=== PATIENT | female | born 1950 | race African-American/Black ===

== ENCOUNTER 2016-10-21 09:17 | Inpatient (IN) | payer OTHER, MEDICARE ==
[~2016-10-21] VITALS: Ht 165.1 cm; Wt 67.6 kg
[~2016-10-21 09:17] MED LIST: AMLODIPINE BES2.5 MG ORAL; ASPIRIN-LOW81 MG ORAL; CARDIZEM CD120 MG ORAL; CLOPIDOGREL75 MG ORAL; FOLIC ACID1 MG ORAL; IMDUR30 MG ORAL; ISOSORBIDE DINIT5 MG ORAL; LISINOPRIL10 MG ORAL; METOPROLOL TART25 MG ORAL; MONTELUKAST SOD10 MG ORAL; NITROSTAT0.3 MG SL; NORCO 10-325 T1 EACH ORAL; NORVASC10 MG ORAL; PANTOPRAZOLE SO40 MG ORAL; PRILOSEC20 MG ORAL; PRINIVIL20 MG ORAL; PROAIR HFA8.5 GM INH; TOPROL XL100 MG ORAL; TRAMADOL HCL50 MG ORAL; VENTOLIN HFA18 GM INH; XANAX1 MG ORAL; ZOCOR10 MG ORAL
[2016-10-21 09:30] VITALS: BP 166/78
[2016-10-21] MEDS ORDERED: UNOBMED (09:57)
[2016-10-21] MEDS ORDERED: Metoclopramide 10mg/2ml Inj IVP ONE (10:00)
[2016-10-21 10:02] LABS: APPEARANCE,URINE SLIGHTLY CLOUDY; KETONES,URINE 3+ (NEGATIVE); LEUKOCYTE ESTERASE ,URINE 1+ (NEGATIVE); NITRITE,URINE NEGATIVE (NEGATIVE); PH,URINE 5 (4.5-8.0); PROTEIN,URINE 2+ (NEGATIVE); UROBILINOGEN,URINE 1 MG/DL (0.0-1.0)
[2016-10-21] MEDS ORDERED: Tubing IV Cassette IV ONE (10:03)
[2016-10-21 10:13] LABS: BASOPHILS % (AUTO) 0.7 % (0.0-2.0); EOSINOPHILS % (AUTO) 0.9 % (0.0-3.0); LYMPHOCYTES % (AUTO) 17.6 % (20.0-45.0); MEAN CORPUSCULAR HEMOGLOBIN 31.9 PG (27.0-31.0); MEAN CORPUSCULAR HGB CONC 31.7 G/DL (32.0-36.0); MEAN CORPUSCULAR VOLUME 101 FL (80-99); MEAN PLATELET VOLUME 8.3 FL (6.5-10.1); NEUTROPHILS % (AUTO) 74.8 % (45.0-75.0); PLATELET COUNT 249 K/UL (150-450); RED BLOOD COUNT 5.07 M/UL (4.20-5.40); RED CELL DISTRIBUTION WIDTH 12.1 % (11.6-14.8); WHITE BLOOD COUNT 12.2 K/UL (4.8-10.8)
--- NOTE | 2016-10-21 10:19 | Emergency Room Report ---
History of Present Illness General Chief Complaint: Abdominal Pain Source: Patient, EMS Present Illness HPI 66 YO F with history of SBO presents with nausea/vomiting, generalized 9/10 sharp non-radiating abd pain worse over last night and no BM for 7 days. Denies fever/chills. Also c/o polyuria. Denies chest pain , SOB. Didnt take anything OTC for pain. She cant remember if she had operation for SBO - EMR states she was transferred. Allergies: Coded Allergies: CODEINE (Unverified Allergy, Unknown, 03/24/14) Patient History Past Medical History: none Past Surgical History: aliya, other - SBO Pertinent Family History: none Social History: Denies: alcohol use, drug use, smoking Now: No Immunizations: UTD Reviewed Nursing Documentation: PMH: Agreed, PSxH: Agreed Nursing Documentation-PMH Past Medical History: No History, Except For Hx Cardiac Problems: Yes - [place] 2007 Hx Hypertension: Yes Hx Asthma: Yes Hx COPD: Yes Hx Cancer: Yes - lung Hx Gastrointestinal Problems: No Hx Neurological Problems: Yes Hx Dizziness: Yes Hx Syncope: Yes - 2013 Hx Headaches: Yes Hx Weakness: Yes Hx Fatigue: Yes Review of Systems All Other Systems: negative except mentioned in HPI Physical Exam Vital Signs Date Time Temp Pulse Resp B/P Pulse Ox O2 Delivery O2 Flow Rate FiO2 10/21/16 09:11 98.2 87 18 187/100 100 Room Air Sp02 EP Interpretation: reviewed, abnormal General Appearance: normal inspection, well appearing, alert, GCS 15, non-toxic , moderate distress Head: normocephalic, atraumatic Eyes: bilateral eye EOMI, bilateral eye PERRL ENT: normal ENT inspection, hearing grossly normal, normal voice Neck: normal inspection, full range of motion, supple, no bony tend Respiratory: normal inspection, lungs clear, normal breath sounds, no respiratory distress, no retraction, no wheezing Cardiovascular #1: regular rate, rhythm, no edema Gastrointestinal: normal inspection, normal bowel sounds, soft, no guarding, no hernia, no pulsatile mass, no rebound, guarding Genitourinary: no CVA tenderness Musculoskeletal: normal inspection, back normal, normal range of motion, Ty' s Sign negative Neurologic: normal inspection, alert, responsive, speech normal Psychiatric: normal inspection, judgement/insight normal, mood/affect normal Skin: normal inspection, normal color, no rash Medical Decision Making Medicare Attestation I Anuj Lui MD hereby attest that the medical record entry for date of service, 08/30/16 accurately reflects signatures/notations that I made in my capacity as MD when I treated/diagnosed the above listed Medicare beneficiary. I attest that this information is true, accurate and complete to the best of my knowledge. I understand that any falsification, omission, or concealment of material fact may subject me to administrative, civil, or criminal liability. This patient warrants hospital admission for extreme of age and has a condition that cannot be treated as outpatient. Diagnostic Impression: Primary Impression: Abdominal pain Qualified Codes: R10.84 - Generalized abdominal pain Additional Impressions: Nausea vomiting and diarrhea Hydronephrosis of right kidney ER Course Abd pain with involuntary guarding. History of SBO. VS notable for hypertension, likely d/t pain. Concernign for recurrent SBO given no BM for 7 days PLAN: Labs, Lactate, analgesia, CTAP, reassess EKG Diagnostic Results Rate: normal Rhythm: NSR ST Segments: no acute changes ASA given to the pt in ED: No Rhythm Strip Diag. Results EP Interpretation: yes Rate: 70. Rhythm: NSR, no PVC's, no ectopy Chest X-Ray Diagnostic Results EP Interpretation: Yes Findings: no consolidation, no effusion, no pneumothorax, no acute cardiopulmonary disease Number of Views: 1 Reevaluation Time: 14:41 Last Vital Signs Date Time Temp Pulse Resp B/P Pulse Ox O2 Delivery O2 Flow Rate FiO2 10/21/16 09:30 77 18 166/78 99 Room Air 10/21/16 09:11 98.2 Status: improved Reevaluation Impression labs: leuks 12k. lactate 0.6 total bili and LFTs normal Trop 0 UA gross hematuria, no UTI CTAP: "Moderate right hydronephrosis, new 05/24/2016, without definite obstructing lesion identified. Extrahepatic biliary ductal dilatation, without evidence of downstream obstruction lesion, also evident previously. Most likely related to age and postcholecystectomy state. However, degree of distention and presence of central intrahepatic biliary dilatation appears slightly increased since the prior study, and downstream obstruction not completely excludable. not definitely cystic." No SBO Incidental: 2.2 x 1.2 cm right lung lesion, present since 2014, be slightly larger than on that exam. Patient still with significant abdominal pain. Doubt SBO. Doubt cardiac cause given EKG normal and Troponin 0. ?post cholecystectomy syndrome but bili and WBC normal. Endorsed to Dr Lyn at 3pm for med/surg admission/obs over night Disposition: ADMITTED INPATIENT Condition: Serious Referrals: NOT CHOSEN IPA/,REFERRING (PCP) ANUJ LUI M.D. Oct 21, 2016 10:19
[2016-10-21 10:24] LABS: TROPONIN I < 0.30 ng/mL (<=0.30)
[2016-10-21 10:25] LABS: ALANINE AMINOTRANSFERASE 5 U/L (3-33); ALBUMIN/GLOBULIN RATIO 1.4 (1.0-2.7); ANION GAP 19 (5-15); ASPARTATE AMINO TRANSFERASE 15 U/L (5-40); CALCIUM 11.3 mg/dL (8.6-10.2); CARBON DIOXIDE 21 mEQ/L (20-30); CHLORIDE 103 mEQ/L (98-107); CREATININE 0.9 mg/dL (0.5-0.9); GLOMERULAR FILTRATION RATE > 60 mL/min (>60); HEMOLYSIS 11; LIPASE 17 U/L (< 60); POTASSIUM 4.6 mEQ/L (3.4-4.9); SODIUM 143 mEQ/L (135-145); TOTAL PROTEIN 7.2 g/dL (6.6-8.7)
[2016-10-21 10:26] LABS: BACTERIA,URINE FEW /HPF; RBC,URINE 30-40 /HPF (0 - 2); SQUAMOUS EPITHELIAL CELL,UR FEW /LPF (NONE/OCC)
[2016-10-21] MEDS ORDERED: Morphine Sulfate 4mg/ml Inj IVP ONE (10:30)
[2016-10-21 12:00] VITALS: BP 163/74
--- NOTE | 2016-10-21 14:16 | Diagnostic Imaging Report ---
Clinical Indication: Abdominal pain 66-year-old female with history of small bowel obstruction, nausea, vomiting, diabetic and sharp nonradiating abdominal pain, no bowel movement for 7 days Technique: No oral contrast utilized, per emergency room physician request IV administration nonionic contrast. Venous phase spiral acquisition obtained through the abdomen and pelvis. Multiplanar reconstructions were generated. Total dose length product 844 mGycm. CTDIvol(s) 17 mGy Comparison: 05/24/2016 Findings: There is interim development of moderate right hydronephrosis. There is ectasia of only the most proximal portion of the right ureter. There is no perinephric fat stranding. No definite ureteral calculi are evident, although multiple other calcifications within the pelvis preclude complete exclusion of such. There is slight prominence of the left renal pelvis and collecting system, although is not frankly hydronephrotic. There is 3 mm calculus in the right lower pole collecting system. This was not visible previously, although a calculus was visible in the upper pole on the prior exam which is not evident currently. Right kidney demonstrates subcentimeter low-attenuation lesions which are too small to characterize, most likely benign simple cysts. In addition, there is a lesion in the upper pole of the right kidney which is approximately 1 cm diameter, possibly but not definitely cystic. This is also evident previously, does appear unchanged. Lack of enteric contrast limits assessment of the bowel. There is colonic diverticulosis. No evidence of diverticulitis. The appendix is normal. The distal esophagus and stomach are unremarkable. No small bowel distention. No free or loculated intraperitoneal air or fluid is demonstrated. The gallbladder is surgically absent. There is dilatation of the, common bile duct, which measures 13 mm diameter. This is also evident previously. No downstream obstruction lesion is demonstrated. However, there is mild central intrahepatic biliary ductal dilatation which is more striking than on the prior study. The pancreatic duct is also ectatic. The liver itself is unremarkable. The pancreas is atrophic. The spleen, adrenals are unremarkable. The uterus is not demonstrated, presumed surgically absent. No pelvic mass or adenopathy. What are probably normal ovaries are demonstrated. The right lung base again demonstrates a triangular soft tissue mass adjacent to the inferior major fissure, which is somewhat irregular in shape, measures 2.2 x 1.2 cm, appears similar in size to the previous exam. This was also evident on prior study of 12/18/2014. It is slightly more prominent than the heart is enlarged. The bones demonstrate degenerative changes of the lumbar spine. On that exam. Impression: Moderate right hydronephrosis, new 05/24/2016, without definite obstructing lesion identified. Consider retrograde ureterography for better characterization. There is also mild fullness to the left renal collecting system, without hydronephrosis, which is also new since the previous study. Extrahepatic biliary ductal dilatation, without evidence of downstream obstruction lesion, also evident previously. Most likely related to age and postcholecystectomy state. However, degree of distention and presence of central intrahepatic biliary dilatation appears slightly increased since the prior study, and downstream obstruction not completely excludable. Consider MRCP for better characterization 1 cm diameter lesion in the upper pole the right kidney, appears stable, likely but not definitely cystic. Further evaluation with ultrasound should be considered. 2.2 x 1.2 cm right lung lesion, present since 2014, be slightly larger than on that exam. Suspect postinflammatory, but neoplasm not completely excludable and further followup is recommended Degenerative spondylosis Evidence of prior hysterectomy Colonic diverticulosis. No evidence -- of diverticulitis No evidence of small bowel obstruction Findings discussed by phone with Dr. Barnett in the emergency room at the time of interpretation The CT scanner at [facility] is accredited by the [employer] and the scans are performed using protocols designed to limit radiation exposure to as low as reasonably achievable to attain images of sufficient resolution adequate for diagnostic evaluation.
[2016-10-21] MEDS ORDERED: HYDROmorphone 1 MG, DiphenhydrAMINE 25 MG in NS 55 ML IVPB ONE (15:15)
[2016-10-21 15:22] VITALS: BP 148/62
[2016-10-21] MEDS ORDERED: HYDROmorphone 1mg/ml Carpuject ONE (15:34)
[2016-10-21] MEDS ORDERED: DiphenhydrAMINE 50mg/ml Inj ONE (15:34)
[2016-10-21 16:45] VITALS: BP 162/81
[2016-10-21] MEDS ORDERED: Nitroglycerin Subl 0.4mg tab (Bottle Of 25) SL PRN (18:00)
[2016-10-21] MEDS ORDERED: Norco 10mg/325mg tab ORAL PRN (18:00)
[2016-10-21] MEDS ORDERED: traMADol 50mg tab ORAL PRN (18:00)
[2016-10-21] MEDS: Norco 10mg/325mg tab ORAL PRN (18:42)
[2016-10-21] MEDS: Potassium Chloride 30 MEQ in 1/2 NS 1000ml 1,000 ML IV SCH (19:45)
[2016-10-21] MEDS: ALPRAZolam 0.5mg tab ORAL PRN (20:38)
[2016-10-21] MEDS: Labetalol 200mg tab ORAL SCH (20:39)
[2016-10-21 23:48] VITALS: BP 159/89
[2016-10-22] MEDS: Norco 10mg/325mg tab ORAL PRN ×6 (01:06→22:45)
[2016-10-22 04:00] VITALS: BP 126/52
[2016-10-22] MEDS: Potassium Chloride 30 MEQ in 1/2 NS 1000ml 1,000 ML IV SCH ×2 (07:40→22:04)
[2016-10-22 08:26] VITALS: BP 125/57
[2016-10-22] MEDS ORDERED: Metoprolol XL 100mg tab ORAL SCH (09:00)
[2016-10-22] MEDS: Aspirin Baby 81mg NG SCH (09:00)
[2016-10-22] MEDS: Labetalol 200mg tab ORAL SCH ×2 (09:00→20:25)
[2016-10-22] MEDS ORDERED: ALPRAZolam 0.5mg tab ORAL SCH (09:00)
[2016-10-22] MEDS: Lisinopril 20mg tab ORAL SCH (09:02)
[2016-10-22] MEDS: Montelukast 10mg tablet ORAL SCH (09:02)
[2016-10-22] MEDS: Diltiazem CD 120mg cap ORAL SCH (09:03)
[2016-10-22] MEDS: Imdur 30mg tab ORAL SCH (09:07)
--- NOTE | 2016-10-22 10:03 | Diagnostic Imaging Report ---
Indication: Chest pain Technique: One view of the chest Comparison: 05/24/2016 Findings: The lungs and pleural spaces are clear. The heart size is upper limits normal. Aorta is calcified. There are bursal calcifications in the shoulders bilaterally again demonstrated. There is no significant interim change Impression: No acute process
[2016-10-22] MEDS ORDERED: NS 55ml IV ONE (10:31)
[2016-10-22 11:55] VITALS: BP 127/55
--- NOTE | 2016-10-22 12:57 | History and Physical Report ---
DATE OF ADMISSION: 10/21/2016 CHIEF COMPLAINT: Abdominal pain. HISTORY OF PRESENT ILLNESS: This is a 66-year-old female, who is well known to me from previous admission to this hospital in April 2016. The patient has been complaining of diffuse nonspecific abdominal pain. The patient has history of narcotic dependence. Primary physician is Dr. Blue at [facility]. She is admitted for pain control. The patient since admission has been demanding to get through to receive intravenous narcotics. PAST MEDICAL HISTORY: 1. Urolithiasis. 2. Chronic low back pain. 3. Chronic obstructive pulmonary disease. 4. Hypertensive cardiovascular disease. MEDICATIONS: List is very long and [place], albuterol inhaler, Xanax, amlodipine, baby aspirin, Plavix, diltiazem, folic acid, Imdur, lisinopril, metoprolol, Montelukast, nitroglycerin, omeprazole, Protonix, simvastatin, and tramadol. ALLERGIES: The patient claims that she is allergic to codeine, but upon further questioning, it is not a true allergy, but rather side effect expressed her nausea and vomiting. FAMILY HISTORY: Unremarkable. SOCIAL HISTORY: She lives at home. HABITS: She is nonsmoker and nondrinker. There is no history of illicit drug abuse. REVIEW OF SYSTEMS: HEENT: Hearing and eyesight are normal. Endocrine: No history of diabetes, thyroid, or adrenal problems. Respiratory: She denies shortness of breath, cough, or hemoptysis. Cardiovascular: She denies chest pain or palpitations. Gastrointestinal: No history of hematochezia, melena, hematemesis, diarrhea, or constipation. Genitourinary: She denies dysuria, frequency, urgency, or hematuria. Neurologic: No history of stroke, syncope, or Parkinson disease. PHYSICAL EXAMINATION: GENERAL: This is an elderly female, who is in no acute distress. VITAL SIGNS: Blood pressure 160/80, pulse 80 regular, respirations 20, and temperature 98.0 degrees. HEENT: The head is normocephalic and atraumatic. Pupils are equal, round, and reactive to light and accommodation consensually. NECK: Supple. Trachea midline. There was no lymphadenopathy or thyromegaly. LUNGS: Clear to auscultation and percussion. HEART: Regular rate and rhythm without rubs, murmurs, or gallops. ABDOMEN: Soft. Bowel sounds active. EXTREMITIES: No clubbing, cyanosis, or edema. NEUROLOGIC: She is alert and oriented x4. Cranial nerves II through XII are are intact. LABORATORY AND ANCILLARY DATA: EKG, normal sinus rhythm, no signs of ischemia. Chest x-ray, no acute disease. . CT abdomen and pelvis with contrast shows moderate right hydronephrosis with ectasia of the most proximal portion of the right ureter. There is a 1 cm in diameter. The gallbladder is surgically absent. Conclusion, there is a moderate right hydronephrosis since April 2016 without definite obstructive lesion. There is a 1 cm diameter lesion in the upper pole of the right kidney. There is a cm right lung lesion and the present since 2014. ASSESSMENT: 1. Right hydronephrosis new finding, etiology significance unclear. 2. Right lung mass etiology significance unclear. None of these lesions can explain the patient's symptoms. 3. . PLAN: 1. Urology and Pulmonary consults. 2. Intravenous fluids. 3. Continue home medications. 4. Pain control. 5. Transferred to [facility] when asked. Osiris Cassidy M.D. DR: MARLY JOB#: [id number] CC:
[2016-10-22] MEDS: Docusate 250mg cap ORAL SCH ×2 (13:18→17:22)
[2016-10-22 16:00] VITALS: BP 114/60
--- NOTE | 2016-10-22 17:01 | Consultation ---
Consult Note Consult Note REASON FOR CONSULT: lung mass HISTORY OF PRESENT ILLNESS: 66-year-old female, previously admitted in April 2016. The patient with diffuse nonspecific abdominal pain. The patient has history of narcotic dependence. She is admitted for pain control but also underwent a CT of abdomen and noted to have a lung mass. She denies any history of cough,hemoptysis. Findings suggest size has enlarged in size overall. no weight loss reported. no prior history of malignancy noted The patient demanding intravenous narcotics. PAST MEDICAL HISTORY: 1. Urolithiasis. 2. Chronic low back pain. 3. Chronic obstructive pulmonary disease. 4. Hypertensive cardiovascular disease. 5. prior lung nodule 6. hypertension 7. high cholesterol 8. chronic opiod dependence 9. GERD MEDICATIONS: reviewed ALLERGIES: noted FAMILY HISTORY: Unremarkable. SOCIAL HISTORY: at home; disabled; unemployed HABITS: She is nonsmoker and nondrinker. There is no history of illicit drug abuse. REVIEW OF SYSTEMS: all 10 points reviewed and otherwise negative PHYSICAL EXAMINATION: GENERAL: elderly female, who is in no acute distress. VITAL SIGNS: Blood pressure 160/80, pulse 80 regular, respirations 20, and temperature 98.0 degrees. HEENT: The head is normocephalic and atraumatic. Pupils are equal, round, and reactive to light and accommodation consensually. oropharynx clear NECK: Supple. Trachea midline. no lymph nodes LUNGS: Clear to auscultation and percussion. no rhonchi or wheeze HEART: Regular rate and rhythm without rubs, murmurs, or gallops. ABDOMEN: Soft. Bowel sounds active. no HSM EXTREMITIES: No clubbing, cyanosis, or edema. NEUROLOGIC: She is alert and oriented x4. nonfocal LABORATORY AND ANCILLARY DATA: EKG, normal sinus rhythm, no signs of ischemia. Chest x-ray, no acute disease. CT abdomen and pelvis with contrast shows there is a moderate right hydronephrosis since April 2016 without definite obstructive lesion. There is a 1 cm diameter lesion in the upper pole of the right kidney. There is a 2 cm right lung lesion previously noted in 2014. ASSESSMENT: 1. Right hydronephrosis 2. Right lung mass 3. Chronic pain 4. hypertension 5. hypercholesterolemia 6. GERD PLAN: 1. Pain management 2. CT chest 3. Outpatient PET 4. review prior scans 5. CT guided biopsy vs. navigational bronchoscopy 6. metastatic work up if indicated TAMARA AGUERO Oct 22, 2016 17:01
[2016-10-22 20:15] VITALS: BP 112/51
[2016-10-22] MEDS: ALPRAZolam 0.5mg tab ORAL PRN (20:24)
[2016-10-22] MEDS: traMADol 50mg tab ORAL PRN (20:25)
[2016-10-23] VITALS: BP 96/48
--- NOTE | 2016-10-23 01:17 | Consultation ---
DATE OF CONSULTATION: 10/22/2016 CONSULTING PHYSICIAN: Eduardo Moar M.D. REFERRING PHYSICIAN: Osiris Cassidy M.D. REASON FOR CONSULTATION: For the evaluation of hydronephrosis. HISTORY OF PRESENT ILLNESS: This is a 66-year-old female, who was admitted to the hospital because of abdominal pain. The patient had a workup including CT scan, which showed right-sided hydronephrosis. Urology evaluation is requested. Apparently, the patient does have a history of nephrolithiasis. The patient states that the pain is diffuse. She is actually complaining of more pain on the left side of her abdomen, left flank, and mostly epigastric. She has some urinary frequency. PAST MEDICAL HISTORY: Significant for above. Also chronic low back pain, COPD, and hypertension. PAST SURGICAL HISTORY: She has had a cholecystectomy and hysterectomy. CURRENT MEDICATIONS: Here in the hospital, the patient is on Ultram, Colace, Norvasc, aspirin, Plavix, Cardizem, folate, Imdur, Prinivil, singular, Protonix, [place], Zofran, Lipitor, Normodyne, Xanax, Tylenol, and nitroglycerin. ALLERGIES: To codeine. SOCIAL HISTORY: She is currently a nonsmoker. REVIEW OF SYSTEMS: As above. FAMILY HISTORY: Noncontributory. PHYSICAL EXAMINATION: GENERAL: The patient is an elderly female, in no acute distress. VITAL SIGNS: Temperature is 98.1, blood pressure 140/60, pulse 60, and respirations 21. HEENT: Normocephalic. NECK: Supple. ABDOMEN: Soft. BACK: No CVA tenderness. EXTREMITIES: No clubbing or cyanosis. LABORATORY DATA: UA showed 30 to 40 RBCs, 2+ protein, white count is 12.2, hemoglobin 15.2, and platelets are 249, BUN is 10 and creatinine 0.9. Potassium 4.6. DIAGNOSTIC IMAGING STUDIES: The patient had a CT scan of abdomen and pelvis. There was mention of moderate right-sided hydronephrosis without any definite obstructive lesion or stone seen on the ureter. There was also mention of fullness in the left renal collecting system. There is mention of renal cyst as well as nonobstructive renal calculi. There was also mention of a mass of the right lung base, which apparently was evident on previous studies also. IMPRESSION: 1. Right-sided hydronephrosis. 2. Nephrolithiasis. 3. Renal cysts. 4. Hematuria. 5. Proteinuria. 6. Urinary frequency. Plan And Discussion: Again as noted above, the patient does have some right-sided hydronephrosis and fullness of the left collecting system. By CT scan, there was no mention of any perinephric fat stranding. I am not sure if the hydronephrosis is obstructive. There are no stones in the ureter. She does have abdominal pain which is diffuse and not localized. I am not sure if the pain has anything to do with hydronephrosis. The renal function is stable. She does however have likely hematuria. At this time, I would recommend checking a bladder scan 03:36 Allan catheter. At some point, she will need to have cystoscopy possibly retrograde pyelogram for further evaluation. This can be done on an elective basis once she is more medically stable. I will follow the patient. Any other recommendations will be forthcoming. Thank you, Dr. Downs, for asking me to . Bonny Castro JOB#: [id number] CC: Osiris Cassidy M.D.; Fax#: [phone] Solomon M.D. ; Fax#: [phone]
[2016-10-23] MEDS: Norco 10mg/325mg tab ORAL PRN ×3 (03:56→13:22)
[2016-10-23 04:00] VITALS: BP 142/61
[2016-10-23 08:00] VITALS: BP 133/64
[2016-10-23] MEDS: Aspirin Baby 81mg NG SCH (08:55)
[2016-10-23] MEDS: Diltiazem CD 120mg cap ORAL SCH (08:55)
[2016-10-23] MEDS: Docusate 250mg cap ORAL SCH ×2 (08:55→17:56)
[2016-10-23] MEDS: Imdur 30mg tab ORAL SCH (08:56)
[2016-10-23] MEDS: Labetalol 200mg tab ORAL SCH ×2 (08:57→20:54)
[2016-10-23] MEDS: Montelukast 10mg tablet ORAL SCH (09:02)
[2016-10-23] MEDS: Lisinopril 20mg tab ORAL SCH (09:02)
[2016-10-23] MEDS: Potassium Chloride 30 MEQ in 1/2 NS 1000ml 1,000 ML IV SCH (11:36)
[2016-10-23 11:49] VITALS: BP 125/62
--- NOTE | 2016-10-23 12:02 | Pulmonology Progress Note ---
Assessment/Plan Assessment/Plan ASSESSMENT: 1. Right hydronephrosis 2. Right lung mass 3. Chronic pain 4. hypertension 5. hypercholesterolemia 6. GERD PLAN await CT continue same pain control monitor clinically and discuss findings reviewed with patient impression, plan, and exam edited and reviewed in detail care discussed with RN Subjective Allergies: Coded Allergies: CODEINE (Unverified Allergy, Unknown, 03/24/14) Subjective care noted awaiting CT Objective Last 24 Hour Vital Signs Date Time Temp Pulse Resp B/P Pulse Ox O2 Delivery O2 Flow Rate FiO2 10/23/16 11:49 96.3 60 18 125/62 100 Room Air 10/23/16 09:02 124/65 10/23/16 08:57 63 124/65 10/23/16 08:57 63 124/65 10/23/16 08:56 124/65 10/23/16 08:55 63 124/65 10/23/16 08:00 97.5 80 18 133/64 97 Room Air 10/23/16 04:00 98.4 71 20 142/61 98 Room Air 10/23/16 00:00 97.3 61 20 96/48 95 Room Air 10/22/16 21:24 98.4 10/22/16 20:25 56 112/51 10/22/16 20:15 98.4 56 19 112/51 98 Room Air 10/22/16 18:22 98.4 10/22/16 16:00 98.1 60 21 114/60 98 Room Air Bad tableObjective GENERAL: elderly female, who is in no acute distress. HEENT: The head is normocephalic and atraumatic. Pupils are equal, round, and reactive to light and accommodation consensually. oropharynx clear NECK: Supple. Trachea midline. no lymph nodes LUNGS: Clear to auscultation and percussion. no rhonchi or wheeze HEART: Regular rate and rhythm without rubs, murmurs, or gallops. ABDOMEN: Soft. Bowel sounds active. no HSM EXTREMITIES: No clubbing, cyanosis, or edema. NEUROLOGIC: She is alert and oriented x4. nonfocal Microbiology Date/Time Source Procedure Growth Status 10/21/16 15:40 Nasal Nares MRSA Culture - Final NO METHICILLIN RESISTANT STAPH AUREUS... Complete 10/22/16 05:00 Straight Cath Urine Culture - Preliminary NO GROWTH AFTER 24 HOURS Resulted 1/26/17 15:40 Rectum VRE Culture - Final NO VANCOMYCIN RESISTANT ENTEROCOCCUS ... Complete Current Medications Medications (Trade) Dose Ordered Sig/Janee Route PRN Reason Start Time Stop Time Status Last Admin Dose Admin Acetaminophen (Tylenol) 650 mg Q6H PRN ORAL Mild Pain/Temp > 100.5 10/21/16 18:00 11/20/16 17:59 Acetaminophen/ Hydrocodone Bitart ([place] 10/325) 1 ea Q4H PRN ORAL SEVERE PAIN 10/21/16 22:00 10/28/16 21:59 10/23/16 09:03 Alprazolam (Xanax) 1 mg Q6H PRN ORAL anxiety 10/21/16 20:00 10/28/16 19:59 10/22/16 20:24 Amlodipine Besylate (Norvasc) 10 mg DAILY ORAL 10/22/16 09:00 11/21/16 08:59 10/23/16 08:57 Aspirin (ASA) 81 mg DAILY NG 10/22/16 09:00 11/21/16 08:59 10/23/16 08:55 Atorvastatin Calcium (Lipitor) 5 mg BEDTIME ORAL 10/21/16 21:00 11/20/16 20:59 10/22/16 20:25 Clopidogrel Bisulfate (Plavix) 75 mg DAILY ORAL 10/22/16 09:00 11/21/16 08:59 10/23/16 08:57 Diltiazem HCl (Cardizem CD) 120 mg DAILY ORAL 10/22/16 09:00 11/21/16 08:59 10/23/16 08:55 Docusate Sodium (Colace) 250 mg BID ORAL 10/22/16 12:30 11/21/16 12:29 10/23/16 08:55 Folic Acid (Folate) 1 mg DAILY ORAL 10/22/16 09:00 11/21/16 08:59 10/23/16 08:56 Isosorbide Mononitrate (Imdur) 30 mg DAILY ORAL 10/22/16 09:00 11/21/16 08:59 10/23/16 08:56 Labetalol HCl (Normodyne) 200 mg Q12HR ORAL 10/21/16 21:00 11/20/16 20:59 10/23/16 08:57 Lisinopril (Prinivil) 40 mg DAILY ORAL 10/22/16 09:00 11/21/16 08:59 10/23/16 09:02 Montelukast Sodium (Singulair) 10 mg DAILY ORAL 10/22/16 09:00 11/21/16 08:59 10/23/16 09:02 Nitroglycerin (Ntg) 0.4 mg Q5MIN X 3 DOSES PRN SL Prn Chest Pain 10/21/16 18:00 11/20/16 17:59 Ondansetron HCl (Zofran ODT) 4 mg Q6H PRN ORAL Nausea & Vomiting 10/21/16 21:15 11/20/16 21:14 10/22/16 16:06 Pantoprazole (Protonix) 40 mg DAILY ORAL 10/22/16 09:00 11/21/16 08:59 10/23/16 09:02 Potassium Chloride/Sodium Chloride (KCl/0.45% NS 1000ml) 1,015 ml @ 75 mls/hr [id number] IV 10/21/16 19:00 11/20/16 18:59 10/21/16 19:45 Tramadol HCl (Ultram) 50 mg Q6H PRN ORAL MODERATE PAIN 10/22/16 18:37 10/29/16 18:36 10/22/16 20:25 TAMARA AGUERO Oct 23, 2016 12:02
--- NOTE | 2016-10-23 13:20 | General Progress Note ---
Assessment/Plan Assessment/Plan Nonspecific Abd Pain. Rt hydronephrosis - Urology w/u. Subjective Allergies: Coded Allergies: CODEINE (Unverified Allergy, Unknown, 03/24/14) Subjective Still c/o diffuse abd. pain Objective Last 24 Hour Vital Signs Date Time Temp Pulse Resp B/P Pulse Ox O2 Delivery O2 Flow Rate FiO2 10/23/16 11:49 96.3 60 18 125/62 100 Room Air 10/23/16 09:02 124/65 10/23/16 08:57 63 124/65 10/23/16 08:57 63 124/65 10/23/16 08:56 124/65 10/23/16 08:55 63 124/65 10/23/16 08:00 97.5 80 18 133/64 97 Room Air 10/23/16 04:00 98.4 71 20 142/61 98 Room Air 10/23/16 00:00 97.3 61 20 96/48 95 Room Air 10/22/16 21:24 98.4 10/22/16 20:25 56 112/51 10/22/16 20:15 98.4 56 19 112/51 98 Room Air 10/22/16 18:22 98.4 10/22/16 16:00 98.1 60 21 114/60 98 Room Air Bad tableHeight (Feet): 5 Height (Inches): 5.00 Weight (Pounds): 149 Objective Cv RR Lungs CTA Abd SNT. BS + E No EVELIOE ZE KEMP Oct 23, 2016 13:20
--- NOTE | 2016-10-23 15:50 | Urology Progress Note ---
Assessment/Plan Assessment/Plan 1. Right-sided hydronephrosis. 2. Nephrolithiasis. 3. Renal cysts. 4. Hematuria. 5. Proteinuria. 6. Urinary frequency. monitor clinically abdominal pain does not appear to be in origin f/u on urine cx Subjective Allergies: Coded Allergies: CODEINE (Unverified Allergy, Unknown, 03/24/14) Subjective feels fair, PVR 26 cc by nurse report Objective Last 24 Hour Vital Signs Date Time Temp Pulse Resp B/P Pulse Ox O2 Delivery O2 Flow Rate FiO2 10/23/16 11:49 96.3 60 18 125/62 100 Room Air 10/23/16 09:02 124/65 10/23/16 08:57 63 124/65 10/23/16 08:57 63 124/65 10/23/16 08:56 124/65 10/23/16 08:55 63 124/65 10/23/16 08:00 97.5 80 18 133/64 97 Room Air 10/23/16 04:00 98.4 71 20 142/61 98 Room Air 10/23/16 00:00 97.3 61 20 96/48 95 Room Air 10/22/16 21:24 98.4 10/22/16 20:25 56 112/51 10/22/16 20:15 98.4 56 19 112/51 98 Room Air 10/22/16 18:22 98.4 10/22/16 16:00 98.1 60 21 114/60 98 Room Air Bad table Microbiology Date/Time Source Procedure Growth Status 10/21/16 15:40 Nasal Nares MRSA Culture - Final NO METHICILLIN RESISTANT STAPH AUREUS... Complete 10/22/16 05:00 Straight Cath Urine Culture - Preliminary NO GROWTH AFTER 24 HOURS Resulted 10/21/16 15:40 Rectum VRE Culture - Final NO VANCOMYCIN RESISTANT ENTEROCOCCUS ... Complete Current Medications Medications (Trade) Dose Ordered Sig/Janee Route PRN Reason Start Time Stop Time Status Last Admin Dose Admin Acetaminophen (Tylenol) 650 mg Q6H PRN ORAL Mild Pain/Temp > 100.5 10/21/16 18:00 11/20/16 17:59 Acetaminophen/ Hydrocodone Bitart ([place] 10/325) 1 ea Q4H PRN ORAL SEVERE PAIN 10/21/16 22:00 10/28/16 21:59 10/23/16 13:22 Alprazolam (Xanax) 1 mg Q6H PRN ORAL anxiety 10/21/16 20:00 10/28/16 19:59 10/22/16 20:24 Amlodipine Besylate (Norvasc) 10 mg DAILY ORAL 10/22/16 09:00 11/21/16 08:59 10/23/16 08:57 Aspirin (ASA) 81 mg DAILY NG 10/22/16 09:00 11/21/16 08:59 10/23/16 08:55 Atorvastatin Calcium (Lipitor) 5 mg BEDTIME ORAL 10/21/16 21:00 11/20/16 20:59 10/22/16 20:25 Clopidogrel Bisulfate (Plavix) 75 mg DAILY ORAL 10/22/16 09:00 11/21/16 08:59 10/23/16 08:57 Diltiazem HCl (Cardizem CD) 120 mg DAILY ORAL 10/22/16 09:00 11/21/16 08:59 10/23/16 08:55 Docusate Sodium (Colace) 250 mg BID ORAL 10/22/16 12:30 11/21/16 12:29 10/23/16 08:55 Folic Acid (Folate) 1 mg DAILY ORAL 10/22/16 09:00 11/21/16 08:59 10/23/16 08:56 Isosorbide Mononitrate (Imdur) 30 mg DAILY ORAL 10/22/16 09:00 11/21/16 08:59 10/23/16 08:56 Labetalol HCl (Normodyne) 200 mg Q12HR ORAL 10/21/16 21:00 11/20/16 20:59 10/23/16 08:57 Lisinopril (Prinivil) 40 mg DAILY ORAL 10/22/16 09:00 11/21/16 08:59 10/23/16 09:02 Montelukast Sodium (Singulair) 10 mg DAILY ORAL 10/22/16 09:00 11/21/16 08:59 10/23/16 09:02 Nitroglycerin (Ntg) 0.4 mg Q5MIN X 3 DOSES PRN SL Prn Chest Pain 10/21/16 18:00 11/20/16 17:59 Ondansetron HCl (Zofran ODT) 4 mg Q6H PRN ORAL Nausea & Vomiting 10/21/16 21:15 11/20/16 21:14 10/22/16 16:06 Pantoprazole (Protonix) 40 mg DAILY ORAL 10/22/16 09:00 11/21/16 08:59 10/23/16 09:02 Potassium Chloride/Sodium Chloride (KCl/0.45% NS 1000ml) 1,015 ml @ 75 mls/hr [id number] IV 10/21/16 19:00 11/20/16 18:59 10/21/16 19:45 Tramadol HCl (Ultram) 50 mg Q6H PRN ORAL MODERATE PAIN 10/22/16 18:37 10/29/16 18:36 10/22/16 20:25 Height (Feet): 5 Height (Inches): 5.00 Weight (Pounds): 149 Objective exam stable ANGEL RIVERA Oct 23, 2016 15:50
[2016-10-23 16:00] VITALS: BP 117/62
[2016-10-23] MEDS: traMADol 50mg tab ORAL PRN (17:57)
[2016-10-23] MEDS: ALPRAZolam 0.5mg tab ORAL PRN (17:57)
[2016-10-23 20:00] VITALS: BP 126/60
[2016-10-24 00:09] VITALS: BP 118/67
[2016-10-24] MEDS: Potassium Chloride 30 MEQ in 1/2 NS 1000ml 1,000 ML IV SCH (01:08)
[2016-10-24 04:00] VITALS: BP 138/64
--- NOTE | 2016-10-24 06:12 | Pulmonology Progress Note ---
Assessment/Plan Assessment/Plan ASSESSMENT: 1. Right hydronephrosis 2. Right lung mass 3. Chronic pain 4. hypertension 5. hypercholesterolemia 6. GERD PLAN await CT patient aware of lung nodule and need for follow up continue same pain control monitor clinically and discuss findings reviewed with patient may dc with outpatient work up as will need PET as well impression, plan, and exam edited and reviewed in detail care discussed with RN Subjective Allergies: Coded Allergies: CODEINE (Unverified Allergy, Unknown, 03/24/14) Subjective care noted awaiting CT asking for pain medications Objective Last 24 Hour Vital Signs Date Time Temp Pulse Resp B/P Pulse Ox O2 Delivery O2 Flow Rate FiO2 10/24/16 04:00 96.8 63 20 138/64 100 Room Air 10/24/16 00:09 97.2 72 18 118/67 98 Room Air 10/23/16 20:54 61 117/62 10/23/16 20:00 97.5 67 18 126/60 97 Room Air 10/23/16 16:00 98.2 61 18 117/62 99 Room Air 10/23/16 11:49 96.3 60 18 125/62 100 Room Air 10/23/16 09:02 124/65 10/23/16 08:57 63 124/65 10/23/16 08:57 63 124/65 10/23/16 08:56 124/65 10/23/16 08:55 63 124/65 10/23/16 08:00 97.5 80 18 133/64 97 Room Air Intake and Output 10/23/16 10/24/16 19:00 07:00 Intake Total 480 ml Balance 480 ml Intake Oral 480 ml # Voids 2 Objective GENERAL: elderly female, who is in no acute distress. HEENT: The head is normocephalic and atraumatic. Pupils are equal, round, and reactive to light and accommodation consensually. oropharynx clear NECK: Supple. Trachea midline. no lymph nodes LUNGS: Clear to auscultation and percussion. no rhonchi or wheeze HEART: Regular rate and rhythm without rubs, murmurs, or gallops. ABDOMEN: Soft. Bowel sounds active. no HSM EXTREMITIES: No clubbing, cyanosis, or edema. NEUROLOGIC: She is alert and oriented x4. nonfocal Microbiology Date/Time Source Procedure Growth Status 10/21/16 15:40 Nasal Nares MRSA Culture - Final NO METHICILLIN RESISTANT STAPH AUREUS... Complete 10/22/16 05:00 Straight Cath Urine Culture - Preliminary NO GROWTH AFTER 24 HOURS Resulted 10/21/16 15:40 Rectum VRE Culture - Final NO VANCOMYCIN RESISTANT ENTEROCOCCUS ... Complete Current Medications Medications (Trade) Dose Ordered Sig/Janee Route PRN Reason Start Time Stop Time Status Last Admin Dose Admin Acetaminophen (Tylenol) 650 mg Q6H PRN ORAL Mild Pain/Temp > 100.5 10/21/16 18:00 11/20/16 17:59 Acetaminophen/ Hydrocodone Bitart ([place] 10/325) 1 ea Q4H PRN ORAL SEVERE PAIN 10/21/16 22:00 10/28/16 21:59 10/23/16 13:22 Alprazolam (Xanax) 1 mg Q6H PRN ORAL anxiety 10/21/16 20:00 10/28/16 19:59 10/23/16 17:57 Amlodipine Besylate (Norvasc) 10 mg DAILY ORAL 10/22/16 09:00 11/21/16 08:59 10/23/16 08:57 Aspirin (ASA) 81 mg DAILY NG 10/22/16 09:00 11/21/16 08:59 10/23/16 08:55 Atorvastatin Calcium (Lipitor) 5 mg BEDTIME ORAL 10/21/16 21:00 11/20/16 20:59 10/23/16 20:53 Clopidogrel Bisulfate (Plavix) 75 mg DAILY ORAL 10/22/16 09:00 11/21/16 08:59 10/23/16 08:57 Diltiazem HCl (Cardizem CD) 120 mg DAILY ORAL 10/22/16 09:00 11/21/16 08:59 10/23/16 08:55 Docusate Sodium (Colace) 250 mg BID ORAL 10/22/16 12:30 11/21/16 12:29 10/23/16 17:56 Folic Acid (Folate) 1 mg DAILY ORAL 10/22/16 09:00 11/21/16 08:59 10/23/16 08:56 Isosorbide Mononitrate (Imdur) 30 mg DAILY ORAL 10/22/16 09:00 11/21/16 08:59 10/23/16 08:56 Labetalol HCl (Normodyne) 200 mg Q12HR ORAL 10/21/16 21:00 11/20/16 20:59 10/23/16 20:54 Lisinopril (Prinivil) 40 mg DAILY ORAL 10/22/16 09:00 11/21/16 08:59 10/23/16 09:02 Montelukast Sodium (Singulair) 10 mg DAILY ORAL 10/22/16 09:00 11/21/16 08:59 10/23/16 09:02 Nitroglycerin (Ntg) 0.4 mg Q5MIN X 3 DOSES PRN SL Prn Chest Pain 10/21/16 18:00 11/20/16 17:59 Ondansetron HCl (Zofran ODT) 4 mg Q6H PRN ORAL Nausea & Vomiting 10/21/16 21:15 11/20/16 21:14 10/22/16 16:06 Pantoprazole (Protonix) 40 mg DAILY ORAL 10/22/16 09:00 11/21/16 08:59 10/23/16 09:02 Potassium Chloride/Sodium Chloride (KCl/0.45% NS 1000ml) 1,015 ml @ 75 mls/hr [id number] IV 10/21/16 19:00 11/20/16 18:59 10/21/16 19:45 Tramadol HCl (Ultram) 50 mg Q6H PRN ORAL MODERATE PAIN 10/22/16 18:37 10/29/16 18:36 10/23/16 17:57 TAMARA AGUERO Oct 24, 2016 06:12
[2016-10-24 08:00] VITALS: BP 145/63
[2016-10-24] MEDS: Lisinopril 20mg tab ORAL SCH (09:00)
[2016-10-24] MEDS: Labetalol 200mg tab ORAL SCH (09:00)
[2016-10-24] MEDS: Diltiazem CD 120mg cap ORAL SCH (09:00)
[2016-10-24] MEDS: Montelukast 10mg tablet ORAL SCH (09:00)
--- NOTE | 2016-10-24 09:50 | Urology Progress Note ---
Assessment/Plan Assessment/Plan 1. Right-sided hydronephrosis. 2. Nephrolithiasis. 3. Renal cysts. 4. Hematuria. 5. Proteinuria. 6. Urinary frequency. monitor clinically abdominal pain does not appear to be in origin consider f/u renal u/s to check status of hydro may need cysto/retrograde study Subjective Allergies: Coded Allergies: CODEINE (Unverified Allergy, Unknown, 03/24/14) Subjective feels fair, some pain Objective Last 24 Hour Vital Signs Date Time Temp Pulse Resp B/P Pulse Ox O2 Delivery O2 Flow Rate FiO2 10/24/16 08:00 97.2 60 18 145/63 99 Room Air 10/24/16 04:00 96.8 63 20 138/64 100 Room Air 10/24/16 00:09 97.2 72 18 118/67 98 Room Air 10/23/16 20:54 61 117/62 10/23/16 20:00 97.5 67 18 126/60 97 Room Air 10/23/16 16:00 98.2 61 18 117/62 99 Room Air 10/23/16 11:49 96.3 60 18 125/62 100 Room Air Intake and Output 10/23/16 10/24/16 19:00 07:00 Intake Total 480 ml 80 ml Balance 480 ml 80 ml Intake Oral 480 ml 80 ml # Voids 2 2 Microbiology Date/Time Source Procedure Growth Status 10/21/16 15:40 Nasal Nares MRSA Culture - Final NO METHICILLIN RESISTANT STAPH AUREUS... Complete 10/22/16 05:00 Straight Cath Urine Culture - Final Mixed Gram Positive Organism Complete 10/21/16 15:40 Rectum VRE Culture - Final NO VANCOMYCIN RESISTANT ENTEROCOCCUS ... Complete Current Medications Medications (Trade) Dose Ordered Sig/Janee Route PRN Reason Start Time Stop Time Status Last Admin Dose Admin Acetaminophen (Tylenol) 650 mg Q6H PRN ORAL Mild Pain/Temp > 100.5 10/21/16 18:00 11/20/16 17:59 Acetaminophen/ Hydrocodone Bitart ([place] 10/325) 1 ea Q4H PRN ORAL SEVERE PAIN 10/21/16 22:00 10/28/16 21:59 10/23/16 13:22 Alprazolam (Xanax) 1 mg Q6H PRN ORAL anxiety 10/21/16 20:00 10/28/16 19:59 10/23/16 17:57 Amlodipine Besylate (Norvasc) 10 mg DAILY ORAL 10/22/16 09:00 11/21/16 08:59 10/23/16 08:57 Aspirin (ASA) 81 mg DAILY NG 10/22/16 09:00 11/21/16 08:59 10/23/16 08:55 Atorvastatin Calcium (Lipitor) 5 mg BEDTIME ORAL 10/21/16 21:00 11/20/16 20:59 10/23/16 20:53 Clopidogrel Bisulfate (Plavix) 75 mg DAILY ORAL 10/22/16 09:00 11/21/16 08:59 10/23/16 08:57 Diltiazem HCl (Cardizem CD) 120 mg DAILY ORAL 10/22/16 09:00 11/21/16 08:59 10/23/16 08:55 Docusate Sodium (Colace) 250 mg BID ORAL 10/22/16 12:30 11/21/16 12:29 10/23/16 17:56 Folic Acid (Folate) 1 mg DAILY ORAL 10/22/16 09:00 11/21/16 08:59 10/23/16 08:56 Isosorbide Mononitrate (Imdur) 30 mg DAILY ORAL 10/22/16 09:00 11/21/16 08:59 10/23/16 08:56 Labetalol HCl (Normodyne) 200 mg Q12HR ORAL 10/21/16 21:00 11/20/16 20:59 10/23/16 20:54 Lisinopril (Prinivil) 40 mg DAILY ORAL 10/22/16 09:00 11/21/16 08:59 10/23/16 09:02 Montelukast Sodium (Singulair) 10 mg DAILY ORAL 10/22/16 09:00 11/21/16 08:59 10/23/16 09:02 Nitroglycerin (Ntg) 0.4 mg Q5MIN X 3 DOSES PRN SL Prn Chest Pain 10/21/16 18:00 11/20/16 17:59 Ondansetron HCl (Zofran ODT) 4 mg Q6H PRN ORAL Nausea & Vomiting 10/21/16 21:15 11/20/16 21:14 10/22/16 16:06 Pantoprazole (Protonix) 40 mg DAILY ORAL 10/22/16 09:00 11/21/16 08:59 10/23/16 09:02 Potassium Chloride/Sodium Chloride (KCl/0.45% NS 1000ml) 1,015 ml @ 75 mls/hr [id number] IV 10/21/16 19:00 11/20/16 18:59 10/21/16 19:45 Tramadol HCl (Ultram) 50 mg Q6H PRN ORAL MODERATE PAIN 10/22/16 18:37 10/29/16 18:36 10/23/16 17:57 Height (Feet): 5 Height (Inches): 5.00 Weight (Pounds): 149 Objective exam stable ANGEL RIVERA Oct 24, 2016 09:50
[2016-10-24] MEDS: Aspirin Baby 81mg NG SCH (09:55)
[2016-10-24] MEDS: Docusate 250mg cap ORAL SCH (09:55)
[2016-10-24 09:56] VITALS: BP 144/52
[2016-10-24] MEDS: Imdur 30mg tab ORAL SCH (09:56)
[2016-10-24] MEDS ORDERED: Tubing IV Secondary IV ONE (10:29)
--- NOTE | 2016-10-25 19:11 | Cardiology Report ---
APPROVED REPORT EKG Measurement Heart [id number] Normal sinus rhythm Low voltage QRS Inferior infarct, age undetermined Cannot rule out Anterior infarct, age undetermined Abnormal ECG
--- NOTE | 2016-10-26 11:04 | Discharge Summary ---
Discharge Summary Hospital Course Date of Admission Oct 21, 2016 at 11:45 Date of Discharge Oct 24, 2016 at 10:30 Admitting Diagnosis abdominal pain HPI Laura Franco is a 66 year old female who was admitted on Oct 21, 2016 at 11:45 for Abdominal Pain Hospital Course dc summary dictated #[id number] Discharge Discharge Disposition Patient signed against medical advice Discharge Diagnoses: Discharge Instructions Discharge Instructions Special Instructions I have been assigned to complete a D/C Summary on this account. I was not involved in the patient management Amber Barnhart NP (Vanchtein) Oct 26, 2016 11:04
--- NOTE | 2016-10-27 08:08 | Discharge Summary 2 SIG ---
DATE OF ADMISSION: 10/21/2016 DATE OF SIGNING AGAINST MEDICAL ADVICE: 10/24/2016 REASON FOR ADMISSION: A 66-year-old female with a history of small-bowel obstruction, s/p surgery, presented with nausea, vomiting, generalized sharp, nonradiating abdominal pain worse over the previous night and no bowel movement for one week. Pain quantified as 9/10 on a scale 1 to 10. She denied fever and chills. No chest pain. No shortness of breath. Did not take any medication for pain. Could not remember date of the surgery for small bowel obstruction. In the emergency room, the patient had a workup. Vital signs were notable for hypertension , likely directed to pain. On exam abdominal pain with involuntary guarding, raising concern for recurrent small bowel obstruction given no bowel movement for seven days. Subsequently the patient undergone CT of the abdomen and pelvis which revealed no small bowel obstruction, moderate right hydronephrosis without definite obstructing lesion identified, extrahepatic biliary ductal dilatation, without evidence of downstream obstruction lesion also evident, accidentally found a 2.2 x 1.2 cm right lung lesion presented since 2015 exam, but slightly larger on this exam. Troponin was negative. EKG with normal sinus rhythm. No acute changes. No ST changes. No ectopy. No fever and no leukocytosis. Urinalysis with gross hematuria but no evidence of urinary tract infection. Leukocytosis of 12. Lactate 0.6. Total bilirubin and LFT within normal limits. The patient admitted as an inpatient for further management. ADMITTING DIAGNOSES: 1. Generalized abdominal pain. 2. Moderate right hydronephrosis. 3. Nausea, vomiting, and diarrhea. 4. Right lung mass. HOSPITAL COURSE: The patient admitted on the floor. Urology and Pulmonology consults were requested. The patient without evidence of hypoxemia, oxygenation on room air stable. Supplemental and pulmonary toilet provided as needed. 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 Pain management provided. No gross hematuria. Urine culture with less than 10,000 mixed gram-positive organism. No evidence of infection. Urinalysis revealed 2+ protein, +5 occult blood, and 30 to 40 RBC in the urine. Urine clear. Aspirin and Plavix were on hold while in the hospital. Urology followed. Per Urology abdominal pain was more of abdominal origin than of the origin. Urologist recommended cystoscopy with retrograde study. Blood pressure was managed with the current regimen of medication, was stable. Electrolytes were stable. DVT and GI prophylaxis provided. The patient decided to sign against medical advice on 10/24/2016 when the daughter came to visit her. Risks and consequences of signing against medical advice explained to the patient. She insisted on signing against medical advice, refused to wait for a call from the doctor and left accompanied by her daughter. FINAL DIAGNOSES: 1. Moderate right hydronephrosis, 2. Right lung mass/post inflammatory versus neoplasm. 3. Hypertension. 4. Hypercholesteremia. 5. Abdominal pain, unknown etiology. 6. Gastroesophageal reflux disease. 7. Left nephrolithiasis. 8. Hematuria. 9. Proteinuria. Osiris Cassidy M.D. I have been assigned to dictate discharge summary on this account and I was not involved in the patient's management. Amber [facility]St[facility] NCapricePCaprice DR: KATTY JOB#: [id number] CC: TED
== END 2016-10-24 10:30 | disposition left against medical advice (07) | DRG 465 ==
LOC: EDBD 09:17 → EMR 09:50 → EDBEDREQ 11:06 → 4W 11:45 → EDBEDREQ 12:16
DX: N13.2 Hydronephrosis with renal and ureteral calculous obstruction (principal); F11.20 Opioid dependence, uncomplicated; I10 Essential (primary) hypertension; K21.9 Gastro-esophageal reflux disease without esophagitis; E78.00 Pure hypercholesterolemia, unspecified; R91.8 Other nonspecific abnormal finding of lung field; Z79.02 Long term (current) use of antithrombotics/antiplatelets; R10.9 Unspecified abdominal pain; G89.29 Other chronic pain; M54.5 Low back pain
CPT/HCPCS: 36415; 71010; 74177; 80053; 81003; 83605; 83690; 84484; 85025; 87081; 87086; 93005; J2765

== ENCOUNTER 2017-06-21 20:25 | Emergency (ER) | payer MEDICARE, OTHER ==
[~2017-06-21] VITALS: Ht 165.1 cm; Wt 70.8 kg
[2017-06-21 20:25] VITALS: BP 188/78
[~2017-06-21 20:25] MED LIST changes: +CIPROFLOXACIN500 M2 ORAL; +IBUPROFEN600 MG ORAL; +IMITREX50 MG ORAL; +MIDODRINE HCL2.5 MG ORAL; +MORPHINE 22 MG/1 ML IV; +NORCO 5-325 TA1 EAC1 ORAL; +UNOBMED; +ZOFRAN4 M3 ORAL
[2017-06-21] MEDS ORDERED: Acetaminophen 500mg (ES) tab ORAL ONE (21:15)
--- NOTE | 2017-06-21 22:02 | Emergency Room Report ---
History of Present Illness General Chief Complaint: Abdominal Pain Source: Patient Present Illness HPI This is a 59-year-old female with multiple medical problem. She's also smoker and diagnosed with lung cancer recently. She presents with chief complaint of fever or chills. Also with abdominal pain. Onset for last 34 hours. No nausea no vomiting. Generalized body pain. Denies any vomiting. No diarrhea. Allergies: Coded Allergies: CODEINE (Unverified Allergy, Unknown, 03/24/14) Patient History Past Medical History: see triage record, old chart reviewed, HTN, CHF Past Surgical History: other Pertinent Family History: none Social History: Reports: smoking Now: No Immunizations: other Reviewed Nursing Documentation: PMH: Agreed, PSxH: Agreed Nursing Documentation-PMH Hx Cardiac Problems: Yes - [place] 2007 Hx Hypertension: Yes Hx Asthma: Yes Hx COPD: Yes - ephysema, chronic respiratory failure Hx Cancer: Yes Hx Gastrointestinal Problems: No Hx Neurological Problems: Yes Hx Dizziness: Yes Hx Syncope: Yes - 2013 Hx Headaches: Yes Hx Weakness: Yes Hx Fatigue: Yes Review of Systems Constitutional: Reports: fever Eye: Denies: eye pain, blurred vision ENT: Denies: ear pain, nose congestion, throat swelling Respiratory: Denies: cough, shortness of breath Cardiovascular: Denies: chest pain, palpitations Gastrointestinal: Reports: abdominal pain, Denies: diarrhea, nausea, vomiting Musculoskeletal: Denies: back pain, joint pain Skin: Denies: rash Neurological: Denies: headache, numbness Endocrine: Denies: increased thirst, increased urine Hematologic/Lymphatic: Denies: easy bruising All Other Systems: negative except mentioned in HPI Physical Exam Vital Signs Date Time Temp Pulse Resp B/P (MAP) Pulse Ox O2 Delivery O2 Flow Rate FiO2 06/21/17 20:17 97.7 80 18 157/91 96 Room Air vitals normal Sp02 EP Interpretation: reviewed, normal General Appearance: alert, Chronically Ill Head: normocephalic, atraumatic Eyes: bilateral eye PERRL, bilateral eye EOMI ENT: hearing grossly normal, normal pharynx Neck: full range of motion, supple, no meningismus Respiratory: chest non-tender, lungs clear, normal breath sounds Cardiovascular #1: regular rate, rhythm, no murmur Gastrointestinal: normal bowel sounds, no mass, no organomegaly, no bruit, non- distended, tenderness - Diffusely Musculoskeletal: back normal, normal range of motion Neurologic: alert, oriented x3 Psychiatric: mood/affect normal Skin: warm/dry, other - Very warm to the touch Medical Decision Making Diagnostic Impression: Primary Impression: Abdominal pain of unknown etiology Additional Impression: Colitis, acute ER Course Patient present with abdominal pain and possible colitis. No evidence of obstruction. We'll discharge home. no evidence of acute abdomen EKG Diagnostic Results Rate: normal Rhythm: NSR ST Segments: no acute changes Rhythm Strip Diag. Results Rhythm Strip Time: 23:36 EP Interpretation: yes Rate: 95 Rhythm: NSR, no PVC's, no ectopy Chest X-Ray Diagnostic Results Chest X-Ray Diagnostic Results : Chest X-Ray Ordered: Yes # of Views/Limited/Complete: 1 View Indication: Shortness of Breath EP Interpretation: Yes Interpretation: no consolidation, no effusion, no pneumothorax, no acute cardiopulmonary disease Impression: No acute disease Electronically Signed by: Electronically signed by Clinton Cloud MD Last Vital Signs Date Time Temp Pulse Resp B/P (MAP) Pulse Ox O2 Delivery O2 Flow Rate FiO2 06/21/17 20:17 97.7 80 18 157/91 96 Room Air Status: improved Disposition: HOME, SELF-CARE Condition: Stable Scripts Hydrocodone/Acetaminophen 5-325* (HYDROCODONE/ACETAMINOPHEN 5-325*) 1 Each Tablet 1 TAB ORAL Q6H Y for For Pain, #20 TAB 0 Refills Prov: CLINTON CLOUD M.D. 06/22/17 Metronidazole* (FLAGYL*) 500 Mg Tablet 500 MG ORAL BID, #14 TAB Prov: CLINTON CLOUD M.D. 06/22/17 Ciprofloxacin Hcl* (CIPROFLOXACIN HCL*) 500 Mg Tablet 500 MG ORAL Q12H, #14 TAB 0 Refills Prov: CLINTON CLOUD M.D. 06/22/17 Additional Instructions: Followup with your Dr. in 2-3 days. Return if worse. CLINTON CLOUD M.D. Jun 21, 2017 22:02
[2017-06-21 22:08] LABS: APPEARANCE,URINE CLEAR; KETONES,URINE NEGATIVE (NEGATIVE); LEUKOCYTE ESTERASE ,URINE 1+ (NEGATIVE); NITRITE,URINE NEGATIVE (NEGATIVE); PH,URINE 7 (4.5-8.0); PROTEIN,URINE 2+ (NEGATIVE); UROBILINOGEN,URINE NORMAL MG/DL (0.0-1.0)
[2017-06-21 22:13] LABS: PROTHROMBIN TIME 10.6 SEC (9.30-11.50)
[2017-06-21 22:15] LABS: BASOPHILS % (AUTO) 0.9 % (0.0-2.0); EOSINOPHILS % (AUTO) 0.7 % (0.0-3.0); LYMPHOCYTES % (AUTO) 15.5 % (20.0-45.0); MEAN CORPUSCULAR HEMOGLOBIN 36.4 PG (27.0-31.0); MEAN CORPUSCULAR HGB CONC 34.6 G/DL (32.0-36.0); MEAN CORPUSCULAR VOLUME 105 FL (80-99); MEAN PLATELET VOLUME 6.7 FL (6.5-10.1); MONOCYTES % (AUTO) 4.2 % (1.0-10.0); NEUTROPHILS % (AUTO) 78.7 % (45.0-75.0); PLATELET COUNT 345 K/UL (150-450); RED BLOOD COUNT 4.42 M/UL (4.20-5.40); RED CELL DISTRIBUTION WIDTH 13.5 % (11.6-14.8); WHITE BLOOD COUNT 15.4 K/UL (4.8-10.8)
[2017-06-21 22:17] LABS: TROPONIN I < 0.30 ng/mL (<=0.30)
[2017-06-21 22:21] LABS: RBC,URINE 0-2 /HPF (0 - 2)
[2017-06-21 22:21] LABS: ALANINE AMINOTRANSFERASE 38 U/L (3-33); ALBUMIN/GLOBULIN RATIO 1.3 (1.0-2.7); ANION GAP 16 (5-15); ASPARTATE AMINO TRANSFERASE 30 U/L (5-40); CALCIUM 11.2 mg/dL (8.6-10.2); CARBON DIOXIDE 22 mEQ/L (20-30); CHLORIDE 107 mEQ/L (98-107); CREATININE 1.2 mg/dL (0.5-0.9); GLOMERULAR FILTRATION RATE 54.2 mL/min (>60); HEMOLYSIS 46; POTASSIUM 3.8 mEQ/L (3.4-4.9); SODIUM 145 mEQ/L (135-145); TOTAL PROTEIN 7.3 g/dL (6.6-8.7)
[2017-06-21 22:22] LABS: BACTERIA,URINE FEW /HPF; SQUAMOUS EPITHELIAL CELL,UR MODERATE /LPF (NONE/OCC)
[2017-06-21 22:25] VITALS: BP 156/75
[2017-06-21 22:31] LABS: CKMB < 1.5 ng/mL (< 3.8)
[2017-06-21] MEDS ORDERED: Morphine Sulfate 4mg/ml Inj IVP ONE (23:30)
[2017-06-22] MEDS ORDERED: METRONIDAZOLE500 MG ORAL (00:24)
[2017-06-22] MEDS ORDERED: CIPROFLOXACIN500 M2 ORAL (00:24)
[2017-06-22] MEDS ORDERED: HYDROCODON-ACE1 EA15 ORAL (00:24)
[2017-06-22 00:25] VITALS: BP 159/78
[2017-06-22] MEDS ORDERED: Ciprofloxacin 500mg tab ORAL ONE (00:30)
[2017-06-22] MEDS ORDERED: metroNIDAZOLE 500mg tab ORAL ONE (00:30)
[2017-06-22 02:02] VITALS: BP 145/70
--- NOTE | 2017-06-22 09:35 | Diagnostic Imaging Report ---
Clinical Indication: Abdominal pain Technique: No oral contrast utilized, per emergency room physician request IV administration nonionic contrast. Venous phase spiral acquisition obtained through the abdomen and pelvis. Multiplanar reconstructions were generated. Total dose length product 606 mGycm. CTDIvol(s) 12 mGy. Dose reduction achieved using automated exposure control Comparison: 10/21/2016 Findings: Normal appendix. Questionable wall thickening of the colon diffusely, most prominent in the ascending colon. No small bowel distention. No free or loculated intraperitoneal air or fluid. Distal is unremarkable. Equivocal mild wall thickening of the stomach, appears similar to the previous study. Duodenum is unremarkable. The liver is unremarkable. Cholecystectomy clips are again noted. Extrahepatic bile ducts are mildly dilated, but less so than on the prior study and is significantly decreased intrahepatic biliary ductal dilatation. Common bile duct currently measures 12 mm diameter, previously 16. The pancreas is mildly atrophic. The downstream pancreatic duct is mildly dilated, as previously, but likewise also than before. The spleen, adrenals are unremarkable. The right kidney demonstrates subcentimeter low-attenuation lesions which are too small to characterize, most likely benign simple cysts, unchanged. Previously demonstrated right hydronephrosis is no longer evident. Previously demonstrated right lower pole calyceal calculus is no longer evident. Again demonstrated is scarring in the upper pole of the left kidney. No focal left renal parenchymal abnormality. No pelvic or retroperitoneal mass or adenopathy. The uterus is not demonstrated, presumed surgically absent. The bladder is mildly distended. Lung bases again demonstrate an irregular masslike lesion within the inferior right major fissure. This measures 2 x 1.6 cm, appears slightly larger than on the previous study. Impression: Suspect mild colonic wall thickening. Suspicious for colitis, otherwise nonspecific as regards etiology Evidence of prior cholecystectomy. Bile ducts are prominent but are decreased in caliber as compared to previous study Mildly atrophic pancreas, also previously reported Spiculated masslike lesion within the major fissure the right lung. Appears slightly larger than on earlier studies. The possibility of quiescent neoplasm should be considered. Recommend further evaluation by thoracic surgery Previously demonstrated right hydronephrosis and right lower pole intrarenal calyceal calculus is no longer evident Subcentimeter low-attenuation right renal lesions, too small to characterize, most likely benign simple cortical cysts. No further followup necessary Other findings as noted, including evidence of prior hysterectomy, left upper pole renal scarring, degenerative spondylosis This agrees with the preliminary interpretation provided overnight by [facility] teleradiology service. The CT scanner at [facility] is accredited by the [employer] and the scans are performed using protocols designed to limit radiation exposure to as low as reasonably achievable to attain images of sufficient resolution adequate for diagnostic evaluation.
--- NOTE | 2017-06-22 12:57 | Diagnostic Imaging Report ---
Indication: SOB Technique: One view of the chest Comparison: none Findings: Lungs and pleural spaces are clear. Heart size is normal . There are degenerative changes of both shoulders. No significant interim change Impression: No acute process
--- NOTE | 2017-06-24 15:18 | Cardiology Report ---
APPROVED REPORT EKG Measurement Heart [id number] ME [id number] Normal sinus rhythm Normal ECG
== END 2017-06-22 02:02 | disposition home or self-care (01) ==
LOC: EDBD 20:25 → EMR 21:07
DX: R10.9 Unspecified abdominal pain (principal); K52.9 Noninfective gastroenteritis and colitis, unspecified; I25.2 Old myocardial infarction; I10 Essential (primary) hypertension; J45.909 Unspecified asthma, uncomplicated; Z86.69 Personal history of other diseases of the nervous system and sense organs; J43.9 Emphysema, unspecified; R42 Dizziness and giddiness; R51 Headache; R53.1 Weakness; R53.83 Other fatigue
CPT/HCPCS: 36415; 71010; 74177; 80053; 81003; 82550; 82553; 83605; 84484; 85025; 85610; 85730; 87040; 93005; 96361; 96374; 96375; 99284; J2270; J2405; Q9967

== ENCOUNTER 2017-06-30 06:02 | Inpatient (IN) | payer OTHER, MEDICARE ==
[~2017-06-30] VITALS: Ht 165.1 cm; Wt 67.6 kg
[~2017-06-30 06:02] MED LIST changes: +HYDROCODON-ACE1 EA15 ORAL; +METRONIDAZOLE500 MG ORAL
[2017-06-30] MEDS ORDERED: morphine (06:06)
[2017-06-30] MEDS ORDERED: NORCO 10-325 T1 EACH ORAL (06:06)
[2017-06-30 06:15] VITALS: BP 145/84
[2017-06-30] MEDS ORDERED: Ipratropium 0.02% Inh Soln 2.5ml UD HHN ONE (06:15)
[2017-06-30] MEDS ORDERED: Albuterol ud Inhalation HHN ONE (06:15)
[2017-06-30] MEDS ORDERED: Solu-MEDROL 125mg Inj IVP ONE (06:15)
--- NOTE | 2017-06-30 06:18 | Emergency Room Report ---
History of Present Illness General Chief Complaint: Dyspnea/Respdistress Source: Patient, EMS Present Illness HPI This is a 67-year-old female with a history of COPD. She also was diagnosed with lung cancer about a year ago. She never got biopsy and therefore no treatment. She said she was afraid. She had some problem with wheezing this morning. She took her inhaler and it helped some. She went outside to smoke to see if that helped. It did not. He got much worse and she was wheezing more. She had to call 911. Per EMS she was wheezing and tight. He was breathing treatment. Denies any fever or chills. Has cough but nonproductive in nature. No nausea no vomiting. No chest pain. Was here last week. Allergies: Coded Allergies: No Known Allergies (Unverified , 06/30/17) Patient History Past Medical History: see triage record, old chart reviewed, COPD, pneumonia Past Surgical History: other Pertinent Family History: none Social History: Reports: smoking Last Menstrual Period: n/a Now: No Immunizations: other Reviewed Nursing Documentation: PMH: Agreed, PSxH: Agreed Nursing Documentation-PMH Hx Cardiac Problems: Yes - OR 2007 Hx Hypertension: Yes Hx Asthma: Yes Hx COPD: Yes - ephysema, chronic respiratory failure Hx Cancer: Yes - lung cx Hx Gastrointestinal Problems: No Hx Neurological Problems: Yes Hx Dizziness: Yes Hx Syncope: Yes - 2013 Hx Headaches: Yes Hx Weakness: Yes Hx Fatigue: Yes Review of Systems Eye: Denies: eye pain, blurred vision ENT: Denies: ear pain, nose congestion, throat swelling Respiratory: Reports: cough, shortness of breath, wheezing Cardiovascular: Denies: chest pain, palpitations Gastrointestinal: Denies: abdominal pain, diarrhea, nausea, vomiting Musculoskeletal: Denies: back pain, joint pain Skin: Denies: rash Neurological: Denies: headache, numbness Endocrine: Denies: increased thirst, increased urine Hematologic/Lymphatic: Denies: easy bruising All Other Systems: negative except mentioned in HPI Physical Exam Vital Signs Date Time Temp Pulse Resp B/P (MAP) Pulse Ox O2 Delivery O2 Flow Rate FiO2 06/30/17 05:59 98.2 90 20 145/84 100 Room Air vitals unremarkable Sp02 EP Interpretation: reviewed, normal General Appearance: well appearing, alert, moderate distress Head: normocephalic, atraumatic Eyes: bilateral eye PERRL, bilateral eye EOMI ENT: hearing grossly normal, normal pharynx Neck: full range of motion, supple, no meningismus Respiratory: chest non-tender, decreased breath sounds, wheezing Cardiovascular #1: regular rate, rhythm, no murmur Gastrointestinal: normal bowel sounds, non tender, no mass, no organomegaly, no bruit, non-distended Musculoskeletal: back normal, gait/station normal, normal range of motion Neurologic: alert, oriented x3 Psychiatric: mood/affect normal Skin: warm/dry Medical Decision Making Diagnostic Impression: Primary Impression: COPD exacerbation Additional Impression: Lung neoplasm ER Course Patient presents with COPD exacerbation. Better after breathing treatment. We' ll get labs and x-rays. I will sign this patient out to Dr. Ferguson for final disposition. Last Vital Signs Date Time Temp Pulse Resp B/P (MAP) Pulse Ox O2 Delivery O2 Flow Rate FiO2 06/30/17 05:59 98.2 90 20 145/84 100 Room Air BROWN RODRIGUEZ M.D. Jun 30, 2017 06:18
[2017-06-30] MEDS ORDERED: Morphine Sulfate 4mg/ml Inj IVP ONE ×2 (07:15→10:45)
[2017-06-30 07:18] LABS: EOSINOPHILS % (AUTO) 0.9 % (0.0-3.0); LYMPHOCYTES % (AUTO) 28.8 % (20.0-45.0); MEAN CORPUSCULAR HEMOGLOBIN 34.5 PG (27.0-31.0); MEAN CORPUSCULAR HGB CONC 31.5 G/DL (32.0-36.0); MEAN CORPUSCULAR VOLUME 110 FL (80-99); MEAN PLATELET VOLUME 7.4 FL (6.5-10.1); MONOCYTES % (AUTO) 9.3 % (1.0-10.0); PLATELET COUNT 278 K/UL (150-450); RED BLOOD COUNT 3.72 M/UL (4.20-5.40); RED CELL DISTRIBUTION WIDTH 12.8 % (11.6-14.8); WHITE BLOOD COUNT 14.1 K/UL (4.8-10.8)
[2017-06-30 07:30] VITALS: BP 137/44
[2017-06-30 07:31] LABS: APPEARANCE,URINE CLEAR; KETONES,URINE NEGATIVE (NEGATIVE); LEUKOCYTE ESTERASE ,URINE 1+ (NEGATIVE); NITRITE,URINE NEGATIVE (NEGATIVE); PH,URINE 7 (4.5-8.0); PROTEIN,URINE NEGATIVE (NEGATIVE); UROBILINOGEN,URINE NORMAL MG/DL (0.0-1.0)
[2017-06-30 07:42] LABS: TROPONIN I < 0.30 ng/mL (<=0.30)
[2017-06-30 07:44] LABS: CKMB < 1.5 ng/mL (< 3.8)
[2017-06-30 07:48] LABS: ALANINE AMINOTRANSFERASE 63 U/L (3-33); ALBUMIN/GLOBULIN RATIO 1.5 (1.0-2.7); ANION GAP 14 (5-15); ASPARTATE AMINO TRANSFERASE 112 U/L (5-40); CALCIUM 11.1 mg/dL (8.6-10.2); CARBON DIOXIDE 22 mEQ/L (20-30); CHLORIDE 107 mEQ/L (98-107); CREATININE 0.9 mg/dL (0.5-0.9); GLOMERULAR FILTRATION RATE > 60 mL/min (>60); HEMOLYSIS 2; POTASSIUM 3.2 mEQ/L (3.4-4.9); SODIUM 143 mEQ/L (135-145); TOTAL PROTEIN 6.5 g/dL (6.6-8.7)
[2017-06-30 07:54] LABS: BACTERIA,URINE FEW /HPF; RBC,URINE 0-2 /HPF (0 - 2); SQUAMOUS EPITHELIAL CELL,UR FEW /LPF (NONE/OCC)
[2017-06-30 08:30] VITALS: BP 127/48
--- NOTE | 2017-06-30 09:15 | Diagnostic Imaging Report ---
Indication: Abdominal pain Technique: Continuous helical transaxial imaging of the abdomen and pelvis was obtained from the lung bases to the pubic symphysis. No intravenous contrast was administered. Coronal 2-D reformats were also obtained. Total Dose length Product (DLP): [address] Dose Index Volume (CTDIvol): 2.15, 12.5 mGy Comparison: 12/18/14 Findings: At the caudal end of the right major fissure there is a partially imaged nodular focus measuring about 1.8 cm on this examination. This nodule was only partially imaged on the prior occasion as well but appears larger. At the time of the 2015 examination,further evaluation had been recommended. Not aware whether this recommendation was followed or not. Please correlate clinically. At this time, recommend CT chest. Cholecystectomy again demonstrated. The biliary ducts are prominent but appear stable. There is some prominence of the upper portion of the right collecting system at the level of the calyces and renal pelvis. There is some suggestion of some thickening of the uroepithelium which is a sign of chronic inflammation or infection. Tiny nonobstructive stone 1-2 mm noted in the right kidney. A questionable tiny nonobstructive stone in the left kidney versus vascular calcification noted. Aorta is moderately calcified. Normal appendix is noted. There is no bowel dilatation or evidence of bowel obstruction. No free fluid or free air is identified. The uterus is absent. Urinary bladder is unremarkable in appearance. There is a small right inguinal hernia containing fat. Generalized somewhat patchy demineralization of the bones again demonstrated without significant change from the last exam. There is narrowing of intervertebral discs and accompanying endplate osteophyte formation. Hypertrophied facet joints also demonstrated.. Impression: 1.8 cm, partially imaged nodule, likely pleural-based at the caudal and of the right major fissure. Apparent interval enlargement since 2015. Neoplasm not excluded and further evaluation is recommended. Prominent biliary ducts. Given the patient's advanced age and prior cholecystectomy this could be normal. The finding is stable from an imaging standpoint. Please correlate clinically. Nonobstructed bilateral renal calculi. Minimal right pelvocaliectasis with uroepithelial thickening, sign of chronic UTI or inflammation. Please correlate clinically. Atherosclerotic disease. Normal appendix. Status post hysterectomy. Small right inguinal hernia containing fat. Spondylosis and moderate generalized osteopenia relatively unchanged. The CT scanner at [facility] is accredited by the [employer] and the scans are performed using dose optimization techniques as appropriate to a performed exam including Automatic Exposure control.
--- NOTE | 2017-06-30 10:44 | Diagnostic Imaging Report ---
Indication: Dyspnea Comparison: 06/21/17 A single view chest radiograph was obtained. Findings: There is a nodular focus at the right lung base. Further evaluation with CT chest is recommended. This was noted on the CT abdomen but only partially visualized. This may have enlarged since the last CT examination from 2014. Heart size is borderline enlarged. Bones are osteopenic. There are moderate degenerative changes involving the glenohumeral joint bilaterally. Impression: Right basilar lung nodule. Evaluation with CT is recommended. No acute cardiopulmonary disease identified
[2017-06-30 10:45] VITALS: BP 131/51
[2017-06-30] MEDS ORDERED: Milk of Magnesia 30ml Ud ORAL PRN (11:00)
[2017-06-30] MEDS ORDERED: Albuterol/Ipratropium 3ml neb HHN PRN (11:00)
--- NOTE | 2017-06-30 11:13 | Emergency Room Report ---
History of Present Illness General Chief Complaint: Dyspnea/Respdistress Source: Patient, EMS Present Illness Allergies: Coded Allergies: No Known Allergies (Unverified , 06/30/17) Patient History Last Menstrual Period: n/a Now: No Nursing Documentation-PMH Hx Cardiac Problems: Yes - [place] 2007 Hx Hypertension: Yes Hx Asthma: Yes Hx COPD: Yes - ephysema, chronic respiratory failure Hx Cancer: Yes - lung cx Hx Gastrointestinal Problems: No Hx Neurological Problems: Yes Hx Dizziness: Yes Hx Syncope: Yes - 2013 Hx Headaches: Yes Hx Weakness: Yes Hx Fatigue: Yes Physical Exam Vital Signs Date Time Temp Pulse Resp B/P (MAP) Pulse Ox O2 Delivery O2 Flow Rate FiO2 06/30/17 05:59 98.2 90 20 145/84 100 Room Air Medical Decision Making Diagnostic Impression: Primary Impression: COPD exacerbation Additional Impression: Lung neoplasm ER Course Please refer to the initial note for the history exam and presentation At this time patient is significantly better after breathing treatment Given the patient's repeat discomfort of abdominal pain and decreased bowel movements CAT scan imaging was obtained Does not show any obvious acute pathology Initially patient requesting transfer to primary facility This was attempted There has been some delay on transfer Ongoing discussion with the patient, she is agreeable to admitting to our facility Admitting physician down in the ER and has evaluated the patient Patient admitted for further care Labs Test 06/30/17 06:30 06/30/17 07:10 White Blood Count 14.1 K/UL (4.8-10.8) Red Blood Count 3.72 M/UL (4.20-5.40) Hemoglobin 12.8 G/DL (12.0-16.0) Hematocrit 40.7 % (37.0-47.0) Mean Corpuscular Volume 110 FL (80-99) Mean Corpuscular Hemoglobin 34.5 PG (27.0-31.0) Mean Corpuscular Hemoglobin Concent 31.5 G/DL (32.0-36.0) Red Cell Distribution Width 12.8 % (11.6-14.8) Platelet Count 278 K/UL (150-450) Mean Platelet Volume 7.4 FL (6.5-10.1) Neutrophils (%) (Auto) 60.0 % (45.0-75.0) Lymphocytes (%) (Auto) 28.8 % (20.0-45.0) Monocytes (%) (Auto) 9.3 % (1.0-10.0) Eosinophils (%) (Auto) 0.9 % (0.0-3.0) Basophils (%) (Auto) 1.0 % (0.0-2.0) Sodium Level 143 mEQ/L (135-145) Potassium Level 3.2 mEQ/L (3.4-4.9) Chloride Level 107 mEQ/L (98-107) Carbon Dioxide Level 22 mEQ/L (20-30) Anion Gap 14 (5-15) Blood Urea Nitrogen 6 mg/dL (7-23) Creatinine 0.9 mg/dL (0.5-0.9) Estimat Glomerular Filtration Rate > 60 mL/min (>60) Glucose Level 103 mg/dL (74-106) Calcium Level 11.1 mg/dL (8.6-10.2) Total Bilirubin 0.3 mg/dL (0.0-1.2) Aspartate Amino Transf (AST/SGOT) 112 U/L (5-40) Alanine Aminotransferase (ALT/SGPT) 63 U/L (3-33) Alkaline Phosphatase 304 U/L (35-104) Total Creatine Kinase 51 U/L (26-140) Creatine Kinase MB < 1.5 ng/mL (< 3.8) Creatine Kinase MB Relative Index 2.9 Troponin I < 0.30 ng/mL (<=0.30) Total Protein 6.5 g/dL (6.6-8.7) Albumin 3.9 g/dL (3.5-5.2) Globulin 2.6 g/dL Albumin/Globulin Ratio 1.5 (1.0-2.7) Urine Color Pale yellow Urine Appearance Clear Urine pH 7 (4.5-8.0) Urine Specific [place] 1.005 (1.005-1.035) Urine Protein Negative (NEGATIVE) Urine Glucose (UA) Negative (NEGATIVE) Urine Ketones Negative (NEGATIVE) Urine Occult Blood Negative (NEGATIVE) Urine Nitrite Negative (NEGATIVE) Urine Bilirubin Negative (NEGATIVE) Urine Urobilinogen Normal MG/DL (0.0-1.0) Urine Leukocyte Esterase 1+ (NEGATIVE) Urine RBC 0-2 /HPF (0 - 2) Urine WBC 2-4 /HPF (0 - 2) Urine Squamous Epithelial Cells Few /LPF (NONE/OCC) Urine Bacteria Few /HPF (NONE) Urine Opiates Screen Positive (NEGATIVE) Urine Barbiturates Screen Negative (NEGATIVE) Phencyclidine (PCP) Screen Negative (NEGATIVE) Urine Amphetamines Screen Negative (NEGATIVE) Urine Benzodiazepines Screen Negative (NEGATIVE) Urine Cocaine Screen Negative (NEGATIVE) Urine Marijuana (THC) Screen Negative (NEGATIVE) Rhythm Strip Diag. Results EP Interpretation: yes Rate: 68 Rhythm: NSR, no PVC's, no ectopy Chest X-Ray Diagnostic Results Chest X-Ray Diagnostic Results : Chest X-Ray Ordered: Yes # of Views/Limited/Complete: 1 View Indication: Chest Pain EP Interpretation: Yes Interpretation: no consolidation, no effusion, no pneumothorax, no acute cardiopulmonary disease Impression: No acute disease Electronically Signed by: Sukhi Reis DO Last Vital Signs Date Time Temp Pulse Resp B/P (MAP) Pulse Ox O2 Delivery O2 Flow Rate FiO2 06/30/17 08:30 98.2 82 14 127/48 94 Room Air Status: improved Disposition: ADMITTED INPATIENT Condition: Serious Referrals: NON PHYSICIAN (PCP) SUKHI REIS D.O. Jun 30, 2017 11:13
[2017-06-30] MEDS: 1/2NS w/KCl 20mEq 1000ml 1,000 ML IV SCH (14:30)
[2017-06-30] MEDS: Heparin 5000 units/ml inj SUBQ SCH ×2 (14:31→21:51)
[2017-06-30] MEDS: HYDROmorphone 1mg/ml Carpuject IVP PRN ×2 (14:32→20:44)
--- NOTE | 2017-06-30 19:30 | History and Physical Report ---
DATE OF ADMISSION: 06/30/2017 Chief Complaint: Multiple including headaches, abdominal pain and low back pain. History Of Present Illness: This is a 67-year-old female who I know very well from previous admission to this hospital. The patient has multiple problems as listed below. The patient presented to the emergency department complaining of multiple complaints. The patient repeatedly states that she wants to go to her primary care physician, Dr. Natalio Blue, who is her primary care physician at [facility]. Nevertheless, the patient is equivocal about going now or later or maybe on another day. The patient had the same attitude during the last admission and she stayed several days and then was discharged to home. PAST MEDICAL HISTORY: 1. Chronic obstructive pulmonary disease. 2. History of lung cancer, no known therapy. Home Medications: [place] 5/325 mg 1 p.o. q.4 h. p.r.n., Tylenol p.r.n., ibuprofen p.r.n., metoprolol, midodrine, morphine, Zofran and Imitrex. ALLERGIES: None reported. SOCIAL HISTORY: She lives at home. Habits: She is a nonsmoker and nondrinker. There is no history of illicit drug abuse. FAMILY HISTORY: Unremarkable. Review Of Systems: HEENT: Hearing and eyesight are normal. Endocrine: No history of diabetes, thyroid or adrenal problems. Respiratory: She has a history of lung cancer. Cardiovascular: She denies chest pain or palpitations. Gastrointestinal: No history of hematochezia, melena, hematemesis, diarrhea, or constipation. She is complaining of vague abdominal pain. Neurological: No history of stroke, syncope or Parkinson disease. PHYSICAL EXAMINATION: General: This is an elderly female who is in no acute distress. Vital Signs: Blood pressure 127/48, pulse 82 and regular, respirations 14 and temperature 98.2 degrees. HEENT: The head is normocephalic and atraumatic. Pupils are equal, round, and reactive to light and accommodation consensually. Neck: Supple. Trachea midline. There was no lymphadenopathy or thyromegaly. LUNGS: Clear to auscultation and percussion. HEART: Regular rate and rhythm without rubs, murmurs, or gallops. ABDOMEN: Soft and nontender. Bowel sounds are active. EXTREMITIES: No clubbing, cyanosis or edema. Neurologic: She is alert and oriented x4. Cranial nerves II through XII intact. Laboratory And Ancillary Data: CBC shows white count 74597, otherwise within normal limits. Serum chemistry, potassium 3.2 and calcium 11.1. AST 112, ALT 62 and alkaline phosphatase 304. Urine toxicology screen is positive for opiates. Urinalysis, otherwise, within normal limits. CT abdomen and pelvis, a 1.8 cm partially emerged nodule, likely pleural based, in the right fissure, apparently interval enlargement since 2014. Neoplasm not excluded. Prominent biliary duct, nonobstructed bilateral renal calculi. ASSESSMENT: 1. Nonspecific diffuse pain, which includes low back pain, headache, and abdominal pain. 2. History of lung cancer. 3. Cholelithiasis. 4. Urolithiasis. 5. Chronic obstructive pulmonary disease. PLAN: 1. Pain control. 2. Pulmonary consult. 3. Consider Oncology consult. Osiris Cassidy M.D. DR: Zeyad JOB#: [id number] CC:
[2017-06-30 20:00] VITALS: BP 154/72
[2017-06-30] MEDS: Docusate 100mg cap ORAL SCH ×2 (20:44→20:52)
[2017-06-30] MEDS ORDERED: Zolpidem 5mg tab ORAL PRN (21:00)
[2017-06-30] MEDS: Solu-MEDROL 40mg Inj IVP SCH (21:03)
[2017-07-01] VITALS: BP 160/70
[2017-07-01] MEDS: 1/2NS w/KCl 20mEq 1000ml 1,000 ML IV SCH ×2 (01:53→14:48)
[2017-07-01 04:00] VITALS: BP_SYST 133; BP_SYST 156; BP_DIAS 66; BP_DIAS 77
[2017-07-01] MEDS: Heparin 5000 units/ml inj SUBQ SCH ×3 (06:24→22:40)
[2017-07-01] MEDS: HYDROmorphone 1mg/ml Carpuject IVP PRN ×2 (07:55→15:58)
[2017-07-01 08:00] VITALS: BP 161/69
--- NOTE | 2017-07-01 08:01 | Consultation ---
DATE OF CONSULTATION: 06/30/2017 HEMATOLOGY/ONCOLOGY CONSULTATION CONSULTING PHYSICIAN: Delmer Fitch M.D. ATTENDING PHYSICIAN: Osiris Cassidy M.D. REFERRING PHYSICIAN: Osiris Cassidy M.D. REASON FOR CONSULTATION: Evaluation of lung cancer. IDENTIFYING DATA: Dear Dr. Cassidy: The patient is a pleasant 67-year-old female who has been admitted multiple times in the past to [facility]. The patient at this time presents to the ER with multiple complaints, repeatedly states that she wants to go to her primary care physician, Dr. Natalio Blue, at [facility]. Nevertheless, she has a history of COPD as well as lung cancer. The Hematology Service was consulted for evaluation and treatment. Reviewed the imaging, including CT scan of the abdomen and pelvis that does show right hydronephrosis with a 2.2 x 1.2 right lung lesion present since 2014, potential hemorrhagia, suspect post inflammatory, but neoplasm cannot be completely excluded. PAST MEDICAL HISTORY: Lower back pain, COPD, and hypertension. PAST SURGICAL HISTORY: Cholecystectomy and hysterectomy. Current Medications: Ultram, Norvasc, aspirin, Plavix, Cardizem, folate, Imdur, Prinivil, Singulair, Normodyne, Xanax, Tylenol, and nitroglycerin. ALLERGIES: Codeine. SOCIAL HISTORY: Nonsmoker. FAMILY HISTORY: Noncontributory. REVIEW OF SYSTEMS: As noted above. PHYSICAL EXAMINATION: GENERAL: No acute distress. VITAL SIGNS: Reviewed. PULMONARY: Decreased breath sounds. CARDIOVASCULAR: Regular rate. No S3 or S4. ABDOMEN: Soft, nontender, and nondistended. EXTREMITIES: There is 1+ edema. Laboratory Data: WBC 14.1, hemoglobin 12.8, and platelet count 278,000. INR 1. BUN 6, creatinine 0.9, AST 112, ALT 63. BNP 914. Hepatitis B and C serology negative. ASSESSMENT AND PLAN: 1. Lung cancer history with a history of lung mass that has been present and continues to persist on the CT scan obtained in September 2016. A repeat CT scan from today shows a similar 1.8 cm nodule, apparent interval enlargement since 2014, malignancy cannot be excluded. Recommend to obtain a PET scan as an outpatient for further evaluation and treatment. The patient's CT scan in 2014 did show a similar 17 mm spiculated noncalcified mass in the right lung base to be stable again. 2. Anemia with macrocytosis. Macrocytosis is potentially secondary to either alcohol use and/or other cause as the patient has an AST to ALT ratio of 2:1. 3. Nonspecific back pain, headache, abdominal pain, likely ongoing, chronic. 4. Urolithiasis. 5. COPD history. Again, recommend PET scan as an outpatient. At this time, would hold off on any CT-guided biopsy given relative stability of the mass. I reviewed the patient's CT scan . I appreciate the consultation. Delmer Fitch M.D. DR: ISHA JOB#: [id number] CC:
--- NOTE | 2017-07-01 08:01 | Consultation ---
DATE OF CONSULTATION: 06/30/2017 PULMONARY CONSULTATION CONSULTING PHYSICIAN: James Solomon M.D. REFERRING PHYSICIAN: Osiris Cassidy M.D. REASON FOR CONSULTATION: COPD, lung nodule. History of Present Illness: This is a 67-year-old female with history of COPD, the patient apparently was diagnosed with lung nodule, lung cancer approximately one year ago, but she was afraid to get a biopsy. The patient had not had any workup. The patient apparently still continues to smoke. She does use inhaler. She apparently had wheezing and shortness of breath and was brought in by 911. She denies any fevers or chills. She denies any hemoptysis. The patient states cough is mostly nonproductive. No nausea or vomiting. No other significant finding is noted at this time. Past Medical History: Notable for COPD and pneumonia and prior history of lung mass. PAST SURGICAL HISTORY: Negative. FAMILY HISTORY: Noncontributory. Social History: The patient does smoke. She does not drink. She is not currently employed. Review Of Systems: All 10 points reviewed, notable for the above. There is chronic cough, congestion and possible lung cancer with dizziness, syncope, headaches, prior history of [place], possible coronary artery disease. Other reviewed systems are negative. PHYSICAL EXAMINATION: General: The patient is well developed and well nourished female, in no significant distress at this time, but wheezing. VITAL SIGNS: 132/70 74 14 sats 97%, temperature 98.1. HEENT: Fairly negative. Extraocular movements grossly intact. Oropharynx moist. NECK: Supple. LUNGS: With scattered wheezes. Moderate air entry. CARDIAC: S1 and S2 regular rhythm without murmurs, rubs, or gallops. ABDOMEN: Soft, nontender, and nondistended. EXTREMITIES: No cyanosis, clubbing, or edema. NEUROLOGIC: Nonfocal. Laboratory And Diagnostic Data: Laboratory data reviewed. Sodium 142, potassium 3.2. Calcium is 9.1, which is concerning as her albumin is only 3.9. Liver enzymes noted. Elevated white count is 14, hematocrit is 40, and platelets 278. Impression: Evidence of lung nodule, appears to be increasing in size from prior. No evidence of liver metastasis. Concerned for hypercalcemia related to malignancy, although, unclear at this time, known history of chronic obstructive pulmonary disease. Recommendation: The patient certainly had a CT-guided biopsy. For now, we will optimize respiratory status with intravenous Solu-Medrol, nebulizer therapy and oxygen therapy. Outpatient pulmonary function tests as well PET scan is recommended as well as possibility of bone scan. We will discuss with the patient and primary physician. James Solomon M.D. DR: DAY JOB#: [id number] CC: TED
[2017-07-01] MEDS: Solu-MEDROL 40mg Inj IVP SCH ×2 (08:41→22:38)
--- NOTE | 2017-07-01 09:52 | General Progress Note ---
Assessment/Plan Assessment/Plan COPD Exacerbation - per Pul. Lung CA per Hem/Onc. Osteoarthritis - pain control. Subjective Allergies: Coded Allergies: No Known Allergies (Unverified , 06/30/17) Subjective Less Pain Objective Last 24 Hour Vital Signs Date Time Temp Pulse Resp B/P (MAP) Pulse Ox O2 Delivery O2 Flow Rate FiO2 07/01/17 08:25 97.9 07/01/17 08:00 97.9 80 22 161/69 100 Nasal Cannula 2.0 07/01/17 08:00 74 07/01/17 04:00 98.2 94 22 133/66 96 Room Air 07/01/17 04:00 70 07/01/17 00:00 97.0 71 20 160/70 96 Room Air 07/01/17 00:00 73 06/30/17 20:00 72 06/30/17 20:00 98.1 72 19 154/72 95 Room Air 06/30/17 16:00 82 06/30/17 10:45 98.1 76 16 131/51 97 Room Air Height (Feet): 5 Height (Inches): 5.00 Weight (Pounds): 149 Objective Cv Rr Lungs CTa Abd SNT .BS+ E No CCE ZE KEMP Jul 01, 2017 09:52
[2017-07-01 12:00] VITALS: BP 152/72
[2017-07-01 16:00] VITALS: BP 145/68
--- NOTE | 2017-07-01 16:56 | Pulmonology Progress Note ---
Assessment/Plan Assessment/Plan Impression: Evidence of lung nodule, appears to be increasing in size from prior. No evidence of liver metastasis. hypercalcemia related to malignancy, known history of chronic obstructive pulmonary disease, elevated CEA Recommendation: The patient certainly needs a CT-guided biopsy. may dc home with inhalers and prednisone taper. Outpatient pulmonary function tests as well PET scan is recommended as well as possibility of bone scan. 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 Subjective Allergies: Coded Allergies: No Known Allergies (Unverified , 06/30/17) Subjective care noted and reviewed wants to go home dc noted Objective Last 24 Hour Vital Signs Date Time Temp Pulse Resp B/P (MAP) Pulse Ox O2 Delivery O2 Flow Rate FiO2 07/01/17 16:00 97.0 66 21 145/68 94 Nasal Cannula 2.0 07/01/17 13:05 97.7 07/01/17 12:00 93 07/01/17 12:00 97.7 69 20 152/72 98 Nasal Cannula 2.0 07/01/17 11:10 Nasal Cannula 2.0 07/01/17 11:10 99 Nasal Cannula 2.0 07/01/17 08:25 97.9 07/01/17 08:00 97.9 80 22 161/69 100 Nasal Cannula 2.0 07/01/17 08:00 74 07/01/17 04:00 98.2 94 22 133/66 96 Room Air 07/01/17 04:00 70 07/01/17 00:00 97.0 71 20 160/70 96 Room Air 07/01/17 00:00 73 06/30/17 20:00 72 06/30/17 20:00 98.1 72 19 154/72 95 Room Air Objective WDWN NAD reduced breath sounds bilaterally without rhonchi or wheeze [id number] without MRG NABS nontender no HSM no CCE nonfocal Current Medications Medications (Trade) Dose Ordered Sig/Janee Route PRN Reason Start Time Stop Time Status Last Admin Dose Admin Acetaminophen (Tylenol) 650 mg Q4H PRN ORAL Mild Pain (Pain Scale 1-3) 06/30/17 11:00 07/30/17 10:59 Albuterol/ Ipratropium (DuoNeb 0.5-3(2.5)mg/3ml) 3 ml Q6H PRN HHN Shortness of Breath 06/30/17 11:00 07/05/17 10:59 Bisacodyl (Dulcolax) 10 mg HSPRN PRN RECTAL Constipation 06/30/17 11:00 07/30/17 10:59 Dextrose (Dextrose 50%) STAT PRN IV Hypoglycemia 06/30/17 11:00 07/30/17 10:59 Diphenhydramine HCl (Benadryl) 25 mg Q6H PRN ORAL Itching/Pruritis 06/30/17 11:00 07/30/17 10:59 Docusate Sodium (Colace) 100 mg EVERY 12 HOURS ORAL 06/30/17 21:00 07/30/17 20:59 06/30/17 20:44 Heparin Sodium (Porcine) (Heparin 5000 units/ml) 5,000 units EVERY 8 HOURS SUBQ 06/30/17 14:00 07/30/17 13:59 07/01/17 14:49 Hydromorphone HCl (Dilaudid) 1 mg Q6H PRN IVP Moderate Pain (Pain Scale 4-6) 06/30/17 11:00 07/07/17 10:59 07/01/17 15:58 Hydromorphone HCl (Dilaudid) 2 mg Q6H PRN IVP Severe Pain (Pain Scale 7-10) 06/30/17 11:00 07/07/17 10:59 07/01/17 12:35 Magnesium Hydroxide (Mom) 30 ml HSPRN PRN ORAL Constipation 06/30/17 11:00 07/30/17 10:59 Methylprednisolone Sodium Succinate (Solu-MEDROL) 40 mg EVERY 12 HOURS IVP 06/30/17 21:00 07/30/17 20:59 07/01/17 08:41 Ondansetron HCl (Zofran) 4 mg Q6H PRN IVP Nausea & Vomiting 06/30/17 11:00 07/30/17 10:59 Pantoprazole (Protonix) 40 mg DAILY ORAL 07/01/17 09:00 07/31/17 08:59 07/01/17 08:41 Sodium 1,000 ml @ 75 mls/hr [id number] IV 06/30/17 12:30 07/30/17 12:29 07/01/17 14:48 Zolpidem Tartrate (Ambien) 5 mg HSPRN PRN ORAL Insomnia 06/30/17 21:00 07/07/17 20:59 06/30/17 21:56 TAMARA AGUERO Jul 01, 2017 16:56
[2017-07-01 20:00] VITALS: BP 183/81
--- NOTE | 2017-07-01 22:20 | General Progress Note ---
Assessment/Plan Assessment/Plan ASSESSMENT AND PLAN: 1. Lung cancer history with a lung mass -->Recommend to obtain a PET scan as well as bone scan as an outpatient for further evaluation and treatment. 2. Anemia with macrocytosis. Macrocytosis is potentially secondary to either alcohol use and/or other cause as the patient has an AST to ALT ratio of 2:1. 3. Nonspecific back pain, headache, abdominal pain, likely ongoing, chronic. 4. Urolithiasis. 5. COPD history. Subjective Constitutional: Reports: no symptoms HEENT: Reports: no symptoms Cardiovascular: Reports: no symptoms Respiratory: Reports: no symptoms Gastrointestinal/Abdominal: Reports: no symptoms Genitourinary: Reports: no symptoms Neurologic/Psychiatric: Reports: no symptoms Endocrine: Reports: no symptoms Hematologic/Lymphatic: Reports: no symptoms Allergies: Coded Allergies: No Known Allergies (Unverified , 06/30/17) Subjective NAD Objective Last 24 Hour Vital Signs Date Time Temp Pulse Resp B/P (MAP) Pulse Ox O2 Delivery O2 Flow Rate FiO2 07/01/17 20:54 180/85 07/01/17 20:30 Room Air 07/01/17 20:30 97 Room Air 07/01/17 20:00 97.8 68 20 183/81 100 Room Air 07/01/17 16:28 97.0 07/01/17 16:00 97.0 66 21 145/68 94 Nasal Cannula 2.0 07/01/17 13:05 97.7 07/01/17 12:00 93 07/01/17 12:00 97.7 69 20 152/72 98 Nasal Cannula 2.0 07/01/17 11:10 Nasal Cannula 2.0 07/01/17 11:10 99 Nasal Cannula 2.0 07/01/17 08:00 97.9 80 22 161/69 100 Nasal Cannula 2.0 07/01/17 08:00 74 07/01/17 04:00 98.2 94 22 133/66 96 Room Air 07/01/17 04:00 70 07/01/17 00:00 97.0 71 20 160/70 96 Room Air 07/01/17 00:00 73 Intake and Output 07/01/17 07/02/17 19:00 07:00 Intake Total 260 ml Balance 260 ml Intake Oral 260 ml # Voids 2 Height (Feet): 5 Height (Inches): 5.00 Weight (Pounds): 149 General Appearance: no apparent distress EENT: normal ENT inspection Neck: normal alignment Cardiovascular: normal rate Respiratory/Chest: decreased breath sounds Skin: warm/dry Delmer Fitch Jul 01, 2017 22:20
[2017-07-01] MEDS: Docusate 100mg cap ORAL SCH (22:37)
[2017-07-02 00:51] VITALS: BP 160/78
[2017-07-02 04:00] VITALS: BP 146/77
[2017-07-02] MEDS: 1/2NS w/KCl 20mEq 1000ml 1,000 ML IV SCH (05:04)
[2017-07-02] MEDS: Heparin 5000 units/ml inj SUBQ SCH (06:00)
[2017-07-02 08:00] VITALS: BP 159/77
[2017-07-02] MEDS: Docusate 100mg cap ORAL SCH (08:59)
[2017-07-02] MEDS: Solu-MEDROL 40mg Inj IVP SCH (09:00)
[2017-07-02] MEDS: HYDROmorphone 1mg/ml Carpuject IVP PRN (09:00)
--- NOTE | 2017-07-02 10:10 | General Progress Note ---
Assessment/Plan Assessment/Plan 1) HTN 2) SOB--resolved 3) hx of ca lung plan dc IVF dc soulmedrol add Norvasc 5 mg ok to dc if SBP<150 Subjective Allergies: Coded Allergies: No Known Allergies (Unverified , 06/30/17) Subjective held dc last night due to high BP. ALEXX was improved this AM Objective Last 24 Hour Vital Signs Date Time Temp Pulse Resp B/P (MAP) Pulse Ox O2 Delivery O2 Flow Rate FiO2 07/02/17 09:30 97.9 07/02/17 08:59 62 159/77 07/02/17 08:00 64 07/02/17 08:00 97.9 62 20 159/77 99 Room Air 07/02/17 04:00 97.5 63 16 146/77 100 Room Air 2.0 07/02/17 00:51 98.2 63 20 160/78 100 Room Air 07/01/17 23:09 97.8 07/01/17 20:54 180/85 07/01/17 20:30 Room Air 07/01/17 20:30 97 Room Air 07/01/17 20:00 97.8 68 20 183/81 100 Room Air 07/01/17 16:00 97.0 66 21 145/68 94 Nasal Cannula 2.0 07/01/17 12:00 93 07/01/17 12:00 97.7 69 20 152/72 98 Nasal Cannula 2.0 07/01/17 11:10 Nasal Cannula 2.0 07/01/17 11:10 99 Nasal Cannula 2.0 Height (Feet): 5 Height (Inches): 5.00 Weight (Pounds): 149 Objective NAD, AAOx2 clear RRR soft , non tender, BS+ no edema BENNETT,RUSTAM Jul 02, 2017 10:10
[2017-07-02] MEDS ORDERED: Lisinopril 10mg tab ORAL SCH (11:00)
[2017-07-02 12:00] VITALS: BP 130/60
--- NOTE | 2017-07-02 13:09 | Pulmonology Progress Note ---
Assessment/Plan Assessment/Plan Impression: Evidence of lung nodule, appears to be increasing in size from prior. No evidence of liver metastasis. hypercalcemia related to malignancy, known history of chronic obstructive pulmonary disease, elevated CEA Recommendation: CT-guided biopsy. dc home with inhalers and prednisone taper. Outpatient pulmonary function tests as well PET scan is recommended as well as possibility of bone scan. 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 Patient aware impression, plan, and exam edited and reviewed in detail care discussed with RN Subjective Allergies: Coded Allergies: No Known Allergies (Unverified , 06/30/17) Subjective care noted and reviewed wants to go home dc noted Objective Last 24 Hour Vital Signs Date Time Temp Pulse Resp B/P (MAP) Pulse Ox O2 Delivery O2 Flow Rate FiO2 07/02/17 12:00 97.3 72 20 130/60 99 Room Air 07/02/17 11:12 179/86 07/02/17 11:06 159/77 07/02/17 09:30 97.9 07/02/17 08:59 62 159/77 07/02/17 08:10 97 Room Air 21 07/02/17 08:10 Room Air 21 07/02/17 08:00 64 07/02/17 08:00 97.9 62 20 159/77 99 Room Air 07/02/17 04:00 97.5 63 16 146/77 100 Room Air 2.0 07/02/17 00:51 98.2 63 20 160/78 100 Room Air 07/01/17 23:09 97.8 07/01/17 20:54 180/85 07/01/17 20:30 Room Air 07/01/17 20:30 97 Room Air 07/01/17 20:00 97.8 68 20 183/81 100 Room Air 07/01/17 16:00 97.0 66 21 145/68 94 Nasal Cannula 2.0 Objective WDWN NAD reduced breath sounds bilaterally without rhonchi or wheeze [id number] without MRG NABS nontender no HSM no CCE nonfocal Current Medications Medications (Trade) Dose Ordered Sig/Janee Route PRN Reason Start Time Stop Time Status Last Admin Dose Admin Acetaminophen (Tylenol) 650 mg Q4H PRN ORAL Mild Pain (Pain Scale 1-3) 06/30/17 11:00 07/30/17 10:59 07/02/17 03:28 Albuterol/ Ipratropium (DuoNeb 0.5-3(2.5)mg/3ml) 3 ml Q6H PRN HHN Shortness of Breath 06/30/17 11:00 07/05/17 10:59 Amlodipine Besylate (Norvasc) 5 mg DAILY ORAL 07/02/17 09:00 08/01/17 08:59 07/02/17 08:59 Bisacodyl (Dulcolax) 10 mg HSPRN PRN RECTAL Constipation 06/30/17 11:00 07/30/17 10:59 Clonidine HCl (Catapres) 0.1 mg Q6HR PRN ORAL SBP<160 07/01/17 23:30 07/31/17 23:29 07/02/17 11:12 Dextrose (Dextrose 50%) STAT PRN IV Hypoglycemia 06/30/17 11:00 07/30/17 10:59 Diphenhydramine HCl (Benadryl) 25 mg Q6H PRN ORAL Itching/Pruritis 06/30/17 11:00 07/30/17 10:59 Docusate Sodium (Colace) 100 mg EVERY 12 HOURS ORAL 06/30/17 21:00 07/30/17 20:59 07/02/17 08:59 Heparin Sodium (Porcine) (Heparin 5000 units/ml) 5,000 units EVERY 8 HOURS SUBQ 06/30/17 14:00 07/30/17 13:59 07/01/17 22:40 Hydromorphone HCl (Dilaudid) 1 mg Q6H PRN IVP Moderate Pain (Pain Scale 4-6) 06/30/17 11:00 07/07/17 10:59 07/02/17 09:00 Hydromorphone HCl (Dilaudid) 2 mg Q6H PRN IVP Severe Pain (Pain Scale 7-10) 06/30/17 11:00 07/07/17 10:59 07/02/17 12:00 Lisinopril (Zestril) 10 mg DAILY ORAL 07/02/17 11:00 08/01/17 10:59 07/02/17 11:06 Magnesium Hydroxide (Mom) 30 ml HSPRN PRN ORAL Constipation 10/5/17 11:00 07/30/17 10:59 Ondansetron HCl (Zofran) 4 mg Q6H PRN IVP Nausea & Vomiting 06/30/17 11:00 07/30/17 10:59 Pantoprazole (Protonix) 40 mg DAILY ORAL 07/01/17 09:00 07/31/17 08:59 07/02/17 08:59 Zolpidem Tartrate (Ambien) 5 mg HSPRN PRN ORAL Insomnia 06/30/17 21:00 07/07/17 20:59 06/30/17 21:56 TAMARA AGUERO Jul 02, 2017 13:09
[2017-07-02 13:27] VITALS: BP 122/68
--- NOTE | 2017-07-05 07:57 | Discharge Summary ---
Discharge Summary Hospital Course Date of Admission Jun 30, 2017 at 07:42 Date of Discharge Jul 02, 2017 at 14:20 Admitting Diagnosis DYSPNEA HPI Laura Franco is a 67 year old female who was admitted on Jun 30, 2017 at 07: 42 for Dyspnea Hospital Course dc summary #[id number] Discharge Medications Continued Medications: Ciprofloxacin Hcl* (Ciprofloxacin Hcl*) 500 Mg Tablet 500 MG ORAL EVERY 12 HOURS, TAB 0 Refills Hydrocodone Bit/Acetaminophen 10-325* (Hopkins 10-325*) 1 Each Tablet 1 TAB ORAL Q4H PRN for For Pain, TAB 0 Refills PRN PAIN Hydrocodone Bit/Acetaminophen 5-325* (Hopkins 5-325 Tablet*) 1 Each Tablet 1 TAB ORAL Q4H PRN for For Pain, TAB Ibuprofen* (Motrin*) 600 Mg Tablet 600 MG ORAL FOUR TIMES A DAY, #30 TAB 0 Refills Metoprolol Tartrate* (Metoprolol Tartrate*) 25 Mg Tablet 25 MG ORAL EVERY 12 HOURS, TAB Morphine Sulfate* (Morphine Sulfate*) 2 Mg/1 Ml Cartridge 2 MG IV, EA Ondansetron* (Zofran*) 4 Mg Tablet 4 MG ORAL Q6H PRN for Nausea & Vomiting, TAB Sumatriptan Succinate* (Imitrex*) 50 Mg Tablet 50 MG ORAL DAILY PRN MIGRAINE, TAB [morphine] () Discharge Condition Upon Discharge: stable Discharge Disposition Patient was discharged [facility] ([facility] Discharge Diagnoses: Discharge Instructions Discharge Instructions Special Instructions I have been assigned to complete a D/C Summary on this account. I was not involved in the patient management Amber Barnhart NP ([place]) Jul 05, 2017 07:57
--- NOTE | 2017-07-06 01:46 | Discharge Summary 2 SIG ---
DATE OF ADMISSION: 06/30/2017 DATE OF DISCHARGE: 07/02/2017 REASON FOR ADMISSION: 67 years old female with history of emphysema, chronic obstructive pulmonary disease, myocardial infarction in 2007, hypertension, and lung CA, diagnosed a year ago (no biopsy and subsequently no treatment was done), presented with complaints of wheezing since that morning. She used inhaler at home, which helped a little. She called paramedics. Per paramedics, the patient was wheezing and was very tight. She denied fever and chills. She received breathing treatment by paramedics. She reported nonproductive cough. No hemoptysis. No nausea. No vomiting. No chest pain. Workup in the emergency room revealed WBC -14.1, AST -112, ALT- 63. EKG revealed normal sinus rhythm. Chest x-ray revealed no acute cardiopulmonary disease. Calcium - 11.1. The patient complained of diffuse pain in the low back and abdominal pain. Subsequently, CT of the abdomen and pelvis was done, which revealed 1.8 cm nodule likely pleural based, at the caudal in the right major fissure. Apparent interval enlargement since 2014. Prominent biliary duct. Nonobstructive bilateral renal calculi. The patient was admitted for further management. ADMITTING DIAGNOSES: 1. Chronic obstructive pulmonary disease exacerbation. 2. Lung CA. 3. Nonspecific diffuse pain (low back, headache, abdominal pain). 4. Hypercalcemia, likely related to malignancy. HOSPITAL STAY: The patient was admitted. Pulmonary and Oncology consults were requested. Telephone Directory Distributor Driver seen and evaluated the patient and optimized respiratory status. The patient was started on IV steroids, which were gradually tapered. Upon discharge steroids were changed to oral with gradual tapering. Supplemental oxygen was provided to keep saturation above 92%. Nebulizing treatment provided around the clock on an as needed basis. The patient was recommended to have outpatient pulmonary function tests and outpatient PET scan. The patient stated that she has tear down matcher that she follows. DVT and GI prophylaxis provided. Noted elevated CEA -14.5. The patient likely will need GI procedure as outpatient. AST- 112, ALT- 63. CBC with evidence of macrocytosis. Per oncologist recommendations obtain PET scan and bone scan as outpatient for further evaluation and treatment. Macrocytosis was potentially secondary to either alcohol use or other cause since the patient had ratio AST to ALT 2:1. Pain management was addressed and controlled. Blood pressure was not controlled with the current medication. Norvasc was added. Blood pressure stabilized prior to discharge.The patient will need to follow up with tear down matcher and oncologist as outpatient. The patient understood and verbalized instructions. Respiratory status improved. The patient was stable for discharge. FINAL DIAGNOSES: 1. Chronic obstructive pulmonary disease exacerbation. 2. Lung CA. 3. Osteoarthritis. 4. Urolithiasis. 5. Hypertension. 6. Hypercalcemia, likely related to malignancy. 7. Elevated CEA. 8. Macrocytosis. DISCHARGE MEDICATIONS: See medication reconciliation list. DISCHARGE INSTRUCTIONS: The patient was discharged home. Follow up with the tear down matcher and oncologist as outpatient. Osiris Cassidy M.D. I have been assigned to dictate discharge summary on this account and I was not involved in the patient's management. Amber LeoNassau University Medical CenterKrystal N.PCaprice DR: DEE JOB#: [id number] CC: TED
--- NOTE | 2017-07-07 23:30 | Cardiology Report ---
APPROVED REPORT EKG Measurement Heart [id number] Normal sinus rhythm Anteroseptal infarct, age undetermined Abnormal ECG
== END 2017-07-02 14:20 | disposition home or self-care (01) | DRG 140 ==
LOC: EDBD 06:02 → EMR 06:26 → 2E 07:42 → EDBEDREQ 10:43
DX: J44.1 Chronic obstructive pulmonary disease with (acute) exacerbation (principal); C34.90 Malignant neoplasm of unspecified part of unspecified bronchus or lung; E83.52 Hypercalcemia; N20.9 Urinary calculus, unspecified; I10 Essential (primary) hypertension; D75.89 Other specified diseases of blood and blood-forming organs; M19.90 Unspecified osteoarthritis, unspecified site; I25.2 Old myocardial infarction; R97.0 Elevated carcinoembryonic antigen [CEA]; F17.200 Nicotine dependence, unspecified, uncomplicated; G89.29 Other chronic pain; M54.5 Low back pain; R51 Headache; R10.9 Unspecified abdominal pain
CPT/HCPCS: 36415; 71010; 74176; 80053; 80300; 81003; 82378; 82550; 82553; 84484; 85025; 93005; 94640; 94760; 99285; J2405; J8499

== ENCOUNTER 2017-07-19 14:52 | Emergency (ER) | payer MEDICARE, OTHER ==
[~2017-07-19] VITALS: Ht 165.1 cm; Wt 67.1 kg
[~2017-07-19 14:52] MED LIST changes: +morphine
--- NOTE | 2017-07-19 15:14 | Emergency Room Report ---
History of Present Illness General Chief Complaint: Back Pain-No Injury Source: Patient, Medical Record, EMS Present Illness HPI 67-year-old female with pmhx of COPD, CAD, hypertension, lung CA, chronic back pain p/w back pain for months. Pain is localized to bilateral upper lower back, sharp in nature, also radiating down left leg. Movement worsens pain. There are no alleviating factors. Patient has been taking [place], got a prescription however states that she has been to several pharmacies but no one will fill it for her. Patient has experienced this similar pain in the past. Also stating that she has had runny nose for a few days. No chest pain, chronic shortness of breath but no new shortness of breath. No fever or chills Patient has still been able to walk with walker, no urinary retention or incontinence, no saddle anesthesia Denies trauma. Denies lower extremity weakness/numbness, no bowel/bladder retention or incontinence, saddle anesthesia. Denies fever, chills, abdominal pain, n/v, dysuria/hematuria. Patient was recently discharged from the hospital for dyspnea this morning, at that time patient was also treated for her chronic back pain Allergies: Coded Allergies: No Known Allergies (Unverified , 06/30/17) Patient History Past Medical History: see triage record Past Surgical History: none Pertinent Family History: none Last Menstrual Period: n/a Reviewed Nursing Documentation: PMH: Agreed, PSxH: Agreed Nursing Documentation-PMH Hx Cardiac Problems: Yes Hx Hypertension: Yes Hx Asthma: Yes Hx COPD: Yes Hx Cancer: Yes - lung cx Hx Gastrointestinal Problems: No Hx Neurological Problems: Yes Hx Dizziness: Yes Hx Syncope: Yes Hx Headaches: Yes Hx Weakness: Yes Hx Fatigue: Yes Review of Systems All Other Systems: negative except mentioned in HPI Physical Exam Vital Signs Date Time Temp Pulse Resp B/P (MAP) Pulse Ox O2 Delivery O2 Flow Rate FiO2 07/19/17 14:46 98.2 92 16 131/92 100 Nasal Cannula 2.0 Sp02 EP Interpretation: reviewed, normal General Appearance: alert, GCS 15, non-toxic, other - Middle aged female, thin , nontoxic Head: normocephalic, atraumatic Eyes: bilateral eye normal inspection, bilateral eye PERRL, bilateral eye EOMI ENT: normal ENT inspection, normal pharynx, normal voice, moist mucus membranes Neck: normal inspection, full range of motion, supple Respiratory: normal inspection, lungs clear, normal breath sounds, no respiratory distress, no retraction, no wheezing, speaking full sentences, chest symmetrical Cardiovascular #1: normal inspection, regular rate, rhythm, no edema, normal capillary refill Cardiovascular #2: 2+ radial (R), 2+ radial (L) Gastrointestinal: normal inspection, non tender, soft, non-distended, no guarding Musculoskeletal: normal range of motion, other - Bilateral upper back pain paraspinal, no midline tenderness, tender deltoid muscles bilaterally, full range of motion all extremities, no midline tenderness throughout spine Neurologic: normal inspection, alert, oriented x3, responsive, motor strength/ tone normal, sensory intact, speech normal, other - Motor strength is 5 out of 5 all extremities, normal rectal tone, sensory is intact Psychiatric: normal inspection, judgement/insight normal, memory normal Skin: normal inspection, normal color, no rash, warm/dry, well hydrated, normal turgor Medical Decision Making Diagnostic Impression: Primary Impression: Back pain ER Course 59-year-old female presenting with chronic back pain DDX: likely musculoskeletal back pain vs. muscular strain Lumbar fracture is unlikely given patients age, no midline tenderness, no history of trauma, and that patient is ambulatory. Therefore, at this time no imaging is indicated Serious diagnoses such as cord compression, epidural abscess is unlikely in this patient given the clinical scenario and abscess of neurological symptoms or findings. Patient appears nontoxic. Plan: Tylenol and Robaxin ER course: Patient has remained nontoxic appearing When asked if pain is improved, patient states no, however she has been sleeping comfortably, not in pain Patient ambulating around the emergency room with walker without assistance, able to use the bathroom on her own, not in acute distress Disposition: Patient will be discharged to home with prescription of robaxin Patient cautioned of the effects of robaxin including possible impairment of physical or mental abilities. Patient was instructed to refrain from operating machinery or driving. Patient is also cautioned on the GI effects of motrin and to take sparingly. Patient verbalized understanding. Strict precautions discussed with patient on when to emergently return to the ED which includes severe/worsening back pain, leg weakness/numbness, urinary retention/incontinence, fever or chills, which may indicate severe illness. Patient is to follow up with their PMD within 5 days. Patient agrees with plan. Please note that this Emergency Department Report was dictated using [employer] project manager technology software, occasionally this can lead to erroneous entry secondary to interpretation by the dictation equipment. Last Vital Signs Date Time Temp Pulse Resp B/P (MAP) Pulse Ox O2 Delivery O2 Flow Rate FiO2 07/19/17 14:46 98.2 92 16 131/92 100 Nasal Cannula 2.0 Disposition: HOME, SELF-CARE Condition: Improved Scripts Methocarbamol* (ROBAXIN-750*) 750 Mg Tablet 750 MG PO QID, #28 TAB 0 Refills Prov: Renny Devi M.D. 07/19/17 Renny Devi M.D. Jul 19, 2017 15:14
[2017-07-19] MEDS ORDERED: ROBAXIN-750750 MG PO (15:15)
[2017-07-19] MEDS ORDERED: Methocarbamol 750mg tab ORAL ONE (15:15)
[2017-07-19 16:00] VITALS: BP 142/74
== END 2017-07-19 19:30 | disposition home or self-care (01) ==
LOC: EDBD 14:52 → EMR 16:15
DX: M54.9 Dorsalgia, unspecified (principal); I10 Essential (primary) hypertension; J45.909 Unspecified asthma, uncomplicated; J44.9 Chronic obstructive pulmonary disease, unspecified; Z85.118 Personal history of other malignant neoplasm of bronchus and lung; I25.2 Old myocardial infarction
CPT/HCPCS: 99284

== ENCOUNTER 2017-07-22 11:54 | Inpatient (IN) | payer OTHER, MEDICARE ==
[~2017-07-22] VITALS: Ht 165.1 cm; Wt 67.6 kg
[~2017-07-22 11:54] MED LIST changes: +ROBAXIN-750750 MG PO
[2017-07-22 12:00] VITALS: BP 145/69
[2017-07-22] MEDS ORDERED: Aspirin Baby 81mg ORAL ONE (12:15)
[2017-07-22] MEDS ORDERED: Hydromorphone 0.5mg/0.5ml inj IVP ONE (12:15)
[2017-07-22 12:44] LABS: BASOPHILS % (AUTO) 0.9 % (0.0-2.0); EOSINOPHILS % (AUTO) 0.9 % (0.0-3.0); HEMATOCRIT 44.9 % (37.0-47.0); HEMOGLOBIN 14.6 G/DL (12.0-16.0); LYMPHOCYTES % (AUTO) 23.9 % (20.0-45.0); MEAN CORPUSCULAR VOLUME 105 FL (80-99); MONOCYTES % (AUTO) 7.3 % (1.0-10.0); NEUTROPHILS % (AUTO) 67.1 % (45.0-75.0); PLATELET COUNT 325 K/UL (150-450); RED BLOOD COUNT 4.26 M/UL (4.20-5.40); RED CELL DISTRIBUTION WIDTH 11.5 % (11.6-14.8); WHITE BLOOD COUNT 13.1 K/UL (4.8-10.8)
[2017-07-22] MEDS ORDERED: LISINOPRIL2.5 MG ORAL (12:49)
[2017-07-22 13:00] LABS: ALANINE AMINOTRANSFERASE 20 U/L (12-78); ALBUMIN 3.8 G/DL (3.4-5.0); ALBUMIN/GLOBULIN RATIO 1.2 (1.0-2.7); ALKALINE PHOSPHATASE 165 U/L (46-116); ANION GAP 12 mmol/L (5-15); ASPARTATE AMINO TRANSFERASE 14 U/L (15-37); BILIRUBIN,TOTAL 0.4 MG/DL (0.2-1.0); BLOOD UREA NITROGEN 12 mg/dL (7-18); CALCIUM 11.5 MG/DL (8.5-10.1); CARBON DIOXIDE 20 MMOL/L (21-32); CHLORIDE 111 MMOL/L (98-107); CKMB 0.7 NG/ML (0.0-3.6); CREATINE KINASE 33 U/L (26-308); CREATININE 0.9 MG/DL (0.55-1.30); POTASSIUM 4.9 MMOL/L (3.5-5.1); SODIUM 143 MMOL/L (136-145)
--- NOTE | 2017-07-22 13:22 | Emergency Room Report ---
History of Present Illness General Chief Complaint: Chest Pain Source: Patient Present Illness HPI Patient presents emergency department today complaining of chest pain. Patient has a history of coronary artery disease high blood pressure and COPD. Patient was recently admitted for COPD. She states she develop acute onset chest discomfort radiating to her arm associated shortness of breath. She also complains diffuse bilateral leg pain. She complains of a headache as well. Symptoms noted to be moderate to severe. Patient was last admitted to Dr. Joyce Villanueva.No other modifying factors. No other associated signs and symptoms. No other complaints were noted. Allergies: Coded Allergies: No Known Allergies (Unverified , 06/30/17) Patient History Past Medical History: HTN, CAD, asthma, COPD Past Surgical History: none Pertinent Family History: none Social History: Denies: smoking, alcohol use, drug use Now: No Reviewed Nursing Documentation: PMH: Agreed, PSxH: Agreed Nursing Documentation-PMH Hx Cardiac Problems: Yes Hx Hypertension: Yes Hx Asthma: Yes Hx COPD: Yes Hx Cancer: Yes - Lung Hx Gastrointestinal Problems: No Hx Neurological Problems: Yes Hx Dizziness: Yes Hx Syncope: Yes Hx Headaches: Yes Hx Weakness: Yes Hx Fatigue: Yes Review of Systems All Other Systems: negative except mentioned in HPI Physical Exam Vital Signs Date Time Temp Pulse Resp B/P (MAP) Pulse Ox O2 Delivery O2 Flow Rate FiO2 07/22/17 11:41 98.2 100 17 145/69 100 Room Air Sp02 EP Interpretation: reviewed, normal General Appearance: normal inspection, well appearing, no apparent distress, alert Head: atraumatic Eyes: bilateral eye normal inspection ENT: normal ENT inspection, hearing grossly normal, normal voice Neck: normal inspection, full range of motion, supple, no bony tend Respiratory: normal inspection, lungs clear, normal breath sounds, no respiratory distress, no retraction, no wheezing Cardiovascular #1: regular rate, rhythm, no edema Gastrointestinal: normal inspection, normal bowel sounds, non tender, soft, no guarding, no hernia Genitourinary: no CVA tenderness Musculoskeletal: normal inspection, back normal, normal range of motion Neurologic: normal inspection, alert, responsive, speech normal Psychiatric: normal inspection, mood/affect normal, anxious Skin: normal inspection, normal color, no rash Medical Decision Making Diagnostic Impression: Primary Impression: ACS (acute coronary syndrome) ER Course Patient presented to the emergency department today complaining of chest pain. Differential diagnoses include acute coronary syndrome, pulmonary embolism, pneumothorax, chest wall pain, pleurisy, pericarditis, acute anxiety reaction just to name a few. Given the severity of the patient's presentation I felt this is a highly complex patient. This patient required extensive workup. CBC , chemistry, EKG, chest x-ray, cardiac enzymes, liver profile were all obtained. 12-lead EKG performed for nontraumatic chest pain. [facility] documentation: EKG was performed. Please refer to below for interpretation. Patient laboratory workup however is negative. However given patient's risk factors for the patient require admission. Case was discussed with Dr. Joyce Villanueva who knows patient well. Patient's cardiac workup was negative as far differential I felt the patient to be placed on observation status. Patient will be placed on observation status. Also obtain a head CT for headache. Patient was given aspirin. Labs Test 07/22/17 12:11 White Blood Count 13.1 K/UL (4.8-10.8) Red Blood Count 4.26 M/UL (4.20-5.40) Hemoglobin 14.6 G/DL (12.0-16.0) Hematocrit 44.9 % (37.0-47.0) Mean Corpuscular Volume 105 FL (80-99) Mean Corpuscular Hemoglobin 34.2 PG (27.0-31.0) Mean Corpuscular Hemoglobin Concent 32.5 G/DL (32.0-36.0) Red Cell Distribution Width 11.5 % (11.6-14.8) Platelet Count 325 K/UL (150-450) Mean Platelet Volume 7.6 FL (6.5-10.1) Neutrophils (%) (Auto) 67.1 % (45.0-75.0) Lymphocytes (%) (Auto) 23.9 % (20.0-45.0) Monocytes (%) (Auto) 7.3 % (1.0-10.0) Eosinophils (%) (Auto) 0.9 % (0.0-3.0) Basophils (%) (Auto) 0.9 % (0.0-2.0) Sodium Level 143 MMOL/L (136-145) Potassium Level 4.9 MMOL/L (3.5-5.1) Chloride Level 111 MMOL/L (98-107) Carbon Dioxide Level 20 MMOL/L (21-32) Anion Gap 12 mmol/L (5-15) Blood Urea Nitrogen 12 mg/dL (7-18) Creatinine 0.9 MG/DL (0.55-1.30) Estimat Glomerular Filtration Rate > 60 mL/min (>60) Glucose Level 91 MG/DL (74-106) Calcium Level 11.5 MG/DL (8.5-10.1) Total Bilirubin 0.4 MG/DL (0.2-1.0) Aspartate Amino Transf (AST/SGOT) 14 U/L (15-37) Alanine Aminotransferase (ALT/SGPT) 20 U/L (12-78) Alkaline Phosphatase 165 U/L (46-116) Total Creatine Kinase 33 U/L (26-308) Creatine Kinase MB 0.7 NG/ML (0.0-3.6) Creatine Kinase MB Relative Index 2.1 Troponin I 0.018 ng/mL (0.000-0.056) Pro-B-Type Natriuretic Peptide 195 pg/mL (0-125) Total Protein 7.0 G/DL (6.4-8.2) Albumin 3.8 G/DL (3.4-5.0) Globulin 3.2 g/dL Albumin/Globulin Ratio 1.2 (1.0-2.7) Lipase 137 U/L (73-393) EKG Diagnostic Results Rate: normal Rhythm: NSR ST Segments: no acute changes Rhythm Strip Diag. Results EP Interpretation: yes Rate: 100 Rhythm: NSR, no ectopy, other - ccasional P Chest X-Ray Diagnostic Results Chest X-Ray Diagnostic Results : Chest X-Ray Ordered: Yes # of Views/Limited/Complete: 1 View Indication: Chest Pain EP Interpretation: Yes Interpretation: no consolidation, no effusion, no pneumothorax, no acute cardiopulmonary disease Impression: No acute disease Electronically Signed by: Electronically signed by Nathaniel Medley MD Last Vital Signs Date Time Temp Pulse Resp B/P (MAP) Pulse Ox O2 Delivery O2 Flow Rate FiO2 07/22/17 12:46 98.2 07/22/17 12:00 88 17 145/69 100 Room Air Status: improved Disposition: PLACE IN OBSERVATION Condition: Serious Referrals: NOT CHOSEN PIETRO/,REFERRING (PCP) NATHANIEL MEDLEY M.D. Jul 22, 2017 13:22
--- NOTE | 2017-07-22 13:37 | Diagnostic Imaging Report ---
Indications: Headache Technique: Spiral acquisitions obtained through the brain. Angled axial and coronal 5 x 5 mm slices were reconstructed. Total dose length product 1340 mGycm. CTDI vol(s) 70 mGy. Dose reduction achieved using automated exposure control Comparison: None Findings: No acute hemorrhage or edema. No mass effect or midline shift. Small old basal ganglia lacunar infarcts are seen bilaterally. This there is minimal periventricular deep white matter ischemic change. Ventricles and extra axial CSF spaces are within normal limits for age. Intact calvarium. Visualized orbits and sinuses are unremarkable. Impression: Mild age-related changes Old bilateral basal ganglia lacunar infarcts Negative for acute intracranial bleed or mass effect This agrees with the preliminary interpretation provided earlier by Dr. Saenz The CT scanner at [facility] is accredited by the [employer] and the scans are performed using protocols designed to limit radiation exposure to as low as reasonably achievable to attain images of sufficient resolution adequate for diagnostic evaluation.
--- NOTE | 2017-07-22 13:37 | Diagnostic Imaging Report ---
Indications: Headache Technique: Spiral acquisitions obtained through the brain. Angled axial and coronal 5 x 5 mm slices were reconstructed. Total dose length product 1340 mGycm. CTDI vol(s) 70 mGy. Dose reduction achieved using automated exposure control Comparison: None Findings: No acute hemorrhage or edema. No mass effect or midline shift. Small old basal ganglia lacunar infarcts are seen bilaterally. This there is minimal periventricular deep white matter ischemic change. Ventricles and extra axial CSF spaces are within normal limits for age. Intact calvarium. Visualized orbits and sinuses are unremarkable. Impression: Mild age-related changes Old bilateral basal ganglia lacunar infarcts Negative for acute intracranial bleed or mass effect This agrees with the preliminary interpretation provided earlier by Dr. Saenz The CT scanner at [facility] is accredited by the [employer] and the scans are performed using protocols designed to limit radiation exposure to as low as reasonably achievable to attain images of sufficient resolution adequate for diagnostic evaluation.
--- NOTE | 2017-07-22 13:37 | Diagnostic Imaging Report ---
Indications: Headache Technique: Spiral acquisitions obtained through the brain. Angled axial and coronal 5 x 5 mm slices were reconstructed. Total dose length product 1340 mGycm. CTDI vol(s) 70 mGy. Dose reduction achieved using automated exposure control Comparison: None Findings: No acute hemorrhage or edema. No mass effect or midline shift. Small old basal ganglia lacunar infarcts are seen bilaterally. This there is minimal periventricular deep white matter ischemic change. Ventricles and extra axial CSF spaces are within normal limits for age. Intact calvarium. Visualized orbits and sinuses are unremarkable. Impression: Mild age-related changes Old bilateral basal ganglia lacunar infarcts Negative for acute intracranial bleed or mass effect This agrees with the preliminary interpretation provided earlier by Dr. Saenz The CT scanner at [facility] is accredited by the [employer] and the scans are performed using protocols designed to limit radiation exposure to as low as reasonably achievable to attain images of sufficient resolution adequate for diagnostic evaluation.
[2017-07-22] MEDS ORDERED: Albuterol/Ipratropium 3ml neb HHN PRN (13:45)
[2017-07-22] MEDS ORDERED: Nitroglycerin Subl 0.4mg tab SL PRN (13:45)
[2017-07-22 14:00] VITALS: BP 109/60
[2017-07-22] MEDS ORDERED: LORazepam 1mg tab ORAL PRN (15:00)
[2017-07-22] MEDS: 1/2NS w/KCl 20mEq 1000ml 1,000 ML IV SCH (15:20)
[2017-07-22] MEDS: HYDROmorphone 1mg/ml Carpuject IVP PRN ×2 (15:39→22:01)
[2017-07-22 16:14] VITALS: BP 126/57
--- NOTE | 2017-07-22 16:44 | Diagnostic Imaging Report ---
Indication: COUGH, shortness of breath Technique: One view of the chest Comparison: And 02/12/17 Findings: Lungs and pleural space are clear. Heart size is normal. Bursal calcifications are seen inferior to the bilateral humeral heads. There are cholecystectomy clips are noted. Previously demonstrated nodular focus at the right lung base is only equivocally evident currently, partially imaged on 06/30/[address] Impression: No acute process Nodular right basilar opacity previously described barely if at all visible. Please refer to previous report for suggestion for workup Other findings as noted
[2017-07-22 19:57] VITALS: BP 114/63
[2017-07-22] MEDS: Docusate 100mg cap ORAL SCH (20:01)
[2017-07-22] MEDS: Metoprolol 25mg tab ORAL SCH (20:01)
[2017-07-22] MEDS: Heparin 5000 units/ml inj SUBQ SCH (20:05)
[2017-07-22] MEDS ORDERED: Milk of Magnesia 30ml Ud ORAL PRN (21:00)
[2017-07-22] MEDS: Zolpidem 5mg tab ORAL PRN (22:05)
--- NOTE | 2017-07-23 01:00 | History and Physical Report ---
DATE OF ADMISSION: 07/22/2017 CHIEF COMPLAINT: Left facial pain and chest pain. HISTORY OF PRESENT ILLNESS: This is a 67-year-old female, who has been admitted multiple times to this hospital. The patient has multiple medical problems. This morning, she has experienced left facial pain. She took several tablets of nitroglycerin. The chest pain did not resolve. The patient called her primary care physician, Dr. Blue. She was advised to call 911, which she did and she is admitted here for chest pain for observation. PAST MEDICAL HISTORY: 1. Degenerative joint disease. 2. Type 2 diabetes mellitus. 3. Chronic obstructive pulmonary disease. 4. Peripheral vascular disease. 5. Migraine headaches. 6. Anxiety. 7. Hypertensive cardiovascular disease. 8. Recurrent urinary tract infections. HOME MEDICATIONS: 1. [place] p.r.n. 2. Ciprofloxacin. 3. Ibuprofen. 4. Lisinopril. 5. Robaxin. 6. Metoprolol. 7. Morphine sulfate. 8. Zofran p.r.n. 9. Imitrex p.r.n. 10. Morphine p.r.n. ALLERGIES: Denies any allergies. FAMILY HISTORY: Unremarkable. SOCIAL HISTORY: She lives at home. HABITS: She denies history of alcohol abuse or illicit drug abuse. REVIEW OF SYSTEMS: HEENT: Hearing and eyesight are normal. ENDOCRINE: She has a mild diabetes mellitus. No history of thyroid problems. RESPIRATORY: She has chronic obstructive pulmonary disease. She uses inhalers infrequently. Currently, she denies shortness of breath, cough, or hemoptysis. CARDIOVASCULAR: Please refer to history of present illness. The patient has been ruled out multiple times for active coronary artery disease. GASTROINTESTINAL: No history of hematochezia, melena, hematemesis, diarrhea, or constipation. NEUROLOGIC: No history of stroke, syncope, or Parkinson disease. PHYSICAL EXAMINATION: GENERAL: This is an elderly female, who is in no acute distress. VITAL SIGNS: Blood pressure 145/69, pulse 88 and regular, respirations 20, temperature is 98.2 Fahrenheit, and O2 saturation 100% on room air. HEENT: The head is normocephalic and atraumatic. Pupils are equal, round, and reactive to light. NECK: Supple. Trachea midline. There was no lymphadenopathy or thyromegaly. LUNGS: Clear to auscultation and percussion bilaterally. HEART: Regular rate and rhythm without rubs, murmurs, or gallops. ABDOMEN: Soft and nontender. Bowel sounds were active. EXTREMITIES: No clubbing, cyanosis, or edema. NEUROLOGIC: She is alert and oriented x4. Cranial nerves II through XII are intact. LABORATORY AND ANCILLARY DATA: CBC shows a white count of 13,100, otherwise within normal limits. Serum chemistry, chloride 111, calcium 11.5, and alkaline phosphatase 165, otherwise within normal limits. IMAGING REPORTS: Chest x-ray results are not available. According to the ER physician report, the chest x-ray results are within normal limits. EKG, no signs of ischemia. ASSESSMENT: 1. Chest pain, atypical, rule out acute coronary ischemia. 2. Degenerative joint disease. 3. Type 2 diabetes mellitus. 4. Chronic obstructive pulmonary disease. 5. Peripheral vascular disease. 6. Migraine headaches. 7. Anxiety. 8. Hypertensive cardiovascular disease. 9. Recurrent urinary tract infections. PLAN: 1. Admit to telemetry. 2. Continue home medications. 3. Pain control. Osiris Cassidy M.D. DR: NIECY JOB#: [id number] CC:
[2017-07-23] MEDS: HYDROmorphone 1mg/ml Carpuject IVP PRN ×4 (04:26→22:47)
[2017-07-23 08:00] VITALS: BP 128/55
[2017-07-23] MEDS: Aspirin Baby 81mg ORAL SCH (09:15)
[2017-07-23] MEDS: Lisinopril 10mg tab ORAL SCH (09:15)
[2017-07-23] MEDS: Metoprolol 25mg tab ORAL SCH ×2 (09:15→21:28)
[2017-07-23] MEDS: Docusate 100mg cap ORAL SCH ×3 (09:15→21:28)
[2017-07-23] MEDS: Heparin 5000 units/ml inj SUBQ SCH ×2 (09:17→21:36)
[2017-07-23 12:00] VITALS: BP 104/51
--- NOTE | 2017-07-23 12:53 | Cardiology Progress Note ---
Assessment/Plan Status Narrative [id number] chest pain cad hx fo multipl stent lung cancer tobacco use do Objective Last 24 Hour Vital Signs Date Time Temp Pulse Resp B/P (MAP) Pulse Ox O2 Delivery O2 Flow Rate FiO2 07/23/17 10:57 97.3 07/23/17 09:15 60 128/55 07/23/17 09:15 128/55 07/23/17 08:00 97.3 60 18 128/55 97 Room Air 07/23/17 08:00 62 07/23/17 04:00 58 07/23/17 00:00 59 07/22/17 20:01 72 114/72 07/22/17 20:00 69 07/22/17 19:57 98.1 72 20 114/63 95 Room Air 72 07/22/17 16:14 98.1 72 18 126/57 98 Room Air 07/22/17 16:00 75 07/22/17 14:15 98.0 74 24 109/60 100 Room Air 07/22/17 14:00 98.0 74 24 109/60 100 Room Air Intake and Output 07/23/17 07/24/17 19:00 07:00 Intake Total 360 ml Balance 360 ml Intake Oral 360 ml # Voids 1 Laboratory Tests Test 07/23/17 10:50 Troponin I 0.008 ng/mL (0.000-0.056) BART BOLES Jul 23, 2017 12:53
--- NOTE | 2017-07-23 13:01 | General Progress Note ---
Assessment/Plan Assessment/Plan CP - atypical. Cardiology consult pending. Subjective Allergies: Coded Allergies: No Known Allergies (Unverified , 06/30/17) Subjective c/o chest pain - atypical. Less intensity. Objective Last 24 Hour Vital Signs Date Time Temp Pulse Resp B/P (MAP) Pulse Ox O2 Delivery O2 Flow Rate FiO2 07/23/17 10:57 97.3 07/23/17 09:15 60 128/55 07/23/17 09:15 128/55 07/23/17 08:00 97.3 60 18 128/55 97 Room Air 07/23/17 08:00 62 07/23/17 04:00 58 07/23/17 00:00 59 07/22/17 20:01 72 114/72 07/22/17 20:00 69 07/22/17 19:57 98.1 72 20 114/63 95 Room Air 72 07/22/17 16:14 98.1 72 18 126/57 98 Room Air 07/22/17 16:00 75 07/22/17 14:15 98.0 74 24 109/60 100 Room Air 07/22/17 14:00 98.0 74 24 109/60 100 Room Air Intake and Output 07/23/17 07/24/17 19:00 07:00 Intake Total 360 ml Balance 360 ml Intake Oral 360 ml # Voids 1 Laboratory Tests 07/23/17 10:50: Troponin I 0.008 Height (Feet): 5 Height (Inches): 5.00 Weight (Pounds): 149 Objective CV RR Lungs CTA Abd SNT. BS + E No CCE ZE KEMP Jul 23, 2017 13:01
[2017-07-23] MEDS: 1/2NS w/KCl 20mEq 1000ml 1,000 ML IV SCH (13:05)
[2017-07-23 16:59] VITALS: BP 130/49
[2017-07-23 20:45] VITALS: BP 138/50
[2017-07-23] MEDS: Zolpidem 5mg tab ORAL PRN (23:25)
[2017-07-23 23:59] VITALS: BP 120/55
[2017-07-24 03:56] VITALS: BP 126/63
[2017-07-24] MEDS: HYDROmorphone 1mg/ml Carpuject IVP PRN ×4 (04:56→23:32)
[2017-07-24] MEDS: Lisinopril 10mg tab ORAL SCH (08:39)
[2017-07-24] MEDS: Docusate 100mg cap ORAL SCH ×2 (08:39→21:00)
[2017-07-24] MEDS: Aspirin Baby 81mg ORAL SCH (08:39)
[2017-07-24] MEDS: Metoprolol 25mg tab ORAL SCH ×2 (08:39→21:01)
[2017-07-24] MEDS: 1/2NS w/KCl 20mEq 1000ml 1,000 ML IV SCH (08:39)
[2017-07-24] MEDS: Heparin 5000 units/ml inj SUBQ SCH ×2 (08:41→21:06)
[2017-07-24 08:56] VITALS: BP 126/52
[2017-07-24 12:39] VITALS: BP 130/60
--- NOTE | 2017-07-24 13:14 | General Progress Note ---
Assessment/Plan Assessment/Plan CP - atypical. Cardiology consult rec. dobutamine stress test tomorrow Subjective Allergies: Coded Allergies: No Known Allergies (Unverified , 06/30/17) Subjective c/o chest pain - atypical. Less intensity. Objective Last 24 Hour Vital Signs Date Time Temp Pulse Resp B/P (MAP) Pulse Ox O2 Delivery O2 Flow Rate FiO2 07/24/17 12:39 97.7 52 18 130/60 99 Room Air 07/24/17 08:56 98.1 60 18 126/52 100 Room Air 07/24/17 08:39 83 126/63 07/24/17 08:39 126/63 07/24/17 07:54 83 18 Room Air 21 07/24/17 04:00 69 07/24/17 03:56 97.7 60 20 126/63 97 Room Air 07/24/17 00:00 52 07/23/17 23:59 97.0 80 20 120/55 97 Room Air 07/23/17 21:28 61 138/50 07/23/17 20:45 138/50 07/23/17 20:10 97.9 61 20 96 Room Air 07/23/17 20:00 97 07/23/17 19:50 62 16 Room Air 07/23/17 17:04 98.1 07/23/17 16:59 98.1 59 18 130/49 98 Room Air 07/23/17 16:00 79 Intake and Output 07/24/17 07/25/17 19:00 07:00 Intake Total 480 ml Balance 480 ml Intake Oral 480 ml # Voids 2 Height (Feet): 5 Height (Inches): 5.00 Weight (Pounds): 149 Objective CV RR Lungs CTA Abd SNT. BS + E No CCE ZE KEMP Jul 24, 2017 13:14
[2017-07-24 16:06] VITALS: BP 142/63
--- NOTE | 2017-07-24 17:07 | Cardiology Progress Note ---
Assessment/Plan Assessment/Plan chest pain cad hx fo multipl stent lung cancer tobacco use do perfusion imagign all trop neg Subjective Cardiovascular: Denies: chest pain Respiratory: Reports: cough, shortness of breath, Denies: sputum Gastrointestinal/Abdominal: Denies: abdominal pain Genitourinary: Denies: burning Objective Last 24 Hour Vital Signs Date Time Temp Pulse Resp B/P (MAP) Pulse Ox O2 Delivery O2 Flow Rate FiO2 07/24/17 16:06 97.5 59 18 142/63 99 Room Air 07/24/17 16:00 64 07/24/17 12:39 97.7 52 18 130/60 99 Room Air 07/24/17 12:00 54 07/24/17 08:56 98.1 60 18 126/52 100 Room Air 07/24/17 08:39 83 126/63 07/24/17 08:39 126/63 07/24/17 08:00 56 07/24/17 07:54 83 18 Room Air 21 07/24/17 04:00 69 07/24/17 03:56 97.7 60 20 126/63 97 Room Air 07/24/17 00:00 52 07/23/17 23:59 97.0 80 20 120/55 97 Room Air 07/23/17 21:28 61 138/50 07/23/17 20:45 138/50 07/23/17 20:10 97.9 61 20 96 Room Air 07/23/17 20:00 97 07/23/17 19:50 62 16 Room Air General Appearance: alert Neck: supple Cardiovascular: normal rate, regular rhythm Respiratory/Chest: lungs clear, normal breath sounds Abdomen: normal bowel sounds, non tender, soft Extremities: no swelling Intake and Output 07/24/17 07/25/17 19:00 07:00 Intake Total 720 ml Balance 720 ml Intake Oral 720 ml # Voids 3 Microbiology Date/Time Source Procedure Growth Status 07/22/17 13:40 Nasal Nares MRSA Culture - Final NO METHICILLIN RESISTANT STAPH AUREUS... Complete 07/22/17 13:40 Rectum VRE Culture - Final Enterococcus Faecium - Vre Complete BART BOLES Jul 24, 2017 17:07
--- NOTE | 2017-07-24 18:28 | Cardiology Report ---
APPROVED REPORT EXAM: Two-dimensional and M-mode echocardiogram with Doppler and color Doppler. INDICATION Chest Pain M-Mode DIMENSIONS IVSd0.8 (0.7-1.1cm)Left Atrium (MM)2.7 (1.6-4.0cm) LVDd4.2 (3.5-5.6cm)Aortic Root2.4 (2.0-3.7cm) PWd1.0 (0.7-1.1cm)Aortic Cusp Exc.1.6 (1.5-2.0cm) LVDs2.7 (2.5-4.0cm) PWs1.2 cm Normal left ventricular chamber size, systolic function and wall motion. Left ventricular ejection fraction estimated to be 65-70%. Mild left ventricular hypertrophy. No evidence of pericardial or pleural effusion. All other cardiac chamber sizes are within normal limits. Focal aortic valve sclerosis with adequate cusp excursion. Thickened mitral valve leaflets with normal excursion. Mild mitral annulus and aortic root calcification. Pulmonic valve is well visualized. Normal tricuspid valve structure. IVC is normal in size and collapsible with respiration. A color flow and spectral Doppler study was performed and revealed: No aortic regurgitation. Mild mitral regurgitation. Mitral diastolic velocities suggest reduced left ventricular relaxation c/w diastolic dysfunction grade 1. Trace tricuspid regurgitation. Tricuspid systolic velocities suggests peak right ventricular systolic pressure of 20mmHg
--- NOTE | 2017-07-24 18:38 | Cardiology Report ---
APPROVED REPORT EKG Measurement Heart [id number] Sinus rhythm with premature atrial complexes with aberrant conduction Left axis deviation Inferior infarct, age undetermined Anterior infarct, age undetermined Abnormal ECG
--- NOTE | 2017-07-24 18:38 | Cardiology Report ---
APPROVED REPORT EKG Measurement Heart [id number] Sinus rhythm with premature atrial complexes with aberrant conduction Left axis deviation Inferior infarct, age undetermined Anterior infarct, age undetermined Abnormal ECG
--- NOTE | 2017-07-24 18:38 | Cardiology Report ---
APPROVED REPORT EKG Measurement Heart [id number] [place] [id number] Sinus rhythm with premature atrial complexes with aberrant conduction Left axis deviation Inferior infarct, age undetermined Anterior infarct, age undetermined Abnormal ECG
[2017-07-24 19:52] VITALS: BP 122/66
[2017-07-25] MEDS: Zolpidem 5mg tab ORAL PRN (00:04)
[2017-07-25 00:20] VITALS: BP 134/56
[2017-07-25] MEDS: 1/2NS w/KCl 20mEq 1000ml 1,000 ML IV SCH (03:19)
[2017-07-25 03:51] VITALS: BP 127/63
[2017-07-25] MEDS: HYDROmorphone 1mg/ml Carpuject IVP PRN ×2 (05:42→12:08)
[2017-07-25 07:54] VITALS: BP 136/72
--- NOTE | 2017-07-25 08:45 | Consultation ---
DATE OF CONSULTATION: 07/23/2017 CARDIOLOGY CONSULTATION CONSULTING PHYSICIAN: Fidel Tolbert M.D. REFERRING PHYSICIAN: Osiris Cassidy M.D. REASON FOR EVALUATION: Chest pain. HISTORY OF PRESENT ILLNESS: This is a consultation for Dr. Bette Lopez, who is not available at this time. This is a 67-year-old female who is admitted to the hospital because of chest pain after she had the chest pain three times on the day prior to her admission. These chest pains would go with nitroglycerin, but she would get short of breath, palpitations, and sweating after the use of nitroglycerin. Pain is on the left side in the front and upper part of the chest and the jaw and sometimes on the left side of the face. She cannot identify any relieving or exacerbating factors except for the nitroglycerin that seemed to help the pain, but the pain would come back. It is difficult for me to tell, but it may have been that she only had three episodes of chest pain, but very difficult for me to understand that. There have been episodes of PND, orthopnea, palpitations, and occasional dizziness. PAST MEDICAL HISTORY: Positive for history of myocardial infarction and six prior stents. She is not a diabetic. She has high blood pressure. She has had a heart attack before. She had lung cancer. No stroke. No hepatitis or tuberculosis. No asthma. She does have COPD. No ulcers. No kidney problems, liver problems, thyroid problems, anemia, or arthritis. As far as I could tell, however, she does have some component of peripheral neuropathy. ALLERGIES: She is not allergic to any medications. SOCIAL HISTORY: She smokes, although she has not in the past 3 or 4 days. Does not use any drugs. REVIEW OF SYSTEMS: GASTROINTESTINAL: She has had nausea and diarrhea. GENITOURINARY: Negative. PULMONARY: Positive for coughing and wheezing. CONSTITUTIONAL: Negative. NEUROLOGIC: Negative. PHYSICAL EXAMINATION: GENERAL: Physical examination shows to be elderly female, in no respiratory distress. VITAL SIGNS: Blood pressure 128/55 with heart rate of 60 and temperature 97.3 degrees. NECK: Supple. No jugular venous distention. No abdominojugular reflux noted. LUNGS: Clear to auscultation and percussion. CARDIAC: S1 is normal. S2 is normal. Regular rate and rhythm. No heaves, thrills, gallops, or rubs noted. ABDOMEN: Soft and nontender. Positive bowel sounds. EXTREMITIES: There is no clubbing, cyanosis, nor is there any edema. LABORATORY AND DIAGNOSTIC DATA: White count 13.1, hemoglobin 14.6, and platelet count of 325,000. Sodium is 143, potassium 4.9, chloride 111, bicarbonate 20, BUN of 12, creatinine 0.9, glucose of 91, and calcium is 11.5. Alkaline phosphatase 165. Troponin negative on two separate occasions and CEA of 14.5. Imaging, the chest x-ray was performed in the emergency room yesterday, which shows no acute process, nodular right basilar opacity previously described barely visible, and a CT scan of the head was performed, shows mild age-related changes, old bilateral basal ganglia lacunar infarction, negative for intracranial bleeding. Her telemetry data shows normal sinus rhythm. No SVT, VT, or pauses are noted. EKG shows sinus rhythm with leftward axis, low-voltage QRS complexes are noted. There are some T-wave inversions in aVL only. Delay in R-wave progression is noted. ASSESSMENT AND PLAN: 1. Chest pain. 2. Coronary artery disease history. 3. Lung cancer. 4. Hypercalcemia. This patient was seen in cardiac consultation. The patient describes three episodes of chest pain and these would apparently improve with nitroglycerin. She thinks it is similar to what she had when she had her prior myocardial infarction. She has had stents at [facility]. She does not remember the last time she had a stent put in. Her EKG shows just minimally abnormal, although she has low-voltage QRS complexes. She had an echocardiogram in light of the fact that she has possibly been diagnosed as lung cancer recently and she may require a myocardial perfusion scanning because of her ongoing symptoms. Fidel Tolbert M.D. DR: Keith JOB#: [id number] CC:
[2017-07-25] MEDS: Lisinopril 10mg tab ORAL SCH (10:18)
[2017-07-25] MEDS: Docusate 100mg cap ORAL SCH (10:18)
[2017-07-25] MEDS: Metoprolol 25mg tab ORAL SCH (10:18)
[2017-07-25] MEDS: Aspirin Baby 81mg ORAL SCH (10:19)
[2017-07-25] MEDS: Heparin 5000 units/ml inj SUBQ SCH (10:23)
--- NOTE | 2017-07-25 11:19 | Diagnostic Imaging Report ---
APPROVED REPORT CPT Code: 18776 Present Symptoms Comments: Chest Pain. BILATERAL: Imaging reveals a patent deep venous system bilaterally. There is no evidence of thrombus within the femoral, popliteal or tibial segments. The greater saphenous veins are also within normal limits. Doppler indicates normal spontaneous flow within these segments.
--- NOTE | 2017-07-25 11:19 | Diagnostic Imaging Report ---
APPROVED REPORT CPT Code: 96485 Present Symptoms Comments: Chest Pain. BILATERAL: Imaging reveals a patent deep venous system bilaterally. There is no evidence of thrombus within the femoral, popliteal or tibial segments. The greater saphenous veins are also within normal limits. Doppler indicates normal spontaneous flow within these segments.
--- NOTE | 2017-07-25 11:19 | Diagnostic Imaging Report ---
APPROVED REPORT CPT Code: 60795 Present Symptoms Comments: Chest Pain. BILATERAL: Imaging reveals a patent deep venous system bilaterally. There is no evidence of thrombus within the femoral, popliteal or tibial segments. The greater saphenous veins are also within normal limits. Doppler indicates normal spontaneous flow within these segments.
[2017-07-25 11:38] VITALS: BP 134/62
--- NOTE | 2017-07-25 13:09 | General Progress Note ---
Assessment/Plan Assessment/Plan CP - atypical. Cardiology consult rec. dobutamine stress test. Patient refusing. DC home. Continue home meds. Subjective Allergies: Coded Allergies: No Known Allergies (Unverified , 06/30/17) Subjective No chest pain .Refusing stress test. Objective Last 24 Hour Vital Signs Date Time Temp Pulse Resp B/P (MAP) Pulse Ox O2 Delivery O2 Flow Rate FiO2 07/25/17 11:38 97.0 66 18 134/62 98 Room Air 07/25/17 10:18 86 136/72 07/25/17 10:18 136/72 07/25/17 08:35 86 18 Room Air 21 07/25/17 07:54 96.3 57 18 136/72 97 Room Air 07/25/17 04:00 63 07/25/17 03:51 97.5 68 20 127/63 97 Room Air 07/25/17 00:20 97.0 60 20 134/56 96 Room Air 07/25/17 00:00 56 07/24/17 21:01 61 122/66 07/24/17 20:00 57 07/24/17 19:52 97.0 61 20 122/66 98 Room Air 07/24/17 19:15 84 18 Room Air 21 07/24/17 16:06 97.5 59 18 142/63 99 Room Air 07/24/17 16:00 64 Intake and Output 07/25/17 07/26/17 19:00 07:00 Intake Total 390 ml Output Total 100 ml Balance 290 ml Intake Oral 390 ml Output Urine Total 100 ml Height (Feet): 5 Height (Inches): 5.00 Weight (Pounds): 149 Objective CV RR Lungs CTA Abd SNT. BS + E No CCE ZE KEMP Jul 25, 2017 13:09
--- NOTE | 2017-07-26 13:18 | Discharge Summary ---
Discharge Summary Hospital Course Date of Admission Jul 22, 2017 at 12:53 Date of Discharge Jul 25, 2017 at 15:10 Admitting Diagnosis ACS HPI Laura Franco is a 67 year old female who was admitted on Jul 22, 2017 at 12:53 for Acute Coronary Syndrome Hospital Course dc summary #[id number] Discharge Medications Continued Medications: Hydrocodone Bit/Acetaminophen 5-325* ([place] 5-325 Tablet*) 1 Each Tablet 1 TAB ORAL Q4H PRN for For Pain, TAB Lisinopril* (Lisinopril*) 2.5 Mg Tablet 2.5 MG ORAL DAILY, TAB 0 Refills Metoprolol Tartrate* (Metoprolol Tartrate*) 25 Mg Tablet 25 MG ORAL EVERY 12 HOURS, TAB Ondansetron* (Zofran*) 4 Mg Tablet 4 MG ORAL Q6H PRN for Nausea & Vomiting, TAB Sumatriptan Succinate* (Imitrex*) 50 Mg Tablet 50 MG ORAL DAILY PRN MIGRAINE, TAB Discontinued Medications: Ciprofloxacin Hcl* (Ciprofloxacin Hcl*) 500 Mg Tablet 500 MG ORAL EVERY 12 HOURS, TAB 0 Refills Hydrocodone Bit/Acetaminophen 10-325* ([place] 10-325*) 1 Each Tablet 1 TAB ORAL Q4H PRN for For Pain, TAB 0 Refills PRN PAIN Ibuprofen* (Motrin*) 600 Mg Tablet 600 MG ORAL FOUR TIMES A DAY, #30 TAB 0 Refills Methocarbamol* (Robaxin-750*) 750 Mg Tablet 750 MG PO QID, #28 TAB 0 Refills Morphine Sulfate* (Morphine Sulfate*) 2 Mg/1 Ml Cartridge 2 MG IV, EA [morphine] () Discharge Condition Upon Discharge: stable Discharge Disposition Patient was discharged to Home (01) Discharge Diagnoses: Obey (Vancesthelaein),Amber SCHNEIDER Jul 26, 2017 13:18
--- NOTE | 2017-07-26 13:18 | Discharge Summary ---
Discharge Summary Hospital Course Date of Admission Jul 22, 2017 at 12:53 Date of Discharge Jul 25, 2017 at 15:10 Admitting Diagnosis ACS HPI Laura Franco is a 67 year old female who was admitted on Jul 22, 2017 at 12:53 for Acute Coronary Syndrome Hospital Course dc summary #[id number] Discharge Medications Continued Medications: Hydrocodone Bit/Acetaminophen 5-325* ([place] 5-325 Tablet*) 1 Each Tablet 1 TAB ORAL Q4H PRN for For Pain, TAB Lisinopril* (Lisinopril*) 2.5 Mg Tablet 2.5 MG ORAL DAILY, TAB 0 Refills Metoprolol Tartrate* (Metoprolol Tartrate*) 25 Mg Tablet 25 MG ORAL EVERY 12 HOURS, TAB Ondansetron* (Zofran*) 4 Mg Tablet 4 MG ORAL Q6H PRN for Nausea & Vomiting, TAB Sumatriptan Succinate* (Imitrex*) 50 Mg Tablet 50 MG ORAL DAILY PRN MIGRAINE, TAB Discontinued Medications: Ciprofloxacin Hcl* (Ciprofloxacin Hcl*) 500 Mg Tablet 500 MG ORAL EVERY 12 HOURS, TAB 0 Refills Hydrocodone Bit/Acetaminophen 10-325* ([place] 10-325*) 1 Each Tablet 1 TAB ORAL Q4H PRN for For Pain, TAB 0 Refills PRN PAIN Ibuprofen* (Motrin*) 600 Mg Tablet 600 MG ORAL FOUR TIMES A DAY, #30 TAB 0 Refills Methocarbamol* (Robaxin-750*) 750 Mg Tablet 750 MG PO QID, #28 TAB 0 Refills Morphine Sulfate* (Morphine Sulfate*) 2 Mg/1 Ml Cartridge 2 MG IV, EA [morphine] () Discharge Condition Upon Discharge: stable Discharge Disposition Patient was discharged to Home (01) Discharge Diagnoses: Obey (Vancesthelaein),Amber SCHNEIDER Jul 26, 2017 13:18
--- NOTE | 2017-07-26 13:18 | Discharge Summary ---
Discharge Summary Hospital Course Date of Admission Jul 22, 2017 at 12:53 Date of Discharge Jul 25, 2017 at 15:10 Admitting Diagnosis ACS HPI Laura Franco is a 67 year old female who was admitted on Jul 22, 2017 at 12:53 for Acute Coronary Syndrome Hospital Course dc summary #[id number] Discharge Medications Continued Medications: Hydrocodone Bit/Acetaminophen 5-325* ([place] 5-325 Tablet*) 1 Each Tablet 1 TAB ORAL Q4H PRN for For Pain, TAB Lisinopril* (Lisinopril*) 2.5 Mg Tablet 2.5 MG ORAL DAILY, TAB 0 Refills Metoprolol Tartrate* (Metoprolol Tartrate*) 25 Mg Tablet 25 MG ORAL EVERY 12 HOURS, TAB Ondansetron* (Zofran*) 4 Mg Tablet 4 MG ORAL Q6H PRN for Nausea & Vomiting, TAB Sumatriptan Succinate* (Imitrex*) 50 Mg Tablet 50 MG ORAL DAILY PRN MIGRAINE, TAB Discontinued Medications: Ciprofloxacin Hcl* (Ciprofloxacin Hcl*) 500 Mg Tablet 500 MG ORAL EVERY 12 HOURS, TAB 0 Refills Hydrocodone Bit/Acetaminophen 10-325* ([place] 10-325*) 1 Each Tablet 1 TAB ORAL Q4H PRN for For Pain, TAB 0 Refills PRN PAIN Ibuprofen* (Motrin*) 600 Mg Tablet 600 MG ORAL FOUR TIMES A DAY, #30 TAB 0 Refills Methocarbamol* (Robaxin-750*) 750 Mg Tablet 750 MG PO QID, #28 TAB 0 Refills Morphine Sulfate* (Morphine Sulfate*) 2 Mg/1 Ml Cartridge 2 MG IV, EA [morphine] () Discharge Condition Upon Discharge: stable Discharge Disposition Patient was discharged to Home (01) Discharge Diagnoses: Obey (Vancesthelaein),Amber SCHNEIDER Jul 26, 2017 13:18
--- NOTE | 2017-07-26 21:45 | Discharge Summary 2 SIG ---
DATE OF ADMISSION: 07/22/2017 DATE OF DISCHARGE: 07/25/2017 REASON FOR ADMISSION: 67 years old female with a history of coronary artery disease, chronic obstructive pulmonary disease, and hypertension, presented with chest pain. Vital signs were stable. Troponin was negative. EKG showed normal sinus rhythm with premature atrial complexes with aberrant conduction. The patient was admitted for chest pain, rule out acute coronary syndrome. HOSPITAL COURSE: The patient was admitted to the telemetry floor. Cardiology consult was requested. Serial troponin were negative. ECG revealed no acute ischemic changes. Patient was ruled out for acute [place]. Echocardiogram revealed preserved ejection fraction of 65% to 70%, right ventricular systolic pressure of 20. The patient had evidence of mild left ventricular hypertrophy and mild mitral regurgitation, no wall abnormalities were noted. CT of the head revealed no evidence of acute intracranial pathology, but demonstrated findings consistent with old bilateral basal ganglia lacunar infarct. Venous duplex of bilateral lower extremities was negative. Blood pressure was managed with the current medication regimen , INDIA inhibitor and beta-apolonia, and was stable. DVT and GI prophylaxis provided. Aspirin and Plavix were continued. The patient with history of coronary artery disease with multiply stents placed in [facility]. The patient also has a questionable history of lung cancer, status post treatment. Supplemental oxygen provided as needed to keep saturation above 92%. Pulmonary toilet provided as needed. Pulse oximetry was stable on room air. According to thiokol operator, patient had ongoing symptoms, however serial troponin were negative and EKG was minimally abnormal with low voltage QRS. Chest pain, apparently improved with nitroglycerin. Dobutamine stress test was ordered due to the ongoing symptoms, however, the patient refused the test. Wholesale Parts Salesperson noted, that the patient's chest pain was likely atypical chest pain. thiokol operator cleared the patient for discharge adn follow up with thiokol operator as outpatient. The patient was stable for discharge home and follow up with the primary medical doctor and thiokol operator. FINAL DIAGNOSES: 1. Atypical chest pain. 2. Coronary artery disease with history of multiple stents. 3. Questionable lung cancer. 4. Hypertensive cardiovascular disease. 5. Diabetes mellitus type 2. 6. Chronic obstructive pulmonary disease/asthma. 7. Migraine headache. 8. Anxiety. DISCHARGE MEDICATIONS: See medication reconciliation list. DISCHARGE INSTRUCTIONS: The patient was discharged home. The patient to follow up with primary medical doctor and thiokol operator, recommended stress test as outpatient due to the ongoing symptoms. Osiris Cassidy M.D. I have been assigned to dictate discharge summary on this account and I was not involved in the patient's management. Amber Barnhart N.P. (Vanchtein) DR: DEE JOB#: [id number] CC: TED
--- NOTE | 2017-07-26 21:45 | Discharge Summary 2 SIG ---
DATE OF ADMISSION: 07/22/2017 DATE OF DISCHARGE: 07/25/2017 REASON FOR ADMISSION: 67 years old female with a history of coronary artery disease, chronic obstructive pulmonary disease, and hypertension, presented with chest pain. Vital signs were stable. Troponin was negative. EKG showed normal sinus rhythm with premature atrial complexes with aberrant conduction. The patient was admitted for chest pain, rule out acute coronary syndrome. HOSPITAL COURSE: The patient was admitted to the telemetry floor. Cardiology consult was requested. Serial troponin were negative. ECG revealed no acute ischemic changes. Patient was ruled out for acute [place]. Echocardiogram revealed preserved ejection fraction of 65% to 70%, right ventricular systolic pressure of 20. The patient had evidence of mild left ventricular hypertrophy and mild mitral regurgitation, no wall abnormalities were noted. CT of the head revealed no evidence of acute intracranial pathology, but demonstrated findings consistent with old bilateral basal ganglia lacunar infarct. Venous duplex of bilateral lower extremities was negative. Blood pressure was managed with the current medication regimen , INDIA inhibitor and beta-apolonia, and was stable. DVT and GI prophylaxis provided. Aspirin and Plavix were continued. The patient with history of coronary artery disease with multiply stents placed in [facility]. The patient also has a questionable history of lung cancer, status post treatment. Supplemental oxygen provided as needed to keep saturation above 92%. Pulmonary toilet provided as needed. Pulse oximetry was stable on room air. According to slip caster, patient had ongoing symptoms, however serial troponin were negative and EKG was minimally abnormal with low voltage QRS. Chest pain, apparently improved with nitroglycerin. Dobutamine stress test was ordered due to the ongoing symptoms, however, the patient refused the test. Restaurant Delivery Driver noted, that the patient's chest pain was likely atypical chest pain. slip caster cleared the patient for discharge adn follow up with slip caster as outpatient. The patient was stable for discharge home and follow up with the primary medical doctor and slip caster. FINAL DIAGNOSES: 1. Atypical chest pain. 2. Coronary artery disease with history of multiple stents. 3. Questionable lung cancer. 4. Hypertensive cardiovascular disease. 5. Diabetes mellitus type 2. 6. Chronic obstructive pulmonary disease/asthma. 7. Migraine headache. 8. Anxiety. DISCHARGE MEDICATIONS: See medication reconciliation list. DISCHARGE INSTRUCTIONS: The patient was discharged home. The patient to follow up with primary medical doctor and slip caster, recommended stress test as outpatient due to the ongoing symptoms. Osiris Cassidy M.D. I have been assigned to dictate discharge summary on this account and I was not involved in the patient's management. Amber Barnhart N.P. (Vanchtein) DR: DEE JOB#: [id number] CC: TED
--- NOTE | 2017-07-26 21:45 | Discharge Summary 2 SIG ---
DATE OF ADMISSION: 07/22/2017 DATE OF DISCHARGE: 07/25/2017 REASON FOR ADMISSION: 67 years old female with a history of coronary artery disease, chronic obstructive pulmonary disease, and hypertension, presented with chest pain. Vital signs were stable. Troponin was negative. EKG showed normal sinus rhythm with premature atrial complexes with aberrant conduction. The patient was admitted for chest pain, rule out acute coronary syndrome. HOSPITAL COURSE: The patient was admitted to the telemetry floor. Cardiology consult was requested. Serial troponin were negative. ECG revealed no acute ischemic changes. Patient was ruled out for acute [place]. Echocardiogram revealed preserved ejection fraction of 65% to 70%, right ventricular systolic pressure of 20. The patient had evidence of mild left ventricular hypertrophy and mild mitral regurgitation, no wall abnormalities were noted. CT of the head revealed no evidence of acute intracranial pathology, but demonstrated findings consistent with old bilateral basal ganglia lacunar infarct. Venous duplex of bilateral lower extremities was negative. Blood pressure was managed with the current medication regimen , IND[place] inhibitor and beta-apolnoia, and was stable. DVT and GI prophylaxis provided. Aspirin and Plavix were continued. The patient with history of coronary artery disease with multiply stents placed in [facility]. The patient also has a questionable history of lung cancer, status post treatment. Supplemental oxygen provided as needed to keep saturation above 92%. Pulmonary toilet provided as needed. Pulse oximetry was stable on room air. According to pressure sealer and tester, patient had ongoing symptoms, however serial troponin were negative and EKG was minimally abnormal with low voltage QRS. Chest pain, apparently improved with nitroglycerin. Dobutamine stress test was ordered due to the ongoing symptoms, however, the patient refused the test. Construction Economist noted, that the patient's chest pain was likely atypical chest pain. pressure sealer and tester cleared the patient for discharge adn follow up with pressure sealer and tester as outpatient. The patient was stable for discharge home and follow up with the primary medical doctor and pressure sealer and tester. FINAL DIAGNOSES: 1. Atypical chest pain. 2. Coronary artery disease with history of multiple stents. 3. Questionable lung cancer. 4. Hypertensive cardiovascular disease. 5. Diabetes mellitus type 2. 6. Chronic obstructive pulmonary disease/asthma. 7. Migraine headache. 8. Anxiety. DISCHARGE MEDICATIONS: See medication reconciliation list. DISCHARGE INSTRUCTIONS: The patient was discharged home. The patient to follow up with primary medical doctor and pressure sealer and tester, recommended stress test as outpatient due to the ongoing symptoms. Osiris Cassidy M.D. I have been assigned to dictate discharge summary on this account and I was not involved in the patient's management. Amber Barnhart N.P. (Vanchtein) DR: DEE JOB#: [id number] CC: TED
== END 2017-07-25 15:10 | disposition home or self-care (01) | DRG 198 ==
LOC: EDBD 11:54 → EMR 12:24 → 2E 12:53 → EDBEDREQ 13:19 → 2E 07-23 18:01
DX: R07.89 Other chest pain (principal); I25.2 Old myocardial infarction; I11.9 Hypertensive heart disease without heart failure; J44.9 Chronic obstructive pulmonary disease, unspecified; M19.90 Unspecified osteoarthritis, unspecified site; I73.9 Peripheral vascular disease, unspecified; G43.909 Migraine, unspecified, not intractable, without status migrainosus; F41.9 Anxiety disorder, unspecified; Z87.440 Personal history of urinary (tract) infections; Z95.5 Presence of coronary angioplasty implant and graft; E11.9 Type 2 diabetes mellitus without complications; Z79.02 Long term (current) use of antithrombotics/antiplatelets; I25.10 Atherosclerotic heart disease of native coronary artery without angina pectoris; Z85.118 Personal history of other malignant neoplasm of bronchus and lung; F17.200 Nicotine dependence, unspecified, uncomplicated
CPT/HCPCS: 36415; 70450; 71010; 80053; 82550; 82553; 83690; 83880; 84484; 85025; 87081; 93005; 93306; 93970; 94664; 99285; J2405

== ENCOUNTER 2017-08-16 15:12 | Inpatient (IN) | payer OTHER, MEDICARE ==
[~2017-08-16] VITALS: Ht 152.4 cm; Wt 60.0 kg
[~2017-08-16 15:12] MED LIST changes: +LISINOPRIL2.5 MG ORAL
[2017-08-16 15:25] VITALS: BP 151/68
[2017-08-16] MEDS ORDERED: Sodium Chloride 500ML 500 ML IV ONE (15:38)
[2017-08-16] MEDS ORDERED: Morphine Sulfate 4mg/ml Inj IVP ONE (15:45)
--- NOTE | 2017-08-16 16:21 | Diagnostic Imaging Report ---
Indication: Chest pain Comparison: 07/22/17 A single view chest radiograph was obtained. Findings: There is no infiltrate. There is a nodular density projected over the right lung base. Suggest followup llowup No definite infiltrate or pulmonary vascular congestion identified. The heart is enlarged. The aorta is mildly enlarged consistent with atherosclerotic vascular disease. The bones are osteopenic. There are degenerative changes of both glenohumeral joints. Impression: Apparent nodule right lung base. Suggest followup or CT, which suggested on an outpatient basis.
[2017-08-16 16:53] LABS: BASOPHILS % (AUTO) 1.3 % (0.0-2.0); EOSINOPHILS % (AUTO) 1.8 % (0.0-3.0); LYMPHOCYTES % (AUTO) 26.2 % (20.0-45.0); MEAN CORPUSCULAR HEMOGLOBIN 34.5 PG (27.0-31.0); MEAN CORPUSCULAR HGB CONC 31.9 G/DL (32.0-36.0); MEAN CORPUSCULAR VOLUME 108 FL (80-99); MONOCYTES % (AUTO) 6.9 % (1.0-10.0); NEUTROPHILS % (AUTO) 63.9 % (45.0-75.0); PLATELET COUNT 291 K/UL (150-450); RED BLOOD COUNT 3.96 M/UL (4.20-5.40); RED CELL DISTRIBUTION WIDTH 12.2 % (11.6-14.8); WHITE BLOOD COUNT 13.9 K/UL (4.8-10.8)
[2017-08-16 17:07] LABS: ALANINE AMINOTRANSFERASE 32 U/L (12-78); ALBUMIN/GLOBULIN RATIO 1.2 (1.0-2.7); ANION GAP 10 mmol/L (5-15); ASPARTATE AMINO TRANSFERASE 14 U/L (15-37); CARBON DIOXIDE 23 MMOL/L (21-32); CHLORIDE 110 MMOL/L (98-107); CKMB < 0.5 NG/ML (0.0-3.6); SODIUM 143 MMOL/L (136-145); TOTAL PROTEIN 6.7 G/DL (6.4-8.2)
[2017-08-16 17:30] VITALS: BP 149/68
[2017-08-16 17:32] LABS: CALCIUM 10.5 MG/DL (8.5-10.1); CREATININE 1.1 MG/DL (0.55-1.30); GLOMERULAR FILTRATION RATE 59.9 mL/min (>60)
[2017-08-16 19:00] VITALS: BP 144/66
[2017-08-16] MEDS ORDERED: UNOBMED (19:17)
[2017-08-16 19:30] VITALS: BP 126/66
--- NOTE | 2017-08-16 22:10 | Emergency Room Report ---
History of Present Illness General Chief Complaint: General Complaint Source: Patient Present Illness HPI 67-year-old female presents ED complaining of chest pain. Patient states chest pain midsternal, pressure-like, intermittent. Comes and goes at rest. 05/05. Nonradiating. Denies shortness of breath. Denies fevers or chills. Denies cough. No other aggravating or relieving factors. Denies any other associated symptoms Allergies: Coded Allergies: No Known Allergies (Unverified , 06/30/17) Patient History Past Medical History: HTN, asthma, COPD Past Surgical History: none Pertinent Family History: none Social History: Denies: smoking, alcohol use, drug use Now: No Immunizations: UTD Reviewed Nursing Documentation: PMH: Agreed, PSxH: Agreed Nursing Documentation-PMH Hx Cardiac Problems: No Hx Hypertension: Yes Hx Asthma: Yes Hx COPD: Yes Hx Cancer: Yes Hx Gastrointestinal Problems: No Hx Neurological Problems: No Hx Dizziness: Yes Hx Syncope: Yes Hx Headaches: Yes Hx Weakness: Yes Hx Fatigue: Yes Review of Systems All Other Systems: negative except mentioned in HPI Physical Exam Vital Signs Date Time Temp Pulse Resp B/P (MAP) Pulse Ox O2 Delivery O2 Flow Rate FiO2 08/16/17 15:04 98.2 68 16 140/80 98 Room Air Sp02 EP Interpretation: reviewed, normal General Appearance: alert, GCS 15, non-toxic, mild distress Head: normocephalic, atraumatic Eyes: bilateral eye normal inspection, bilateral eye PERRL ENT: hearing grossly normal, normal pharynx, no angioedema, normal voice Neck: full range of motion, supple/symm/no masses Respiratory: chest non-tender, lungs clear, normal breath sounds, speaking full sentences Cardiovascular #1: regular rate, rhythm, no edema Cardiovascular #2: 2+ carotid (R), 2+ carotid (L), 2+ radial (R), 2+ radial (L) , 2+ dorsalis pedis (R), 2+ dorsalis pedis (L) Gastrointestinal: normal bowel sounds, non tender, soft, non-distended, no guarding, no rebound Rectal: deferred Genitourinary: normal inspection, no CVA tenderness Musculoskeletal: back normal, gait/station normal, normal range of motion, non- tender Neurologic: alert, oriented x3, responsive, motor strength/tone normal, sensory intact, speech normal Psychiatric: judgement/insight normal, memory normal, mood/affect normal, no suicidal/homicidal ideation Reflexes: 3+ bicep (R), 3+ bicep (L), 3+ tricep (R), 3+ tricep (L), 3+ knee (R) , 3+ knee (L) Skin: normal color, no rash, warm/dry, well hydrated Lymphatic: no adenopathy Medical Decision Making Diagnostic Impression: Primary Impression: ACS (acute coronary syndrome) ER Course Hospital Course 67-year-old female presents ED complaining of chest pain Differential diagnoses include: TX/unstable angina, contusion, muscle strain, PTX, rib fracture Clinical course Patient placed on stretcher. on monitor tech. After initial history and physical I ordered labs, EKG, chest x-ray, ASA, morphine labs reviewed- minimal leukocytosis, hb/hct stable, electrolytes ok, trop negative EKG - NSR, no acute ischemic changes Chest x-ray- ? R lung nodule Case discussed with Dr. Mccracken and he agreed to accept the patient to his service for further care and support I. I feel this is a highly complex case requiring extensive working including EKG/Rhythm strip, Xray/CT/US, Blood/urine lab work, repeat exams while in ED, and administration of strong opiates/narcotics for pain control, admission to hospital or close patient follow up. Diagnosis - ACS admitted to telemetry in serious condition Labs Test 08/16/17 16:10 08/16/17 16:30 White Blood Count 13.9 K/UL (4.8-10.8) Red Blood Count 3.96 M/UL (4.20-5.40) Hemoglobin 13.7 G/DL (12.0-16.0) Hematocrit 42.8 % (37.0-47.0) Mean Corpuscular Volume 108 FL (80-99) Mean Corpuscular Hemoglobin 34.5 PG (27.0-31.0) Mean Corpuscular Hemoglobin Concent 31.9 G/DL (32.0-36.0) Red Cell Distribution Width 12.2 % (11.6-14.8) Platelet Count 291 K/UL (150-450) Mean Platelet Volume 8.0 FL (6.5-10.1) Neutrophils (%) (Auto) 63.9 % (45.0-75.0) Lymphocytes (%) (Auto) 26.2 % (20.0-45.0) Monocytes (%) (Auto) 6.9 % (1.0-10.0) Eosinophils (%) (Auto) 1.8 % (0.0-3.0) Basophils (%) (Auto) 1.3 % (0.0-2.0) Sodium Level 143 MMOL/L (136-145) Potassium Level 4.0 MMOL/L (3.5-5.1) Chloride Level 110 MMOL/L (98-107) Carbon Dioxide Level 23 MMOL/L (21-32) Anion Gap 10 mmol/L (5-15) Blood Urea Nitrogen 20 mg/dL (7-18) Creatinine 1.1 MG/DL (0.55-1.30) Estimat Glomerular Filtration Rate 59.9 mL/min (>60) Glucose Level 115 MG/DL (74-106) Calcium Level 10.5 MG/DL (8.5-10.1) Total Bilirubin 0.6 MG/DL (0.2-1.0) Aspartate Amino Transf (AST/SGOT) 14 U/L (15-37) Alanine Aminotransferase (ALT/SGPT) 32 U/L (12-78) Alkaline Phosphatase 182 U/L (46-116) Total Creatine Kinase 33 U/L (26-308) Creatine Kinase MB < 0.5 NG/ML (0.0-3.6) Creatine Kinase MB Relative Index 1.5 Troponin I 0.007 ng/mL (0.000-0.056) Pro-B-Type Natriuretic Peptide 428 pg/mL (0-125) Total Protein 6.7 G/DL (6.4-8.2) Albumin 3.6 G/DL (3.4-5.0) Globulin 3.1 g/dL Albumin/Globulin Ratio 1.2 (1.0-2.7) EKG Diagnostic Results Rate: normal Rhythm: NSR ST Segments: no acute changes ASA given to the pt in ED: Yes Rhythm Strip Diag. Results EP Interpretation: yes Rhythm: NSR, no PVC's, no ectopy Chest X-Ray Diagnostic Results Chest X-Ray Diagnostic Results : Chest X-Ray Ordered: Yes # of Views/Limited/Complete: 1 View Indication: Chest Pain EP Interpretation: Yes Interpretation: no consolidation, no effusion, no pneumothorax, no acute cardiopulmonary disease, other - R lung nodule Impression: Other - R lung nodule Electronically Signed by: Electronically signed by Negro Leary MD Last Vital Signs Date Time Temp Pulse Resp B/P (MAP) Pulse Ox O2 Delivery O2 Flow Rate FiO2 08/16/17 19:00 61 12 144/66 100 Room Air 08/16/17 15:25 98.7 Status: improved Disposition: ADMITTED INPATIENT Condition: Serious Referrals: [facility],REFERRING (PCP) NEGRO LEARY M.D. Aug 16, 2017 22:09
[2017-08-17 00:28] VITALS: BP 106/63
[2017-08-17 04:20] VITALS: BP 142/67
[2017-08-17] MEDS ORDERED: Lexiscan 0.4mg/5ml syringe IV PRN (06:45)
[2017-08-17] MEDS ORDERED: SUMAtriptan 50mg tab ORAL PRN (08:00)
[2017-08-17 08:55] VITALS: BP 139/60
[2017-08-17] MEDS: Lisinopril 2.5mg tab ORAL SCH (09:00)
[2017-08-17] MEDS: Metoprolol 25mg tab ORAL SCH ×2 (09:00→21:27)
--- NOTE | 2017-08-17 10:30 | Consultation ---
Consult Note Consult Note PULMONARY CONSULTATION CONSULTING PHYSICIAN: Tamara Solomon M.D. REFERRING PHYSICIAN: Osiris Cassidy M.D. REASON FOR CONSULTATION: COPD, lung nodule. History of Present Illness: This is a 67-year-old female with history of COPD, the patient apparently was diagnosed with lung nodule, lung cancer approximately one year ago, and now presents with chest pain. The patient had not had any workup at present. The patient apparently still continues to smoke. She does use inhalers and notes mild shortness of breath. She apparently has had intermittent wheezing and shortness of breath. She denies any fevers or chills. She denies any hemoptysis. The patient states cough is mostly nonproductive. No nausea or vomiting. She is chest pain free presently Past Medical History: Notable for COPD and pneumonia and prior history of lung mass. PAST SURGICAL HISTORY: Negative. FAMILY HISTORY: Noncontributory. Social History: The patient does smoke. She does not drink. She is not currently employed. Review Of Systems: All 10 points reviewed, notable for the above. PHYSICAL EXAMINATION: General: The patient is well developed and well nourished female, in no significant distress at this time, but wheezing. VITAL SIGNS: 124/80 98.4 12 sats 97%, temperature 98.2. HEENT: Fairly negative. Extraocular movements grossly intact. Oropharynx moist. NECK: Supple. LUNGS: With mild wheezes. Moderate air entry. CARDIAC: S1 and S2 regular rhythm without murmurs, rubs, or gallops. ABDOMEN: Soft, nontender, and nondistended. no HSM EXTREMITIES: No cyanosis, clubbing, or edema. NEUROLOGIC: Nonfocal. alert and oriented x 3 Labs Test 08/16/17 16:10 08/16/17 16:30 08/17/17 08:35 White Blood Count 13.9 K/UL (4.8-10.8) Red Blood Count 3.96 M/UL (4.20-5.40) Hemoglobin 13.7 G/DL (12.0-16.0) Hematocrit 42.8 % (37.0-47.0) Mean Corpuscular Volume 108 FL (80-99) Mean Corpuscular Hemoglobin 34.5 PG (27.0-31.0) Mean Corpuscular Hemoglobin Concent 31.9 G/DL (32.0-36.0) Red Cell Distribution Width 12.2 % (11.6-14.8) Platelet Count 291 K/UL (150-450) Mean Platelet Volume 8.0 FL (6.5-10.1) Neutrophils (%) (Auto) 63.9 % (45.0-75.0) Lymphocytes (%) (Auto) 26.2 % (20.0-45.0) Monocytes (%) (Auto) 6.9 % (1.0-10.0) Eosinophils (%) (Auto) 1.8 % (0.0-3.0) Basophils (%) (Auto) 1.3 % (0.0-2.0) Sodium Level 143 MMOL/L (136-145) Potassium Level 4.0 MMOL/L (3.5-5.1) Chloride Level 110 MMOL/L (98-107) Carbon Dioxide Level 23 MMOL/L (21-32) Anion Gap 10 mmol/L (5-15) Blood Urea Nitrogen 20 mg/dL (7-18) Creatinine 1.1 MG/DL (0.55-1.30) Estimat Glomerular Filtration Rate 59.9 mL/min (>60) Glucose Level 115 MG/DL (74-106) Calcium Level 10.5 MG/DL (8.5-10.1) Total Bilirubin 0.6 MG/DL (0.2-1.0) Aspartate Amino Transf (AST/SGOT) 14 U/L (15-37) Alanine Aminotransferase (ALT/SGPT) 32 U/L (12-78) Alkaline Phosphatase 182 U/L (46-116) Total Creatine Kinase 33 U/L (26-308) Creatine Kinase MB < 0.5 NG/ML (0.0-3.6) Creatine Kinase MB Relative Index 1.5 Troponin I 0.007 ng/mL (0.000-0.056) < 0.017 ng/mL (0.000-0.056) Pro-B-Type Natriuretic Peptide 428 pg/mL (0-125) Total Protein 6.7 G/DL (6.4-8.2) Albumin 3.6 G/DL (3.4-5.0) Globulin 3.1 g/dL Albumin/Globulin Ratio 1.2 (1.0-2.7) Impression: Evidence of lung nodule, increased. history of hypercalcemia, history of chronic obstructive pulmonary disease. CP possible ACS Recommendation: nebulizer therapy and oxygen therapy as needed. Outpatient pulmonary function tests as well PET scan is recommended. Patient failed to follow up from prior admission. Cardiac work up per primary MD CT chest and myocardial perfusion scan ordered. Will follow up and discuss results impression, plan, and exam edited and reviewed in detail care discussed with TAMARA WILLIS Aug 17, 2017 10:30
[2017-08-17 12:56] VITALS: BP 125/54
--- NOTE | 2017-08-17 14:31 | Diagnostic Imaging Report ---
Clinical Indication: MASS Technique: IV administration nonionic contrast. Spiral acquisition obtained through the chest. Multiplanar reconstructions generated. Total dose length product 705 mGycm. CTDIvol(s) 8, 73, 17 Clinical Indication: MASS Technique: No oral contrast utilized, per emergency room physician request IV administration nonionic contrast. Venous phase spiral acquisition obtained through the abdomen and pelvis. Multiplanar reconstructions were generated. Total dose length product 606 mGycm. CTDIvol(s) 12 mGy. Dose reduction achieved using automated exposure control Comparison: 10/21/2016 Findings: Normal appendix. Questionable wall thickening of the colon diffusely, most prominent in the ascending colon. No small bowel distention. No free or loculated intraperitoneal air or fluid. Distal is unremarkable. Equivocal mild wall thickening of the stomach, appears similar to the previous study. Duodenum is unremarkable. The liver is unremarkable. Cholecystectomy clips are again noted. Extrahepatic bile ducts are mildly dilated, but less so than on the prior study and is significantly decreased intrahepatic biliary ductal dilatation. Common bile duct currently measures 12 mm diameter, previously 16. The pancreas is mildly atrophic. The downstream pancreatic duct is mildly dilated, as previously, but likewise also than before. The spleen, adrenals are unremarkable. The right kidney demonstrates subcentimeter low-attenuation lesions which are too small to characterize, most likely benign simple cysts, unchanged. Previously demonstrated right hydronephrosis is no longer evident. Previously demonstrated right lower pole calyceal calculus is no longer evident. Again demonstrated is scarring in the upper pole of the left kidney. No focal left renal parenchymal abnormality. No pelvic or retroperitoneal mass or adenopathy. The uterus is not demonstrated, presumed surgically absent. The bladder is mildly distended. Lung bases again demonstrate an irregular masslike lesion within the inferior right major fissure. This measures 2 x 1.6 cm, appears slightly larger than on the previous study. Impression: Suspect mild colonic wall thickening. Suspicious for colitis, otherwise nonspecific as regards etiology Evidence of prior cholecystectomy. Bile ducts are prominent but are decreased in caliber as compared to previous study Mildly atrophic pancreas, also previously reported Spiculated masslike lesion within the major fissure the right lung. Appears slightly larger than on earlier studies. The possibility of quiescent neoplasm should be considered. Recommend further evaluation by thoracic surgery Previously demonstrated right hydronephrosis and right lower pole intrarenal calyceal calculus is no longer evident Subcentimeter low-attenuation right renal lesions, too small to characterize, most likely benign simple cortical cysts. No further followup necessary Other findings as noted, including evidence of prior hysterectomy, left upper pole renal scarring, degenerative spondylosis This agrees with the preliminary interpretation provided overnight by [facility] teleradiology service. The CT scanner at [facility] is accredited by the [employer] and the scans are performed using protocols designed to limit radiation exposure to as low as reasonably achievable to attain images of sufficient resolution adequate for diagnostic evaluation. mGy. Dose reduction achieved using automated exposure control Comparison: Reference made to prior abdomen and pelvis CT scans of 06/30/2017 and recent chest radiographs Findings: There is a multilobulated mass abutting the major fissure in the inferior right middle lobe. The main component of this measures 2.5 x 1.6 cm. A satellite nodule which is attached measures 7 mm in diameter. This is similar in size to the 06/21/2017 CT scan, but larger than on earlier jane -- dies. The lungs demonstrate posterior dependent atelectatic changes. There is focal subpleural thickening in the anterior left upper lobe, image 21 series 7. A possible small linear scar is seen in the anterior left upper lobe, image 25 series 7. Some thickening of the major fissure in the inferior lingula region is noted. No other masses. No infiltrates. There is trace pleural fluid bilaterally. The heart is mildly enlarged. There is a small anterior wall pericardial effusion which measures up to 8 mm thick. There is left ventricular muscular hypertrophy. No mediastinal or hilar mass or adenopathy. There is separate origin of the left vertebral artery off of the aortic arch incidentally noted. This is unusual in in that it originates distal to the left subclavian artery rather than proximal to it. No axillary or chest wall mass or adenopathy. The included thyroid is unremarkable. Included upper abdominal anatomy demonstrates extrahepatic biliary ductal dilatation, atrophic pancreas with ectatic pancreatic duct, mild central intrahepatic biliary ductal dilatation, cholecystectomy clips, right upper pole renal low-attenuation lesion which is too small to characterize, colonic diverticulosis Impression: Multilobulated mass abutting the major fissure in the inferior right middle lobe, as described. Similar to recent [address] scans on which the lesion was a least partially included,, but larger than on earlier studies. Recommend either PET scanning or tissue sampling for further evaluation, as clinically indicated. Focal subpleural thickening in the left upper lobe, probably chronic scarring. Trace bilateral pleural effusions Cardiomegaly and evidence of left ventricular muscular hypertrophy Small anterior wall pericardial effusion Abdominal findings as noted, and described previously, and including extrahepatic biliary ductal dilatation, prior cholecystectomy, pancreatic atrophy and pancreatic ductal ectasia, colonic diverticulosis, nonspecific right upper pole renal lesion The CT scanner at [facility] is accredited by the [employer] and the scans are performed using protocols designed to limit radiation exposure to as low as reasonably achievable to attain images of sufficient resolution adequate for diagnostic evaluation.
--- NOTE | 2017-08-17 15:47 | History and Physical Report ---
DATE OF ADMISSION: 08/16/2017 CHIEF COMPLAINT: Atypical chest pain. HISTORY OF PRESENT ILLNESS: This is a 67-year-old female, who has been admitted numerous times to this hospital with atypical chest pain. The patient was in this hospital last month with the same symptoms and was ruled out. She had stress test done in this hospital, which was read as negative. The patient was seen by Cardiology. She has multiple medical problems. The patient has history of lung cancer. She was seen by her primary physician, Dr. Blue, who practices out of [facility]. According to the patient, her primary physician is upset that the patient declines lung biopsy despite her history of lung CA. The patient is narcotic dependent and her primary physician refused to give her narcotics this time. PAST MEDICAL HISTORY: 1. COPD. 2. History of lung CA untreated. 3. History of chronic atypical chest pain. 4. Hypertensive cardiovascular disease. 5. Degenerative joint disease. 6. Migraine. HOME MEDICATIONS: [place], lisinopril, metoprolol, Zofran p.r.n., and Imitrex. ALLERGIES: No known drug allergies. SOCIAL HISTORY: She lives at home. HABITS: She is nonsmoker and nondrinker. There is no history of illicit drug abuse. FAMILY HISTORY: Unremarkable. REVIEW OF SYSTEMS: HEENT: Hearing and eyesight are normal. ENDOCRINE: No history of diabetes, thyroid, or adrenal problems. RESPIRATORY: She denies shortness of breath. She has history of lung CA. Please refer to history of present illness. She denies hemoptysis. CARDIOVASCULAR: Currently, she has chest pain, but her chest pain is right-sided and . GASTROINTESTINAL: No history of hematochezia, melena, hematemesis, diarrhea, or constipation. GENITOURINARY: She denies dysuria, frequency, urgency, or hematuria. NEUROLOGICAL: No history of stroke, syncope, or Parkinson disease. PHYSICAL EXAMINATION: GENERAL: This is an elderly female, who is in no acute distress. VITAL SIGNS: Blood pressure 142/67, pulse 62 and regular, respirations 20, and temperature 96.9 degrees. HEENT: The head is normocephalic and atraumatic. Pupils are equal, round, and reactive to light and accommodation consensually. NECK: Supple. Trachea midline. There was no lymphadenopathy or thyromegaly. LUNGS: Clear to auscultation and percussion. HEART: Regular rate and rhythm without rubs, murmurs, or gallops. ABDOMEN: Soft and nontender. Bowel sounds were active. EXTREMITIES: No clubbing, cyanosis, or edema. NEUROLOGIC: She is alert and oriented x4. Cranial nerves II through XII intact. LABORATORY AND ANCILLARY DATA: EKG normal sinus rhythm. No signs of acute ischemia. There is evidence of acute anterior infarct age undetermined with QS pattern in V1 to V3. CBC shows white count of 13,900, otherwise within normal limits. Serum chemistry within normal limits. Troponin level 0.07. ASSESSMENT: 1. Atypical chest pain. 2. Rule out chest pain due to lung carcinoma. 3. Chronic obstructive pulmonary disease. 4. History of lung carcinoma untreated. 5. History of chronic atypical chest pain. 6. Hypertensive cardiovascular disease. 7. Degenerative joint disease. 8. Migraine. PLAN: 1. Symptomatic treatment. 2. Pulmonary and Hematology/Oncology consult. 3. CT scan of the chest with contrast. Osiris Cassidy M.D. DR: Zeyad JOB#: [id number] CC:
[2017-08-17 16:22] VITALS: BP 142/70
--- NOTE | 2017-08-17 16:33 | Diagnostic Imaging Report ---
Indication: Chest pain Technique: IV ministration 10.6 millicuries 99m technetium Myoview resting SPECT images obtained. No post stress images were obtained, due to patient preference Comparison: None; reference made to CT scan earlier the same day Findings: There is an apparent perfusion defect at the cardiac apex. Suspect this is artifactual, due to relative thinning compared to the hypertrophied myocardium elsewhere limited on CT. There is mild left ventricular chamber dilatation Impression: Limited exam. Unable to assess for ischemia, given absence of poststress images Pericardiac apical perfusion defect. Suspect artifactual, but small apical infarct not excludable Mild left ventricular dilatation
[2017-08-17 20:46] VITALS: BP 134/52
[2017-08-17] MEDS: Heparin 5000 units/ml inj SUBQ SCH (21:30)
[2017-08-18] VITALS: BP 120/95
[2017-08-18 04:08] VITALS: BP 142/63
--- NOTE | 2017-08-18 07:55 | Pulmonology Progress Note ---
Assessment/Plan Assessment/Plan Impression: Evidence of lung nodule, increased. history of hypercalcemia, history of chronic obstructive pulmonary disease. CP possible ACS. Ct chest with enlarging mass Recommendation: nebulizer therapy and oxygen therapy as needed. Outpatient pulmonary function tests as well PET scan is recommended. Patient failed to follow up from prior admission. Cardiac work up per primary MD CT chest. Will follow up and discuss results. impression, plan, and exam edited and reviewed in detail care discussed with RN Subjective Allergies: Coded Allergies: No Known Allergies (Unverified , 06/30/17) Subjective care noted CT chest Objective Last 24 Hour Vital Signs Date Time Temp Pulse Resp B/P (MAP) Pulse Ox O2 Delivery O2 Flow Rate FiO2 08/18/17 04:08 97.7 54 20 142/63 96 Room Air 08/18/17 04:00 50 08/18/17 00:00 97.5 57 21 120/95 95 Room Air 08/18/17 00:00 54 08/17/17 21:27 52 134/52 08/17/17 20:46 97.3 52 20 134/52 96 Room Air 08/17/17 20:00 54 08/17/17 16:22 97.5 55 18 142/70 95 Room Air 08/17/17 16:00 55 08/17/17 12:56 97.9 56 18 125/54 97 Room Air 08/17/17 12:00 66 08/17/17 09:00 55 139/60 08/17/17 08:55 97.7 55 18 139/60 94 Room Air 08/17/17 08:00 58 Objective WDWN NAD clear breath sounds bilaterally without rhonchi or wheeze [id number] without MRG NABS nontender no HSM no CCE nonfocal Laboratory Tests 08/17/17 08:35: Troponin I < 0.017 Current Medications Medications (Trade) Dose Ordered Sig/Janee Route PRN Reason Start Time Stop Time Status Last Admin Dose Admin Heparin Sodium (Porcine) (Heparin 5000 units/ml) 5,000 units EVERY 12 HOURS SUBQ 08/17/17 21:00 09/16/17 20:59 08/17/17 21:30 Hydromorphone HCl (Dilaudid) 2 mg Q6H PRN IVP Severe Pain (Pain Scale 7-10) 08/17/17 07:10 08/24/17 07:09 08/18/17 03:35 Lisinopril (Zestril) 2.5 mg DAILY ORAL 08/17/17 09:00 09/16/17 08:59 Metoprolol Tartrate (Lopressor) 25 mg Q12HR ORAL 08/17/17 09:00 09/16/17 08:59 08/17/17 21:27 Ondansetron HCl (Zofran) 4 mg Q6H PRN ORAL Nausea & Vomiting 08/17/17 07:30 09/16/17 07:29 08/17/17 08:57 Regadenoson (Lexiscan) 0.4 mg ONCE PRN IV STRESS TEST 08/17/17 06:45 08/24/17 23:59 Sumatriptan Succinate (Imitrex) 50 mg DAILY PRN ORAL For Pain 08/17/17 08:00 09/16/17 07:59 TAMARA AGUERO Aug 18, 2017 07:55
[2017-08-18 08:30] VITALS: BP 133/64
[2017-08-18] MEDS: Metoprolol 25mg tab ORAL SCH ×2 (09:00→21:00)
[2017-08-18] MEDS: Lisinopril 2.5mg tab ORAL SCH (09:02)
[2017-08-18] MEDS: Heparin 5000 units/ml inj SUBQ SCH ×2 (09:03→21:37)
--- NOTE | 2017-08-18 09:42 | General Progress Note ---
Assessment/Plan Assessment/Plan CP _ Atypical + refused stress test. Has h/o Lung CA. In process of W/U Subjective Allergies: Coded Allergies: No Known Allergies (Unverified , 06/30/17) Subjective Diffuse pain Objective Last 24 Hour Vital Signs Date Time Temp Pulse Resp B/P (MAP) Pulse Ox O2 Delivery O2 Flow Rate FiO2 08/18/17 09:02 133/64 08/18/17 09:00 50 133/64 08/18/17 08:30 97.2 50 18 133/64 98 Room Air 08/18/17 04:08 97.7 54 20 142/63 96 Room Air 08/18/17 04:00 50 08/18/17 00:00 97.5 57 21 120/95 95 Room Air 08/18/17 00:00 54 08/17/17 21:27 52 134/52 08/17/17 20:46 97.3 52 20 134/52 96 Room Air 08/17/17 20:00 54 08/17/17 16:22 97.5 55 18 142/70 95 Room Air 08/17/17 16:00 55 08/17/17 12:56 97.9 56 18 125/54 97 Room Air 08/17/17 12:00 66 Intake and Output 08/18/17 08/19/17 19:00 07:00 Intake Total 120 ml Balance 120 ml Intake Oral 120 ml Height (Feet): 5 Height (Inches): 0.00 Weight (Pounds): 138 Objective Cv RR Lungs CTA Abd SNT. BS + E No EVELIOE ZE KEMP Aug 18, 2017 09:42
[2017-08-18 11:48] VITALS: BP 136/57
[2017-08-18 15:59] VITALS: BP 127/66
[2017-08-18 20:00] VITALS: BP 122/53
[2017-08-19] VITALS: BP 109/51
[2017-08-19 04:00] VITALS: BP 140/62
[2017-08-19 08:05] VITALS: BP 129/78
[2017-08-19] MEDS: Lisinopril 2.5mg tab ORAL SCH (08:22)
[2017-08-19] MEDS: Metoprolol 25mg tab ORAL SCH ×2 (08:23→20:47)
[2017-08-19] MEDS: Heparin 5000 units/ml inj SUBQ SCH ×2 (08:25→20:39)
--- NOTE | 2017-08-19 08:43 | General Progress Note ---
Assessment/Plan Assessment/Plan CP - Atypical + refused stress test. Has h/o Lung CA. In process of W/U. To decide on lung biopsy today when her daughter comes @ 5PM. Subjective Allergies: Coded Allergies: No Known Allergies (Unverified , 06/30/17) Subjective Diffuse pain Objective Last 24 Hour Vital Signs Date Time Temp Pulse Resp B/P (MAP) Pulse Ox O2 Delivery O2 Flow Rate FiO2 08/19/17 08:23 74 136/59 08/19/17 08:22 136/59 08/19/17 08:05 97.5 74 18 129/78 97 Room Air 08/19/17 04:00 57 08/19/17 04:00 98.0 55 19 140/62 95 Room Air 08/19/17 00:00 59 08/19/17 00:00 98.5 72 18 109/51 97 Room Air 08/18/17 21:00 54 122/53 08/18/17 20:00 51 08/18/17 20:00 98.3 54 18 122/53 96 Room Air 08/18/17 16:00 51 08/18/17 15:59 97.7 53 18 127/66 95 Room Air 08/18/17 12:00 50 08/18/17 11:48 97.7 51 18 136/57 96 Room Air 08/18/17 09:02 133/64 08/18/17 09:00 50 133/64 Intake and Output 08/19/17 08/20/17 19:00 07:00 Intake Total 240 ml Balance 240 ml Intake Oral 240 ml # Voids 1 Height (Feet): 5 Height (Inches): 0.00 Weight (Pounds): 134 Objective Cv RR Lungs CTA Abd SNT. BS + E No CCE ZE KEMP Aug 19, 2017 08:43
--- NOTE | 2017-08-19 10:04 | Pulmonology Progress Note ---
Assessment/Plan Assessment/Plan Impression: Evidence of lung nodule, increased. history of hypercalcemia, history of chronic obstructive pulmonary disease. CP possible ACS. Ct chest with enlarging mass Recommendation: nebulizer therapy and oxygen therapy as needed. Outpatient pulmonary function tests as well PET scan is recommended. Patient failed to follow up from prior admission. Cardiac work up per primary MD CT chest reviewed. patient to decide regarding biopsy- can be done as outpatient impression, plan, and exam edited and reviewed in detail care discussed with RN Subjective Allergies: Coded Allergies: No Known Allergies (Unverified , 06/30/17) Subjective care noted CT chest reviewed patient to decide regarding lung biopsy Objective Last 24 Hour Vital Signs Date Time Temp Pulse Resp B/P (MAP) Pulse Ox O2 Delivery O2 Flow Rate FiO2 08/19/17 08:23 74 136/59 08/19/17 08:22 136/59 08/19/17 08:05 97.5 74 18 129/78 97 Room Air 08/19/17 04:00 57 08/19/17 04:00 98.0 55 19 140/62 95 Room Air 08/19/17 00:00 59 08/19/17 00:00 98.5 72 18 109/51 97 Room Air 08/18/17 21:00 54 122/53 08/18/17 20:00 51 08/18/17 20:00 98.3 54 18 122/53 96 Room Air 08/18/17 16:00 51 08/18/17 15:59 97.7 53 18 127/66 95 Room Air 08/18/17 12:00 50 08/18/17 11:48 97.7 51 18 136/57 96 Room Air Intake and Output 08/19/17 08/20/17 19:00 07:00 Intake Total 240 ml Balance 240 ml Intake Oral 240 ml # Voids 2 Objective WDWN NAD clear breath sounds bilaterally without rhonchi or wheeze [id number] without MRG NABS nontender no HSM no CCE nonfocal Current Medications Medications (Trade) Dose Ordered Sig/Janee Route PRN Reason Start Time Stop Time Status Last Admin Dose Admin Dextrose (Dextrose 50%) STAT PRN IV Hypoglycemia 08/18/17 20:15 09/17/17 20:14 Heparin Sodium (Porcine) (Heparin 5000 units/ml) 5,000 units EVERY 12 HOURS SUBQ 08/17/17 21:00 09/16/17 20:59 08/19/17 08:25 Hydromorphone HCl (Dilaudid) 2 mg Q6H PRN IVP Severe Pain (Pain Scale 7-10) 08/17/17 07:10 08/24/17 07:09 08/19/17 03:40 Lisinopril (Zestril) 2.5 mg DAILY ORAL 08/17/17 09:00 09/16/17 08:59 08/19/17 08:22 Metoprolol Tartrate (Lopressor) 25 mg Q12HR ORAL 08/17/17 09:00 09/16/17 08:59 08/19/17 08:23 Ondansetron HCl (Zofran) 4 mg Q6H PRN ORAL Nausea & Vomiting 08/17/17 07:30 09/16/17 07:29 08/19/17 05:56 Regadenoson (Lexiscan) 0.4 mg ONCE PRN IV STRESS TEST 08/17/17 06:45 08/24/17 23:59 Sumatriptan Succinate (Imitrex) 50 mg DAILY PRN ORAL For Pain 08/17/17 08:00 09/16/17 07:59 TAMARA AGUERO Aug 19, 2017 10:04
[2017-08-19] MEDS ORDERED: NS 275ml ONE (10:41)
[2017-08-19 10:47] LABS: BASOPHILS % (AUTO) 0.6 % (0.0-2.0); EOSINOPHILS % (AUTO) 2.6 % (0.0-3.0); LYMPHOCYTES % (AUTO) 22.8 % (20.0-45.0); MEAN CORPUSCULAR HGB CONC 33.6 G/DL (32.0-36.0); MEAN CORPUSCULAR VOLUME 107 FL (80-99); MEAN PLATELET VOLUME 7.8 FL (6.5-10.1); MONOCYTES % (AUTO) 7.4 % (1.0-10.0); NEUTROPHILS % (AUTO) 66.6 % (45.0-75.0); PLATELET COUNT 287 K/UL (150-450); RED BLOOD COUNT 3.86 M/UL (4.20-5.40); WHITE BLOOD COUNT 9.8 K/UL (4.8-10.8)
[2017-08-19 11:03] LABS: ALANINE AMINOTRANSFERASE 17 U/L (12-78); ANION GAP 5 mmol/L (5-15); ASPARTATE AMINO TRANSFERASE 11 U/L (15-37); CALCIUM 10.5 MG/DL (8.5-10.1); CARBON DIOXIDE 29 MMOL/L (21-32); CHLORIDE 112 MMOL/L (98-107); CREATININE 0.8 MG/DL (0.55-1.30); GLOMERULAR FILTRATION RATE > 60 mL/min (>60); POTASSIUM 4.3 MMOL/L (3.5-5.1); SODIUM 145 MMOL/L (136-145); TOTAL PROTEIN 6.4 G/DL (6.4-8.2)
[2017-08-19 11:32] VITALS: BP 128/58
[2017-08-19] MEDS ORDERED: SUMAtriptan 50mg tab ORAL PRN (15:00)
--- NOTE | 2017-08-19 15:00 | Consultation ---
DATE OF CONSULTATION: 08/17/2017 HEMATOLOGY/ONCOLOGY CONSULTATION CONSULTING PHYSICIAN: Delmer Fitch M.D. REQUESTING PHYSICIAN: Osiris Cassidy M.D. REASON FOR CONSULTATION: Evaluation of lung cancer. IDENTIFICATION: Dear Dr. Cassidy: The patient is a pleasant 67-year-old female with a past medical history, which is significant for lung cancer, untreated, has been having a mass since 2014, presented to for chest pain, seen by Cardiology, had a stress test done in the hospital, which was negative. She was seen by her primary care doctor, Dr. Blue, who practices out of [facility]. Primary doctor is upset that the patient declines lung biopsy despite her prior history of lung cancer. Hematology/Oncology Service is consulted for further evaluation and treatment. PAST MEDICAL HISTORY: History of lung cancer, untreated, atypical chest pain, hypertensive heart disease, DJD, migraine, and COPD. MEDICATIONS: Lisinopril, metoprolol, and Zofran. ALLERGIES: No known drug allergies. SOCIAL HISTORY: Lives at home. HABITS: No alcohol, tobacco, or illicit drug use. FAMILY HISTORY: Noncontributory. REVIEW OF SYSTEMS: CONSTITUTIONAL: No fevers, chills, or night sweats. SKIN: No rashes, bumps, or itching. HEENT: No headache, hearing or vision changes. BREASTS: No lumps, pain, or discharge. PULMONARY: No cough, sputum, or shortness of breath. GASTROINTESTINAL: No nausea, vomiting, or diarrhea. GENITOURINARY: No dysuria, frequency, or urgency. MUSCULOSKELETAL: No joint swelling, muscle pain, or trauma. PHYSICAL EXAMINATION: GENERAL: The patient is in no distress. VITAL SIGNS: Reviewed. PULMONARY: Decreased breath sounds. CARDIOVASCULAR: Regular rate. No S3 or S4. ABDOMEN: Soft, nontender, and nondistended. EXTREMITIES: A 1+ edema. LABORATORY AND DIAGNOSTIC DATA: WBC is 13.9, hemoglobin 13.7, and platelet count 291,000. Imaging: CAT scan of the chest reviewed and shows spiculated mass right lung appears slightly enlarged compared to prior studies, possibility of neoplasm should be considered. Recommend further evaluation cyst. ASSESSMENT AND RECOMMENDATIONS: 1. Lung cancer. I had seen the patient several months ago under the care of Dr. Solomon. The patient declines biopsy at this time and difficult to obtain actual diagnosis without a biopsy, however, very likely appears to be lung cancer. Recommend again biopsy in addition to PET scan. Will need to be treated. Also consider Cardiothoracic Surgery consult. 2. Leukocytosis secondary to reactive process. Continue to closely monitor. 3. Hypoglycemia . Evaluate further with Endocrinology. 4. Azotemia, elevated BUN, likely secondary to dehydration. 5. Again, I recommended biopsy in addition to PET scan in addition to treatment, however, the patient declines at this time. Again, I continued to further stress the importance of tests in order to maintain prolonged overall survival. I appreciate the consultation. Delmer Fitch M.D. DR: YAMIL JOB#: [id number] CC: James Solomon M.D.; Fax#: [phone]
[2017-08-19 16:00] VITALS: BP 150/66
[2017-08-19 20:00] VITALS: BP 124/59
[2017-08-20] VITALS: BP 131/60
[2017-08-20 04:00] VITALS: BP 167/76
--- NOTE | 2017-08-20 08:07 | Pulmonology Progress Note ---
Assessment/Plan Assessment/Plan Impression: Evidence of lung nodule, increased. history of hypercalcemia, history of chronic obstructive pulmonary disease. CP possible ACS. Ct chest with enlarging mass Recommendation: nebulizer therapy and oxygen therapy as needed. Outpatient pulmonary function tests as well PET scan is recommended. Patient failed to follow up from prior admission. Cardiac work up per primary MD CT chest reviewed. patient to decide regarding biopsy- can be done as outpatient impression, plan, and exam edited and reviewed in detail care discussed with RN Subjective Allergies: Coded Allergies: No Known Allergies (Unverified , 06/30/17) Subjective care noted CT chest reviewed patient to decide regarding lung biopsy Objective Last 24 Hour Vital Signs Date Time Temp Pulse Resp B/P (MAP) Pulse Ox O2 Delivery O2 Flow Rate FiO2 08/20/17 04:45 98.1 08/20/17 04:00 97.3 67 20 167/76 98 Room Air 08/20/17 00:00 98.1 56 18 131/60 99 Room Air 08/19/17 20:47 53 121/53 08/19/17 20:00 97.9 55 20 124/59 99 Room Air 08/19/17 16:00 98.0 56 17 150/66 98 Room Air 08/19/17 12:00 50 08/19/17 11:32 97.3 52 18 128/58 98 Room Air 08/19/17 10:34 97.5 08/19/17 08:23 74 136/59 08/19/17 08:22 136/59 Objective WDWN NAD clear breath sounds bilaterally without rhonchi or wheeze [id number] without MRG NABS nontender no HSM no CCE nonfocal Laboratory Tests 08/19/17 10:20: White Blood Count 9.8, Red Blood Count 3.86L, Hemoglobin 13.9, Hematocrit 41.4, Mean Corpuscular Volume 107H, Mean Corpuscular Hemoglobin 36.0H, Mean Corpuscular Hemoglobin Concent 33.6, Red Cell Distribution Width 12.0, Platelet Count 287, Mean Platelet Volume 7.8, Neutrophils (%) (Auto) 66.6, Lymphocytes (% ) (Auto) 22.8, Monocytes (%) (Auto) 7.4, Eosinophils (%) (Auto) 2.6, Basophils ( %) (Auto) 0.6, Sodium Level 145, Potassium Level 4.3, Chloride Level 112H, Carbon Dioxide Level 29, Anion Gap 5, Blood Urea Nitrogen 16, Creatinine 0.8, Estimat Glomerular Filtration Rate > 60, Glucose Level 100, Calcium Level 10.5H , Total Bilirubin 0.3, Aspartate Amino Transf (AST/SGOT) 11L, Alanine Aminotransferase (ALT/SGPT) 17, Alkaline Phosphatase 147H, Total Protein 6.4, Albumin 3.2L, Globulin 3.2, Albumin/Globulin Ratio 1.0 Current Medications Medications (Trade) Dose Ordered Sig/Janee Route PRN Reason Start Time Stop Time Status Last Admin Dose Admin Dextrose (Dextrose 50%) STAT PRN IV Hypoglycemia 08/19/17 15:00 09/17/17 14:59 Heparin Sodium (Porcine) (Heparin 5000 units/ml) 5,000 units EVERY 12 HOURS SUBQ 08/19/17 21:00 09/16/17 20:59 08/19/17 20:39 Hydromorphone HCl (Dilaudid) 2 mg Q6H PRN IVP Severe Pain (Pain Scale 7-10) 08/19/17 15:00 08/24/17 14:59 08/20/17 04:14 Lisinopril (Zestril) 2.5 mg DAILY ORAL 08/20/17 09:00 09/16/17 08:59 Metoprolol Tartrate (Lopressor) 25 mg Q12HR ORAL 08/19/17 21:00 09/16/17 08:59 Ondansetron HCl (Zofran) 4 mg Q6H PRN ORAL Nausea & Vomiting 08/19/17 15:00 09/16/17 14:59 Sumatriptan Succinate (Imitrex) 50 mg DAILYPRN PRN ORAL MIGRAINE HEADACHE 08/19/17 15:00 09/18/17 14:59 TAMARA AGUERO Aug 20, 2017 08:07
[2017-08-20 08:26] VITALS: BP 133/58
[2017-08-20] MEDS: Heparin 5000 units/ml inj SUBQ SCH (08:33)
[2017-08-20] MEDS: Metoprolol 25mg tab ORAL SCH (08:33)
[2017-08-20] MEDS ORDERED: Lisinopril 2.5mg tab ORAL SCH (09:00)
--- NOTE | 2017-08-20 10:23 | General Progress Note ---
Assessment/Plan Assessment/Plan CP - Atypical + refused stress test. Has h/o Lung CA. In process of W/U. To decide on lung biopsy today! No one called yesterday. If no lung biopsy scheduled DC home. Subjective Allergies: Coded Allergies: No Known Allergies (Unverified , 06/30/17) Subjective Diffuse pain Objective Last 24 Hour Vital Signs Date Time Temp Pulse Resp B/P (MAP) Pulse Ox O2 Delivery O2 Flow Rate FiO2 08/20/17 08:33 59 133/58 08/20/17 08:33 133/58 08/20/17 08:26 97.9 59 18 133/58 99 Room Air 08/20/17 04:45 98.1 08/20/17 04:00 97.3 67 20 167/76 98 Room Air 08/20/17 00:00 98.1 56 18 131/60 99 Room Air 08/19/17 20:47 53 121/53 08/19/17 20:00 97.9 55 20 124/59 99 Room Air 08/19/17 16:00 98.0 56 17 150/66 98 Room Air 08/19/17 12:00 50 08/19/17 11:32 97.3 52 18 128/58 98 Room Air 08/19/17 10:34 97.5 Intake and Output 08/20/17 08/21/17 19:00 07:00 Intake Total 240 ml Balance 240 ml Intake Oral 240 ml Height (Feet): 5 Height (Inches): 0.00 Weight (Pounds): 132 Objective Cv RR Lungs CTA Abd SNT. BS + E No CCE ZE KEMP Aug 20, 2017 10:23
[2017-08-20 12:00] VITALS: BP 139/58
--- NOTE | 2017-08-20 14:24 | General Progress Note ---
Assessment/Plan Assessment/Plan ASSESSMENT AND RECOMMENDATIONS: 1. Lung cancer. --> The patient declines biopsy at this time and difficult to obtain actual diagnosis without a biopsy --> Recommend again biopsy in addition to PET scan. 2. Leukocytosis secondary to reactive process. Continue to closely monitor. 3. Azotemia, elevated BUN, likely secondary to dehydration. Subjective Allergies: Coded Allergies: No Known Allergies (Unverified , 06/30/17) All Systems: reviewed and negative except above Subjective refusing stress test and biopsy Objective Last 24 Hour Vital Signs Date Time Temp Pulse Resp B/P (MAP) Pulse Ox O2 Delivery O2 Flow Rate FiO2 08/20/17 12:00 97.5 66 20 139/58 99 Room Air 08/20/17 08:33 59 133/58 08/20/17 08:33 133/58 08/20/17 08:26 97.9 59 18 133/58 99 Room Air 08/20/17 04:45 98.1 08/20/17 04:00 97.3 67 20 167/76 98 Room Air 08/20/17 00:00 98.1 56 18 131/60 99 Room Air 08/19/17 20:47 53 121/53 08/19/17 20:00 97.9 55 20 124/59 99 Room Air 08/19/17 16:00 98.0 56 17 150/66 98 Room Air Intake and Output 08/20/17 08/21/17 19:00 07:00 Intake Total 240 ml Balance 240 ml Intake Oral 240 ml Height (Feet): 5 Height (Inches): 0.00 Weight (Pounds): 132 General Appearance: no apparent distress EENT: normal ENT inspection Neck: normal alignment Cardiovascular: normal peripheral pulses Respiratory/Chest: decreased breath sounds Neurologic: no motor/sensory deficits Skin: warm/dry Delmer Fitch Aug 20, 2017 14:24
--- NOTE | 2017-08-22 13:40 | Discharge Summary ---
Discharge Summary Hospital Course Date of Admission Aug 16, 2017 at 21:23 Date of Discharge Aug 20, 2017 at 17:17 Admitting Diagnosis ACUTE CORONARY SYNDROME HPI Laura Franco is a 67 year old female who was admitted on Aug 16, 2017 at 21:23 for Acute Coronary Syndrom Hospital Course dc summary#[id number] Discharge Medications Continued Medications: Hydrocodone Bit/Acetaminophen 5-325* ([place] 5-325 Tablet*) 1 Each Tablet 1 TAB ORAL Q4H PRN for For Pain, TAB Lisinopril* (Lisinopril*) 2.5 Mg Tablet 2.5 MG ORAL DAILY, TAB 0 Refills Metoprolol Tartrate* (Metoprolol Tartrate*) 25 Mg Tablet 25 MG ORAL EVERY 12 HOURS, TAB Ondansetron* (Zofran*) 4 Mg Tablet 4 MG ORAL Q6H PRN for Nausea & Vomiting, TAB Sumatriptan Succinate* (Imitrex*) 50 Mg Tablet 50 MG ORAL DAILY PRN MIGRAINE, TAB Unable to Obtain Medications (Unable To Obtain Meds) 1 Ea Ea Discharge Condition Upon Discharge: stable Discharge Disposition Patient was discharged to Discharge Diagnoses: Discharge Instructions Discharge Instructions Special Instructions I have been assigned to complete a D/C Summary on this account. I was not involved in the patient management Amber Barnhart NP (Vanchtein) Aug 22, 2017 13:40
--- NOTE | 2017-08-22 19:45 | Discharge Summary 2 SIG ---
DATE OF ADMISSION: 08/16/2017 DATE OF DISCHARGE: 08/20/2017 REASON FOR ADMISSION: The patient is a 67-year-old female with past medical history significant for hypertensive cardiovascular disease, chronic atypical chest pain, COPD, lung nodule, degenerative joint disease, and migraine, who presented numerous times in this hospital with atypical chest pain. She was ruled out for acute AR last month. She had a stress test done, which was negative. The patient was seen at that time by sash installer. In the emergency department, vital signs were stable. Laboratory workup revealed leukocytosis-14.9. EKG showed normal sinus rhythm, no acute ischemic changes. Electrolytes and renal parameters were stable. BUN slightly elevated - 28. First troponin was negative. Pro BNP - 428. Chest x-ray revealed right lung nodule. The patient was admitted for chest pain , lung nodule, and leukocytosis. HOSPITAL STAY: The patient was admitted to telemetry floor. Serial troponin were negative. EKG revealed no acute ischemic changes. Therefore, the patient was ruled out for acute AR. The patient had undergone SPECT cardiac stress test which was limited since no post-stress images were obtained due to the patient's preferences. There was apparent perfusion defect at the cardiac apex suspected to be artifactual due to relative thinning compared to the hypertrophic myocardium elsewhere, limited on CT; however, small apical infarct was not excludable. Echo was done on previous admission and demonstrated preserved ejection fraction. Supplemental oxygen provided as needed to keep saturation above 92%. Pulmonary toilet provided as needed. Oncologist and senior dot net developer closely followed. Supervisor Paper Coating ordered CT of the chest, abdomen, and pelvis which revealed enlarged pulmonary nodules compared to the previous admission imaging. Findings demonstrated multilobulated mass abutting the major fissure in the inferior right middle lobe, similar to previous abdominopelvic CT but larger than on earlier studies. Abdominal finding revealed mild colonic wall thickening suspicious for colitis, otherwise no acute pathology. The patient failed to have PET scan as outpatient, as it was recommended to do on previous admission. Oncologist recommended lung biopsy for diagnosis and staging. Oncologist also recommended to consider cardiothoracic surgery evaluation. The patient declined lung biopsy to be done in the hospital. According to oncologist, leukocytosis was likely secondary to reactive process, and it resolved. The patient was on IV fluids. Pain management was provided. The patient at this time was noncompliant and declined any further care. Home medications were resumed. The patient with history of hypercalcemia, still slightly elevated calcium/borderline, but not as elevated as on the previous admission. The patient was stable for discharge home. The patient will need to follow up as an outpatient with PET scan and lung biopsy. The patient also needs outpatient pulmonary function tests as recommended by senior dot net developer. The patient was stable for discharge and further workup as an outpatient since declined lung biopsy on this admission. FINAL DIAGNOSES: 1. Atypical chest pain, likely secondary to lung carcinoma. 2. Chronic obstructive pulmonary disease. 3. Lung nodule,- increased compared to previous image. 4. Lung cancer. 5. Leukocytosis, likely reactive, -resolved. 6. Hypertensive cardiovascular disease. 7. Degenerative joint disease. 8. Migraine. 9. History of hypercalcemia. DISCHARGE MEDICATIONS: See medication reconciliation list. DISCHARGE INSTRUCTIONS: The patient was discharged home. Follow up with primary medical doctor. Follow up as an outpatient with PET scan, lung biopsy and PFT. Osiris Cassidy M.D. I have been assigned to dictate discharge summary on this account and I was not involved in the patient's management. Amber LeoKaleida HealthKrystal N.P. DR: Padmaja JOB#: [id number] CC: TED
== END 2017-08-20 17:17 | disposition home or self-care (01) | DRG 136 ==
LOC: EDBD 15:12 → EMR 17:32 → EDBEDREQ 18:28 → 2E 21:23 → 4E 08-19 14:30
DX: C34.90 Malignant neoplasm of unspecified part of unspecified bronchus or lung (principal); I11.9 Hypertensive heart disease without heart failure; J44.9 Chronic obstructive pulmonary disease, unspecified; R07.89 Other chest pain; M19.90 Unspecified osteoarthritis, unspecified site; G43.909 Migraine, unspecified, not intractable, without status migrainosus; Z91.19 Patient's noncompliance with other medical treatment and regimen; E86.0 Dehydration
CPT/HCPCS: 36415; 71010; 71260; 78451; 80053; 82550; 82553; 83880; 84484; 85025; 93005; 93017; 99285

== ENCOUNTER 2017-09-02 14:22 | Inpatient (IN) | payer OTHER, MEDICARE ==
[~2017-09-02] VITALS: Ht 165.1 cm; Wt 58.5 kg
[2017-09-02] MEDS ORDERED: Ipratropium 0.02% Inh Soln 2.5ml UD HHN ONE (14:30)
[2017-09-02] MEDS ORDERED: Albuterol ud Inhalation HHN ONE (14:30)
[2017-09-02 15:14] VITALS: BP 164/64
[2017-09-02 15:24] LABS: BASOPHILS % (AUTO) 1.1 % (0.0-2.0); EOSINOPHILS % (AUTO) 0.9 % (0.0-3.0); LYMPHOCYTES % (AUTO) 26.9 % (20.0-45.0); MEAN CORPUSCULAR HEMOGLOBIN 33.9 PG (27.0-31.0); MEAN CORPUSCULAR HGB CONC 31.8 G/DL (32.0-36.0); MEAN CORPUSCULAR VOLUME 107 FL (80-99); MEAN PLATELET VOLUME 8.8 FL (6.5-10.1); MONOCYTES % (AUTO) 9.7 % (1.0-10.0); NEUTROPHILS % (AUTO) 61.4 % (45.0-75.0); PLATELET COUNT 260 K/UL (150-450); RED BLOOD COUNT 4.08 M/UL (4.20-5.40); WHITE BLOOD COUNT 12.6 K/UL (4.8-10.8)
[2017-09-02 15:30] LABS: ANION GAP 4 mmol/L (5-15); CALCIUM 10.7 MG/DL (8.5-10.1); CARBON DIOXIDE 31 MMOL/L (21-32); CHLORIDE 109 MMOL/L (98-107); GLOMERULAR FILTRATION RATE > 60 mL/min (>60); POTASSIUM 4.8 MMOL/L (3.5-5.1); SODIUM 144 MMOL/L (136-145)
[2017-09-02 15:44] LABS: ALANINE AMINOTRANSFERASE 10 U/L (12-78); ASPARTATE AMINO TRANSFERASE 22 U/L (15-37); CKMB 1.4 NG/ML (0.0-3.6); TOTAL PROTEIN 6.7 G/DL (6.4-8.2)
[2017-09-02 16:00] VITALS: BP 165/52
[2017-09-02 18:30] VITALS: BP 163/80
[2017-09-02 19:09] VITALS: BP 172/68
--- NOTE | 2017-09-02 19:10 | Diagnostic Imaging Report ---
Indication: Trace of Technique: XRAY CHEST 1 V Comparison: Chest CT 08/17/17, chest x-ray 07/22/17 Findings: There is a nodular density projecting over the right lower lung. This likely corresponds to the multilobulated mass noted on prior CT. There is no new focal airspace consolidation, pleural effusion or pneumothorax. Heart size and mediastinal contours are stable. No acute osseous abdomen is seen. Degenerative changes of the bilateral shoulders again noted. Impression: Nodular density in the right lower lung likely corresponds with known lobulated mass in the inferior right middle lobe seen on CT of the chest 08/17/17. No new focal consolidation. Stable cardiomegaly.
[2017-09-02 20:00] VITALS: BP 180/81
[2017-09-02] MEDS ORDERED: Morphine Sulfate 4mg/ml Inj IVP ONE (20:30)
--- NOTE | 2017-09-02 21:32 | Emergency Room Report ---
History of Present Illness General Chief Complaint: Chest Pain Source: EMS Present Illness HPI Patient is a 67-year-old female who presented after increased chest pain. Patient gradual onset of symptoms. The patient had prior history of cardiac disease. She been given nitroglycerin and aspirin by EMS. The patient was having a moderate headache. She states that she had been having a nonproductive cough. She reports having prior history of cardiac disease as well as stent placement. Allergies: Coded Allergies: No Known Allergies (Unverified , 06/30/17) Patient History Past Medical History: see triage record Reviewed Nursing Documentation: PMH: Agreed, PSxH: Agreed Nursing Documentation-PM Past Medical History: No History, Except For Hx Cardiac Problems: Yes - CHF COPD HTN SD STENT Hx Hypertension: Yes Hx Asthma: No Hx COPD: Yes Hx Cancer: Yes Hx Gastrointestinal Problems: No Hx Neurological Problems: No Hx Dizziness: Yes Hx Syncope: Yes Hx Headaches: Yes Hx Weakness: Yes Hx Fatigue: Yes Review of Systems All Other Systems: negative except mentioned in HPI Physical Exam Vital Signs Date Time Temp Pulse Resp B/P (MAP) Pulse Ox O2 Delivery O2 Flow Rate FiO2 09/02/17 14:14 97.9 68 16 146/75 97 Room Air 09/02/17 15:21 2.0 28 Sp02 EP Interpretation: reviewed, normal General Appearance: normal inspection, well appearing, no apparent distress, alert, GCS 15, Chronically Ill Head: atraumatic ENT: normal ENT inspection, hearing grossly normal, normal voice, other - poor dentition Neck: normal inspection, full range of motion, supple, no bony tend Respiratory: normal inspection, lungs clear, normal breath sounds, no respiratory distress, no retraction, no wheezing Cardiovascular #1: regular rate, rhythm, no edema Gastrointestinal: normal inspection, normal bowel sounds, non tender, soft, no guarding, no hernia Genitourinary: no CVA tenderness Musculoskeletal: normal inspection, back normal, normal range of motion Neurologic: normal inspection, alert, oriented x3, responsive, chief underwriter III-XII nml as tested, speech normal Psychiatric: normal inspection, judgement/insight normal, mood/affect normal Skin: normal inspection, normal color, no rash Medical Decision Making Diagnostic Impression: Primary Impression: Chest pain Additional Impressions: HTN (hypertension) CAD (coronary artery disease) ER Course Patient presented for shortness of breath. Differential included but was not limited to anemia, pneumonia, pneumothorax, myocardial infarction, pericardial effusion, congestive heart failure, acidosis. Because of complexity of patient' s case laboratory testing and imaging studies were ordered.Laboratory testing was notable for mildly elevated white blood count. Initial troponin was negative. The patient was given IV pain medications as well as medications for neuropathy. The EKG interpreted by me showed normal sinus rhythm with low- voltage and nonspecific ST changes. Dr. Villanueva was contacted for inpatient management due to prior admission Last Vital Signs Date Time Temp Pulse Resp B/P (MAP) Pulse Ox O2 Delivery O2 Flow Rate FiO2 09/02/17 19:09 88 14 172/68 97 Room Air 09/02/17 18:51 28 09/02/17 15:21 2.0 09/02/17 14:14 97.9 Status: improved Disposition: ADMITTED INPATIENT Condition: Serious Referrals: NON PHYSICIAN (PCP) Ramirez Helm Sep 02, 2017 21:32
[2017-09-03] VITALS: BP_SYST 169; BP_SYST 180; BP_DIAS 80; BP_DIAS 81
[2017-09-03] MEDS ORDERED: Acetaminophen 500mg (ES) tab ORAL PRN ×2 (01:30→19:30)
[2017-09-03] MEDS ORDERED: SUMAtriptan 50mg tab ORAL PRN (01:30)
[2017-09-03] MEDS: Norco 5mg/325mg tab ORAL PRN ×2 (02:02→08:47)
[2017-09-03 08:00] VITALS: BP 136/83
[2017-09-03] MEDS: Heparin 5000 units/ml inj SUBQ SCH ×3 (08:48→20:48)
[2017-09-03] MEDS ORDERED: Lisinopril 2.5mg tab ORAL SCH (09:00)
[2017-09-03] MEDS ORDERED: Metoprolol 25mg tab ORAL SCH (09:00)
[2017-09-03 12:00] VITALS: BP 148/78
[2017-09-03] MEDS ORDERED: Hydromorphone 0.5mg/0.5ml inj IM PRN (12:45)
[2017-09-03] MEDS ORDERED: Norco 5mg/325mg tab ORAL PRN ×2 (12:45→20:45)
[2017-09-03 16:00] VITALS: BP 166/71
--- NOTE | 2017-09-03 17:00 | Consultation ---
Consult Note Consult Note PULMONARY CONSULTATION CONSULTING PHYSICIAN: Tamara Solomon M.D. REFERRING PHYSICIAN: Osiris Cassdiy M.D. REASON FOR CONSULTATION: COPD, lung nodule. History of Present Illness: This is a 67-year-old female with history of COPD, the patient apparently was diagnosed with lung nodule, and has continued to refuse evaluation and intervention. The patient had not had any workup at present due to refusal. The patient apparently still continues to smoke. She does use inhalers and notes mild shortness of breath. She apparently has had intermittent wheezing and shortness of breath as well as chest tightness. She denies any fevers or chills. She denies any hemoptysis. The patient states cough is mostly nonproductive. No nausea or vomiting. Past Medical History: Notable for COPD and pneumonia and prior history of lung mass. PAST SURGICAL HISTORY: Negative. FAMILY HISTORY: Noncontributory. Social History: The patient does smoke. She does not drink. She is not currently employed. Review Of Systems: All 10 points reviewed, notable for the above. PHYSICAL EXAMINATION: General: The patient is well developed and well nourished female, in no significant distress at this time, but wheezing. NECK: Supple. LUNGS: With mild wheezes. Moderate air entry. CARDIAC: S1 and S2 regular rhythm without murmurs, rubs, or gallops. ABDOMEN: Soft, nontender, and nondistended. no HSM EXTREMITIES: No cyanosis, clubbing, or edema. NEUROLOGIC: Nonfocal. alert and oriented x 3 Labs Test 09/02/17 15:00 White Blood Count 12.6 K/UL (4.8-10.8) Red Blood Count 4.08 M/UL (4.20-5.40) Hemoglobin 13.9 G/DL (12.0-16.0) Hematocrit 43.6 % (37.0-47.0) Mean Corpuscular Volume 107 FL (80-99) Mean Corpuscular Hemoglobin 33.9 PG (27.0-31.0) Mean Corpuscular Hemoglobin Concent 31.8 G/DL (32.0-36.0) Red Cell Distribution Width 12.0 % (11.6-14.8) Platelet Count 260 K/UL (150-450) Mean Platelet Volume 8.8 FL (6.5-10.1) Neutrophils (%) (Auto) 61.4 % (45.0-75.0) Lymphocytes (%) (Auto) 26.9 % (20.0-45.0) Monocytes (%) (Auto) 9.7 % (1.0-10.0) Eosinophils (%) (Auto) 0.9 % (0.0-3.0) Basophils (%) (Auto) 1.1 % (0.0-2.0) Sodium Level 144 MMOL/L (136-145) Potassium Level 4.8 MMOL/L (3.5-5.1) Chloride Level 109 MMOL/L (98-107) Carbon Dioxide Level 31 MMOL/L (21-32) Anion Gap 4 mmol/L (5-15) Blood Urea Nitrogen 11 mg/dL (7-18) Creatinine 1.0 MG/DL (0.55-1.30) Estimat Glomerular Filtration Rate > 60 mL/min (>60) Glucose Level 95 MG/DL (74-106) Calcium Level 10.7 MG/DL (8.5-10.1) Total Bilirubin 0.2 MG/DL (0.2-1.0) Aspartate Amino Transf (AST/SGOT) 22 U/L (15-37) Alanine Aminotransferase (ALT/SGPT) 10 U/L (12-78) Alkaline Phosphatase 127 U/L (46-116) Total Creatine Kinase 36 U/L (26-308) Creatine Kinase MB 1.4 NG/ML (0.0-3.6) Creatine Kinase MB Relative Index 3.8 Troponin I 0.002 ng/mL (0.000-0.056) Pro-B-Type Natriuretic Peptide 384 pg/mL (0-125) Total Protein 6.7 G/DL (6.4-8.2) Albumin 3.4 G/DL (3.4-5.0) Globulin 3.3 g/dL Albumin/Globulin Ratio 1.0 (1.0-2.7) Urine Opiates Screen Positive (NEGATIVE) Urine Barbiturates Screen Negative (NEGATIVE) Phencyclidine (PCP) Screen Negative (NEGATIVE) Urine Amphetamines Screen Negative (NEGATIVE) Urine Benzodiazepines Screen Negative (NEGATIVE) Urine Cocaine Screen Negative (NEGATIVE) Urine Marijuana (THC) Screen Negative (NEGATIVE) Objective Last 24 Hour Vital Signs Date Time Temp Pulse Resp B/P (MAP) Pulse Ox O2 Delivery O2 Flow Rate FiO2 09/03/17 12:00 97.6 64 21 148/78 96 Room Air 09/03/17 09:00 136/83 09/03/17 08:47 73 136/83 09/03/17 08:00 97.0 73 20 136/83 96 Room Air 09/03/17 04:00 62 09/03/17 00:00 72 09/03/17 00:00 97.9 64 19 169/80 98 09/02/17 21:50 68 13 175/61 98 Room Air 09/02/17 20:00 97.9 69 19 180/81 99 09/02/17 19:09 88 14 172/68 97 Room Air 09/02/17 18:51 28 09/02/17 18:30 68 13 163/80 97 Room Air Microbiology Date/Time Source Procedure Growth Status 09/02/17 15:00 Nasal Nares Influenza Types A,B Antigen (SHIRLEY) - Final Complete Current Medications Medications (Trade) Dose Ordered Sig/Janee Route PRN Reason Start Time Stop Time Status Last Admin Dose Admin Acetaminophen (Tylenol) 500 mg Q6H PRN ORAL Mild Pain/Temp > 100.5 09/03/17 01:30 10/03/17 01:29 Acetaminophen/ Hydrocodone Bitart ([place] 5/325) 1 tab Q4H PRN ORAL Moderate Pain (Pain Scale 4-6) 09/03/17 12:45 09/10/17 01:29 Heparin Sodium (Porcine) (Heparin 5000 units/ml) 5,000 units EVERY 12 HOURS SUBQ 09/03/17 09:00 10/03/17 08:59 Hydromorphone HCl (Dilaudid) 0.5 mg Q6H PRN IM Severe Pain (Pain Scale 7-10) 09/03/17 12:45 09/10/17 12:44 09/03/17 13:24 Lisinopril (Zestril) 2.5 mg DAILY ORAL 09/03/17 09:00 10/03/17 08:59 Metoprolol Tartrate (Lopressor) 25 mg Q12HR ORAL 09/03/17 09:00 10/03/17 08:59 09/03/17 08:47 Ondansetron HCl (Zofran ODT) 4 mg Q6H PRN ORAL Nausea & Vomiting 12/9/17 01:30 10/03/17 01:29 09/03/17 15:53 Ranitidine HCl (Zantac) 150 mg TWICE A DAY ORAL 09/03/17 09:00 10/03/17 08:59 09/03/17 08:47 Sumatriptan Succinate (Imitrex) 50 mg DAILY PRN ORAL For Pain 09/03/17 01:30 10/03/17 01:29 Impression: Evidence of lung nodule, increased in size. history of chronic obstructive pulmonary disease. smoker Recommendation: nebulizer therapy and oxygen therapy as needed. Outpatient pulmonary function tests as well PET scan is recommended. patient now agreeable to proceed with biopsy will follow up and advise will need staging impression, plan, and exam edited and reviewed in detail care discussed with TAMARA WILLIS Sep 03, 2017 17:00
[2017-09-03 17:30] VITALS: BP 153/76
--- NOTE | 2017-09-03 18:30 | History and Physical Report ---
DATE OF ADMISSION: 09/02/2017 CHIEF COMPLAINT: Chest pain. HISTORY OF PRESENT ILLNESS: This is a 67-year-old female, who is frequently admitted to this hospital with chest pain. The patient has had multiple admissions to the hospital and was ruled out for coronary disease. The patient has a known right upper lung mass. We tried multiple times to convince the patient to get a CT-guided biopsy. Currently, the patient has a high suspicion of malignancy. The patient has been elusive and is using a trick that she needs to get a consent from her family, although she is fully alert. At this time, the patient came back again with atypical chest pain, which at the time of the interview transformed "to generalized body pain" including knees, hips, and other organs. PAST MEDICAL HISTORY: 1. COPD. 2. Hypertensive cardiovascular disease. 3. Ischemic heart disease. 4. Status post stenting. 5. History of right upper lung mass. 6. Migraine headaches. HOME MEDICATIONS: [place], lisinopril, metoprolol, Zofran, and Imitrex. ALLERGIES: No known allergies. SOCIAL HISTORY: She lives at home. HABITS: She is a past heavy cigarette smoker. FAMILY HISTORY: Unremarkable. REVIEW OF SYSTEMS: HEENT: Hearing and eyesight are normal. ENDOCRINE: No history of diabetes, thyroid, or adrenal problems. RESPIRATORY: She denies shortness of breath, cough, or hemoptysis. CARDIOVASCULAR: Significant for atypical chest pain. GASTROINTESTINAL: No history of hematochezia, melena, hematemesis, diarrhea, or constipation. GENITOURINARY: She denies dysuria, frequency, urgency, or hematuria. NEUROLOGIC: No history of stroke, syncope, or Parkinson disease. PHYSICAL EXAMINATION: GENERAL: This is an elderly, cachectic, female, who is in no acute distress. VITAL SIGNS: Blood pressure 148/78, pulse 64 and regular, respirations 21, and temperature 97.6 degrees axillary. HEENT: The head is normocephalic and atraumatic. Pupils are equal, round, and reactive to light and accommodation consensually. NECK: Supple. Trachea midline. There was no lymphadenopathy or thyromegaly. LUNGS: Clear to auscultation and percussion. She has few wheezes. HEART: Regular rate and rhythm without rubs, murmurs, or gallops. ABDOMEN: Soft and nontender. Bowel sounds were active. EXTREMITIES: No clubbing, cyanosis, or edema. NEUROLOGICAL: She is alert and oriented x4. Cranial nerves II through XII intact. LABORATORY AND ANCILLARY DATA: CBC shows white count of 12,600. Chemistry, calcium 10.7. Alkaline phosphatase 127. Troponin level 0.02. EKG, normal sinus rhythm. No signs of acute ischemia. Chest x-ray, nodular densities in right lower lung, which is known from before. ASSESSMENT: 1. Atypical chest pain. 2. Right lower lung mass. 3. Chronic obstructive pulmonary disease. 4. Hypertensive cardiovascular disease. 5. Ischemic heart disease. 6. Status post stenting. 7. History of right upper lung mass. 8. Migraine headaches. PLAN: 1. At this time, the patient agrees to have a CT-guided lung biopsy. 2. Pulmonary consult. 3. Continue pain control. Osiris Cassidy M.D. DR: Zeyad JOB#: [id number] CC:
[2017-09-03] MEDS: Hydromorphone 0.5mg/0.5ml inj IM PRN (19:41)
[2017-09-03] MEDS: Metoprolol 25mg tab ORAL SCH (20:13)
[2017-09-03 20:26] VITALS: BP 148/66
[2017-09-04 00:27] VITALS: BP 130/80
[2017-09-04] MEDS: Hydromorphone 0.5mg/0.5ml inj IM PRN ×2 (01:44→08:04)
[2017-09-04 04:35] VITALS: BP 143/73
[2017-09-04 08:09] VITALS: BP 162/77
[2017-09-04] MEDS: Metoprolol 25mg tab ORAL SCH (08:16)
[2017-09-04] MEDS: Heparin 5000 units/ml inj SUBQ SCH (08:16)
[2017-09-04] MEDS ORDERED: SUMAtriptan 50mg tab ORAL PRN (09:00)
[2017-09-04] MEDS ORDERED: Lisinopril 2.5mg tab ORAL SCH (09:00)
--- NOTE | 2017-09-04 10:35 | Pulmonology Progress Note ---
Assessment/Plan Assessment/Plan Impression: Evidence of lung nodule, increased in size. history of chronic obstructive pulmonary disease. smoker Recommendation: nebulizer therapy and oxygen therapy as needed. Outpatient pulmonary function tests as well PET scan is recommended. patient now agreeable to proceed with biopsy will follow up and advise will need staging no change for now impression, plan, and exam edited and reviewed in detail care discussed with RN Subjective Allergies: Coded Allergies: No Known Allergies (Unverified , 06/30/17) Subjective care noted and reviewed no distress or congestion Objective Last 24 Hour Vital Signs Date Time Temp Pulse Resp B/P (MAP) Pulse Ox O2 Delivery O2 Flow Rate FiO2 09/04/17 08:16 68 150/77 09/04/17 08:14 150/77 09/04/17 08:09 98.5 64 20 162/77 100 09/04/17 04:36 Room Air 09/04/17 04:35 97.7 61 17 143/73 98 09/04/17 00:30 Room Air 09/04/17 00:27 97.5 65 18 130/80 94 09/03/17 20:30 Room Air 09/03/17 20:26 98.1 64 18 148/66 100 09/03/17 20:13 64 142/66 09/03/17 17:30 153/76 09/03/17 16:00 97.1 70 19 166/71 99 09/03/17 12:00 97.6 64 21 148/78 96 Room Air Intake and Output 09/04/17 09/05/17 19:00 07:00 Intake Total 340 ml Balance 340 ml Intake Oral 340 ml # Voids 1 Objective WDWN NAD reduced breath sounds bilaterally without rhonchi or wheeze [id number] without MRG NABS nontender no HSM no CCE nonfocal Microbiology Date/Time Source Procedure Growth Status 09/02/17 15:00 Nasal Nares Influenza Types A,B Antigen (SHIRLEY) - Final Complete Current Medications Medications (Trade) Dose Ordered Sig/Janee Route PRN Reason Start Time Stop Time Status Last Admin Dose Admin Acetaminophen (Tylenol) 500 mg Q6H PRN ORAL Mild Pain/Temp > 100.5 09/03/17 19:30 10/03/17 01:29 09/04/17 03:10 Acetaminophen/ Hydrocodone Bitart ([place] 5/325) 1 tab Q4H PRN ORAL Moderate Pain (Pain Scale 4-6) 09/03/17 20:45 09/10/17 01:29 Heparin Sodium (Porcine) (Heparin 5000 units/ml) 5,000 units EVERY 12 HOURS SUBQ 09/03/17 21:00 10/03/17 08:59 Hydromorphone HCl (Dilaudid) 0.5 mg Q6H PRN IM Severe Pain (Pain Scale 7-10) 09/03/17 18:45 09/10/17 12:44 09/04/17 08:04 Lisinopril (Zestril) 2.5 mg DAILY ORAL 09/04/17 09:00 10/03/17 08:59 09/04/17 08:14 Metoprolol Tartrate (Lopressor) 25 mg Q12HR ORAL 09/03/17 21:00 10/03/17 08:59 09/04/17 08:16 Ondansetron HCl (Zofran ODT) 4 mg Q6H PRN ORAL Nausea & Vomiting 09/03/17 19:30 10/03/17 01:29 09/04/17 10:14 Ranitidine HCl (Zantac) 150 mg TWICE A DAY ORAL 09/04/17 09:00 10/03/17 08:59 09/04/17 08:03 Sumatriptan Succinate (Imitrex) 50 mg DAILY PRN ORAL For Pain 09/04/17 09:00 10/03/17 01:29 TAMARA AGUERO Sep 04, 2017 10:35
[2017-09-04 11:50] VITALS: BP 151/75
--- NOTE | 2017-09-04 13:57 | General Progress Note ---
Assessment/Plan Assessment/Plan CP - noncoronary. Lung Mass most likely CA - for CT-guided needle biopsy tomorrow Subjective Allergies: Coded Allergies: No Known Allergies (Unverified , 06/30/17) Subjective c/o diffuse pain Objective Last 24 Hour Vital Signs Date Time Temp Pulse Resp B/P (MAP) Pulse Ox O2 Delivery O2 Flow Rate FiO2 09/04/17 11:50 98.0 66 20 151/75 98 09/04/17 08:16 68 150/77 09/04/17 08:14 150/77 09/04/17 08:09 98.5 64 20 162/77 100 09/04/17 04:36 Room Air 09/04/17 04:35 97.7 61 17 143/73 98 09/04/17 00:30 Room Air 09/04/17 00:27 97.5 65 18 130/80 94 09/03/17 20:30 Room Air 09/03/17 20:26 98.1 64 18 148/66 100 09/03/17 20:13 64 142/66 09/03/17 17:30 153/76 09/03/17 16:00 97.1 70 19 166/71 99 Intake and Output 09/04/17 09/05/17 19:00 07:00 Intake Total 560 ml Balance 560 ml Intake Oral 560 ml # Voids 2 Height (Feet): 5 Height (Inches): 5.00 Weight (Pounds): 129 Objective Cv RR Lungs CTA Abd SNT. BS + E No CCE ZE KEMP Sep 04, 2017 13:57
--- NOTE | 2017-09-06 07:56 | Discharge Summary ---
Discharge Summary Hospital Course Date of Admission Sep 02, 2017 at 18:32 Date of Discharge Sep 04, 2017 at 14:45 Admitting Diagnosis chest pain, acs, chf HPI Laura Franco is a 67 year old female who was admitted on Sep 02, 2017 at 18: 32 for Chest Pain, Acute Coronary Syndrom Hospital Course dc summary #[id number] Discharge Discharge Disposition Patient signed AMA form Discharge Diagnoses: Discharge Instructions Discharge Instructions Special Instructions I have been assigned to complete a D/C Summary on this account. I was not involved in the patient management Amber Barnhart NP ([place]) Sep 06, 2017 07:56
--- NOTE | 2017-09-07 06:00 | Discharge Summary 2 SIG ---
DATE OF ADMISSION: 09/02/2017 DATE OF SIGNING AGAINST MEDICAL ADVICE: 09/04/2017 REASON FOR ADMISSION: 67-year-old female with multiple previous admissions for chest pain, was ruled out previously for acute coronary syndrome and coronary disease. The patient with a known right lung mass seen on the imaging. The patient was convinced on multiple admissions to get a CT-guided biopsy since the mass has a high suspicion for malignancy. However, the patient was always been elusive and declined signing the consent for the biopsy. At this time, she presented with nonproductive cough. The patient still continued to smoke. The patient reported using inhaler. She reported intermittent wheezing, shortness of breath, and chest tightness. She denied any fever or chills. Workup in the emergency room revealed mild leukocytosis-12.6. Stable hemoglobin and hematocrit. Stable electrolytes. Troponin negative. Pro BNP -384. Chest x-ray revealed nodular density in the right lower lung, likely corresponded to lobulated mass in the inferior right middle lobe seen on the CT of the chest on 08/17/2017. No new focal consolidation. Stable cardiomegaly. EKG revealed normal sinus rhythm with nonspecific ST changes. Vital signs were stable except elevated blood pressure- 172/68. The patient was placed on supplemental oxygen. Pulse oximetry reached 97%. The patient was admitted for further management with diagnoses of chest pain, COPD, hypertension, and right lung nodule. HOSPITAL COURSE: The patient was admitted. Pulmonology consult was requested. Supplemental oxygen was provided and titrated to keep pulse oximetry above 92%. Nebulizing therapy was provided. The patient was recommended to have outpatient pulmonary function test and PET-CT as recommended by mold cleaner. CT chest done on 08/17 revealed slightly larger irregular masslike lesion within inferior right major fissure, appeared to be slightly larger than on the previous study, The patient was initially agreeable with CT-guided biopsy of the lung mass. The patient needs workup for lung nodule and staging to proceed with further management. Pain management was provided. Blood pressure was managed with multiple antihypertensive regimen and stabilized. DVT and GI prophylaxes provided. The patient was counseled on smoking cessation. The patient declined nicotine patch. On 09/04/2017, the patient decided to sign against medical advice. She declined CT-guided biopsy as ordered by mold cleaner (as she done in the past). The patient signed the form, was picked up by her daughter and left. FINAL DIAGNOSES: 1. Atypical chest pain. 2. Chronic obstructive pulmonary disease. 3. Right lung mass. 4. Smoker. 5. Hypertensive cardiovascular disease. 6. Ischemic heart disease, status post stenting. 7. Migraine headache. Osiris Cassidy M.D. I have been assigned to dictate discharge summary on this account and I was not involved in the patient's management. Amber Blairsalome N.PCaprice DR: RENY JOB#: [id number] CC: TED
--- NOTE | 2017-09-08 11:04 | Cardiology Report ---
APPROVED REPORT EKG Measurement Heart [id number] Normal sinus rhythm Low voltage QRS Inferior infarct, age undetermined Cannot rule out Anteroseptal infarct, age undetermined Abnormal ECG
== END 2017-09-04 14:45 | disposition left against medical advice (07) | DRG 144 ==
LOC: EDBD 14:22 → EMR 14:53 → 2E 18:32 → EDBEDREQ 18:51 → 2E 21:14 → 3E 09-03 18:14
DX: R91.1 Solitary pulmonary nodule (principal); J44.9 Chronic obstructive pulmonary disease, unspecified; R07.89 Other chest pain; F17.200 Nicotine dependence, unspecified, uncomplicated; I25.10 Atherosclerotic heart disease of native coronary artery without angina pectoris; G43.909 Migraine, unspecified, not intractable, without status migrainosus
CPT/HCPCS: 36415; 71010; 80053; 80307; 82550; 82553; 83880; 84484; 85025; 86710; 87081; 93005; 94640; 94664; 99285

== ENCOUNTER 2017-11-22 11:33 | Emergency (ER) | payer MEDICARE, OTHER ==
[~2017-11-22] VITALS: Ht 162.6 cm; Wt 63.5 kg
[2017-11-22 11:37] VITALS: BP 137/68
[2017-11-22] MEDS ORDERED: AMOXICILLIN500 MG ORAL (11:59)
[2017-11-22] MEDS ORDERED: Dexamethasone 4mg/ml vial IM ONE (12:00)
[2017-11-22] MEDS ORDERED: oxyCODONE HCL/Acetaminophen 5/325mg ORAL ONE (12:00)
--- NOTE | 2017-11-22 12:19 | Emergency Room Report ---
History of Present Illness General Chief Complaint: Sore Throat Source: Patient Present Illness HPI 67-year-old female, history of lung cancer, on hospice, presents with sore throat for 3 days. States sore throat, +mild dry cough. Pain with swallowing however has still been able to eat/drink. No change in voice. No pain with extension/movement of neck. Denies fever or chills. No sick contacts . Patient also saying that she has chronic bilateral neuropathy, gets gabapentin by her doctor. Says it only helps sometimes Allergies: Coded Allergies: No Known Allergies (Unverified , 06/30/17) Patient History Past Medical History: see triage record Past Surgical History: none Pertinent Family History: none Reviewed Nursing Documentation: PMH: Agreed, PSxH: Agreed Nursing Documentation-PMH Past Medical History: No History, Except For Hx Cardiac Problems: Yes - CHF/peripheral neuropathy Hx Hypertension: Yes Hx Asthma: No Hx COPD: Yes Hx Cancer: Yes - lung CA Hx Neurological Problems: Yes Hx Dizziness: Yes Hx Syncope: Yes Hx Headaches: Yes Hx Weakness: Yes Hx Fatigue: Yes Review of Systems All Other Systems: negative except mentioned in HPI Physical Exam Vital Signs Date Time Temp Pulse Resp B/P (MAP) Pulse Ox O2 Delivery O2 Flow Rate FiO2 11/22/17 11:27 97.8 88 18 137/68 96 Room Air 97.9 Sp02 EP Interpretation: reviewed, normal General Appearance: alert, GCS 15, non-toxic, moderate distress Head: normocephalic, atraumatic Eyes: bilateral eye normal inspection, bilateral eye PERRL, bilateral eye EOMI ENT: uvula midline, tonsillar swelling, pharyngeal erythema Neck: normal inspection, full range of motion, supple Respiratory: normal inspection, lungs clear, normal breath sounds, no respiratory distress, no retraction, no wheezing, speaking full sentences, chest symmetrical Cardiovascular #1: normal inspection, regular rate, rhythm, no edema, normal capillary refill Cardiovascular #2: 2+ radial (R), 2+ radial (L) Gastrointestinal: normal inspection, non tender, soft, non-distended, no guarding Musculoskeletal: normal inspection, back normal, normal range of motion, non- tender Neurologic: normal inspection, alert, oriented x3, responsive, motor strength/ tone normal, sensory intact, normal gait, speech normal Psychiatric: normal inspection, judgement/insight normal, memory normal Skin: normal inspection, normal color, no rash, warm/dry, well hydrated, normal turgor Medical Decision Making Diagnostic Impression: Primary Impression: Pharyngitis ER Course 67-year-old female with sore throat DDX: Viral vs. infectious mononucleosis vs. bacterial pharyngitis vs. allergies Other serious causes such as [employer] / RPA / deep space neck infection Also with chronic bilateral leg pain from neuropathy and muscular spasms Plan: Decadron, pain control, Robaxin ER course: Patient remains stable in ED. Pt states improvement of pain Disposition: Patient will be discharged to home with amoxicillin. Patient will follow up with primary care doctor within 5 days. Strict return precautions discussed with patient such as worsening throat pain/swelling, dysphagia, high fever or chills, shortness of breath, abdominal pain, which may indicate severe illness. Patient verbalized understanding and agreed with plan. Please note that this Emergency Department Report was dictated using [employer] machine technology software, occasionally this can lead to erroneous entry secondary to interpretation by the dictation equipment. Last Vital Signs Date Time Temp Pulse Resp B/P (MAP) Pulse Ox O2 Delivery O2 Flow Rate FiO2 11/22/17 12:07 97.9 11/22/17 11:37 18 137/68 96 Room Air 11/22/17 11:27 88 Disposition: HOME, SELF-CARE Condition: Improved Scripts Amoxicillin* (AMOXIL*) 500 Mg Capsule 500 MG ORAL BID for 7 Days, #14 CAP Prov: Renny Devi M.D. 11/22/17 Patient Instructions: Sore Throat Renny Devi M.D. Nov 22, 2017 12:19
[2017-11-22] MEDS ORDERED: Lidocaine 2% Visc 15ml soln ORAL ONE (12:30)
[2017-11-22] MEDS ORDERED: Methocarbamol 750mg tab ORAL ONE (12:30)
[2017-11-22 12:42] VITALS: BP 162/66
[2017-11-22 12:50] VITALS: BP 162/66
== END 2017-11-22 13:03 | disposition home or self-care (01) ==
LOC: EDBD 11:33 → EMR 12:01
DX: J02.9 Acute pharyngitis, unspecified (principal); I10 Essential (primary) hypertension; J44.9 Chronic obstructive pulmonary disease, unspecified; Z85.118 Personal history of other malignant neoplasm of bronchus and lung; I11.0 Hypertensive heart disease with heart failure; I50.9 Heart failure, unspecified; G62.9 Polyneuropathy, unspecified
CPT/HCPCS: 96372; 99283; J1100

== ENCOUNTER 2017-12-06 12:41 | Inpatient (IN) | payer MEDICARE, OTHER ==
[~2017-12-06] VITALS: Ht 165.1 cm; Wt 61.7 kg
[~2017-12-06 12:41] MED LIST changes: +AMOXICILLIN500 MG ORAL
[2017-12-06 12:51] VITALS: BP 107/60
--- NOTE | 2017-12-06 13:18 | Emergency Room Report ---
History of Present Illness General Chief Complaint: Chest Pain Source: Patient, EMS Present Illness HPI 67 -year-old female brought in with chest pain for 4 days No associated shortness of breath, fevers or chills Has had dry cough, was given herself home nebulizer 's morning has left-sided chest pain radiating to left shoulder, improved with self given nitroglycerin Patient then called EMS, was given additional nitroglycerin Patient takes aspirin and Plavix, states she's had 6 stents in the past On ROS, also c/o "bladder infection." Allergies: Coded Allergies: No Known Allergies (Unverified , 06/30/17) Patient History Past Medical History: CAD, COPD Past Surgical History: other - ileostomy, crohns Pertinent Family History: none Social History: Denies: smoking, alcohol use, drug use Now: No Immunizations: UTD Reviewed Nursing Documentation: PMH: Agreed, PSxH: Agreed Nursing Documentation-PMH Hx Cardiac Problems: Yes - CHF/peripheral neuropathy Hx Hypertension: Yes Hx Asthma: Yes Hx COPD: Yes - Lung Cancer, Emphysema Hx Cancer: Yes - lung CA Hx Gastrointestinal Problems: No Hx Neurological Problems: Yes Hx Dizziness: Yes Hx Syncope: Yes Hx Headaches: Yes Hx Weakness: Yes Hx Fatigue: Yes Review of Systems All Other Systems: negative except mentioned in HPI Physical Exam Vital Signs Date Time Temp Pulse Resp B/P (MAP) Pulse Ox O2 Delivery O2 Flow Rate FiO2 12/06/17 12:41 97.9 99 21 107/60 99 Room Air 97.9 Sp02 EP Interpretation: reviewed, normal General Appearance: normal inspection, well appearing, no apparent distress, alert, GCS 15, non-toxic, cachetic, thin, other Head: normocephalic, atraumatic Eyes: bilateral eye PERRL, bilateral eye EOMI ENT: normal ENT inspection, hearing grossly normal, normal pharynx, no angioedema, normal voice, TMs + canals normal, uvula midline, moist mucus membranes Neck: normal inspection, full range of motion, supple, thyroid normal, no meningismus, no bony tend Respiratory: normal inspection, lungs clear, normal breath sounds, no rhonchi, no respiratory distress, no retraction, no accessory muscle use, no wheezing, speaking full sentences Cardiovascular #1: regular rate, rhythm, no edema, no JVD, normal capillary refill Gastrointestinal: normal inspection, normal bowel sounds, non tender, soft, no mass, no peritonitis, non-distended, no guarding, no hernia, no pulsatile mass Genitourinary: no CVA tenderness Musculoskeletal: normal inspection, back normal, normal range of motion, no calf tenderness, pelvis stable, Ty's Sign negative Neurologic: normal inspection, alert, oriented x3, responsive, locator specialist III-XII nml as tested, motor strength/tone normal, cerebellar normal, normal gait, speech normal Psychiatric: normal inspection, judgement/insight normal, mood/affect normal, no suicidal/homicidal ideation, no delusions Skin: normal inspection, normal color, no rash Lymphatic: normal inspection, no adenopathy Medical Decision Making Diagnostic Impression: Primary Impression: Chest pain Qualified Codes: R07.9 - Chest pain, unspecified Additional Impressions: Leukocytosis Dysuria ER Course Vital signs with tachycardia Normotensive Afebrile ECG: Sinus rhythm with arrhythmia. No active ischemia Labs show leukocytsis - no sign of PNA on CXR However, patient is c/o "kidney infection." However has not given urine. Will tx with IV Abx to cover possible pyelo, ?CAP not seen on CXR Will need admit for rule out ACS given significant cardiac history Already took ASA and Plavix today Was given IV morphine for pain in ED CMP still pending at signout Endorsed to Dr Leary to followup CMP and admission at 230pm EKG Diagnostic Results Rate: normal Rhythm: NSR ST Segments: no acute changes ASA given to the pt in ED: No Rhythm Strip Diag. Results EP Interpretation: yes Rate: 90 Rhythm: NSR, no PVC's, no ectopy Chest X-Ray Diagnostic Results Chest X-Ray Diagnostic Results : Chest X-Ray Ordered: Yes # of Views/Limited/Complete: 1 View Indication: Chest Pain EP Interpretation: Yes Interpretation: no consolidation, no effusion, no pneumothorax, no acute cardiopulmonary disease Impression: No acute disease Electronically Signed by: Dr Deyanira Lui MD Last Vital Signs Date Time Temp Pulse Resp B/P (MAP) Pulse Ox O2 Delivery O2 Flow Rate FiO2 12/06/17 12:51 97.9 21 107/60 99 Room Air 97.9 12/06/17 12:51 99 Status: improved Disposition: ADMITTED INPATIENT Condition: Serious Referrals: NOT CHOSEN IPA/,REFERRING (PCP) DEYANIRA LUI M.D. Dec 06, 2017 13:17
[2017-12-06 13:56] LABS: BASOPHILS % (AUTO) 0.5 % (0.0-2.0); EOSINOPHILS % (AUTO) 0.4 % (0.0-3.0); HEMATOCRIT 45.4 % (37.0-47.0); HEMOGLOBIN 15.8 G/DL (12.0-16.0); LYMPHOCYTES % (AUTO) 14.9 % (20.0-45.0); MEAN CORPUSCULAR VOLUME 97 FL (80-99); MONOCYTES % (AUTO) 9.3 % (1.0-10.0); NEUTROPHILS % (AUTO) 74.9 % (45.0-75.0); PLATELET COUNT 309 K/UL (150-450); RED BLOOD COUNT 4.69 M/UL (4.20-5.40); RED CELL DISTRIBUTION WIDTH 13.4 % (11.6-14.8); WHITE BLOOD COUNT 17.5 K/UL (4.8-10.8)
[2017-12-06] MEDS ORDERED: Morphine Sulfate 2mg/ml Inj IVP ONE (14:00)
[2017-12-06 14:02] VITALS: BP 106/56
[2017-12-06] MEDS ORDERED: Azithromycin 500 MG in NS 275 ML IV ONE (14:15)
[2017-12-06 14:31] LABS: ANION GAP 10 mmol/L (5-15); BLOOD UREA NITROGEN 48 mg/dL (7-18); CALCIUM 10.6 MG/DL (8.5-10.1); CARBON DIOXIDE 24 MMOL/L (21-32); CHLORIDE 102 MMOL/L (98-107); CREATININE 1.6 MG/DL (0.55-1.30); POTASSIUM 3.5 MMOL/L (3.5-5.1); SODIUM 136 MMOL/L (136-145)
[2017-12-06 14:41] LABS: ALANINE AMINOTRANSFERASE 15 U/L (12-78); ALBUMIN 3.4 G/DL (3.4-5.0); ALKALINE PHOSPHATASE 147 U/L (46-116); ASPARTATE AMINO TRANSFERASE 22 U/L (15-37); BILIRUBIN,TOTAL 0.6 MG/DL (0.2-1.0); CKMB 0.9 NG/ML (0.0-3.6); CREATINE KINASE 60 U/L (26-308)
--- NOTE | 2017-12-06 14:57 | Diagnostic Imaging Report ---
Indication: Chest pain Technique: One view of the chest Comparison: 09/12/2017 Findings: 17 mm nodule projects at the right lung base, also evident previously, slightly more conspicuous currently. This is also been described on a previous chest CT. The remainder of the lungs and pleural spaces are clear. The heart size is normal. There are degenerative changes of the left shoulder Impression: Right basilar lung nodule, appearing slightly more conspicuous than previously, also previously described. Neoplasm a possibility No acute abnormality Incidental findings as described
[2017-12-06] MEDS ORDERED: Morphine Sulfate 4mg/ml Inj IVP ONE (15:00)
[2017-12-06 17:38] LABS: APPEARANCE,URINE SLIGHTLY CLOUDY; BILIRUBIN, URINE NEGATIVE (NEGATIVE); GLUCOSE, URINE (UA) NEGATIVE (NEGATIVE); KETONES,URINE 1+ (NEGATIVE); LEUKOCYTE ESTERASE ,URINE 1+ (NEGATIVE); NITRITE,URINE NEGATIVE (NEGATIVE); PH,URINE 5 (4.5-8.0); PROTEIN,URINE 2+ (NEGATIVE); UROBILINOGEN,URINE NORMAL MG/DL (0.0-1.0)
[2017-12-06 17:40] LABS: COLOR,URINE YELLOW
[2017-12-06 18:04] VITALS: BP 117/73
[2017-12-06 20:00] VITALS: BP 104/45
--- NOTE | 2017-12-06 21:02 | Cardiology Progress Note ---
Assessment/Plan Assessment/Plan The patient is seen and examined, full consult note will be dictated shortly. Objective Last 24 Hour Vital Signs Date Time Temp Pulse Resp B/P (MAP) Pulse Ox O2 Delivery O2 Flow Rate FiO2 12/06/17 20:00 97.7 59 18 104/45 95 Room Air 97.7 12/06/17 18:53 98.1 77 21 117/73 99 Room Air 208.6 12/06/17 18:04 77 21 117/73 99 Room Air 12/06/17 15:22 98.1 12/06/17 14:31 98.1 12/06/17 14:02 98.1 77 21 106/56 99 Room Air 98.1 12/06/17 14:01 97.9 12/06/17 12:51 97.9 21 107/60 99 Room Air 97.9 12/06/17 12:51 99 21 Room Air 12/06/17 12:41 97.9 99 21 107/60 99 Room Air 97.9 Laboratory Tests Test 12/06/17 13:36 12/06/17 16:58 White Blood Count 17.5 K/UL (4.8-10.8) H Red Blood Count 4.69 M/UL (4.20-5.40) Hemoglobin 15.8 G/DL (12.0-16.0) Hematocrit 45.4 % (37.0-47.0) Mean Corpuscular Volume 97 FL (80-99) Mean Corpuscular Hemoglobin 33.7 PG (27.0-31.0) H Mean Corpuscular Hemoglobin Concent 34.8 G/DL (32.0-36.0) Red Cell Distribution Width 13.4 % (11.6-14.8) Platelet Count 309 K/UL (150-450) Mean Platelet Volume 8.2 FL (6.5-10.1) Neutrophils (%) (Auto) 74.9 % (45.0-75.0) Lymphocytes (%) (Auto) 14.9 % (20.0-45.0) L Monocytes (%) (Auto) 9.3 % (1.0-10.0) Eosinophils (%) (Auto) 0.4 % (0.0-3.0) Basophils (%) (Auto) 0.5 % (0.0-2.0) Sodium Level 136 MMOL/L (136-145) Potassium Level 3.5 MMOL/L (3.5-5.1) Chloride Level 102 MMOL/L (98-107) Carbon Dioxide Level 24 MMOL/L (21-32) Anion Gap 10 mmol/L (5-15) Blood Urea Nitrogen 48 mg/dL (7-18) H Creatinine 1.6 MG/DL (0.55-1.30) H Estimat Glomerular Filtration Rate 38.9 mL/min (>60) Glucose Level 95 MG/DL (74-106) Calcium Level 10.6 MG/DL (8.5-10.1) H Total Bilirubin 0.6 MG/DL (0.2-1.0) Aspartate Amino Transf (AST/SGOT) 22 U/L (15-37) Alanine Aminotransferase (ALT/SGPT) 15 U/L (12-78) Alkaline Phosphatase 147 U/L (46-116) H Total Creatine Kinase 60 U/L (26-308) Creatine Kinase MB 0.9 NG/ML (0.0-3.6) Creatine Kinase MB Relative Index 1.5 Troponin I 0.036 ng/mL (0.000-0.056) Pro-B-Type Natriuretic Peptide 2039 pg/mL (0-125) H Total Protein 6.9 G/DL (6.4-8.2) Albumin 3.4 G/DL (3.4-5.0) Globulin 3.5 g/dL Albumin/Globulin Ratio 1.0 (1.0-2.7) Urine Color Yellow Urine Appearance Slightly cloudy Urine pH 5 (4.5-8.0) Urine Specific [place] 1.015 (1.005-1.035) Urine Protein 2+ (NEGATIVE) H Urine Glucose (UA) Negative (NEGATIVE) Urine Ketones 1+ (NEGATIVE) H Urine Occult Blood Negative (NEGATIVE) Urine Nitrite Negative (NEGATIVE) Urine Bilirubin Negative (NEGATIVE) Urine Urobilinogen Normal MG/DL (0.0-1.0) Urine Leukocyte Esterase 1+ (NEGATIVE) H Urine RBC 0-2 /HPF (0 - 2) Urine WBC 10-15 /HPF (0 - 2) H Urine Squamous Epithelial Cells Moderate /LPF (NONE/OCC) H Urine Bacteria Few /HPF (NONE) Urine Opiates Screen Positive (NEGATIVE) H Urine Barbiturates Screen Negative (NEGATIVE) Phencyclidine (PCP) Screen Negative (NEGATIVE) Urine Amphetamines Screen Negative (NEGATIVE) Urine Benzodiazepines Screen Positive (NEGATIVE) H Urine Cocaine Screen Negative (NEGATIVE) Urine Marijuana (THC) Screen Negative (NEGATIVE) MALKA LOPEZ Dec 06, 2017 21:02
[2017-12-06] MEDS: cefTRIAXone 1 GM in NS 55 ML IVPB SCH (22:49)
[2017-12-06] MEDS: Norco 5mg/325mg tab ORAL PRN (22:51)
[2017-12-06] MEDS ORDERED: Acetaminophen 500mg (ES) tab ORAL PRN (23:30)
[2017-12-07] VITALS: BP 117/59
[2017-12-07] MEDS: Zolpidem 5mg tab ORAL PRN ×2 (01:23→21:48)
[2017-12-07 04:00] VITALS: BP 121/60
[2017-12-07] MEDS: Norco 5mg/325mg tab ORAL PRN (04:09)
[2017-12-07 08:00] VITALS: BP 116/49
[2017-12-07 08:17] LABS: BASOPHILS % (AUTO) 0.6 % (0.0-2.0); HEMOGLOBIN 14.5 G/DL (12.0-16.0); LYMPHOCYTES % (AUTO) 19.1 % (20.0-45.0); MEAN CORPUSCULAR VOLUME 99 FL (80-99); MONOCYTES % (AUTO) 9.7 % (1.0-10.0); NEUTROPHILS % (AUTO) 69.6 % (45.0-75.0); PLATELET COUNT 253 K/UL (150-450); RED BLOOD COUNT 4.46 M/UL (4.20-5.40); WHITE BLOOD COUNT 13.2 K/UL (4.8-10.8)
[2017-12-07 08:39] LABS: ALANINE AMINOTRANSFERASE 12 U/L (12-78); ALBUMIN 3.1 G/DL (3.4-5.0); ALKALINE PHOSPHATASE 128 U/L (46-116); ANION GAP 14 mmol/L (5-15); ASPARTATE AMINO TRANSFERASE 15 U/L (15-37); BILIRUBIN,TOTAL 0.3 MG/DL (0.2-1.0); BLOOD UREA NITROGEN 36 mg/dL (7-18); CALCIUM 9.9 MG/DL (8.5-10.1); CARBON DIOXIDE 20 MMOL/L (21-32); CHLORIDE 106 MMOL/L (98-107); CREATININE 1.2 MG/DL (0.55-1.30); POTASSIUM 3.4 MMOL/L (3.5-5.1); SODIUM 139 MMOL/L (136-145)
--- NOTE | 2017-12-07 08:50 | Consultation ---
History of Present Illness General Date patient seen: Dec 07, 2017 Chief Complaint: Present Illness Allergies: Coded Allergies: No Known Allergies (Unverified , 06/30/17) Medication History Scheduled Amoxicillin* (Amoxil*), 500 MG ORAL BID Lisinopril* (Lisinopril*), 2.5 MG ORAL DAILY, (Reported) Metoprolol Tartrate* (Metoprolol Tartrate*), 25 MG ORAL EVERY 12 HOURS, ( Reported) Sumatriptan Succinate* (Imitrex*), 50 MG ORAL DAILY PRN MIGRAINE, (Reported) Scheduled PRN Hydrocodone Bit/Acetaminophen 5-325* ([place] 5-325 Tablet*), 1 TAB ORAL Q4H PRN for For Pain, (Reported) Ondansetron* (Zofran*), 4 MG ORAL Q6H PRN for Nausea & Vomiting, (Reported) Miscellaneous Medications Unable to Obtain Medications (Unable To Obtain Meds), (Reported) Patient History Healthcare decision maker Resuscitation status Full Code Advanced Directive on File Physical Exam Last 24 Hour Vital Signs Date Time Temp Pulse Resp B/P (MAP) Pulse Ox O2 Delivery O2 Flow Rate FiO2 12/07/17 04:00 96.5 63 18 121/60 94 Room Air 96.5 12/07/17 04:00 69 12/07/17 00:00 61 12/07/17 00:00 98.0 58 18 117/59 96 Room Air 98.0 12/06/17 20:00 97.7 59 18 104/45 95 Room Air 97.7 12/06/17 20:00 61 12/06/17 18:53 98.1 77 21 117/73 99 Room Air 208.6 12/06/17 18:04 77 21 117/73 99 Room Air 12/06/17 15:22 98.1 12/06/17 14:31 98.1 12/06/17 14:02 98.1 77 21 106/56 99 Room Air 98.1 12/06/17 14:01 97.9 12/06/17 12:51 97.9 21 107/60 99 Room Air 97.9 12/06/17 12:51 99 21 Room Air 12/06/17 12:41 97.9 99 21 107/60 99 Room Air 97.9 Intake and Output 12/06/17 12/07/17 19:00 07:00 Intake Total 0 ml Output Total 400 ml Balance 0 ml -400 ml Intake Oral 0 ml Output Urine Total 400 ml Laboratory Tests Test 12/06/17 13:36 12/06/17 16:58 12/07/17 06:30 White Blood Count 17.5 K/UL (4.8-10.8) H 13.2 K/UL (4.8-10.8) H Red Blood Count 4.69 M/UL (4.20-5.40) 4.46 M/UL (4.20-5.40) Hemoglobin 15.8 G/DL (12.0-16.0) 14.5 G/DL (12.0-16.0) Hematocrit 45.4 % (37.0-47.0) 44.0 % (37.0-47.0) Mean Corpuscular Volume 97 FL (80-99) 99 FL (80-99) Mean Corpuscular Hemoglobin 33.7 PG (27.0-31.0) H 32.6 PG (27.0-31.0) H Mean Corpuscular Hemoglobin Concent 34.8 G/DL (32.0-36.0) 33.0 G/DL (32.0-36.0) Red Cell Distribution Width 13.4 % (11.6-14.8) 14.0 % (11.6-14.8) Platelet Count 309 K/UL (150-450) 253 K/UL (150-450) Mean Platelet Volume 8.2 FL (6.5-10.1) 8.7 FL (6.5-10.1) Neutrophils (%) (Auto) 74.9 % (45.0-75.0) 69.6 % (45.0-75.0) Lymphocytes (%) (Auto) 14.9 % (20.0-45.0) L 19.1 % (20.0-45.0) L Monocytes (%) (Auto) 9.3 % (1.0-10.0) 9.7 % (1.0-10.0) Eosinophils (%) (Auto) 0.4 % (0.0-3.0) 1.0 % (0.0-3.0) Basophils (%) (Auto) 0.5 % (0.0-2.0) 0.6 % (0.0-2.0) Sodium Level 136 MMOL/L (136-145) 139 MMOL/L (136-145) Potassium Level 3.5 MMOL/L (3.5-5.1) 3.4 MMOL/L (3.5-5.1) L Chloride Level 102 MMOL/L (98-107) 106 MMOL/L (98-107) Carbon Dioxide Level 24 MMOL/L (21-32) 20 MMOL/L (21-32) L Anion Gap 10 mmol/L (5-15) 14 mmol/L (5-15) Blood Urea Nitrogen 48 mg/dL (7-18) H 36 mg/dL (7-18) H Creatinine 1.6 MG/DL (0.55-1.30) H 1.2 MG/DL (0.55-1.30) Estimat Glomerular Filtration Rate 38.9 mL/min (>60) 54.2 mL/min (>60) Glucose Level 95 MG/DL (74-106) 60 MG/DL (74-106) L Calcium Level 10.6 MG/DL (8.5-10.1) H 9.9 MG/DL (8.5-10.1) Total Bilirubin 0.6 MG/DL (0.2-1.0) 0.3 MG/DL (0.2-1.0) Aspartate Amino Transf (AST/SGOT) 22 U/L (15-37) 15 U/L (15-37) Alanine Aminotransferase (ALT/SGPT) 15 U/L (12-78) 12 U/L (12-78) Alkaline Phosphatase 147 U/L (46-116) H 128 U/L (46-116) H Total Creatine Kinase 60 U/L (26-308) Creatine Kinase MB 0.9 NG/ML (0.0-3.6) Creatine Kinase MB Relative Index 1.5 Troponin I 0.036 ng/mL (0.000-0.056) Pending Pro-B-Type Natriuretic Peptide 2039 pg/mL (0-125) H Total Protein 6.9 G/DL (6.4-8.2) 6.3 G/DL (6.4-8.2) L Albumin 3.4 G/DL (3.4-5.0) 3.1 G/DL (3.4-5.0) L Globulin 3.5 g/dL 3.2 g/dL Albumin/Globulin Ratio 1.0 (1.0-2.7) 1.0 (1.0-2.7) Urine Color Yellow Urine Appearance Slightly cloudy Urine pH 5 (4.5-8.0) Urine Specific [place] 1.015 (1.005-1.035) Urine Protein 2+ (NEGATIVE) H Urine Glucose (UA) Negative (NEGATIVE) Urine Ketones 1+ (NEGATIVE) H Urine Occult Blood Negative (NEGATIVE) Urine Nitrite Negative (NEGATIVE) Urine Bilirubin Negative (NEGATIVE) Urine Urobilinogen Normal MG/DL (0.0-1.0) Urine Leukocyte Esterase 1+ (NEGATIVE) H Urine RBC 0-2 /HPF (0 - 2) Urine WBC 10-15 /HPF (0 - 2) H Urine Squamous Epithelial Cells Moderate /LPF (NONE/OCC) H Urine Bacteria Few /HPF (NONE) Urine Opiates Screen Positive (NEGATIVE) H Urine Barbiturates Screen Negative (NEGATIVE) Phencyclidine (PCP) Screen Negative (NEGATIVE) Urine Amphetamines Screen Negative (NEGATIVE) Urine Benzodiazepines Screen Positive (NEGATIVE) H Urine Cocaine Screen Negative (NEGATIVE) Urine Marijuana (THC) Screen Negative (NEGATIVE) Height (Feet): 5 Height (Inches): 5.00 Weight (Pounds): 142 Medications Current Medications Medications (Trade) Dose Ordered Sig/Janee Route PRN Reason Start Time Stop Time Status Last Admin Dose Admin Acetaminophen (Tylenol) 500 mg Q4H PRN ORAL Mild Pain/Temp > 100.5 12/06/17 23:30 01/05/18 23:29 Acetaminophen/ Hydrocodone Bitart ([place] 5/325) 1 tab Q4H PRN ORAL Moderate Pain (Pain Scale 4-6) 12/06/17 21:45 12/13/17 21:44 12/07/17 04:09 Aspirin (Ecotrin) 81 mg DAILY ORAL 12/07/17 09:00 01/06/18 08:59 Ceftriaxone Sodium 1 gm/ Sodium Chloride 55 ml @ 110 mls/hr Q24H IVPB 12/06/17 21:00 12/13/17 23:59 12/06/17 22:49 Metoprolol Tartrate (Lopressor) 25 mg Q12HR ORAL 12/07/17 09:00 01/06/18 08:59 Ondansetron HCl (Zofran ODT) 4 mg Q6H PRN ORAL Nausea & Vomiting 12/06/17 23:30 01/05/18 23:29 12/07/17 02:11 Zolpidem Tartrate (Ambien) 5 mg BEDTIME PRN ORAL Insomnia 12/07/17 00:45 12/14/17 00:44 12/07/17 01:23 Assessment/Plan Assessment/Plan (1) Lumbar DDD (2) Lumbar Spondylosis (3) Lumbar Radiculopathy (4) Peripheral Neuropathy seen dictated. CHAUNCEY MARRERO Dec 07, 2017 08:50
[2017-12-07] MEDS: Metoprolol 25mg tab ORAL SCH ×2 (09:17→20:44)
[2017-12-07] MEDS: Aspirin EC 81mg tab ORAL SCH (09:17)
[2017-12-07] MEDS: HYDROcodone/Acetamin 10/325 tab ORAL PRN (09:18)
--- NOTE | 2017-12-07 09:22 | Consultation ---
Consult Note Consult Note asked to eval for renal failure- Cr 1.6 67 -year-old female brought in with chest pain for 4 days No associated shortness of breath, fevers or chills Has had dry cough, was given herself home nebulizer 's morning has left-sided chest pain radiating to left shoulder, improved with self given nitroglycerin Patient then called EMS, was given additional nitroglycerin Patient takes aspirin and Plavix, states she's had 6 stents in the past On ROS, also c/o "bladder infection." Allergies: No Known Allergies (Unverified , 06/30/17) Past Medical History: CAD, COPD Past Surgical History: other - ileostomy, crohns Hx Cardiac Problems: Yes - CHF/peripheral neuropathy Hx Hypertension: Yes Hx Asthma: Yes Hx COPD: Yes - Lung Cancer, Emphysema Hx Cancer: Yes - lung CA Hx Neurological Problems: Yes Hx Dizziness: Yes Hx Syncope: Yes Hx Headaches: Yes Hx Weakness: Yes Hx Fatigue: Yes interviewed examined data reviewed Assessment/Plan Renal failure- Mainly dehydration UTI / Leukocytosis above mentioned conditions Hydrate correct electrolytes monitor renal parameters antibiotics per orders GERALDINE MARTINO Dec 07, 2017 09:21
[2017-12-07] MEDS ORDERED: Lexiscan 0.4mg/5ml syringe IV PRN (09:45)
[2017-12-07 12:00] VITALS: BP 104/45
[2017-12-07] MEDS: Docusate 100mg cap ORAL SCH ×2 (12:54→18:56)
--- NOTE | 2017-12-07 14:13 | Cardiology Report ---
APPROVED REPORT EXAM: Two-dimensional and M-mode echocardiogram with Doppler and color Doppler. INDICATION Chest Pain M-Mode DIMENSIONS IVSd1.7 (0.7-1.1cm)Left Atrium (MM)3.0 (1.6-4.0cm) LVDd4.5 (3.5-5.6cm)Aortic Root3.0 (2.0-3.7cm) PWd1.9 (0.7-1.1cm)Aortic Cusp Exc.1.6 (1.5-2.0cm) IVSs2.4 cm LVDs2.7 (2.5-4.0cm) PWs1.9 cm Normal left ventricular chamber size, systolic function and wall motion. Left ventricular ejection fraction estimated to be 70%. severe left ventricular hypertrophy by 2-D . Trace posterior pericardial effusion. All other cardiac chamber sizes are within normal limits. Focal aortic valve sclerosis with adequate cusp excursion. Heavy Thickened mitral valve leaflets with normal excursion. Mitral annulus and aortic root calcification. Pulmonic valve not well visualized. Normal tricuspid valve structure. IVC at normal size with physiologic collapse. A color flow and spectral Doppler study was performed and revealed: No aortic regurgitation. Mild mitral regurgitation. Mitral diastolic velocities suggest reduced left ventricular relaxation c/w mild LV diastolic dysfunction (Grade I ). Mild tricuspid regurgitation. Tricuspid systolic velocities suggests peak right ventricular systolic pressure of 37 mmHg,consistent with mild pulmonary hypertension. No Pulmonic regurgitation present.
[2017-12-07] MEDS: Morphine Sulfate 2mg/ml Inj IVP PRN ×2 (14:47→20:48)
--- NOTE | 2017-12-07 15:57 | Cardiology Report ---
APPROVED REPORT EKG Measurement Heart [id number] ID [id number] Sinus rhythm with marked sinus arrhythmia Anteroseptal infarct, age undetermined Abnormal ECG
[2017-12-07 16:00] VITALS: BP 115/45
--- NOTE | 2017-12-07 16:46 | Diagnostic Imaging Report ---
Indications: Chest pain and congestive heart failure Technique: Single day single isotope protocol utilized. Initially, resting images obtained using IV administration 10 millicuries 99M technetium Myoview. Subsequently, patient underwent lexiscan stress testing. See cardiology report for details. During Lexiscan infusion, IV administration 31.8 mCi 99 M technetium Myoview. SPECT and planar images obtained. SPECT images gated to 8 phases of the cardiac cycle were also obtained, and reformatted into cine images for evaluation of ejection fraction. Comparison: none Findings: Per cardiology report, patient experienced headache. Per cardiology report, resting EKG demonstrates normal sinus rhythm. [address] depression in the inferior leads noted during the infusion. Imaging demonstrates normal post stress perfusion, no fixed nor reversible perfusion defects demonstrated.. Calculated post stress ejection fraction 64%. No focal wall motion abnormality Impression: Ischemic clinical response to pharmacologic stress, per cardiology report Ischemic electrocardiographic response to pharmacologic stress, per cardiology report No imaging findings to suggest ischemia, at level of stress achieved. Calculated post stress ejection fraction 64%
--- NOTE | 2017-12-07 18:30 | Consultation ---
DATE OF CONSULTATION: 12/07/2017 INFECTIOUS DISEASE CONSULTATION CONSULTING PHYSICIAN: Armando Soto M.D. PRIMARY ATTENDING PHYSICIAN: Sukhi Pandey M.D. REASON FOR CONSULT: Urinary tract infection. HISTORY OF PRESENT ILLNESS: This 67-year-old female admitted yesterday because of chest pain. The patient also had pyuria, acute kidney injury, and leukocytosis. The patient had multiple admissions to the hospital because of chest pain. PAST MEDICAL HISTORY: COPD, emphysema, pulmonary nodule, hypertension, congestive heart failure, and coronary artery disease, status post stent placement. ALLERGIES: No known drug allergy. MEDICATIONS: Colace, Prevacid, aspirin, metoprolol, morphine, Grassflat, gabapentin, Ambien, Tylenol, Zofran, and ceftriaxone. Also got a dose of Zithromax and Levaquin in the ER. SOCIAL HISTORY: . Has history of positive smoking. Has three children. Lives at home. Denies alcohol abuse. REVIEW OF SYSTEMS: Chest pain, back pain, history of polyneuropathy on the legs, also has productive cough of whitish sputum, and has urinary frequency. PHYSICAL EXAMINATION: VITAL SIGNS: Temperature 97.3, pulse 76, and blood pressure is 116/49. No fever since admission. HEAD AND NECK: [place] conjunctivae. Poor dentition. No oral lesions. HEART: S1 and S2 regular. LUNGS: Some rhonchi bilaterally. ABDOMEN: Soft and nontender. EXTREMITIES: Has no edema. Has muscle atrophy in legs. NEUROLOGIC: Awake, alert, and oriented x3. LABORATORY DATA: WBC at the time of admission was 17.5, coming down to 13.2; hemoglobin 14.5; hematocrit 44; and platelets 253,000. Sodium 139, potassium 3.4, chloride 106, bicarbonate 20, BUN 36, and creatinine 1.2, creatinine coming down from 1.6. Albumin is 3.1. Chest x-ray, showed right pulmonary nodule. Urine culture is pending. UA showed WBC of 10 to 15. IMPRESSION: 1. Pyuria, may have urinary tract infection. 2. Leukocytosis that is improving. 3. Acute renal failure, improving. 4. Chest pain. 5. Chronic obstructive pulmonary disease and emphysema. 6. Suspected pulmonary nodule in the right lung. RECOMMENDATIONS: We will continue ceftriaxone. We will follow up the cultures. At the end of my exam, I thank Dr. Pandey for involving me in the care of this patient. Armando Soto M.D. DR: ANA JOB#: [id number] CC:
[2017-12-07 20:00] VITALS: BP 102/45
[2017-12-07] MEDS: cefTRIAXone 1 GM in NS 55 ML IVPB SCH (20:43)
--- NOTE | 2017-12-07 23:37 | Cardiology Progress Note ---
Assessment/Plan Assessment/Plan 1. Chest pain, atypical, non-ischemic stress test with LVEF at 64%. 2. Hx of CAD, s/p PCI, nuclear stress test confirms patency of the stent most likely. 3. Prior history of CHF, currently does not appear to be clinically in heart failure at this time. 4. History of Crohn disease. 5. History of emphysema/COPD. Subjective Subjective Sinus rhythm at 61. s/p nuclear stress test today. Objective Last 24 Hour Vital Signs Date Time Temp Pulse Resp B/P (MAP) Pulse Ox O2 Delivery O2 Flow Rate FiO2 12/07/17 20:44 66 102/45 12/07/17 20:00 97.7 66 21 102/45 93 Room Air 97.7 12/07/17 20:00 61 12/07/17 16:00 64 12/07/17 16:00 97.0 58 18 115/45 96 Room Air 97.0 12/07/17 15:17 97.0 12/07/17 12:00 53 12/07/17 12:00 97.0 54 18 104/45 95 Room Air 97.0 12/07/17 09:17 72 116/49 12/07/17 08:00 97.2 72 18 116/49 96 Room Air 97.2 12/07/17 08:00 59 12/07/17 04:00 96.5 63 18 121/60 94 Room Air 96.5 12/07/17 04:00 69 12/07/17 00:00 61 12/07/17 00:00 98.0 58 18 117/59 96 Room Air 98.0 Intake and Output 12/06/17 12/07/17 19:00 07:00 Intake Total 0 ml 55 ml Output Total 400 ml Balance 0 ml -345 ml Intake Oral 0 ml IV Total 55 ml Output Urine Total 400 ml 2D Echo: EF 70%, severe LVH, Grade I LVDD, RVSP 37 mmHg, Mild MR,Trace Cassia Effusion Laboratory Tests Test 12/07/17 06:30 White Blood Count 13.2 K/UL (4.8-10.8) H Red Blood Count 4.46 M/UL (4.20-5.40) Hemoglobin 14.5 G/DL (12.0-16.0) Hematocrit 44.0 % (37.0-47.0) Mean Corpuscular Volume 99 FL (80-99) Mean Corpuscular Hemoglobin 32.6 PG (27.0-31.0) H Mean Corpuscular Hemoglobin Concent 33.0 G/DL (32.0-36.0) Red Cell Distribution Width 14.0 % (11.6-14.8) Platelet Count 253 K/UL (150-450) Mean Platelet Volume 8.7 FL (6.5-10.1) Neutrophils (%) (Auto) 69.6 % (45.0-75.0) Lymphocytes (%) (Auto) 19.1 % (20.0-45.0) L Monocytes (%) (Auto) 9.7 % (1.0-10.0) Eosinophils (%) (Auto) 1.0 % (0.0-3.0) Basophils (%) (Auto) 0.6 % (0.0-2.0) Sodium Level 139 MMOL/L (136-145) Potassium Level 3.4 MMOL/L (3.5-5.1) L Chloride Level 106 MMOL/L (98-107) Carbon Dioxide Level 20 MMOL/L (21-32) L Anion Gap 14 mmol/L (5-15) Blood Urea Nitrogen 36 mg/dL (7-18) H Creatinine 1.2 MG/DL (0.55-1.30) Estimat Glomerular Filtration Rate 54.2 mL/min (>60) Glucose Level 60 MG/DL (74-106) L Calcium Level 9.9 MG/DL (8.5-10.1) Total Bilirubin 0.3 MG/DL (0.2-1.0) Aspartate Amino Transf (AST/SGOT) 15 U/L (15-37) Alanine Aminotransferase (ALT/SGPT) 12 U/L (12-78) Alkaline Phosphatase 128 U/L (46-116) H Troponin I 0.012 ng/mL (0.000-0.056) C-Reactive Protein, Quantitative 0.8 mg/dL (0.00-0.90) Total Protein 6.3 G/DL (6.4-8.2) L Albumin 3.1 G/DL (3.4-5.0) L Globulin 3.2 g/dL Albumin/Globulin Ratio 1.0 (1.0-2.7) Microbiology Date/Time Source Procedure Growth Status 12/06/17 16:58 Urine,Clean Catch Urine Culture - Preliminary NO GROWTH Resulted Objective HEENT: Atraumatic and normocephalic. Anicteric. Pupils are equal, round, and reactive to light and accommodation. Extraocular muscles are intact. NECK: JVP is less than 5 cm. No carotid bruit. Carotid upstrokes 2+ bilaterally. CARDIOVASCULAR: Normal S1 and S2. Regular rate and rhythm. No murmurs, gallops, or rubs. PMI is at fourth intercostal space in the midclavicular line. LUNGS: Clear to auscultation bilaterally. ABDOMEN: Soft, nontender, and nondistended. No hepatosplenomegaly. Positive bowel sounds. EXTREMITIES: No evidence of edema, clubbing, or cyanosis. MALKA LOPEZ Dec 07, 2017 23:37
--- NOTE | 2017-12-08 00:30 | Consultation ---
DATE OF CONSULTATION: 12/07/2017 PAIN MANAGEMENT CONSULTATION REFERRING PHYSICIAN: Sukhi Pandey M.D. CONSULTING PHYSICIAN: Rea Dugan M.D. PHYSICIAN FILM DEVELOPING MACHINE OPERATOR: Vale Jane CHIEF COMPLAINT: Bilateral lower extremity pain and low back pain HISTORY OF PRESENT ILLNESS: This is a 67-year-old female who is being seen on the telemetry floor of [facility] for initial comprehensive pain management consultation. The patient reports that she has been having low back pain and bilateral lower extremity pain for many years. Describing pain as sharp pain in the lower back with numbness and tingling in the lower extremities. As an outpatient, the patient receives morphine extended release 10 mg b.i.d., Vanzant 10 mg twice a day, and Neurontin 300 mg three times a day. The patient was admitted under the care Dr. Pandey due to acute chest pain. We were consulted so that the patient would have adequate pain control while here in the hospital for faster recovery. PAST MEDICAL HISTORY: COPD, CHF, neuropathy, agitation. PAST SURGICAL HISTORY: Hysterectomy and gallbladder surgery as per the patient. MEDICATIONS: Amoxicillin, lisinopril, metoprolol, Imitrex, Vanzant, and morphine extended release. ALLERGIES: No known drug allergies. SOCIAL HISTORY: Previous smoker. Denies alcohol or IV drug abuse. REVIEW OF SYSTEMS: Denies rash, fever, chills, sweating, dizziness, drowsiness, blurred vision, sore throat, or change in hearing or weight. No nausea, vomiting, diarrhea, or blood in the stool or urine. No bowel or bladder incontinence. No dysuria. She is complaining of low back pain and bilateral lower extremity pain. PHYSICAL EXAMINATION: GENERAL: Alert, awake, and oriented x3. VITAL SIGNS: Blood pressure 121/60, heart rate 63, oxygen saturation 94%, respirations 18, and temperature 96.5 degrees Fahrenheit. HEENT: PERRLA. NECK: Range of motion is full in all directions. No tenderness to paracervical muscles. No adenopathy. LUNGS: Decreased breath sounds bilaterally. HEART: Regular. ABDOMEN: Tenderness to palpation. BACK: Range of motion is decreased in flexion and extension with tenderness to paraspinal muscles, trapezius, and rhomboid muscles. EXTREMITIES: Upper extremity range of motion is full in all directions. Motor is intact. No cyanosis. No clubbing. No edema. Sensory is intact. Reflexes are unobtainable. No adenopathy. Lower extremity range of motion is reduced due to the patient's condition. No cyanosis. No clubbing. Sensory appears reduced. Reflexes are unobtainable. No adenopathy. ASSESSMENT AND PLAN: This is a 67-year-old female with lumbar degenerative disease, lumbar spondylosis, lumbar radiculopathy, peripheral neuropathy. The patient will be started on morphine 2 mg IV every six hours as needed for severe pain, Vanzant 10/325 mg one tablet every four hours as needed for moderate pain, and Neurontin 100 mg tablet three times a day. The patient was discussed with Dr. Dugan and Dr. Dugan concurred. We will follow up the patient. Thank you very much for the courtesy of this consultation. Rea Dugan M.D. RICK Jane DR: Royce JOB#: [id number] CC: TED
[2017-12-08 00:34] VITALS: BP 110/50
[2017-12-08] MEDS: Morphine Sulfate 2mg/ml Inj IVP PRN ×4 (02:18→21:12)
[2017-12-08 04:00] VITALS: BP 122/72
[2017-12-08 08:00] VITALS: BP 106/54
--- NOTE | 2017-12-08 08:45 | History and Physical Report ---
DATE OF ADMISSION: 12/06/2017 HISTORY OF PRESENT ILLNESS: The patient comes in with chest pain for couple of days. Denies diaphoresis. Denies fever or chills. The patient has also been having some cough. Chest pain radiated to left shoulder and improved with nitroglycerin. The patient denies palpitation. Denies shortness of breath. PAST MEDICAL HISTORY: Significant for Crohn's disease, history of CAD, history of COPD, history of hypertension, history of CHF, history of peripheral neuropathy, history of COPD and asthma, history of lung cancer, history of syncope. The patient also has history of headaches and weakness as well as history of fatigue. ER. History of migraine headaches and history of small bowel obstruction. SOCIAL HISTORY: History of smoking. ALLERGIES: No known allergies. MEDICATIONS: Lisinopril, metoprolol, and p.r.n. Imitrex. FAMILY HISTORY: Noncontributory. REVIEW OF SYSTEMS: HEENT: Denies headaches. RESPIRATORY: Denies shortness of breath. Does have cough. CARDIOVASCULAR: Reports chest pain for couple days radiating to left shoulder. No orthopnea. GASTROINTESTINAL: Denies nausea, vomiting, or diarrhea. EXTREMITIES: Denies any lower extremity pain. CENTRAL NERVOUS SYSTEM: Denies change in vision or speech pattern. PHYSICAL EXAMINATION: VITAL SIGNS: Temperature 97, pulse is 54, and blood pressure 104/45. HEENT: PERRLA. NECK: Supple. No lymphadenopathy. CHEST: Clear to auscultation. GASTROINTESTINAL: Soft, nontender, and nondistended. No organomegaly. EXTREMITIES: No edema. NEUROLOGIC: Reflexes are equal on both sides. LABORATORY DATA: WBC of 17.4, hemoglobin 15.8, platelets of 309. Sodium 137, potassium 3.5, BUN of 48, creatinine 1.6, glucose of 95. Troponin of 0.036. The patient also with possible UTI. ASSESSMENT AND PLAN: 1. Chest pain, rule out acute coronary syndrome. 2. Renal insufficiency. 3. Urinary tract infection. 4. Hypokalemia. 5. Leukocytosis. 6. I have asked , Dr. Quiroz, and Dr. Gale to see the patient for the above-mentioned diagnoses and treatment. Ali Bonny Pandey DR: Amie JOB#: [id number] CC:
[2017-12-08] MEDS: Docusate 100mg cap ORAL SCH ×3 (08:46→17:52)
[2017-12-08] MEDS: Metoprolol 25mg tab ORAL SCH ×2 (08:46→21:11)
[2017-12-08] MEDS: Aspirin EC 81mg tab ORAL SCH (08:46)
--- NOTE | 2017-12-08 09:27 | General Progress Note ---
Assessment/Plan Assessment/Plan (1) Lumbar DDD (2) Lumbar Spondylosis (3) Lumbar Radiculopathy (4) Peripheral Neuropathy Patient to be continued on Wright and Morphine D/w Dr. Dugan and he concurred. Subjective Date patient seen: Dec 08, 2017 Time patient seen: 08:15 - am Allergies: Coded Allergies: No Known Allergies (Unverified , 06/30/17) Subjective REVIEW OF SYSTEMS: Denies rash, fever, chills, sweating, dizziness, drowsiness, blurred vision, sore throat, or change in hearing or weight. No nausea, vomiting, diarrhea, or blood in the stool or urine. No bowel or bladder incontinence. No dysuria. She is complaining of low back pain and bilateral lower extremity pain. SUBJECTIVE: Patient is in bed and shows no signs of pain having pain reduction on the Morphine IV and Wright. 4 Morphine and 1 Wright in the last 24hrs. Objective Last 24 Hour Vital Signs Date Time Temp Pulse Resp B/P (MAP) Pulse Ox O2 Delivery O2 Flow Rate FiO2 12/08/17 08:46 62 106/54 12/08/17 08:00 97.0 62 21 106/54 98 Room Air 97.0 12/08/17 07:33 63 12/08/17 04:00 63 12/08/17 04:00 97.7 21 122/72 98 Room Air 97.7 12/08/17 02:18 98.0 12/08/17 00:34 98.0 20 110/50 94 Room Air 98.0 12/08/17 00:00 60 12/07/17 20:44 66 102/45 12/07/17 20:00 97.7 66 21 102/45 93 Room Air 97.7 12/07/17 20:00 61 12/07/17 16:00 64 12/07/17 16:00 97.0 58 18 115/45 96 Room Air 97.0 12/07/17 15:17 97.0 12/07/17 12:00 53 12/07/17 12:00 97.0 54 18 104/45 95 Room Air 97.0 Intake and Output 12/07/17 12/08/17 19:00 07:00 Intake Total 120 ml 164.17 ml Balance 120 ml 164.17 ml Intake Oral 120 ml IV Total 164.17 ml # Voids 3 4 # Bowel Movements 1 Height (Feet): 5 Height (Inches): 5.00 Weight (Pounds): 142 Objective GENERAL: Alert, awake, and oriented x3. HEENT: PERRLA. NECK: Range of motion is full in all directions. LUNGS: Decreased breath sounds bilaterally. HEART: Regular. ABDOMEN: Tenderness to palpation. BACK: Range of motion is decreased in flexion and extension EXTREMITIES: No cyanosis. No clubbing. NEURO: No changes. CHAUNCEY MARRERO Dec 08, 2017 09:27
[2017-12-08 11:54] VITALS: BP 111/46
--- NOTE | 2017-12-08 12:10 | Infectious Diseases Prog Note ---
Assessment/Plan Assessment/Plan A: 1. Pyuria, may have urinary tract infection. 2. Leukocytosis that is improving. 3. Acute renal failure, improving. 4. Chest pain. 5. Chronic obstructive pulmonary disease and emphysema. 6. Suspected pulmonary nodule in the right lung. P: continue Rocephin, patient doesn't want quit smoking at present time Subjective ROS Limited/Unobtainable: No Constitutional: Reports: no symptoms Respiratory: Reports: productive cough Gastrointestinal/Abdominal: Reports: other - lower abdominal pain Genitourinary: Reports: frequency Musculoskeletal: Reports: pain Allergies: Coded Allergies: No Known Allergies (Unverified , 06/30/17) Objective Vital Signs Last 24 Hour Vital Signs Date Time Temp Pulse Resp B/P (MAP) Pulse Ox O2 Delivery O2 Flow Rate FiO2 12/08/17 11:54 98.0 67 21 111/46 96 Room Air 98.0 12/08/17 08:46 62 106/54 12/08/17 08:00 97.0 62 21 106/54 98 Room Air 97.0 12/08/17 07:33 63 12/08/17 04:00 63 12/08/17 04:00 97.7 21 122/72 98 Room Air 97.7 12/08/17 02:18 98.0 12/08/17 00:34 98.0 20 110/50 94 Room Air 98.0 12/08/17 00:00 60 12/07/17 20:44 66 102/45 12/07/17 20:00 97.7 66 21 102/45 93 Room Air 97.7 12/07/17 20:00 61 12/07/17 16:00 64 12/07/17 16:00 97.0 58 18 115/45 96 Room Air 97.0 12/07/17 15:17 97.0 Height (Feet): 5 Height (Inches): 5.00 Weight (Pounds): 142 HEENT: mucous membranes moist Respiratory/Chest: rhonchi - bilaterally Cardiovascular: normal rate Abdomen: soft, non tender Extremities: no edema Neurologic/Psychiatric: alert, oriented x 3, responsive Microbiology Date/Time Source Procedure Growth Status 12/06/17 16:58 Urine,Clean Catch Urine Culture - Preliminary Mixed Gram Positive Organism Resulted Current Medications Medications (Trade) Dose Ordered Sig/Janee Route PRN Reason Start Time Stop Time Status Last Admin Dose Admin Acetaminophen (Tylenol) 500 mg Q4H PRN ORAL Mild Pain/Temp > 100.5 12/06/17 23:30 01/05/18 23:29 Acetaminophen/ Hydrocodone Bitart (Viola 10/325) 1 tab Q4H PRN ORAL Moderate Pain (Pain Scale 4-6) 12/07/17 09:00 12/14/17 08:59 12/07/17 09:18 Aspirin (Ecotrin) 81 mg DAILY ORAL 12/07/17 09:00 01/06/18 08:59 12/08/17 08:46 Ceftriaxone Sodium 1 gm/ Sodium Chloride 55 ml @ 110 mls/hr Q24H IVPB 12/06/17 21:00 12/13/17 23:59 12/07/17 20:43 Dextrose/ Electrolytes 1,000 ml @ 50 mls/hr Q20H IV 12/07/17 10:30 01/06/18 10:29 12/08/17 06:43 Docusate Sodium (Colace) 100 mg THREE TIMES A DAY ORAL 12/07/17 13:00 01/06/18 12:59 12/08/17 08:46 Gabapentin (Neurontin) 100 mg THREE TIMES A DAY ORAL 12/07/17 09:00 01/06/18 08:59 12/08/17 08:46 Lansoprazole (Prevacid) 30 mg DAILY ORAL 12/07/17 09:30 01/06/18 09:29 12/08/17 08:46 Metoprolol Tartrate (Lopressor) 25 mg Q12HR ORAL 12/07/17 09:00 01/06/18 08:59 12/08/17 08:46 Morphine Sulfate (Morphine Sulfate) 2 mg Q6H PRN IVP Severe Pain (Pain Scale 7-10) 12/07/17 09:00 12/14/17 08:59 12/08/17 08:49 Ondansetron HCl (Zofran ODT) 4 mg Q6H PRN ORAL Nausea & Vomiting 12/06/17 23:30 01/05/18 23:29 12/08/17 10:03 Regadenoson (Lexiscan) 0.4 mg ONCE PRN IV Stress Test 12/07/17 09:45 12/08/17 23:59 Zolpidem Tartrate (Ambien) 5 mg BEDTIME PRN ORAL Insomnia 12/07/17 00:45 12/14/17 00:44 12/07/17 21:48 CHERI SCOTT Dec 08, 2017 12:10
[2017-12-08] MEDS ORDERED: Albuterol/Ipratropium 3ml neb HHN PRN ×2 (14:30→14:45)
[2017-12-08] MEDS ORDERED: guaiFENesin DM 100mg/5ml ORAL PRN (14:45)
--- NOTE | 2017-12-08 14:50 | Consultation ---
Consult Note Assessment/Plan [facility] DICT # [id number] JUDIT FIGUEREDO M.D. Dec 08, 2017 14:50
--- NOTE | 2017-12-08 15:10 | Nephrology Progress Note ---
Assessment/Plan Problem List: (1) Dehydration (2) UTI (urinary tract infection) Assessment Renal failure- Mainly dehydration UTI / Leukocytosis other mentioned conditions Past Medical History: CAD, COPD Past Surgical History: other - ileostomy, crohns Hx Cardiac Problems: Yes - CHF/peripheral neuropathy Hx Hypertension: Yes Hx Asthma: Yes Hx COPD: Yes - Lung Cancer, Emphysema Hx Cancer: Yes - lung CA Hx Neurological Problems: Yes Hx Dizziness: Yes Hx Syncope: Yes Hx Headaches: Yes Hx Weakness: Yes Hx Fatigue: Yes Plan no labs today ready yet RN informed Hydrate correct electrolytes monitor renal parameters antibiotics per orders Subjective ROS Limited/Unobtainable: No Objective Objective Last 24 Hour Vital Signs Date Time Temp Pulse Resp B/P (MAP) Pulse Ox O2 Delivery O2 Flow Rate FiO2 12/08/17 11:54 98.0 67 21 111/46 96 Room Air 98.0 12/08/17 11:47 66 12/08/17 08:46 62 106/54 12/08/17 08:00 97.0 62 21 106/54 98 Room Air 97.0 12/08/17 07:33 63 12/08/17 04:00 63 12/08/17 04:00 97.7 21 122/72 98 Room Air 97.7 12/08/17 02:18 98.0 12/08/17 00:34 98.0 20 110/50 94 Room Air 98.0 12/08/17 00:00 60 12/07/17 20:44 66 102/45 12/07/17 20:00 97.7 66 21 102/45 93 Room Air 97.7 12/07/17 20:00 61 12/07/17 16:00 64 12/07/17 16:00 97.0 58 18 115/45 96 Room Air 97.0 12/07/17 15:17 97.0 Intake and Output 12/07/17 12/08/17 19:00 07:00 Intake Total 120 ml 164.17 ml Balance 120 ml 164.17 ml Intake Oral 120 ml IV Total 164.17 ml # Voids 3 4 # Bowel Movements 1 Height (Feet): 5 Height (Inches): 5.00 Weight (Pounds): 142 General Appearance: no apparent distress Objective no change GERALDINE MARTINO Dec 08, 2017 15:10
[2017-12-08 16:00] VITALS: BP 101/38
--- NOTE | 2017-12-08 16:13 | Diagnostic Imaging Report ---
Clinical Indication: Chest pain, cough Technique: Spiral acquisitions obtained through the chest. No IV contrast utilized, due to history of renal failure. Multiplanar reconstructions generated. Total dose length product 549.86 mGycm. CTDIvol(s) 14.96 mGy. Dose reduction achieved using automated exposure control Comparison: 08/17/2017 Findings: Again demonstrated is an irregular opacity within or adjacent to the inferior aspect of the major fissure. This measures approximately 2.9 x 1.6 x 2.2 cm in diameter. It is equivocally somewhat increased in size when compared to the prior exam minimal linear scarring is seen at the left lung base, and some posterior dependent atelectasis at the right lung base. The lungs and pleural spaces are otherwise clear. The heart size is normal. No pericardial effusion demonstrated. No mediastinal or hilar mass or adenopathy. Unremarkable esophagus. Unremarkable visualized portions of the thyroid. No axillary or chest wall mass or adenopathy. The bones demonstrate severe degenerative changes of both shoulders. The included upper abdominal anatomy is remarkable for the presence of cholecystectomy clips. Impression: Slight increase in size of right middle lobe mass, since earlier study of 08/22/2017. As previously reported, the possibility of slow-growing malignancy should be considered. Consider further evaluation with PET scanning and/or needle biopsy if this has not already been worked up. Other findings as noted The CT scanner at [facility] is accredited by the [employer] and the scans are performed using protocols designed to limit radiation exposure to as low as reasonably achievable to attain images of sufficient resolution adequate for diagnostic evaluation.
[2017-12-08 16:26] LABS: BASOPHILS % (AUTO) 0.9 % (0.0-2.0); EOSINOPHILS % (AUTO) 2.3 % (0.0-3.0); HEMATOCRIT 37.6 % (37.0-47.0); HEMOGLOBIN 12.9 G/DL (12.0-16.0); LYMPHOCYTES % (AUTO) 14.9 % (20.0-45.0); MEAN CORPUSCULAR VOLUME 97 FL (80-99); MONOCYTES % (AUTO) 12.7 % (1.0-10.0); NEUTROPHILS % (AUTO) 69.3 % (45.0-75.0); PLATELET COUNT 236 K/UL (150-450); RED BLOOD COUNT 3.89 M/UL (4.20-5.40); RED CELL DISTRIBUTION WIDTH 13.3 % (11.6-14.8); WHITE BLOOD COUNT 12.5 K/UL (4.8-10.8)
[2017-12-08 17:06] LABS: % IRON SATURATION 17 % (15-50); IRON 50 ug/dL (50-175); TOTAL IRON BINDING CAPACITY 295 ug/dL (250-450)
[2017-12-08] MEDS: guaiFENesin ER 600mg tab ORAL SCH (17:52)
[2017-12-08 17:55] LABS: ALANINE AMINOTRANSFERASE 8 U/L (12-78); ALBUMIN 2.7 G/DL (3.4-5.0); ALBUMIN/GLOBULIN RATIO 0.9 (1.0-2.7); ALKALINE PHOSPHATASE 110 U/L (46-116); ANION GAP 10 mmol/L (5-15); ASPARTATE AMINO TRANSFERASE 9 U/L (15-37); BILIRUBIN,TOTAL 0.3 MG/DL (0.2-1.0); BLOOD UREA NITROGEN 24 mg/dL (7-18); CALCIUM 9.7 MG/DL (8.5-10.1); CARBON DIOXIDE 21 MMOL/L (21-32); CHLORIDE 112 MMOL/L (98-107); CHOLESTEROL 204 MG/DL (< 200); CREATINE KINASE 28 U/L (26-308); FERRITIN 74 NG/ML (8-388); GAMMA GLUTAMYL TRANSPEPTIDASE 87 U/L (5-85); HDL CHOLESTEROL 31 MG/DL (40-60); PHOSPHORUS 2.7 MG/DL (2.5-4.9); POTASSIUM 3.8 MMOL/L (3.5-5.1); SODIUM 143 MMOL/L (136-145); TRIGLYCERIDES 123 MG/DL (30-150)
[2017-12-08 20:00] VITALS: BP 111/52
[2017-12-08] MEDS: Albuterol/Ipratropium 3ml neb HHN SCH (20:19)
--- NOTE | 2017-12-08 20:30 | Consultation ---
DATE OF CONSULTATION: 12/08/2017 PULMONARY CONSULTATION CONSULTING PHYSICIAN: Castillo Hutton M.D. REFERRING PHYSICIAN: Sukhi Pandey M.D. REASON FOR CONSULTATION: Chronic obstructive pulmonary disease exacerbation and lung nodule. HISTORY OF PRESENT ILLNESS: The patient is a 67-year-old female smoker with a known right lower lobe nodule that has been enlarging, who presents from home with four days of cough, congestion, shortness of breath, and chest pain. She took nitroglycerin prior to coming to the ER with resolution of her chest pain, but her cough and congestion has started. When she came in, her white count was 17.5, that has improved with treatment of a urinary tract infection. She has chronic pain and is on chronic opiate therapy. Her troponins were negative, but nuclear stress test was positive. Of note, the patient has had an enlarging right lower lobe nodule, but that she previously refused biopsy for many times. She states that since coming to the hospital, she feels minimally improved. She is still having cough with difficulty mobilizing her secretions and wheezing. No fevers or chills. No rhinorrhea or congestion. No nausea, vomiting, diarrhea, or constipation. Her dysuria has improved. No abdominal pain. PAST MEDICAL HISTORY: 1. Chronic obstructive pulmonary disease. 2. Prior CVA. 3. CAD status post PCI x6. 4. Congestive heart failure. 5. Hypertension. 6. Known enlarging right lung opacity. MEDICATIONS: Prior to admission medications reviewed. Current medications reviewed. ALLERGIES: No known drug allergies. SOCIAL HISTORY: She smokes greater than a pack a day. Denies drug or alcohol use. FAMILY HISTORY: Noncontributory. REVIEW OF SYSTEMS: Negative other than history of present illness. PHYSICAL EXAMINATION: VITAL SIGNS: Temperature 97, pulse 62, blood pressure 106/54, respiratory rate 21, and saturating 98% on room air. GENERAL: She is a well-developed and well-nourished female in no acute distress. Awake, alert, and oriented x3. HEENT: Normocephalic and atraumatic. Oropharynx is clear with moist mucous membranes. NECK: Supple without lymphadenopathy or jugular venous distention. CHEST: Scattered coarse breath sounds and expiratory wheezing. HEART: Regular rate and rhythm. ABDOMEN: Soft, nontender, and nondistended. EXTREMITIES: No cyanosis, clubbing, or edema. ANCILLARY DATA: Laboratories reviewed. Urinalysis, 1+ leukocyte esterase, 10 to 15 whites, and moderate squames. Tox screen positive for benzos and opiates. Chemistry, sodium 139, potassium 4, chloride 106, bicarb 20, BUN 36, creatinine 1.2, and glucose 60. Calcium 9.9. Total bilirubin 0.3. AST 15, ALT 12, and alkaline phosphatase 128. CK 60. CK-MB 0.9. Troponin 0.36 and then 0.12. BNP 2039. Total protein 6.3, albumin 3.1, and globulin 3.2. White count was 17.5 on admission, now 13.2. Hemoglobin is 14.5 and platelet count 253,000. CULTURES: Urine is polymicrobial. IMAGING: Chest x-ray shows an enlarging right lower lobe nodule. The last CT scan of the chest from 08/17/2017 shows spiculated masslike 1.6 cm right lower lobe lesion abutting the major fissure larger than prior and sub-centimeter low-attenuation renal lesions were noted as well. There is evidence of prior hysterectomy. Echocardiogram is normal LVEF 70% and LVH is noted. Chamber sizes are normal. Heavily thickened mitral leaflets. Normal excursion. IVC is normal. Pulmonic valve is not well visualized. There is grade 1 diastolic dysfunction and PA systolic pressure of 37. Nuclear medicine myocardial stress test demonstrated ischemia. ASSESSMENT: The patient is a 67-year-old female smoker with known enlarging right lower lobe mass, who has previously declined biopsy, chronic obstructive pulmonary disease, coronary artery disease, congestive heart failure, prior cerebrovascular accident, and continued tobacco use presenting with chest pain in the setting of a likely acute exacerbation of her chronic obstructive pulmonary disease. I suspect an antecedent upper respiratory infection or bronchitis. The patient has been ruled out for acute coronary syndrome, but her stress test is suggestive of ischemia. PROBLEM LIST: 1. Chronic obstructive pulmonary disease with acute exacerbation. 2. Likely antecedent upper respiratory infection or tracheobronchitis. 3. Enlarging spiculated 1.7 cm right lower lobe nodule. 4. Chest pain status post rule out acute coronary syndrome. 5. Coronary artery disease status post percutaneous coronary intervention x6. 6. Stress test suggestive of ischemia. 7. Congestive heart failure with diastolic dysfunction. 8. Hypertension. 9. Prior cerebrovascular accident. 10. Acute kidney injury on chronic kidney disease. 11. Leukocytosis, improved. 12. Urinary tract infection with pyuria. 13. Questionable history of Crohn's disease. 14. Continued daily tobacco use. TREATMENT PLAN: 1. Optimize pulmonary hygiene/mobilize as tolerated. 2. P.r.n. O2 to keep saturations greater than 90%. 3. Round the clock and p.r.n. DuoNebs. 4. We will start prednisone 60 mg p.o. daily (today will be day 1). 5. We will obtain a CT scan of the chest. 6. The patient will likely need a CT-guided biopsy and an outpatient malignancy workup including head CT and neuro imaging. 7. Continuance of microbial therapy per ID. 8. Follow up Cardiology recommendations. 9. Aspiration precautions. 10. Monitor volumes. 11. Monitor renal function. 12. DVT prophylaxis with heparin subcutaneous. 13. Strongly encouraged cessation from tobacco. 14. Nicotine patch ordered. 15. The patient is Full Code. Dr. Pandey, thank you for allowing me to assist in the care of your patient. If I may be of any assistance in the future, please do not hesitate to ask. Castillo Hutton M.D. DR: LARA JOB#: [id number] CC:
[2017-12-08] MEDS: cefTRIAXone 1 GM in NS 55 ML IVPB SCH (21:06)
[2017-12-08] MEDS: Heparin 5000 units/ml inj SUBQ SCH (21:08)
--- NOTE | 2017-12-08 21:43 | General Progress Note ---
Assessment/Plan Problem List: (1) UTI (urinary tract infection) ICD Codes: N39.0 - Urinary tract infection, site not specified SNOMED: 44972456 (2) COPD (chronic obstructive pulmonary disease) with acute bronchitis ICD Codes: J44.1 - COPD (chronic obstructive pulmonary disease) with acute bronchitis SNOMED: 66709907 (3) CAD (coronary artery disease) ICD Codes: I25.10 - CAD (coronary artery disease) SNOMED: 675274431 (4) HTN (hypertension) ICD Codes: I10 - HTN (hypertension) SNOMED: 11188794 Status: progressing Assessment/Plan sob and cough copd consulted pulmonary not hypoxic no cp Subjective Respiratory: Reports: cough, shortness of breath Allergies: Coded Allergies: No Known Allergies (Unverified , 06/30/17) Objective Last 24 Hour Vital Signs Date Time Temp Pulse Resp B/P (MAP) Pulse Ox O2 Delivery O2 Flow Rate FiO2 12/08/17 21:11 71 114/56 12/08/17 20:28 72 18 99 Room Air 12/08/17 20:19 71 18 96 Room Air 12/08/17 20:00 97.9 70 20 111/52 95 Room Air 97.9 12/08/17 20:00 67 12/08/17 16:59 68 20 98 Room Air 21 12/08/17 16:48 64 18 Room Air 21 12/08/17 16:48 64 18 97 Room Air 21 12/08/17 16:00 97.0 61 19 101/38 94 Room Air 97.0 12/08/17 15:15 57 12/08/17 11:54 98.0 67 21 111/46 96 Room Air 98.0 12/08/17 11:47 66 12/08/17 08:46 62 106/54 12/08/17 08:00 97.0 62 21 106/54 98 Room Air 97.0 12/08/17 07:33 63 12/08/17 04:00 63 12/08/17 04:00 97.7 21 122/72 98 Room Air 97.7 12/08/17 02:18 98.0 12/08/17 00:34 98.0 20 110/50 94 Room Air 98.0 12/08/17 00:00 60 Intake and Output 12/07/17 12/08/17 19:00 07:00 Intake Total 120 ml 164.17 ml Balance 120 ml 164.17 ml Intake Oral 120 ml IV Total 164.17 ml # Voids 3 4 # Bowel Movements 1 Laboratory Tests 12/08/17 16:00: White Blood Count 12.5H, Red Blood Count 3.89L, Hemoglobin 12.9, Hematocrit 37.6 , Mean Corpuscular Volume 97, Mean Corpuscular Hemoglobin 33.2H, Mean Corpuscular Hemoglobin Concent 34.4, Red Cell Distribution Width 13.3, Platelet Count 236, Mean Platelet Volume 8.3, Neutrophils (%) (Auto) 69.3, Lymphocytes (% ) (Auto) 14.9L, Monocytes (%) (Auto) 12.7H, Eosinophils (%) (Auto) 2.3, Basophils (%) (Auto) 0.9, Sodium Level 143, Potassium Level 3.8, Chloride Level 112H, Carbon Dioxide Level 21, Anion Gap 10, Blood Urea Nitrogen 24H, Creatinine 1.0, Estimat Glomerular Filtration Rate > 60, Glucose Level 119H, Hemoglobin A1c 5.5, Uric Acid 9.7H, Calcium Level 9.7, Phosphorus Level 2.7, Magnesium Level 2.2, Iron Level 50, Total Iron Binding Capacity 295, Percent Iron Saturation 17, Unsaturated Iron Binding 245, Ferritin 74, Total Bilirubin 0.3, Gamma Glutamyl Transpeptidase 87H, Aspartate Amino Transf (AST/SGOT) 9L, Alanine Aminotransferase (ALT/SGPT) 8L, Alkaline Phosphatase 110, Total Creatine Kinase 28, Troponin I 0.009, Pro-B-Type Natriuretic Peptide 183H, Total Protein 5.6L, Albumin 2.7L, Globulin 2.9, Albumin/Globulin Ratio 0.9L, Triglycerides Level 123, Cholesterol Level 204H, LDL Cholesterol 148H, HDL Cholesterol 31L, Cholesterol/HDL Ratio 6.6H, Vitamin B12 Level 877, Folate 7.4L , Thyroid Stimulating Hormone (TSH) 0.418 Height (Feet): 5 Height (Inches): 5.00 Weight (Pounds): 142 Neck: supple Cardiovascular: normal rate Respiratory/Chest: lungs clear Abdomen: soft Sukhi Pandey MD Dec 08, 2017 21:43
[2017-12-08] MEDS: Zolpidem 5mg tab ORAL PRN (22:31)
--- NOTE | 2017-12-08 23:49 | Cardiology Progress Note ---
Assessment/Plan Assessment/Plan 1. Chest pain, atypical, non-ischemic stress test with LVEF at 64%. 2. Hx of CAD, s/p PCI, nuclear stress test confirms patency of the stent most likely. 3. Prior history of CHF, currently does not appear to be clinically in heart failure at this time. Subjective Subjective Sinus rhythm at 70. Objective Last 24 Hour Vital Signs Date Time Temp Pulse Resp B/P (MAP) Pulse Ox O2 Delivery O2 Flow Rate FiO2 12/08/17 21:11 71 114/56 12/08/17 20:28 72 18 99 Room Air 12/08/17 20:19 71 18 96 Room Air 12/08/17 20:00 97.9 70 20 111/52 95 Room Air 97.9 12/08/17 20:00 67 12/08/17 16:59 68 20 98 Room Air 21 12/08/17 16:48 64 18 Room Air 21 12/08/17 16:48 64 18 97 Room Air 21 12/08/17 16:00 97.0 61 19 101/38 94 Room Air 97.0 12/08/17 15:15 57 12/08/17 11:54 98.0 67 21 111/46 96 Room Air 98.0 12/08/17 11:47 66 12/08/17 08:46 62 106/54 12/08/17 08:00 97.0 62 21 106/54 98 Room Air 97.0 12/08/17 07:33 63 12/08/17 04:00 63 12/08/17 04:00 97.7 21 122/72 98 Room Air 97.7 12/08/17 02:18 98.0 12/08/17 00:34 98.0 20 110/50 94 Room Air 98.0 12/08/17 00:00 60 Intake and Output 12/07/17 12/08/17 19:00 07:00 Intake Total 120 ml 164.17 ml Balance 120 ml 164.17 ml Intake Oral 120 ml IV Total 164.17 ml # Voids 3 4 # Bowel Movements 1 2D Echo: EF 70%, severe LVH, Grade I LVDD, RVSP 37 mmHg, Mild MR,Trace Cassia Effusion Laboratory Tests Test 12/08/17 16:00 White Blood Count 12.5 K/UL (4.8-10.8) H Red Blood Count 3.89 M/UL (4.20-5.40) L Hemoglobin 12.9 G/DL (12.0-16.0) Hematocrit 37.6 % (37.0-47.0) Mean Corpuscular Volume 97 FL (80-99) Mean Corpuscular Hemoglobin 33.2 PG (27.0-31.0) H Mean Corpuscular Hemoglobin Concent 34.4 G/DL (32.0-36.0) Red Cell Distribution Width 13.3 % (11.6-14.8) Platelet Count 236 K/UL (150-450) Mean Platelet Volume 8.3 FL (6.5-10.1) Neutrophils (%) (Auto) 69.3 % (45.0-75.0) Lymphocytes (%) (Auto) 14.9 % (20.0-45.0) L Monocytes (%) (Auto) 12.7 % (1.0-10.0) H Eosinophils (%) (Auto) 2.3 % (0.0-3.0) Basophils (%) (Auto) 0.9 % (0.0-2.0) Sodium Level 143 MMOL/L (136-145) Potassium Level 3.8 MMOL/L (3.5-5.1) Chloride Level 112 MMOL/L (98-107) H Carbon Dioxide Level 21 MMOL/L (21-32) Anion Gap 10 mmol/L (5-15) Blood Urea Nitrogen 24 mg/dL (7-18) H Creatinine 1.0 MG/DL (0.55-1.30) Estimat Glomerular Filtration Rate > 60 mL/min (>60) Glucose Level 119 MG/DL (74-106) H Hemoglobin A1c 5.5 % (4.3-6.0) Uric Acid 9.7 MG/DL (2.6-7.2) H Calcium Level 9.7 MG/DL (8.5-10.1) Phosphorus Level 2.7 MG/DL (2.5-4.9) Magnesium Level 2.2 MG/DL (1.8-2.4) Iron Level 50 ug/dL (50-175) Total Iron Binding Capacity 295 ug/dL (250-450) Percent Iron Saturation 17 % (15-50) Unsaturated Iron Binding 245 ug/dL (112-346) Ferritin 74 NG/ML (8-388) Total Bilirubin 0.3 MG/DL (0.2-1.0) Gamma Glutamyl Transpeptidase 87 U/L (5-85) H Aspartate Amino Transf (AST/SGOT) 9 U/L (15-37) L Alanine Aminotransferase (ALT/SGPT) 8 U/L (12-78) L Alkaline Phosphatase 110 U/L (46-116) Total Creatine Kinase 28 U/L (26-308) Troponin I 0.009 ng/mL (0.000-0.056) Pro-B-Type Natriuretic Peptide 183 pg/mL (0-125) H Total Protein 5.6 G/DL (6.4-8.2) L Albumin 2.7 G/DL (3.4-5.0) L Globulin 2.9 g/dL Albumin/Globulin Ratio 0.9 (1.0-2.7) L Triglycerides Level 123 MG/DL (30-150) Cholesterol Level 204 MG/DL (< 200) H LDL Cholesterol 148 mg/dL (<100) H HDL Cholesterol 31 MG/DL (40-60) L Cholesterol/HDL Ratio 6.6 (3.3-4.4) H Vitamin B12 Level 877 PG/ML (193-986) Folate 7.4 NG/ML (8.6-58.9) L Thyroid Stimulating Hormone (TSH) 0.418 uiU/mL (0.358-3.740) Microbiology Date/Time Source Procedure Growth Status 12/06/17 16:58 Urine,Clean Catch Urine Culture - Preliminary Mixed Gram Positive Organism Resulted Objective HEENT: Atraumatic and normocephalic. Anicteric. Pupils are equal, round, and reactive to light and accommodation. Extraocular muscles are intact. NECK: JVP is less than 5 cm. No carotid bruit. Carotid upstrokes 2+ bilaterally. CARDIOVASCULAR: Normal S1 and S2. Regular rate and rhythm. No murmurs, gallops, or rubs. PMI is at fourth intercostal space in the midclavicular line. LUNGS: Clear to auscultation bilaterally. ABDOMEN: Soft, nontender, and nondistended. No hepatosplenomegaly. Positive bowel sounds. EXTREMITIES: No evidence of edema, clubbing, or cyanosis. MALKA LOPEZ Dec 08, 2017 23:49
[2017-12-09] VITALS (7 sets, daily range): BP systolic 117–143; BP diastolic 50–75
[2017-12-09] MEDS: Albuterol/Ipratropium 3ml neb HHN SCH ×4 (01:37→19:49)
--- NOTE | 2017-12-09 02:30 | Consultation ---
DATE OF CONSULTATION: 12/07/2017 CARDIOLOGY CONSULTATION CONSULTING PHYSICIAN: Gilles Gale M.D. REFERRING PHYSICIAN: Sukhi Pandey M.D. REASON FOR CONSULTATION: Management of chest pain. HISTORY OF PRESENT ILLNESS: The patient is a very unfortunate 67-year-old female, who presented to the hospital with chest pain for about four days. The patient has had also dry cough with shortness of breath and tried to use her home nebulizer. The patient claims that her left-sided chest pain radiated to left shoulder, improved with nitroglycerin. She takes aspirin and Plavix for her history of coronary artery disease following six-stent placement in the past. On arrival to the hospital, initial blood pressure was 107/60 mmHg. She was tachycardic at pulse of 99. A 12-lead electrocardiogram was significant for sinus rhythm with marked sinus arrhythmia and heart rate of 90. There was some suspicious anteroseptal wall infarct, age indeterminate. The patient was admitted to telemetry for further evaluation and management. Cardiology consultation was made at the request of Dr. Pandey. PAST MEDICAL HISTORY: 1. Coronary artery disease, status post PCI x6 stents. 2. History of COPD. 3. History of lung cancer. 4. History of hypertension. 5. History of peripheral neuropathy. 6. History of congestive heart failure. 7. History of syncope. 8. Crohn disease. 9. History of angioplasty and stent placement. PAST SURGICAL HISTORY: History of ileostomy. MEDICATIONS: List of medications including amoxicillin 500 mg twice daily for seven days, Orange 5/325 one tablet q.4 h. p.r.n. pain, lisinopril 2.5 mg p.o. daily, metoprolol 25 mg p.o. twice daily, Zofran 4 mg p.o. q.6 h. p.r.n. nausea and vomiting, and Imitrex 50 mg every four hours p.r.n. mild pain or headache. ALLERGIES: No known drug allergies. FAMILY HISTORY: No premature coronary artery disease in the first-degree relative. REVIEW OF SYSTEMS: HEENT: Denies any headache, diplopia, or blurred vision. CONSTITUTIONAL: Denies any fever, chills, night sweats, or weight loss. CARDIOVASCULAR: Denies any chest pain. Shortness of breath as mentioned above. No PND, orthopnea, or leg swelling. PULMONARY: Some dry cough and shortness of breath, but no hemoptysis. GASTROINTESTINAL: Denies any nausea, vomiting, diarrhea, constipation, abdominal pain, or GI bleed. GENITOURINARY: Denies any hematuria, dysuria, or incontinence. NEUROLOGIC: Denies any motor dysfunction, sensory deficits, or altered speech. PHYSICAL EXAMINATION: VITAL SIGNS: Blood pressure at the time of arrival to the hospital was 107/60, pulse of 99, respirations of 21, O2 saturation 99% on room air, and temperature 97.9 degrees Fahrenheit. GENERAL: The patient is a very unfortunate 67-year-old female, in no apparent respiratory distress, alert and oriented x4. HEENT: Atraumatic and normocephalic. Anicteric. Pupils are equal, round, and reactive to light and accommodation. Extraocular muscles are intact. NECK: JVP is less than 5 cm. No carotid bruit. Carotid upstrokes 2+ bilaterally. CARDIOVASCULAR: Normal S1 and S2. Regular rate and rhythm. No murmurs, gallops, or rubs. PMI is at fourth intercostal space in the midclavicular line. LUNGS: Clear to auscultation bilaterally. ABDOMEN: Soft, nontender, and nondistended. No hepatosplenomegaly. Positive bowel sounds. EXTREMITIES: No evidence of edema, clubbing, or cyanosis. LABORATORY FINDINGS: WBC 17.5, hemoglobin of 15.8, hematocrit of 45.4, and platelet count of 309,000. Chemistry showed sodium 139, potassium is 3.4, chloride 102, bicarbonate 20, BUN 36, creatinine 1.2, glucose is 60, and calcium is 9.9. Troponin I is 0.12. Chest x-ray was significant for no acute cardiopulmonary disease, right basilar lung nodule, and possible neoplasm. ASSESSMENT AND PLAN: The patient is a very unfortunate 67-year-old female, seen in Cardiology consultation at the request of Dr. Pandey. 1. Chest pain. It appears to be atypical, however, we would like to proceed with myocardial perfusion imaging to rule out obstructive CAD. The patient has prior history of coronary artery disease and stent placement. We would like to evaluate the patency of the stents. Further therapeutic and diagnostic decision will be based on results of this test. 2. Prior history of CHF, currently does not appear to be clinically in heart failure. 3. History of Crohn disease. 4. History of emphysema/COPD. I would like to thank, , for the courtesy of this consultation. Gilles Gale M.D. DR: Pantera JOB#: [id number] CC:
[2017-12-09] MEDS: Morphine Sulfate 2mg/ml Inj IVP PRN ×3 (03:18→15:35)
[2017-12-09] MEDS: guaiFENesin ER 600mg tab ORAL SCH ×2 (09:21→17:35)
[2017-12-09] MEDS: Metoprolol 25mg tab ORAL SCH ×2 (09:21→21:51)
[2017-12-09] MEDS: Aspirin EC 81mg tab ORAL SCH (09:21)
[2017-12-09] MEDS: Docusate 100mg cap ORAL SCH ×3 (09:22→17:36)
[2017-12-09] MEDS: Heparin 5000 units/ml inj SUBQ SCH ×2 (09:23→21:54)
--- NOTE | 2017-12-09 09:37 | General Progress Note ---
Assessment/Plan Assessment/Plan (1) Lumbar DDD (2) Lumbar Spondylosis (3) Lumbar Radiculopathy (4) Peripheral Neuropathy (5) Enlarging spiculated 1.7 cm right lower lobe nodule - followed by pulmonary Patient to be continued on [place] and Morphine D/w Dr. Dugan and he concurred. Subjective Date patient seen: Dec 09, 2017 Time patient seen: 08:30 - am Allergies: Coded Allergies: No Known Allergies (Unverified , 06/30/17) Subjective REVIEW OF SYSTEMS: Denies rash, fever, chills, sweating, dizziness, drowsiness, blurred vision, sore throat, or change in hearing or weight. No nausea, vomiting, diarrhea, or blood in the stool or urine. No bowel or bladder incontinence. No dysuria. She is complaining of low back pain and bilateral lower extremity pain. SUBJECTIVE: Patient laying in bed and reporting pain has been tolerable on the Morphine IV and [place]. She has no new complaints. Objective Last 24 Hour Vital Signs Date Time Temp Pulse Resp B/P (MAP) Pulse Ox O2 Delivery O2 Flow Rate FiO2 12/09/17 09:22 97.0 12/09/17 09:21 76 132/60 12/09/17 08:10 76 18 98 Room Air 21 12/09/17 08:03 75 18 98 Room Air 21 12/09/17 08:00 97.0 75 18 132/60 97 Room Air 97.0 12/09/17 04:00 97.7 67 20 117/75 95 Room Air 97.7 12/09/17 04:00 66 12/09/17 01:37 Room Air 12/09/17 01:37 Room Air 12/09/17 00:00 71 12/09/17 00:00 97.7 64 20 130/50 100 Room Air 97.7 12/08/17 21:11 71 114/56 12/08/17 20:28 72 18 99 Room Air 12/08/17 20:19 71 18 96 Room Air 12/08/17 20:00 97.9 70 20 111/52 95 Room Air 97.9 12/08/17 20:00 67 12/08/17 16:59 68 20 98 Room Air 21 12/08/17 16:48 64 18 Room Air 21 12/08/17 16:48 64 18 97 Room Air 21 12/08/17 16:00 97.0 61 19 101/38 94 Room Air 97.0 12/08/17 15:15 57 12/08/17 11:54 98.0 67 21 111/46 96 Room Air 98.0 12/08/17 11:47 66 Intake and Output 12/08/17 12/09/17 19:00 07:00 Intake Total 1100 ml 588 ml Balance 1100 ml 588 ml Intake Oral 500 ml IV Total 600 ml 588 ml # Voids 1 5 Laboratory Tests 12/08/17 16:00: White Blood Count 12.5H, Red Blood Count 3.89L, Hemoglobin 12.9, Hematocrit 37.6 , Mean Corpuscular Volume 97, Mean Corpuscular Hemoglobin 33.2H, Mean Corpuscular Hemoglobin Concent 34.4, Red Cell Distribution Width 13.3, Platelet Count 236, Mean Platelet Volume 8.3, Neutrophils (%) (Auto) 69.3, Lymphocytes (% ) (Auto) 14.9L, Monocytes (%) (Auto) 12.7H, Eosinophils (%) (Auto) 2.3, Basophils (%) (Auto) 0.9, Sodium Level 143, Potassium Level 3.8, Chloride Level 112H, Carbon Dioxide Level 21, Anion Gap 10, Blood Urea Nitrogen 24H, Creatinine 1.0, Estimat Glomerular Filtration Rate > 60, Glucose Level 119H, Hemoglobin A1c 5.5, Uric Acid 9.7H, Calcium Level 9.7, Phosphorus Level 2.7, Magnesium Level 2.2, Iron Level 50, Total Iron Binding Capacity 295, Percent Iron Saturation 17, Unsaturated Iron Binding 245, Ferritin 74, Total Bilirubin 0.3, Gamma Glutamyl Transpeptidase 87H, Aspartate Amino Transf (AST/SGOT) 9L, Alanine Aminotransferase (ALT/SGPT) 8L, Alkaline Phosphatase 110, Total Creatine Kinase 28, Troponin I 0.009, Pro-B-Type Natriuretic Peptide 183H, Total Protein 5.6L, Albumin 2.7L, Globulin 2.9, Albumin/Globulin Ratio 0.9L, Triglycerides Level 123, Cholesterol Level 204H, LDL Cholesterol 148H, HDL Cholesterol 31L, Cholesterol/HDL Ratio 6.6H, Vitamin B12 Level 877, Folate 7.4L , Thyroid Stimulating Hormone (TSH) 0.418 Height (Feet): 5 Height (Inches): 5.00 Weight (Pounds): 130 Objective GENERAL: Alert, awake, and oriented x3. HEENT: PERRLA. NECK: Range of motion is full in all directions. LUNGS: Decreased breath sounds bilaterally. HEART: Regular. ABDOMEN: Tenderness to palpation. BACK: Range of motion is decreased in flexion and extension EXTREMITIES: No cyanosis. No clubbing. NEURO: No changes. CHAUNCEY MARRERO Dec 09, 2017 09:37
--- NOTE | 2017-12-09 12:17 | Infectious Diseases Prog Note ---
Assessment/Plan Assessment/Plan A: 1. Pyuria, may have urinary tract infection. 2. Leukocytosis that is improving. 3. Acute renal failure, improving. 4. Chest pain. 5. Chronic obstructive pulmonary disease and emphysema. 6. Suspected pulmonary nodule in the right lung. P: change Rocephin to Levaquin patient doesn't want quit smoking at present time Subjective ROS Limited/Unobtainable: No Constitutional: Reports: no symptoms Gastrointestinal/Abdominal: Reports: no symptoms Musculoskeletal: Reports: pain Allergies: Coded Allergies: No Known Allergies (Unverified , 06/30/17) Objective Vital Signs Last 24 Hour Vital Signs Date Time Temp Pulse Resp B/P (MAP) Pulse Ox O2 Delivery O2 Flow Rate FiO2 12/09/17 09:52 97.0 12/09/17 09:22 97.0 12/09/17 09:21 76 132/60 12/09/17 08:10 76 18 98 Room Air 21 12/09/17 08:03 75 18 98 Room Air 21 12/09/17 08:00 97.0 75 18 132/60 97 Room Air 97.0 12/09/17 08:00 71 12/09/17 04:00 97.7 67 20 117/75 95 Room Air 97.7 12/09/17 04:00 66 12/09/17 01:37 Room Air 12/09/17 01:37 Room Air 12/09/17 00:00 71 12/09/17 00:00 97.7 64 20 130/50 100 Room Air 97.7 12/08/17 21:11 71 114/56 12/08/17 20:28 72 18 99 Room Air 12/08/17 20:19 71 18 96 Room Air 12/08/17 20:00 97.9 70 20 111/52 95 Room Air 97.9 12/08/17 20:00 67 12/08/17 16:59 68 20 98 Room Air 21 12/08/17 16:48 64 18 Room Air 21 12/08/17 16:48 64 18 97 Room Air 21 12/08/17 16:00 97.0 61 19 101/38 94 Room Air 97.0 12/08/17 15:15 57 Height (Feet): 5 Height (Inches): 5.00 Weight (Pounds): 130 General Appearance: no acute distress HEENT: mucous membranes moist Respiratory/Chest: lungs clear Cardiovascular: normal rate Abdomen: soft, non tender Extremities: no edema Neurologic/Psychiatric: alert, oriented x 3, responsive Microbiology Date/Time Source Procedure Growth Status 12/06/17 16:58 Urine,Clean Catch Urine Culture - Final Mixed Gram Positive Organism Complete Laboratory Tests Test 12/08/17 16:00 White Blood Count 12.5 K/UL (4.8-10.8) H Red Blood Count 3.89 M/UL (4.20-5.40) L Hemoglobin 12.9 G/DL (12.0-16.0) Hematocrit 37.6 % (37.0-47.0) Mean Corpuscular Volume 97 FL (80-99) Mean Corpuscular Hemoglobin 33.2 PG (27.0-31.0) H Mean Corpuscular Hemoglobin Concent 34.4 G/DL (32.0-36.0) Red Cell Distribution Width 13.3 % (11.6-14.8) Platelet Count 236 K/UL (150-450) Mean Platelet Volume 8.3 FL (6.5-10.1) Neutrophils (%) (Auto) 69.3 % (45.0-75.0) Lymphocytes (%) (Auto) 14.9 % (20.0-45.0) L Monocytes (%) (Auto) 12.7 % (1.0-10.0) H Eosinophils (%) (Auto) 2.3 % (0.0-3.0) Basophils (%) (Auto) 0.9 % (0.0-2.0) Sodium Level 143 MMOL/L (136-145) Potassium Level 3.8 MMOL/L (3.5-5.1) Chloride Level 112 MMOL/L (98-107) H Carbon Dioxide Level 21 MMOL/L (21-32) Anion Gap 10 mmol/L (5-15) Blood Urea Nitrogen 24 mg/dL (7-18) H Creatinine 1.0 MG/DL (0.55-1.30) Estimat Glomerular Filtration Rate > 60 mL/min (>60) Glucose Level 119 MG/DL (74-106) H Hemoglobin A1c 5.5 % (4.3-6.0) Uric Acid 9.7 MG/DL (2.6-7.2) H Calcium Level 9.7 MG/DL (8.5-10.1) Phosphorus Level 2.7 MG/DL (2.5-4.9) Magnesium Level 2.2 MG/DL (1.8-2.4) Iron Level 50 ug/dL (50-175) Total Iron Binding Capacity 295 ug/dL (250-450) Percent Iron Saturation 17 % (15-50) Unsaturated Iron Binding 245 ug/dL (112-346) Ferritin 74 NG/ML (8-388) Total Bilirubin 0.3 MG/DL (0.2-1.0) Gamma Glutamyl Transpeptidase 87 U/L (5-85) H Aspartate Amino Transf (AST/SGOT) 9 U/L (15-37) L Alanine Aminotransferase (ALT/SGPT) 8 U/L (12-78) L Alkaline Phosphatase 110 U/L (46-116) Total Creatine Kinase 28 U/L (26-308) Troponin I 0.009 ng/mL (0.000-0.056) Pro-B-Type Natriuretic Peptide 183 pg/mL (0-125) H Total Protein 5.6 G/DL (6.4-8.2) L Albumin 2.7 G/DL (3.4-5.0) L Globulin 2.9 g/dL Albumin/Globulin Ratio 0.9 (1.0-2.7) L Triglycerides Level 123 MG/DL (30-150) Cholesterol Level 204 MG/DL (< 200) H LDL Cholesterol 148 mg/dL (<100) H HDL Cholesterol 31 MG/DL (40-60) L Cholesterol/HDL Ratio 6.6 (3.3-4.4) H Vitamin B12 Level 877 PG/ML (193-986) Folate 7.4 NG/ML (8.6-58.9) L Thyroid Stimulating Hormone (TSH) 0.418 uiU/mL (0.358-3.740) Current Medications Medications (Trade) Dose Ordered Sig/Janee Route PRN Reason Start Time Stop Time Status Last Admin Dose Admin Acetaminophen (Tylenol) 500 mg Q4H PRN ORAL Mild Pain/Temp > 100.5 12/06/17 23:30 01/05/18 23:29 Acetaminophen/ Hydrocodone Bitart ([place] 10/325) 1 tab Q4H PRN ORAL Moderate Pain (Pain Scale 4-6) 12/07/17 09:00 12/14/17 08:59 12/07/17 09:18 Albuterol/ Ipratropium (Albuterol/ Ipratropium) 3 ml Q4H PRN HHN Shortness of Breath 12/08/17 14:45 12/13/17 14:44 12/08/17 16:47 Albuterol/ Ipratropium (Albuterol/ Ipratropium) 3 ml Q6HRT HHN 12/08/17 19:00 12/13/17 18:59 12/09/17 08:03 Aspirin (Ecotrin) 81 mg DAILY ORAL 12/07/17 09:00 01/06/18 08:59 12/09/17 09:21 Ceftriaxone Sodium 1 gm/ Sodium Chloride 55 ml @ 110 mls/hr Q24H IVPB 12/06/17 21:00 12/13/17 23:59 12/08/17 21:06 Dextrose/ Electrolytes 1,000 ml @ 50 mls/hr Q20H IV 12/07/17 10:30 01/06/18 10:29 12/09/17 03:18 Docusate Sodium (Colace) 100 mg THREE TIMES A DAY ORAL 12/07/17 13:00 01/06/18 12:59 12/09/17 09:22 Gabapentin (Neurontin) 100 mg THREE TIMES A DAY ORAL 12/07/17 09:00 01/06/18 08:59 12/09/17 09:21 Guaifenesin (Mucinex ER) 600 mg TWICE A DAY ORAL 12/08/17 18:00 01/07/18 17:59 12/09/17 09:21 Guaifenesin/ Dextromethorphan (Robitussin DM) 5 ml Q4H PRN ORAL For Cough 12/08/17 14:45 01/07/18 14:44 Heparin Sodium (Porcine) (Heparin 5000 units/ml) 5,000 units EVERY 12 HOURS SUBQ 12/08/17 21:00 01/07/18 20:59 12/09/17 09:23 Lansoprazole (Prevacid) 30 mg DAILY ORAL 12/07/17 09:30 01/06/18 09:29 12/09/17 09:22 Metoprolol Tartrate (Lopressor) 25 mg Q12HR ORAL 12/07/17 09:00 01/06/18 08:59 12/09/17 09:21 Morphine Sulfate (Morphine Sulfate) 2 mg Q6H PRN IVP Severe Pain (Pain Scale 7-10) 12/07/17 09:00 12/14/17 08:59 12/09/17 09:22 Nicotine (Nicoderm) 1 patch Q24H TDERMAL 12/08/17 17:00 01/07/18 16:59 Ondansetron HCl (Zofran ODT) 4 mg Q6H PRN ORAL Nausea & Vomiting 12/06/17 23:30 01/05/18 23:29 12/09/17 06:35 Prednisone (predniSONE) 60 mg DAILY ORAL 12/09/17 09:00 01/08/18 08:59 12/09/17 09:22 Zolpidem Tartrate (Ambien) 5 mg BEDTIME PRN ORAL Insomnia 12/07/17 00:45 12/14/17 00:44 12/08/17 22:31 CHERI SCOTT Dec 09, 2017 12:17
[2017-12-09] MEDS: Levofloxacin 500mg tab ORAL SCH (12:50)
--- NOTE | 2017-12-09 14:43 | Pulmonology Progress Note ---
Assessment/Plan Problems: (1) Lung mass (2) COPD (chronic obstructive pulmonary disease) with acute bronchitis (3) Tobacco abuse Assessment/Plan ASSESSMENT: The patient is a 67-year-old female smoker with known enlarging right middle lobe mass, who has previously declined biopsy, chronic obstructive pulmonary disease, coronary artery disease, congestive heart failure, prior cerebrovascular accident, and continued tobacco use presenting with chest pain in the setting of a likely acute exacerbation of her chronic obstructive pulmonary disease. I suspect an antecedent upper respiratory infection or bronchitis. The patient has been ruled out for acute coronary syndrome, but her stress test is suggestive of ischemia. PROBLEM LIST: 1. Chronic obstructive pulmonary disease with acute exacerbation. 2. Likely antecedent upper respiratory infection or tracheobronchitis. 3. Enlarging spiculated RML mass 4. Chest pain status post rule out acute coronary syndrome. 5. Coronary artery disease status post percutaneous coronary intervention x6. 6. Stress test suggestive of ischemia. 7. Congestive heart failure with diastolic dysfunction. 8. Hypertension. 9. Prior cerebrovascular accident. 10. Acute kidney injury on chronic kidney disease. 11. Leukocytosis, improved. 12. Urinary tract infection with pyuria. 13. Questionable history of Crohn's disease. 14. Continued daily tobacco use. TREATMENT PLAN: 1. Optimize pulmonary hygiene/mobilize as tolerated. 2. P.r.n. O2 to keep saturations greater than 90%. 3. Round the clock and p.r.n. DuoNebs. 4. Continue Prednisone 60 mg p.o. daily (D2). 5. STRONGLY RECOMMEND CTGBx RML MASS & malignancy w/u - PATIENT DECLINES 6. Recommend psych eval to determine capacity 7. Levaquin per DI 8. Follow up Cardiology recommendations. 9. Aspiration precautions. 10. Monitor volumes. 11. Monitor renal function. 12. DVT prophylaxis with heparin subcutaneous. 13. Strongly encouraged cessation from tobacco. 14. Nicotine patch 15. The patient is Full Code. Subjective Allergies: Coded Allergies: No Known Allergies (Unverified , 06/30/17) Subjective AFVSS, CT with enlarging mass, declines Bx, stable on RA, less cough, less SOB, less wheezing, c/o pain all over Objective Last 24 Hour Vital Signs Date Time Temp Pulse Resp B/P (MAP) Pulse Ox O2 Delivery O2 Flow Rate FiO2 12/09/17 12:00 64 12/09/17 09:52 97.0 12/09/17 09:22 97.0 12/09/17 09:21 76 132/60 12/09/17 08:10 76 18 98 Room Air 21 12/09/17 08:03 75 18 98 Room Air 21 12/09/17 08:00 97.0 75 18 132/60 97 Room Air 97.0 12/09/17 08:00 71 12/09/17 04:00 97.7 67 20 117/75 95 Room Air 97.7 12/09/17 04:00 66 12/09/17 01:37 Room Air 12/09/17 01:37 Room Air 12/09/17 00:00 71 12/09/17 00:00 97.7 64 20 130/50 100 Room Air 97.7 12/08/17 21:11 71 114/56 12/08/17 20:28 72 18 99 Room Air 12/08/17 20:19 71 18 96 Room Air 12/08/17 20:00 97.9 70 20 111/52 95 Room Air 97.9 12/08/17 20:00 67 12/08/17 16:59 68 20 98 Room Air 21 12/08/17 16:48 64 18 Room Air 21 12/08/17 16:48 64 18 97 Room Air 21 12/08/17 16:00 97.0 61 19 101/38 94 Room Air 97.0 12/08/17 15:15 57 Intake and Output 12/08/17 12/09/17 19:00 07:00 Intake Total 1100 ml 588 ml Balance 1100 ml 588 ml Intake Oral 500 ml IV Total 600 ml 588 ml # Voids 1 5 General Appearance: WD/WN, no acute distress HEENT: normocephalic, atraumatic Respiratory/Chest: chest wall non-tender, lungs clear, normal breath sounds, no respiratory distress Cardiovascular: normal peripheral pulses, normal rate, regular rhythm Abdomen: normal bowel sounds, soft, non tender, no organomegaly, non distended Extremities: no cyanosis, no clubbing, no edema Microbiology Date/Time Source Procedure Growth Status 12/06/17 16:58 Urine,Clean Catch Urine Culture - Final Mixed Gram Positive Organism Complete Laboratory Tests 12/08/17 16:00: White Blood Count 12.5H, Red Blood Count 3.89L, Hemoglobin 12.9, Hematocrit 37.6 , Mean Corpuscular Volume 97, Mean Corpuscular Hemoglobin 33.2H, Mean Corpuscular Hemoglobin Concent 34.4, Red Cell Distribution Width 13.3, Platelet Count 236, Mean Platelet Volume 8.3, Neutrophils (%) (Auto) 69.3, Lymphocytes (% ) (Auto) 14.9L, Monocytes (%) (Auto) 12.7H, Eosinophils (%) (Auto) 2.3, Basophils (%) (Auto) 0.9, Sodium Level 143, Potassium Level 3.8, Chloride Level 112H, Carbon Dioxide Level 21, Anion Gap 10, Blood Urea Nitrogen 24H, Creatinine 1.0, Estimat Glomerular Filtration Rate > 60, Glucose Level 119H, Hemoglobin A1c 5.5, Uric Acid 9.7H, Calcium Level 9.7, Phosphorus Level 2.7, Magnesium Level 2.2, Iron Level 50, Total Iron Binding Capacity 295, Percent Iron Saturation 17, Unsaturated Iron Binding 245, Ferritin 74, Total Bilirubin 0.3, Gamma Glutamyl Transpeptidase 87H, Aspartate Amino Transf (AST/SGOT) 9L, Alanine Aminotransferase (ALT/SGPT) 8L, Alkaline Phosphatase 110, Total Creatine Kinase 28, Troponin I 0.009, Pro-B-Type Natriuretic Peptide 183H, Total Protein 5.6L, Albumin 2.7L, Globulin 2.9, Albumin/Globulin Ratio 0.9L, Triglycerides Level 123, Cholesterol Level 204H, LDL Cholesterol 148H, HDL Cholesterol 31L, Cholesterol/HDL Ratio 6.6H, Vitamin B12 Level 877, Folate 7.4L , Thyroid Stimulating Hormone (TSH) 0.418 Current Medications Medications (Trade) Dose Ordered Sig/Janee Route PRN Reason Start Time Stop Time Status Last Admin Dose Admin Acetaminophen (Tylenol) 500 mg Q4H PRN ORAL Mild Pain/Temp > 100.5 12/06/17 23:30 01/05/18 23:29 Acetaminophen/ Hydrocodone Bitart ([place] 10/325) 1 tab Q4H PRN ORAL Moderate Pain (Pain Scale 4-6) 12/07/17 09:00 12/14/17 08:59 12/07/17 09:18 Albuterol/ Ipratropium (Albuterol/ Ipratropium) 3 ml Q4H PRN HHN Shortness of Breath 12/08/17 14:45 12/13/17 14:44 12/08/17 16:47 Albuterol/ Ipratropium (Albuterol/ Ipratropium) 3 ml Q6HRT HHN 12/08/17 19:00 12/13/17 18:59 12/09/17 08:03 Aspirin (Ecotrin) 81 mg DAILY ORAL 12/07/17 09:00 01/06/18 08:59 12/09/17 09:21 Dextrose/ Electrolytes 1,000 ml @ 50 mls/hr Q20H IV 12/07/17 10:30 01/06/18 10:29 12/09/17 03:18 Docusate Sodium (Colace) 100 mg THREE TIMES A DAY ORAL 12/07/17 13:00 01/06/18 12:59 12/09/17 12:50 Gabapentin (Neurontin) 100 mg THREE TIMES A DAY ORAL 12/07/17 09:00 01/06/18 08:59 12/09/17 12:49 Guaifenesin (Mucinex ER) 600 mg TWICE A DAY ORAL 12/08/17 18:00 01/07/18 17:59 12/09/17 09:21 Guaifenesin/ Dextromethorphan (Robitussin DM) 5 ml Q4H PRN ORAL For Cough 12/08/17 14:45 01/07/18 14:44 Heparin Sodium (Porcine) (Heparin 5000 units/ml) 5,000 units EVERY 12 HOURS SUBQ 12/08/17 21:00 01/07/18 20:59 12/09/17 09:23 Lansoprazole (Prevacid) 30 mg DAILY ORAL 12/07/17 09:30 01/06/18 09:29 12/09/17 09:22 Levofloxacin (Levaquin) 750 mg DAILY@1300 ORAL 12/09/17 13:00 12/16/17 23:59 12/09/17 12:50 Metoprolol Tartrate (Lopressor) 25 mg Q12HR ORAL 12/07/17 09:00 01/06/18 08:59 12/09/17 09:21 Morphine Sulfate (Morphine Sulfate) 2 mg Q6H PRN IVP Severe Pain (Pain Scale 7-10) 12/07/17 09:00 12/14/17 08:59 12/09/17 09:22 Nicotine (Nicoderm) 1 patch Q24H TDERMAL 12/08/17 17:00 01/07/18 16:59 Ondansetron HCl (Zofran ODT) 4 mg Q6H PRN ORAL Nausea & Vomiting 12/06/17 23:30 01/05/18 23:29 12/09/17 06:35 Prednisone (predniSONE) 60 mg DAILY ORAL 12/09/17 09:00 01/08/18 08:59 12/09/17 09:22 Zolpidem Tartrate (Ambien) 5 mg BEDTIME PRN ORAL Insomnia 12/07/17 00:45 12/14/17 00:44 12/08/17 22:31 JUDIT FIGUEREDO M.D. Dec 09, 2017 14:43
--- NOTE | 2017-12-09 14:48 | Nephrology Progress Note ---
Assessment/Plan Problem List: (1) Dehydration (2) UTI (urinary tract infection) Assessment Renal failure- Mainly dehydration UTI / Leukocytosis other mentioned conditions Past Medical History: CAD, COPD Past Surgical History: other - ileostomy, crohns Hx Cardiac Problems: Yes - CHF/peripheral neuropathy Hx Hypertension: Yes Hx Asthma: Yes Hx COPD: Yes - Lung Cancer, Emphysema Hx Cancer: Yes - lung CA Hx Neurological Problems: Yes Hx Dizziness: Yes Hx Syncope: Yes Hx Headaches: Yes Hx Weakness: Yes Hx Fatigue: Yes Plan no labs today Hydrate correct electrolytes monitor renal parameters antibiotics per orders Subjective ROS Limited/Unobtainable: No Objective Objective Last 24 Hour Vital Signs Date Time Temp Pulse Resp B/P (MAP) Pulse Ox O2 Delivery O2 Flow Rate FiO2 12/09/17 12:00 64 12/09/17 09:52 97.0 12/09/17 09:22 97.0 12/09/17 09:21 76 132/60 12/09/17 08:10 76 18 98 Room Air 21 12/09/17 08:03 75 18 98 Room Air 21 12/09/17 08:00 97.0 75 18 132/60 97 Room Air 97.0 12/09/17 08:00 71 12/09/17 04:00 97.7 67 20 117/75 95 Room Air 97.7 12/09/17 04:00 66 12/09/17 01:37 Room Air 12/09/17 01:37 Room Air 12/09/17 00:00 71 12/09/17 00:00 97.7 64 20 130/50 100 Room Air 97.7 12/08/17 21:11 71 114/56 12/08/17 20:28 72 18 99 Room Air 12/08/17 20:19 71 18 96 Room Air 12/08/17 20:00 97.9 70 20 111/52 95 Room Air 97.9 12/08/17 20:00 67 12/08/17 16:59 68 20 98 Room Air 21 12/08/17 16:48 64 18 Room Air 21 12/08/17 16:48 64 18 97 Room Air 21 12/08/17 16:00 97.0 61 19 101/38 94 Room Air 97.0 12/08/17 15:15 57 Intake and Output 12/08/17 12/09/17 19:00 07:00 Intake Total 1100 ml 588 ml Balance 1100 ml 588 ml Intake Oral 500 ml IV Total 600 ml 588 ml # Voids 1 5 Laboratory Tests 12/08/17 16:00: White Blood Count 12.5H, Red Blood Count 3.89L, Hemoglobin 12.9, Hematocrit 37.6 , Mean Corpuscular Volume 97, Mean Corpuscular Hemoglobin 33.2H, Mean Corpuscular Hemoglobin Concent 34.4, Red Cell Distribution Width 13.3, Platelet Count 236, Mean Platelet Volume 8.3, Neutrophils (%) (Auto) 69.3, Lymphocytes (% ) (Auto) 14.9L, Monocytes (%) (Auto) 12.7H, Eosinophils (%) (Auto) 2.3, Basophils (%) (Auto) 0.9, Sodium Level 143, Potassium Level 3.8, Chloride Level 112H, Carbon Dioxide Level 21, Anion Gap 10, Blood Urea Nitrogen 24H, Creatinine 1.0, Estimat Glomerular Filtration Rate > 60, Glucose Level 119H, Hemoglobin A1c 5.5, Uric Acid 9.7H, Calcium Level 9.7, Phosphorus Level 2.7, Magnesium Level 2.2, Iron Level 50, Total Iron Binding Capacity 295, Percent Iron Saturation 17, Unsaturated Iron Binding 245, Ferritin 74, Total Bilirubin 0.3, Gamma Glutamyl Transpeptidase 87H, Aspartate Amino Transf (AST/SGOT) 9L, Alanine Aminotransferase (ALT/SGPT) 8L, Alkaline Phosphatase 110, Total Creatine Kinase 28, Troponin I 0.009, Pro-B-Type Natriuretic Peptide 183H, Total Protein 5.6L, Albumin 2.7L, Globulin 2.9, Albumin/Globulin Ratio 0.9L, Triglycerides Level 123, Cholesterol Level 204H, LDL Cholesterol 148H, HDL Cholesterol 31L, Cholesterol/HDL Ratio 6.6H, Vitamin B12 Level 877, Folate 7.4L , Thyroid Stimulating Hormone (TSH) 0.418 Height (Feet): 5 Height (Inches): 5.00 Weight (Pounds): 130 General Appearance: no apparent distress Objective no change GERALDINE MARTINO Dec 09, 2017 14:48
--- NOTE | 2017-12-09 18:59 | Cardiology Progress Note ---
Assessment/Plan Assessment/Plan 1. Chest pain, atypical, non-ischemic stress test with LVEF at 64%. 2. Hx of CAD, s/p PCI, nuclear stress test confirms patency of the stent most likely. 3. Prior history of CHF, currently does not appear to be clinically in heart failure at this time. Subjective Cardiovascular: Reports: no symptoms Respiratory: Reports: no symptoms Gastrointestinal/Abdominal: Reports: no symptoms Genitourinary: Reports: no symptoms Subjective Sinus rhythm at 72. Objective Last 24 Hour Vital Signs Date Time Temp Pulse Resp B/P (MAP) Pulse Ox O2 Delivery O2 Flow Rate FiO2 12/09/17 16:05 97.0 12/09/17 16:00 97.2 78 20 132/60 95 Room Air 97.2 12/09/17 16:00 72 12/09/17 15:35 97.0 12/09/17 15:13 72 18 99 Room Air 21 12/09/17 15:06 77 18 99 Room Air 21 12/09/17 12:00 64 12/09/17 12:00 97.2 75 19 137/66 95 Room Air 97.2 12/09/17 09:22 97.0 12/09/17 09:21 76 132/60 12/09/17 08:10 76 18 98 Room Air 21 12/09/17 08:03 75 18 98 Room Air 21 12/09/17 08:00 97.0 75 18 132/60 97 Room Air 97.0 12/09/17 08:00 71 12/09/17 04:00 97.7 67 20 117/75 95 Room Air 97.7 12/09/17 04:00 66 12/09/17 01:37 Room Air 12/09/17 01:37 Room Air 12/09/17 00:00 71 12/09/17 00:00 97.7 64 20 130/50 100 Room Air 97.7 12/08/17 21:11 71 114/56 12/08/17 20:28 72 18 99 Room Air 12/08/17 20:19 71 18 96 Room Air 12/08/17 20:00 97.9 70 20 111/52 95 Room Air 97.9 12/08/17 20:00 67 Intake and Output 12/08/17 12/09/17 19:00 07:00 Intake Total 1100 ml 588 ml Balance 1100 ml 588 ml Intake Oral 500 ml IV Total 600 ml 588 ml # Voids 1 5 2D Echo: EF 70%, severe LVH, Grade I LVDD, RVSP 37 mmHg, Mild MR,Trace Cassia Effusion Objective HEENT: Atraumatic and normocephalic. Anicteric. Pupils are equal, round, and reactive to light and accommodation. Extraocular muscles are intact. NECK: JVP is less than 5 cm. No carotid bruit. Carotid upstrokes 2+ bilaterally. CARDIOVASCULAR: Normal S1 and S2. Regular rate and rhythm. No murmurs, gallops, or rubs. PMI is at fourth intercostal space in the midclavicular line. LUNGS: Clear to auscultation bilaterally. ABDOMEN: Soft, nontender, and nondistended. No hepatosplenomegaly. Positive bowel sounds. EXTREMITIES: No evidence of edema, clubbing, or cyanosis. MALKA LOPEZ Dec 09, 2017 18:58
--- NOTE | 2017-12-09 21:34 | General Progress Note ---
Assessment/Plan Problem List: (1) UTI (urinary tract infection) ICD Codes: N39.0 - Urinary tract infection, site not specified SNOMED: 36865070 (2) COPD (chronic obstructive pulmonary disease) with acute bronchitis ICD Codes: J44.1 - COPD (chronic obstructive pulmonary disease) with acute bronchitis SNOMED: 75492381 (3) CAD (coronary artery disease) ICD Codes: I25.10 - CAD (coronary artery disease) SNOMED: 448071557 (4) HTN (hypertension) ICD Codes: I10 - HTN (hypertension) SNOMED: 58964045 Assessment/Plan sob and cough copd refuses procedure to find out the abnormality on imaging no wheezing reviewed chart and labs Subjective Constitutional: Reports: no symptoms Allergies: Coded Allergies: No Known Allergies (Unverified , 06/30/17) Objective Last 24 Hour Vital Signs Date Time Temp Pulse Resp B/P (MAP) Pulse Ox O2 Delivery O2 Flow Rate FiO2 12/09/17 20:00 97.4 72 20 143/61 93 97.4 12/09/17 19:58 83 18 99 Room Air 21 12/09/17 19:48 89 18 95 Room Air 21 12/09/17 16:05 97.0 12/09/17 16:00 97.2 78 20 132/60 95 Room Air 97.2 12/09/17 16:00 72 12/09/17 15:35 97.0 12/09/17 15:13 72 18 99 Room Air 21 12/09/17 15:06 77 18 99 Room Air 21 12/09/17 12:00 64 12/09/17 12:00 97.2 75 19 137/66 95 Room Air 97.2 12/09/17 09:22 97.0 12/09/17 09:21 76 132/60 12/09/17 08:10 76 18 98 Room Air 21 12/09/17 08:03 75 18 98 Room Air 21 12/09/17 08:00 97.0 75 18 132/60 97 Room Air 97.0 12/09/17 08:00 71 12/09/17 04:00 97.7 67 20 117/75 95 Room Air 97.7 12/09/17 04:00 66 12/09/17 01:37 Room Air 12/09/17 01:37 Room Air 3/16/18 00:00 71 12/09/17 00:00 97.7 64 20 130/50 100 Room Air 97.7 Intake and Output 12/08/17 12/09/17 19:00 07:00 Intake Total 1100 ml 588 ml Balance 1100 ml 588 ml Intake Oral 500 ml IV Total 600 ml 588 ml # Voids 1 5 Height (Feet): 5 Height (Inches): 5.00 Weight (Pounds): 130 Cardiovascular: normal rate Respiratory/Chest: lungs clear Abdomen: non tender Sukhi Pandey MD Dec 09, 2017 21:34
--- NOTE | 2017-12-09 21:34 | Consultation ---
History of Present Illness General Date patient seen: Dec 08, 2017 Chief Complaint: Chest Pain Present Illness HPI 67-year-old female, who presented to the hospital with chest pain for about four days. the pt has no insight and is very illogical/ the pt is focused on pain meds. the pt was rambling and not answer the questions appropriately Allergies: Coded Allergies: No Known Allergies (Unverified , 06/30/17) Medication History Scheduled Amoxicillin* (Amoxil*), 500 MG ORAL BID Lisinopril* (Lisinopril*), 2.5 MG ORAL DAILY, (Reported) Metoprolol Tartrate* (Metoprolol Tartrate*), 25 MG ORAL EVERY 12 HOURS, ( Reported) Sumatriptan Succinate* (Imitrex*), 50 MG ORAL DAILY PRN MIGRAINE, (Reported) Scheduled PRN Hydrocodone Bit/Acetaminophen 5-325* ([place] 5-325 Tablet*), 1 TAB ORAL Q4H PRN for For Pain, (Reported) Ondansetron* (Zofran*), 4 MG ORAL Q6H PRN for Nausea & Vomiting, (Reported) Miscellaneous Medications Unable to Obtain Medications (Unable To Obtain Meds), (Reported) Patient History Limited by: medical condition History Provided By: Patient, Medical Record, PMD Healthcare decision maker Resuscitation status Full Code Advanced Directive on File Past Medical/Surgical History Past Medical/Surgical History: (1) Small bowel obstruction (2) Cystitis (3) Vomiting (4) Pharyngitis (5) Dysuria (6) Leukocytosis (7) Dehydration (8) UTI (urinary tract infection) (9) Lung mass (10) Constipation (11) Chest pain (12) Drug abuse and dependence (13) COPD (chronic obstructive pulmonary disease) with acute bronchitis (14) Tobacco abuse (15) CAD (coronary artery disease) (16) HTN (hypertension) Review of Systems Psychiatric: Reports: prior hx, anxiety, depressed feelings, emotional problems Physical Exam General Appearance: no apparent distress, alert, agitated Last 24 Hour Vital Signs Date Time Temp Pulse Resp B/P (MAP) Pulse Ox O2 Delivery O2 Flow Rate FiO2 12/09/17 20:00 97.4 72 20 143/61 93 97.4 12/09/17 19:58 83 18 99 Room Air 21 12/09/17 19:48 89 18 95 Room Air 21 12/09/17 16:05 97.0 12/09/17 16:00 97.2 78 20 132/60 95 Room Air 97.2 12/09/17 16:00 72 12/09/17 15:35 97.0 12/09/17 15:13 72 18 99 Room Air 21 12/09/17 15:06 77 18 99 Room Air 21 12/09/17 12:00 64 12/09/17 12:00 97.2 75 19 137/66 95 Room Air 97.2 12/09/17 09:22 97.0 12/09/17 09:21 76 132/60 12/09/17 08:10 76 18 98 Room Air 21 12/09/17 08:03 75 18 98 Room Air 21 12/09/17 08:00 97.0 75 18 132/60 97 Room Air 97.0 12/09/17 08:00 71 12/09/17 04:00 97.7 67 20 117/75 95 Room Air 97.7 12/09/17 04:00 66 12/09/17 01:37 Room Air 12/09/17 01:37 Room Air 12/09/17 00:00 71 12/09/17 00:00 97.7 64 20 130/50 100 Room Air 97.7 Intake and Output 12/08/17 12/09/17 19:00 07:00 Intake Total 1100 ml 588 ml Balance 1100 ml 588 ml Intake Oral 500 ml IV Total 600 ml 588 ml # Voids 1 5 Height (Feet): 5 Height (Inches): 5.00 Weight (Pounds): 130 Medications Current Medications Medications (Trade) Dose Ordered Sig/Janee Route PRN Reason Start Time Stop Time Status Last Admin Dose Admin Acetaminophen (Tylenol) 500 mg Q4H PRN ORAL Mild Pain/Temp > 100.5 12/06/17 23:30 01/05/18 23:29 Acetaminophen/ Hydrocodone Bitart ([place] 10/325) 1 tab Q4H PRN ORAL Moderate Pain (Pain Scale 4-6) 12/07/17 09:00 12/14/17 08:59 12/07/17 09:18 Albuterol/ Ipratropium (Albuterol/ Ipratropium) 3 ml Q4H PRN HHN Shortness of Breath 12/08/17 14:45 12/13/17 14:44 12/08/17 16:47 Albuterol/ Ipratropium (Albuterol/ Ipratropium) 3 ml Q6HRT HHN 12/08/17 19:00 12/13/17 18:59 12/09/17 19:49 Aspirin (Ecotrin) 81 mg DAILY ORAL 12/07/17 09:00 01/06/18 08:59 12/09/17 09:21 Dextrose/ Electrolytes 1,000 ml @ 50 mls/hr Q20H IV 12/07/17 10:30 01/06/18 10:29 12/09/17 03:18 Docusate Sodium (Colace) 100 mg THREE TIMES A DAY ORAL 12/07/17 13:00 01/06/18 12:59 12/09/17 12:50 Gabapentin (Neurontin) 100 mg THREE TIMES A DAY ORAL 12/07/17 09:00 01/06/18 08:59 12/09/17 17:35 Guaifenesin (Mucinex ER) 600 mg TWICE A DAY ORAL 12/08/17 18:00 01/07/18 17:59 12/09/17 17:35 Guaifenesin/ Dextromethorphan (Robitussin DM) 5 ml Q4H PRN ORAL For Cough 12/08/17 14:45 01/07/18 14:44 Heparin Sodium (Porcine) (Heparin 5000 units/ml) 5,000 units EVERY 12 HOURS SUBQ 12/08/17 21:00 01/07/18 20:59 12/09/17 09:23 Lansoprazole (Prevacid) 30 mg DAILY ORAL 12/07/17 09:30 01/06/18 09:29 12/09/17 09:22 Levofloxacin (Levaquin) 750 mg DAILY@1300 ORAL 12/09/17 13:00 12/16/17 23:59 12/09/17 12:50 Metoprolol Tartrate (Lopressor) 25 mg Q12HR ORAL 12/07/17 09:00 01/06/18 08:59 12/09/17 09:21 Morphine Sulfate (Morphine Sulfate) 2 mg Q6H PRN IVP Severe Pain (Pain Scale 7-10) 12/07/17 09:00 12/14/17 08:59 12/09/17 15:35 Nicotine (Nicoderm) 1 patch Q24H TDERMAL 12/08/17 17:00 01/07/18 16:59 Ondansetron HCl (Zofran ODT) 4 mg Q6H PRN ORAL Nausea & Vomiting 12/06/17 23:30 01/05/18 23:29 12/09/17 18:30 Prednisone (predniSONE) 60 mg DAILY ORAL 12/09/17 09:00 01/08/18 08:59 12/09/17 09:22 Zolpidem Tartrate (Ambien) 5 mg BEDTIME PRN ORAL Insomnia 12/07/17 00:45 12/14/17 00:44 12/08/17 22:31 Assessment/Plan Status: stable, unchanged Assessment/Plan the pt has hx of depression and opioids dependence the pt lacks capacity to make decision next of kind should make decision. Davis Connor M.D. Dec 09, 2017 21:34
[2017-12-09] MEDS: HYDROcodone/Acetamin 10/325 tab ORAL PRN (22:02)
[2017-12-09] MEDS: Zolpidem 5mg tab ORAL PRN (23:11)
[2017-12-10] VITALS (8 sets, daily range): BP systolic 123–202; BP diastolic 62–109
[2017-12-10] MEDS: Morphine Sulfate 2mg/ml Inj IVP PRN ×4 (00:05→18:32)
[2017-12-10] MEDS: Albuterol/Ipratropium 3ml neb HHN SCH ×4 (01:37→19:14)
[2017-12-10] MEDS: Docusate 100mg cap ORAL SCH ×3 (09:00→18:00)
[2017-12-10] MEDS: Aspirin EC 81mg tab ORAL SCH (09:00)
[2017-12-10] MEDS: Heparin 5000 units/ml inj SUBQ SCH ×3 (09:00→21:41)
[2017-12-10] MEDS: guaiFENesin ER 600mg tab ORAL SCH ×2 (09:00→18:00)
[2017-12-10] MEDS: Metoprolol 25mg tab ORAL SCH ×2 (09:37→21:33)
--- NOTE | 2017-12-10 11:00 | Infectious Diseases Prog Note ---
Assessment/Plan Assessment/Plan antibiotics : levoquin A 1. UTI 2. leucocytosis improving 3. COPD 4. right lung mass P 1. continue levoquin 2. will follow up cultures Subjective ROS Limited/Unobtainable: Yes Allergies: Coded Allergies: No Known Allergies (Unverified , 06/30/17) Objective Vital Signs Last 24 Hour Vital Signs Date Time Temp Pulse Resp B/P (MAP) Pulse Ox O2 Delivery O2 Flow Rate FiO2 12/10/17 09:37 98 152/82 12/10/17 08:35 98 152/82 12/10/17 08:23 Room Air 12/10/17 08:22 Room Air 12/10/17 08:03 119 12/10/17 07:30 202/93 12/10/17 07:00 97.7 98 24 202/93 95 97.7 12/10/17 05:00 97.2 92 24 202/107 96 97.2 12/10/17 04:00 92 12/10/17 04:00 98.9 89 22 198/109 95 98.9 12/10/17 01:38 Room Air 12/10/17 01:37 Room Air 12/10/17 00:00 72 12/09/17 23:55 98.2 74 18 141/64 95 98.2 12/09/17 21:51 72 143/61 12/09/17 20:00 97.4 72 20 143/61 93 97.4 12/09/17 20:00 83 12/09/17 19:58 83 18 99 Room Air 21 12/09/17 19:48 89 18 95 Room Air 21 12/09/17 16:05 97.0 12/09/17 16:00 97.2 78 20 132/60 95 Room Air 97.2 12/09/17 16:00 72 12/09/17 15:35 97.0 12/09/17 15:13 72 18 99 Room Air 21 12/09/17 15:06 77 18 99 Room Air 21 12/09/17 12:00 64 12/09/17 12:00 97.2 75 19 137/66 95 Room Air 97.2 Height (Feet): 5 Height (Inches): 5.00 Weight (Pounds): 133 Respiratory/Chest: lungs clear Cardiovascular: normal rate, regular rhythm, no gallop/murmur Abdomen: soft, non tender Extremities: no edema Microbiology Date/Time Source Procedure Growth Status 12/09/17 06:20 Sputum Expectorated Gram Stain - Final Resulted 12/09/17 06:20 Sputum Expectorated Sputum Culture - Preliminary NORMAL UPPER RESPIRATORY BRANDI AT 24 ... Resulted RAJESH ROSA Dec 10, 2017 11:00
--- NOTE | 2017-12-10 11:46 | Nephrology Progress Note ---
Assessment/Plan Problem List: (1) Dehydration (2) UTI (urinary tract infection) Assessment vomiting today Renal failure- Mainly dehydration UTI / Leukocytosis other mentioned conditions Past Medical History: CAD, COPD Past Surgical History: other - ileostomy, crohns Hx Cardiac Problems: Yes - CHF/peripheral neuropathy Hx Hypertension: Yes Hx Asthma: Yes Hx COPD: Yes - Lung Cancer, Emphysema Hx Cancer: Yes - lung CA Hx Neurological Problems: Yes Hx Dizziness: Yes Hx Syncope: Yes Hx Headaches: Yes Hx Weakness: Yes Hx Fatigue: Yes Plan no labs today Per GI Hydrate correct electrolytes monitor renal parameters antibiotics per orders Subjective ROS Limited/Unobtainable: No Constitutional: Reports: malaise Objective Objective Last 24 Hour Vital Signs Date Time Temp Pulse Resp B/P (MAP) Pulse Ox O2 Delivery O2 Flow Rate FiO2 12/10/17 09:37 98 152/82 12/10/17 08:35 98 152/82 12/10/17 08:23 Room Air 12/10/17 08:22 Room Air 12/10/17 08:03 119 12/10/17 07:30 202/93 12/10/17 07:00 97.7 98 24 202/93 95 97.7 12/10/17 05:00 97.2 92 24 202/107 96 97.2 12/10/17 04:00 92 12/10/17 04:00 98.9 89 22 198/109 95 98.9 12/10/17 01:38 Room Air 12/10/17 01:37 Room Air 12/10/17 00:00 72 12/09/17 23:55 98.2 74 18 141/64 95 98.2 12/09/17 21:51 72 143/61 12/09/17 20:00 97.4 72 20 143/61 93 97.4 12/09/17 20:00 83 12/09/17 19:58 83 18 99 Room Air 21 12/09/17 19:48 89 18 95 Room Air 21 12/09/17 16:05 97.0 12/09/17 16:00 97.2 78 20 132/60 95 Room Air 97.2 12/09/17 16:00 72 12/09/17 15:35 97.0 12/09/17 15:13 72 18 99 Room Air 21 12/09/17 15:06 77 18 99 Room Air 21 12/09/17 12:00 64 12/09/17 12:00 97.2 75 19 137/66 95 Room Air 97.2 Intake and Output 12/09/17 12/10/17 19:00 07:00 Intake Total 600 ml Output Total 250 ml Balance 600 ml -250 ml Intake Oral 600 ml Emesis 250 ml # Voids 2 2 Height (Feet): 5 Height (Inches): 5.00 Weight (Pounds): 133 General Appearance: lethargic Respiratory/Chest: decreased breath sounds Abdomen: distended Objective no change GERALDINE MARTINO 17, 2018 11:46
[2017-12-10] MEDS: Levofloxacin 500mg tab ORAL SCH (12:39)
--- NOTE | 2017-12-10 13:12 | Diagnostic Imaging Report ---
Indication: Vomiting Technique: XRAY Abdomen 1v Comparison: Correlation made to CT abdomen and pelvis 17 Findings: There is copious stool in the lower colon. Bowel gas pattern is nonspecific but not overtly obstructive. Limited sensitivity for free intraperitoneal air given lack of erect view. Lung bases are grossly clear. No acute osseous abnormality seen. Impression: Nonspecific, not overtly obstructive bowel gas pattern.
--- NOTE | 2017-12-10 13:17 | General Progress Note ---
Assessment/Plan Problem List: (1) UTI (urinary tract infection) ICD Codes: N39.0 - Urinary tract infection, site not specified SNOMED: 18157507 (2) COPD (chronic obstructive pulmonary disease) with acute bronchitis ICD Codes: J44.1 - COPD (chronic obstructive pulmonary disease) with acute bronchitis SNOMED: 11578392 (3) CAD (coronary artery disease) ICD Codes: I25.10 - CAD (coronary artery disease) SNOMED: 480234197 (4) HTN (hypertension) ICD Codes: I10 - HTN (hypertension) SNOMED: 62232118 Assessment/Plan sob and cough copd persistent vomitting.ordered kub and consult w dr amaya elevated bp.treatment per dr lockhart htn Subjective Allergies: Coded Allergies: No Known Allergies (Unverified , 06/30/17) Subjective persistent vomit Objective Last 24 Hour Vital Signs Date Time Temp Pulse Resp B/P (MAP) Pulse Ox O2 Delivery O2 Flow Rate FiO2 12/10/17 12:47 97.8 12/10/17 12:45 97.8 90 18 180/82 95 Room Air 97.8 12/10/17 12:39 Room Air 12/10/17 12:39 Room Air 12/10/17 12:37 180/85 12/10/17 12:17 97.7 12/10/17 09:37 98 152/82 12/10/17 08:35 98 152/82 12/10/17 08:23 Room Air 12/10/17 08:22 Room Air 12/10/17 08:03 119 12/10/17 07:30 202/93 12/10/17 07:00 97.7 98 24 202/93 95 97.7 12/10/17 05:00 97.2 92 24 202/107 96 97.2 12/10/17 04:00 92 12/10/17 04:00 98.9 89 22 198/109 95 98.9 12/10/17 01:38 Room Air 12/10/17 01:37 Room Air 12/10/17 00:00 72 12/09/17 23:55 98.2 74 18 141/64 95 98.2 12/09/17 21:51 72 143/61 12/09/17 20:00 97.4 72 20 143/61 93 97.4 12/09/17 20:00 83 12/09/17 19:58 83 18 99 Room Air 21 12/09/17 19:48 89 18 95 Room Air 21 12/09/17 16:00 97.2 78 20 132/60 95 Room Air 97.2 12/09/17 16:00 72 12/09/17 15:35 97.0 12/09/17 15:13 72 18 99 Room Air 21 12/09/17 15:06 77 18 99 Room Air 21 Intake and Output 12/09/17 12/10/17 19:00 07:00 Intake Total 600 ml Output Total 250 ml Balance 600 ml -250 ml Intake Oral 600 ml Emesis 250 ml # Voids 2 2 Height (Feet): 5 Height (Inches): 5.00 Weight (Pounds): 133 Sukhi Pandey MD Dec 10, 2017 13:17
--- NOTE | 2017-12-10 17:01 | Pulmonology Progress Note ---
Assessment/Plan Problems: (1) Lung mass (2) COPD (chronic obstructive pulmonary disease) with acute bronchitis (3) Tobacco abuse Assessment/Plan ASSESSMENT: The patient is a 67-year-old female smoker with known enlarging right middle lobe mass, who has previously declined biopsy, chronic obstructive pulmonary disease, coronary artery disease, congestive heart failure, prior cerebrovascular accident, and continued tobacco use presenting with chest pain in the setting of a likely acute exacerbation of her chronic obstructive pulmonary disease. I suspect an antecedent upper respiratory infection or bronchitis. The patient has been ruled out for acute coronary syndrome, but her stress test is suggestive of ischemia. PROBLEM LIST: 1. Chronic obstructive pulmonary disease with acute exacerbation. 2. Likely antecedent upper respiratory infection or tracheobronchitis. 3. Enlarging spiculated RML mass 4. Chest pain status post rule out acute coronary syndrome. 5. Coronary artery disease status post percutaneous coronary intervention x6. 6. Stress test suggestive of ischemia. 7. Congestive heart failure with diastolic dysfunction. 8. Hypertension. 9. Prior cerebrovascular accident. 10. Acute kidney injury on chronic kidney disease. 11. Leukocytosis, improved. 12. Urinary tract infection with pyuria. 13. Questionable history of Crohn's disease. 14. Continued daily tobacco use. TREATMENT PLAN: 1. Optimize pulmonary hygiene/mobilize as tolerated. 2. P.r.n. O2 to keep saturations greater than 90%. 3. Round the clock and p.r.n. DuoNebs. 4. Continue Prednisone 60 mg p.o. daily (D3/5). 5. STRONGLY RECOMMEND CTGBx RML MASS & malignancy w/u - PATIENT DECLINES 6. F/U psych recs 7. Levaquin per ID 8. Follow up Cardiology recommendations. 9. Aspiration precautions. 10. F/U GI recs, F/U KUB, anti-emetic therapy 11. Monitor volumes renal function. 12. DVT prophylaxis with heparin subcutaneous. 13. Strongly encouraged cessation from tobacco. 14. Nicotine patch 15. The patient is Full Code. Subjective Allergies: Coded Allergies: No Known Allergies (Unverified , 06/30/17) Subjective AFVSS, stable on RA, less cough, less SOB, less wheezing, N c V x 1 this am, c/ o abd pain , KUB ordered by GI Objective Last 24 Hour Vital Signs Date Time Temp Pulse Resp B/P (MAP) Pulse Ox O2 Delivery O2 Flow Rate FiO2 12/10/17 12:47 97.8 12/10/17 12:45 97.8 90 18 180/82 95 Room Air 97.8 12/10/17 12:39 Room Air 12/10/17 12:39 Room Air 12/10/17 12:37 180/85 12/10/17 12:17 97.7 12/10/17 11:56 82 12/10/17 09:37 98 152/82 12/10/17 08:35 98 152/82 12/10/17 08:23 Room Air 12/10/17 08:22 Room Air 12/10/17 08:03 119 12/10/17 07:30 202/93 12/10/17 07:00 97.7 98 24 202/93 95 97.7 12/10/17 05:00 97.2 92 24 202/107 96 97.2 12/10/17 04:00 92 12/10/17 04:00 98.9 89 22 198/109 95 98.9 12/10/17 01:38 Room Air 12/10/17 01:37 Room Air 12/10/17 00:00 72 12/09/17 23:55 98.2 74 18 141/64 95 98.2 12/09/17 21:51 72 143/61 12/09/17 20:00 97.4 72 20 143/61 93 97.4 12/09/17 20:00 83 12/09/17 19:58 83 18 99 Room Air 21 12/09/17 19:48 89 18 95 Room Air 21 Intake and Output 12/09/17 12/10/17 19:00 07:00 Intake Total 600 ml 50 ml Output Total 250 ml Balance 600 ml -200 ml Intake Oral 600 ml IV Total 50 ml Emesis 250 ml # Voids 2 2 General Appearance: WD/WN, no acute distress HEENT: normocephalic, atraumatic, anicteric, mucous membranes moist Respiratory/Chest: lungs clear, normal breath sounds, no respiratory distress, no accessory muscle use Cardiovascular: normal peripheral pulses, normal rate, regular rhythm Abdomen: normal bowel sounds, soft, non tender, no organomegaly, non distended , no mass Extremities: no cyanosis, no clubbing, no edema Microbiology Date/Time Source Procedure Growth Status 12/09/17 06:20 Sputum Expectorated Gram Stain - Final Resulted 12/09/17 06:20 Sputum Expectorated Sputum Culture - Preliminary NORMAL UPPER RESPIRATORY BRANDI AT 24 ... Resulted Current Medications Medications (Trade) Dose Ordered Sig/Janee Route PRN Reason Start Time Stop Time Status Last Admin Dose Admin Acetaminophen (Tylenol) 500 mg Q4H PRN ORAL Mild Pain/Temp > 100.5 12/06/17 23:30 01/05/18 23:29 Acetaminophen/ Hydrocodone Bitart ([place] 10/325) 1 tab Q4H PRN ORAL Moderate Pain (Pain Scale 4-6) 12/07/17 09:00 12/14/17 08:59 12/09/17 22:02 Albuterol/ Ipratropium (Albuterol/ Ipratropium) 3 ml Q4H PRN HHN Shortness of Breath 12/08/17 14:45 12/13/17 14:44 12/08/17 16:47 Albuterol/ Ipratropium (Albuterol/ Ipratropium) 3 ml Q6HRT HHN 12/08/17 19:00 12/13/17 18:59 12/09/17 19:49 Aspirin (Ecotrin) 81 mg DAILY ORAL 12/07/17 09:00 01/06/18 08:59 12/09/17 09:21 Clonidine HCl (Catapres TTS-3) 1 patch QWEEK TDERMAL 12/10/17 12:00 01/09/18 11:59 12/10/17 12:37 Clonidine HCl (Catapres Tab) 0.1 mg Q4H PRN ORAL Systolic BP>175 12/10/17 07:15 01/09/18 07:14 12/10/17 07:30 Dextrose/ Electrolytes 1,000 ml @ 50 mls/hr Q20H IV 12/07/17 10:30 01/06/18 10:29 12/10/17 00:05 Docusate Sodium (Colace) 100 mg THREE TIMES A DAY ORAL 12/07/17 13:00 01/06/18 12:59 12/09/17 12:50 Folic Acid (Folate) 1 mg DAILY ORAL 12/11/17 09:00 01/10/18 08:59 Gabapentin (Neurontin) 100 mg THREE TIMES A DAY ORAL 12/07/17 09:00 01/06/18 08:59 12/09/17 17:35 Guaifenesin (Mucinex ER) 600 mg TWICE A DAY ORAL 12/08/17 18:00 01/07/18 17:59 12/09/17 17:35 Guaifenesin/ Dextromethorphan (Robitussin DM) 5 ml Q4H PRN ORAL For Cough 12/08/17 14:45 01/07/18 14:44 Heparin Sodium (Porcine) (Heparin 5000 units/ml) 5,000 units EVERY 12 HOURS SUBQ 12/08/17 21:00 01/07/18 20:59 12/09/17 21:54 Lansoprazole (Prevacid) 30 mg DAILY ORAL 12/07/17 09:30 01/06/18 09:29 12/09/17 09:22 Levofloxacin (Levaquin) 750 mg DAILY@1300 ORAL 12/09/17 13:00 12/16/17 23:59 12/09/17 12:50 Metoprolol Tartrate (Lopressor) 25 mg Q12HR ORAL 12/07/17 09:00 01/06/18 08:59 12/10/17 09:37 Morphine Sulfate (Morphine Sulfate) 2 mg Q6H PRN IVP Severe Pain (Pain Scale 7-10) 12/07/17 09:00 12/14/17 08:59 12/10/17 12:17 Nicotine (Nicoderm) 1 patch Q24H TDERMAL 12/08/17 17:00 01/07/18 16:59 Ondansetron HCl (Zofran) 4 mg Q6H PRN IVP Nausea & Vomiting 12/10/17 08:15 01/09/18 08:14 12/10/17 08:29 Polyethylene Glycol (Miralax) 17 gm BEDTIME ORAL 12/10/17 21:00 01/09/18 20:59 Prednisone (predniSONE) 60 mg DAILY ORAL 12/09/17 09:00 01/08/18 08:59 12/09/17 09:22 Zolpidem Tartrate (Ambien) 5 mg BEDTIME PRN ORAL Insomnia 12/07/17 00:45 12/14/17 00:44 12/09/17 23:11 JUDIT FIGUEREDO M.D. Dec 10, 2017 17:01
--- NOTE | 2017-12-10 17:30 | Consultation ---
DATE OF CONSULTATION: 12/10/2017 CONSULTING PHYSICIAN: Loc Cabrera M.D. REFERRING PHYSICIAN: Sukhi Pandey M.D. CHIEF COMPLAINT: Nausea, vomiting, and abdominal pain. HISTORY OF PRESENT ILLNESS: This is a 67 years old female with past medical history of lung cancer, COPD, and chronic pain syndrome, under the care of Dr. Dugan for pain management, was admitted to the hospital for complaint of chest pain. Since yesterday, she started having vomiting. So, GI consultation was requested for further evaluation of vomiting. PAST MEDICAL HISTORY: 1. Coronary artery disease. 2. COPD. 3. Lung cancer. 4. Hypertension. 5. Peripheral neuropathy. 6. CHF. 7. History of syncope. 8. Questionable Crohn disease. 9. History of coronary artery disease and angioplasty with placement of the stent. PAST SURGICAL HISTORY: History of ileostomy. MEDICATIONS: Please see medication reconciliation list. ALLERGIES: No known drug allergies. SOCIAL HISTORY: The patient has a history of smoking. No history of IV drug abuse. FAMILY HISTORY: Noncontributory. REVIEW OF SYSTEMS: A 10-point review of systems was performed and pertinent positives in HPI. PHYSICAL EXAMINATION: VITAL SIGNS: Temperature is 97.7 degrees, pulse is 98, respirations 20, and blood pressure is 150/82. HEENT: Normocephalic. Sclerae anicteric. NECK: Supple. No lymphadenopathy. CARDIOVASCULAR: Regular rhythm. Plus S1 and S2. No obvious murmur. LUNGS: Decreased breath sounds bilaterally diffusely, more on the right compared to left. ABDOMEN: Soft and nontender. No rebound. No guarding. No peritoneal signs. EXTREMITIES: No cyanosis. No clubbing. No edema. LABORATORY DATA: White cell count is 12.5, hemoglobin 12.9, hematocrit 37, and platelet count is 236,000. Sodium 143, potassium 3.8, BUN is 24, and creatinine is 1.0. Liver functions grossly normal. ASSESSMENT: This is a 67-year-old female with nausea and vomiting. At this time, the etiology is unknown. On exam, there is no evidence of any bowel obstruction. There is no abnormal liver function test. Some nurses mentioned that the patient might be inducing vomiting on purpose. PLAN: Plan will be to get a KUB, amylase, lipase, and repeat liver function tests for tomorrow. Treat vomiting with Zofran as needed. Based on laboratory, the patient has folic acid deficiency. We will add that. We will send C-reactive protein and ESR and we will follow closely. I want to thank Dr. Sukhi Pandey for this kind referral. Loc Cabrera M.D. DR: Gavino JOB#: [id number] CC: Sukhi Pandey M.D.; Fax#: [phone]
[2017-12-10] MEDS: Miralax 17gm pkt ORAL SCH (21:33)
[2017-12-11] MEDS: Morphine Sulfate 2mg/ml Inj IVP PRN ×2 (00:13→06:57)
[2017-12-11] MEDS: Zolpidem 5mg tab ORAL PRN ×2 (01:19→21:44)
[2017-12-11] MEDS: Albuterol/Ipratropium 3ml neb HHN SCH ×4 (01:42→18:56)
[2017-12-11 04:00] VITALS: BP 135/55
[2017-12-11 08:04] VITALS: BP 125/65
[2017-12-11] MEDS: Aspirin EC 81mg tab ORAL SCH (08:06)
[2017-12-11] MEDS: Metoprolol 25mg tab ORAL SCH ×2 (08:07→21:45)
[2017-12-11] MEDS: guaiFENesin ER 600mg tab ORAL SCH ×2 (08:08→17:33)
[2017-12-11] MEDS: Heparin 5000 units/ml inj SUBQ SCH ×2 (08:08→21:00)
[2017-12-11] MEDS: Docusate 100mg cap ORAL SCH ×3 (08:08→17:33)
--- NOTE | 2017-12-11 08:29 | General Progress Note ---
Assessment/Plan Problem List: (1) Constipation ICD Codes: K59.00 - Constipation, unspecified SNOMED: 95689434 (2) HTN (hypertension) ICD Codes: I10 - HTN (hypertension) SNOMED: 83642194 (3) CAD (coronary artery disease) ICD Codes: I25.10 - CAD (coronary artery disease) SNOMED: 312502439 (4) Tobacco abuse ICD Codes: F17.200 - Tobacco abuse SNOMED: 75171541 (5) Drug abuse and dependence ICD Codes: F19.20 - Drug abuse and dependence SNOMED: 0182480 Assessment/Plan stable labs neg KUB add lactulose fu Subjective ROS Limited/Unobtainable: Yes Allergies: Coded Allergies: No Known Allergies (Unverified , 06/30/17) Subjective c/o constipation Objective Last 24 Hour Vital Signs Date Time Temp Pulse Resp B/P (MAP) Pulse Ox O2 Delivery O2 Flow Rate FiO2 12/11/17 08:07 65 125/65 12/11/17 08:04 97.2 65 18 125/65 95 Nasal Cannula 2.0 97.2 12/11/17 07:27 97.9 12/11/17 07:22 67 18 97 Room Air 21 12/11/17 07:15 21 12/11/17 07:14 68 18 98 Room Air 21 12/11/17 04:00 97.9 62 16 135/55 98 97.9 12/11/17 04:00 67 12/11/17 02:02 66 18 97 Room Air 21 12/11/17 01:41 66 18 97 Room Air 21 12/11/17 01:41 21 12/11/17 00:00 64 12/10/17 23:59 98.2 64 18 136/62 97 98.2 12/10/17 21:33 65 135/68 12/10/17 20:00 71 12/10/17 20:00 97.5 91 18 135/65 100 97.5 12/10/17 19:26 80 18 97 Room Air 21 12/10/17 19:13 21 12/10/17 19:12 80 18 97 Room Air 21 12/10/17 18:32 98.0 12/10/17 17:16 98.0 80 18 141/74 95 Room Air 98.0 12/10/17 15:51 78 12/10/17 12:45 97.8 90 18 180/82 95 Room Air 97.8 12/10/17 12:39 Room Air 12/10/17 12:39 Room Air 12/10/17 12:37 180/85 12/10/17 12:17 97.7 12/10/17 11:56 82 12/10/17 09:37 98 152/82 12/10/17 08:35 98 152/82 Intake and Output 12/10/17 12/11/17 19:00 07:00 Intake Total 550 ml 720 ml Balance 550 ml 720 ml Intake Oral 120 ml IV Total 550 ml 600 ml # Voids 3 Height (Feet): 5 Height (Inches): 5.00 Weight (Pounds): 129 General Appearance: alert EENT: normal ENT inspection Neck: supple Cardiovascular: normal rate Respiratory/Chest: lungs clear Abdomen: normal bowel sounds, non tender, soft Extremities: non-tender JULIANNE ABRAHAM Dec 11, 2017 08:29
[2017-12-11] MEDS: Lactulose 10gm/15ml UDC ORAL SCH ×3 (09:19→17:33)
--- NOTE | 2017-12-11 10:44 | Infectious Diseases Prog Note ---
Assessment/Plan Assessment/Plan A: 1. Pyuria, may have urinary tract infection. 2. Leukocytosis that is improving. 3. Acute renal failure, improving. 4. Chest pain. 5. Chronic obstructive pulmonary disease and emphysema. 6. Suspected pulmonary nodule in the right lung. P: change Levaquin patient doesn't want quit smoking at present time Subjective ROS Limited/Unobtainable: No Constitutional: Reports: anorexia Respiratory: Reports: productive cough Gastrointestinal/Abdominal: Reports: nausea, other - abdominal pain mild Musculoskeletal: Reports: pain Allergies: Coded Allergies: No Known Allergies (Unverified , 06/30/17) Objective Vital Signs Last 24 Hour Vital Signs Date Time Temp Pulse Resp B/P (MAP) Pulse Ox O2 Delivery O2 Flow Rate FiO2 12/11/17 08:07 65 125/65 12/11/17 08:04 97.2 65 18 125/65 95 Nasal Cannula 2.0 97.2 12/11/17 08:00 65 12/11/17 07:27 97.9 12/11/17 07:22 67 18 97 Room Air 21 12/11/17 07:15 21 12/11/17 07:14 68 18 98 Room Air 21 12/11/17 04:00 97.9 62 16 135/55 98 97.9 12/11/17 04:00 67 12/11/17 02:02 66 18 97 Room Air 21 12/11/17 01:41 66 18 97 Room Air 21 12/11/17 01:41 21 12/11/17 00:00 64 12/10/17 23:59 98.2 64 18 136/62 97 98.2 12/10/17 21:33 65 135/68 12/10/17 20:00 71 12/10/17 20:00 97.5 91 18 135/65 100 97.5 12/10/17 19:26 80 18 97 Room Air 21 12/10/17 19:13 21 12/10/17 19:12 80 18 97 Room Air 21 12/10/17 18:32 98.0 12/10/17 17:16 98.0 80 18 141/74 95 Room Air 98.0 12/10/17 15:51 78 12/10/17 12:45 97.8 90 18 180/82 95 Room Air 97.8 12/10/17 12:39 Room Air 12/10/17 12:39 Room Air 12/10/17 12:37 180/85 12/10/17 12:17 97.7 12/10/17 11:56 82 Height (Feet): 5 Height (Inches): 5.00 Weight (Pounds): 129 General Appearance: no acute distress HEENT: mucous membranes moist Respiratory/Chest: lungs clear Cardiovascular: normal rate Abdomen: soft, non tender Extremities: no edema Neurologic/Psychiatric: alert, responsive Microbiology Date/Time Source Procedure Growth Status 12/09/17 06:20 Sputum Expectorated Gram Stain - Final Complete 12/09/17 06:20 Sputum Expectorated Sputum Culture - Final NORMAL UPPER RESPIRATORY BRANDI PRESENT Complete Current Medications Medications (Trade) Dose Ordered Sig/Janee Route PRN Reason Start Time Stop Time Status Last Admin Dose Admin Acetaminophen (Tylenol) 500 mg Q4H PRN ORAL Mild Pain/Temp > 100.5 12/06/17 23:30 01/05/18 23:29 Acetaminophen/ Hydrocodone Bitart ([place] 10/325) 1 tab Q4H PRN ORAL Moderate Pain (Pain Scale 4-6) 12/07/17 09:00 12/14/17 08:59 12/09/17 22:02 Albuterol/ Ipratropium (Albuterol/ Ipratropium) 3 ml Q4H PRN HHN Shortness of Breath 12/08/17 14:45 12/13/17 14:44 12/08/17 16:47 Albuterol/ Ipratropium (Albuterol/ Ipratropium) 3 ml Q6HRT HHN 12/08/17 19:00 12/13/17 18:59 12/11/17 07:14 Aspirin (Ecotrin) 81 mg DAILY ORAL 12/07/17 09:00 01/06/18 08:59 12/11/17 08:06 Clonidine HCl (Catapres TTS-3) 1 patch QWEEK TDERMAL 12/10/17 12:00 01/09/18 11:59 12/10/17 12:37 Clonidine HCl (Catapres Tab) 0.1 mg Q4H PRN ORAL Systolic BP>175 12/10/17 07:15 01/09/18 07:14 12/10/17 07:30 Dextrose/ Electrolytes 1,000 ml @ 50 mls/hr Q20H IV 12/07/17 10:30 01/06/18 10:29 12/10/17 18:31 Docusate Sodium (Colace) 100 mg THREE TIMES A DAY ORAL 12/07/17 13:00 01/06/18 12:59 12/09/17 12:50 Folic Acid (Folate) 1 mg DAILY ORAL 12/11/17 09:00 01/10/18 08:59 Gabapentin (Neurontin) 100 mg THREE TIMES A DAY ORAL 12/07/17 09:00 01/06/18 08:59 12/11/17 08:07 Guaifenesin (Mucinex ER) 600 mg TWICE A DAY ORAL 12/08/17 18:00 01/07/18 17:59 12/11/17 08:08 Guaifenesin/ Dextromethorphan (Robitussin DM) 5 ml Q4H PRN ORAL For Cough 12/08/17 14:45 01/07/18 14:44 Heparin Sodium (Porcine) (Heparin 5000 units/ml) 5,000 units EVERY 12 HOURS SUBQ 12/08/17 21:00 01/07/18 20:59 12/09/17 21:54 Lactulose (Cephulac) 10 gm THREE TIMES A DAY ORAL 12/11/17 09:00 01/10/18 08:59 12/11/17 09:19 Lansoprazole (Prevacid) 30 mg DAILY ORAL 12/07/17 09:30 01/06/18 09:29 12/11/17 08:06 Levofloxacin (Levaquin) 750 mg DAILY@1300 ORAL 12/09/17 13:00 12/16/17 23:59 12/09/17 12:50 Metoprolol Tartrate (Lopressor) 25 mg Q12HR ORAL 12/07/17 09:00 01/06/18 08:59 12/11/17 08:07 Morphine Sulfate (Morphine Sulfate) 2 mg Q6H PRN IVP Severe Pain (Pain Scale 7-10) 12/07/17 09:00 12/14/17 08:59 12/11/17 06:57 Nicotine (Nicoderm) 1 patch Q24H TDERMAL 12/08/17 17:00 01/07/18 16:59 Ondansetron HCl (Zofran) 4 mg Q6H PRN IVP Nausea & Vomiting 12/10/17 08:15 01/09/18 08:14 12/11/17 08:09 Polyethylene Glycol (Miralax) 17 gm BEDTIME ORAL 12/10/17 21:00 01/09/18 20:59 12/10/17 21:33 Prednisone (predniSONE) 60 mg DAILY ORAL 12/09/17 09:00 01/08/18 08:59 12/11/17 08:08 Zolpidem Tartrate (Ambien) 5 mg BEDTIME PRN ORAL Insomnia 12/07/17 00:45 12/14/17 00:44 12/11/17 01:19 CHERI SCOTT Dec 11, 2017 10:44
--- NOTE | 2017-12-11 11:09 | Pulmonology Progress Note ---
Assessment/Plan Problems: (1) Lung mass (2) COPD (chronic obstructive pulmonary disease) with acute bronchitis (3) Tobacco abuse Assessment/Plan ASSESSMENT: The patient is a 67-year-old female smoker with known enlarging right middle lobe mass, who has previously declined biopsy, chronic obstructive pulmonary disease, coronary artery disease, congestive heart failure, prior cerebrovascular accident, and continued tobacco use presenting with chest pain in the setting of a likely acute exacerbation of her chronic obstructive pulmonary disease. I suspect an antecedent upper respiratory infection or bronchitis. The patient has been ruled out for acute coronary syndrome, but her stress test is suggestive of ischemia. PROBLEM LIST: 1. Chronic obstructive pulmonary disease with acute exacerbation. 2. Likely antecedent upper respiratory infection or tracheobronchitis. 3. Enlarging spiculated RML mass 4. Chest pain status post rule out acute coronary syndrome. 5. Coronary artery disease status post percutaneous coronary intervention x6. 6. Stress test suggestive of ischemia. 7. Congestive heart failure with diastolic dysfunction. 8. Hypertension. 9. Prior cerebrovascular accident. 10. Acute kidney injury on chronic kidney disease. 11. Leukocytosis, improved. 12. Urinary tract infection with pyuria. 13. Questionable history of Crohn's disease. 14. Continued daily tobacco use. TREATMENT PLAN: 1. Optimize pulmonary hygiene/mobilize as tolerated. 2. P.r.n. O2 to keep saturations greater than 90%. 3. Round the clock and p.r.n. DuoNebs. 4. Continue Prednisone 60 mg p.o. daily (D4/5). 5. STRONGLY RECOMMEND CTGBx RML MASS & malignancy w/u - PATIENT DECLINES 6. F/U psych recs - I WILL ASK PSYCH TO COMMENT ON CAPACITY PATIENT IS DECLINING WORK UP OF A POTENTIALY TREATABLE MALIGNANCY THAT WILL LIKELY PROGRESS WITHOUT TREATMENT TO AN ADVANCED STAGE 7. Levaquin per ID 8. Follow up Cardiology recommendations. 9. Aspiration precautions. 10. F/U GI recs 11. Monitor volumes renal function. 12. DVT prophylaxis with heparin subcutaneous. 13. Strongly encouraged cessation from tobacco. 14. Nicotine patch 15. The patient is Full Code. Subjective Allergies: Coded Allergies: No Known Allergies (Unverified , 06/30/17) Subjective AFVSS, stable on RA, denies cough, less SOB, no wheezing, no further NV, c/o pain all over Continues to decline lung bx or w/u of lung mass, tumor markers ordered by onc Objective Last 24 Hour Vital Signs Date Time Temp Pulse Resp B/P (MAP) Pulse Ox O2 Delivery O2 Flow Rate FiO2 12/11/17 08:07 65 125/65 12/11/17 08:04 97.2 65 18 125/65 95 Nasal Cannula 2.0 97.2 12/11/17 08:00 65 12/11/17 07:27 97.9 12/11/17 07:22 67 18 97 Room Air 21 12/11/17 07:15 21 12/11/17 07:14 68 18 98 Room Air 21 12/11/17 04:00 97.9 62 16 135/55 98 97.9 12/11/17 04:00 67 12/11/17 02:02 66 18 97 Room Air 21 12/11/17 01:41 66 18 97 Room Air 21 12/11/17 01:41 21 12/11/17 00:00 64 12/10/17 23:59 98.2 64 18 136/62 97 98.2 12/10/17 21:33 65 135/68 12/10/17 20:00 71 12/10/17 20:00 97.5 91 18 135/65 100 97.5 12/10/17 19:26 80 18 97 Room Air 21 12/10/17 19:13 21 12/10/17 19:12 80 18 97 Room Air 21 12/10/17 18:32 98.0 12/10/17 17:16 98.0 80 18 141/74 95 Room Air 98.0 12/10/17 15:51 78 12/10/17 12:45 97.8 90 18 180/82 95 Room Air 97.8 12/10/17 12:39 Room Air 12/10/17 12:39 Room Air 12/10/17 12:37 180/85 12/10/17 12:17 97.7 12/10/17 11:56 82 Intake and Output 12/10/17 12/11/17 19:00 07:00 Intake Total 550 ml 720 ml Balance 550 ml 720 ml Intake Oral 120 ml IV Total 550 ml 600 ml # Voids 3 General Appearance: WD/WN, no acute distress HEENT: normocephalic, atraumatic, anicteric, mucous membranes moist Respiratory/Chest: chest wall non-tender, lungs clear, normal breath sounds, no respiratory distress, no accessory muscle use Cardiovascular: normal peripheral pulses, normal rate, regular rhythm Abdomen: normal bowel sounds, soft, non tender, no organomegaly, non distended , no mass Extremities: no cyanosis, no clubbing, no edema, pedal pulses normal Microbiology Date/Time Source Procedure Growth Status 12/09/17 06:20 Sputum Expectorated Gram Stain - Final Complete 12/09/17 06:20 Sputum Expectorated Sputum Culture - Final NORMAL UPPER RESPIRATORY BRANDI PRESENT Complete Current Medications Medications (Trade) Dose Ordered Sig/Janee Route PRN Reason Start Time Stop Time Status Last Admin Dose Admin Acetaminophen (Tylenol) 500 mg Q4H PRN ORAL Mild Pain/Temp > 100.5 12/06/17 23:30 01/05/18 23:29 Acetaminophen/ Hydrocodone Bitart ([place] 10/325) 1 tab Q4H PRN ORAL Moderate Pain (Pain Scale 4-6) 12/07/17 09:00 12/14/17 08:59 12/09/17 22:02 Albuterol/ Ipratropium (Albuterol/ Ipratropium) 3 ml Q4H PRN HHN Shortness of Breath 12/08/17 14:45 12/13/17 14:44 12/08/17 16:47 Albuterol/ Ipratropium (Albuterol/ Ipratropium) 3 ml Q6HRT HHN 12/08/17 19:00 12/13/17 18:59 12/11/17 07:14 Aspirin (Ecotrin) 81 mg DAILY ORAL 12/07/17 09:00 01/06/18 08:59 12/11/17 08:06 Clonidine HCl (Catapres TTS-3) 1 patch QWEEK TDERMAL 12/10/17 12:00 01/09/18 11:59 12/10/17 12:37 Clonidine HCl (Catapres Tab) 0.1 mg Q4H PRN ORAL Systolic BP>175 12/10/17 07:15 01/09/18 07:14 12/10/17 07:30 Dextrose/ Electrolytes 1,000 ml @ 50 mls/hr Q20H IV 12/07/17 10:30 01/06/18 10:29 12/10/17 18:31 Docusate Sodium (Colace) 100 mg THREE TIMES A DAY ORAL 12/07/17 13:00 01/06/18 12:59 12/09/17 12:50 Folic Acid (Folate) 1 mg DAILY ORAL 12/11/17 09:00 01/10/18 08:59 Gabapentin (Neurontin) 100 mg THREE TIMES A DAY ORAL 12/07/17 09:00 01/06/18 08:59 12/11/17 08:07 Guaifenesin (Mucinex ER) 600 mg TWICE A DAY ORAL 12/08/17 18:00 01/07/18 17:59 12/11/17 08:08 Guaifenesin/ Dextromethorphan (Robitussin DM) 5 ml Q4H PRN ORAL For Cough 12/08/17 14:45 01/07/18 14:44 Heparin Sodium (Porcine) (Heparin 5000 units/ml) 5,000 units EVERY 12 HOURS SUBQ 12/08/17 21:00 01/07/18 20:59 12/09/17 21:54 Lactulose (Cephulac) 10 gm THREE TIMES A DAY ORAL 12/11/17 09:00 01/10/18 08:59 12/11/17 09:19 Lansoprazole (Prevacid) 30 mg DAILY ORAL 12/07/17 09:30 01/06/18 09:29 12/11/17 08:06 Levofloxacin (Levaquin) 750 mg DAILY@1300 ORAL 12/09/17 13:00 12/16/17 23:59 12/09/17 12:50 Metoprolol Tartrate (Lopressor) 25 mg Q12HR ORAL 12/07/17 09:00 01/06/18 08:59 12/11/17 08:07 Morphine Sulfate (Morphine Sulfate) 2 mg Q6H PRN IVP Severe Pain (Pain Scale 7-10) 12/07/17 09:00 12/14/17 08:59 12/11/17 06:57 Nicotine (Nicoderm) 1 patch Q24H TDERMAL 12/08/17 17:00 01/07/18 16:59 Ondansetron HCl (Zofran) 4 mg Q6H PRN IVP Nausea & Vomiting 12/10/17 08:15 01/09/18 08:14 12/11/17 08:09 Polyethylene Glycol (Miralax) 17 gm BEDTIME ORAL 12/10/17 21:00 01/09/18 20:59 12/10/17 21:33 Prednisone (predniSONE) 60 mg DAILY ORAL 12/09/17 09:00 01/08/18 08:59 12/11/17 08:08 Zolpidem Tartrate (Ambien) 5 mg BEDTIME PRN ORAL Insomnia 12/07/17 00:45 12/14/17 00:44 12/11/17 01:19 JUDIT FIGUEREDO M.D. Dec 11, 2017 11:09
--- NOTE | 2017-12-11 11:42 | General Progress Note ---
Assessment/Plan Assessment/Plan (1) Lumbar DDD (2) Lumbar Spondylosis (3) Lumbar Radiculopathy (4) Peripheral Neuropathy (5) Enlarging spiculated 1.7 cm right lower lobe nodule - followed by pulmonary Patient to be continued on Combes and discontinue Morphine We will start Dilaudid 2mg PO 1 tab Q6H PRN severe pain. We will order an MRI of the Lumbar spine to r/o further pathology. D/w Dr. Dugan and he concurred. Subjective Date patient seen: Dec 11, 2017 Time patient seen: 11:30 - am Allergies: Coded Allergies: No Known Allergies (Unverified , 06/30/17) Subjective REVIEW OF SYSTEMS: Denies rash, fever, chills, sweating, dizziness, drowsiness, blurred vision, sore throat, or change in hearing or weight. No nausea, vomiting, diarrhea, or blood in the stool or urine. No bowel or bladder incontinence. No dysuria. She is complaining of low back pain and bilateral lower extremity pain. SUBJECTIVE: Patient is bed and reports that her pain has been severe and the Morphine has not been effective in reducing her pain. I d/w her about Dilaudid tabs and continuing the Combes. She understands. Objective Last 24 Hour Vital Signs Date Time Temp Pulse Resp B/P (MAP) Pulse Ox O2 Delivery O2 Flow Rate FiO2 12/11/17 11:32 28 12/11/17 11:32 72 18 97 Nasal Cannula 2.0 28 12/11/17 08:07 65 125/65 12/11/17 08:04 97.2 65 18 125/65 95 Nasal Cannula 2.0 97.2 12/11/17 08:00 65 12/11/17 07:27 97.9 12/11/17 07:22 67 18 97 Room Air 21 12/11/17 07:15 21 12/11/17 07:14 68 18 98 Room Air 21 12/11/17 04:00 97.9 62 16 135/55 98 97.9 12/11/17 04:00 67 12/11/17 02:02 66 18 97 Room Air 21 12/11/17 01:41 66 18 97 Room Air 21 12/11/17 01:41 21 12/11/17 00:00 64 12/10/17 23:59 98.2 64 18 136/62 97 98.2 12/10/17 21:33 65 135/68 12/10/17 20:00 71 12/10/17 20:00 97.5 91 18 135/65 100 97.5 12/10/17 19:26 80 18 97 Room Air 21 12/10/17 19:13 21 12/10/17 19:12 80 18 97 Room Air 21 12/10/17 18:32 98.0 12/10/17 17:16 98.0 80 18 141/74 95 Room Air 98.0 12/10/17 15:51 78 12/10/17 12:45 97.8 90 18 180/82 95 Room Air 97.8 12/10/17 12:39 Room Air 12/10/17 12:39 Room Air 12/10/17 12:37 180/85 12/10/17 12:17 97.7 12/10/17 11:56 82 Intake and Output 12/10/17 12/11/17 19:00 07:00 Intake Total 550 ml 720 ml Balance 550 ml 720 ml Intake Oral 120 ml IV Total 550 ml 600 ml # Voids 3 Height (Feet): 5 Height (Inches): 5.00 Weight (Pounds): 129 Objective GENERAL: Alert, awake, and oriented x3. HEENT: PERRLA. NECK: Range of motion is full in all directions. LUNGS: Decreased breath sounds bilaterally. HEART: Regular. ABDOMEN: Tenderness to palpation. BACK: Range of motion is decreased in flexion and extension EXTREMITIES: No cyanosis. No clubbing. NEURO: No changes. CHAUNCEY MARRERO Dec 11, 2017 11:41
[2017-12-11] MEDS: HYDROmorphone 2mg tab ORAL PRN ×2 (12:27→18:48)
[2017-12-11] MEDS: Levofloxacin 500mg tab ORAL SCH (12:27)
[2017-12-11 12:47] VITALS: BP 135/60
--- NOTE | 2017-12-11 15:24 | Nephrology Progress Note ---
Assessment/Plan Problem List: (1) Dehydration (2) UTI (urinary tract infection) Assessment refuses blood work- refuses IV vomiting today Renal failure- Mainly dehydration UTI / Leukocytosis other mentioned conditions Past Medical History: CAD, COPD Past Surgical History: other - ileostomy, crohns Hx Cardiac Problems: Yes - CHF/peripheral neuropathy Hx Hypertension: Yes Hx Asthma: Yes Hx COPD: Yes - Lung Cancer, Emphysema Hx Cancer: Yes - lung CA Hx Neurological Problems: Yes Hx Dizziness: Yes Hx Syncope: Yes Hx Headaches: Yes Hx Weakness: Yes Hx Fatigue: Yes Plan no labs today , refuses Per GI Hydrate as possible correct electrolytes monitor renal parameters antibiotics per orders Subjective ROS Limited/Unobtainable: No Constitutional: Reports: malaise Objective Objective Last 24 Hour Vital Signs Date Time Temp Pulse Resp B/P (MAP) Pulse Ox O2 Delivery O2 Flow Rate FiO2 12/11/17 13:26 97.2 12/11/17 12:47 97.2 70 18 135/60 97 Room Air 97.2 12/11/17 12:02 62 12/11/17 11:39 72 18 99 Nasal Cannula 2.0 28 12/11/17 11:32 28 12/11/17 11:32 72 18 97 Nasal Cannula 2.0 28 12/11/17 08:07 65 125/65 12/11/17 08:04 97.2 65 18 125/65 95 Nasal Cannula 2.0 97.2 12/11/17 08:00 65 12/11/17 07:27 97.9 12/11/17 07:22 67 18 97 Room Air 21 12/11/17 07:15 21 12/11/17 07:14 68 18 98 Room Air 21 12/11/17 04:00 97.9 62 16 135/55 98 97.9 12/11/17 04:00 67 12/11/17 02:02 66 18 97 Room Air 21 12/11/17 01:41 66 18 97 Room Air 21 12/11/17 01:41 21 12/11/17 00:00 64 12/10/17 23:59 98.2 64 18 136/62 97 98.2 12/10/17 21:33 65 135/68 12/10/17 20:00 71 12/10/17 20:00 97.5 91 18 135/65 100 97.5 12/10/17 19:26 80 18 97 Room Air 21 12/10/17 19:13 21 12/10/17 19:12 80 18 97 Room Air 21 12/10/17 18:32 98.0 12/10/17 17:16 98.0 80 18 141/74 95 Room Air 98.0 12/10/17 15:51 78 Intake and Output 12/10/17 12/11/17 19:00 07:00 Intake Total 550 ml 720 ml Balance 550 ml 720 ml Intake Oral 120 ml IV Total 550 ml 600 ml # Voids 3 Height (Feet): 5 Height (Inches): 5.00 Weight (Pounds): 129 General Appearance: lethargic Cardiovascular: normal rate Respiratory/Chest: decreased breath sounds Objective no change GERALDINE MARTINO 18, 2018 15:24
[2017-12-11 15:55] VITALS: BP 126/70
[2017-12-11 20:00] VITALS: BP 138/62
--- NOTE | 2017-12-11 20:50 | General Progress Note ---
Assessment/Plan Problem List: (1) UTI (urinary tract infection) ICD Codes: N39.0 - Urinary tract infection, site not specified SNOMED: 20121616 (2) COPD (chronic obstructive pulmonary disease) with acute bronchitis ICD Codes: J44.1 - COPD (chronic obstructive pulmonary disease) with acute bronchitis SNOMED: 63728027 (3) CAD (coronary artery disease) ICD Codes: I25.10 - CAD (coronary artery disease) SNOMED: 756256875 (4) HTN (hypertension) ICD Codes: I10 - HTN (hypertension) SNOMED: 54803524 Status: progressing Assessment/Plan refuses care at time chronic pain uti abx per id afebrile cad no wheezing refuses iv at times Subjective ROS Limited/Unobtainable: Yes Allergies: Coded Allergies: No Known Allergies (Unverified , 06/30/17) Subjective persistent vomit Objective Last 24 Hour Vital Signs Date Time Temp Pulse Resp B/P (MAP) Pulse Ox O2 Delivery O2 Flow Rate FiO2 12/11/17 19:07 65 16 99 Nasal Cannula 2.0 28 12/11/17 19:00 99 Nasal Cannula 2.0 28 12/11/17 19:00 Nasal Cannula 2.0 28 12/11/17 18:57 64 18 99 Nasal Cannula 2.0 28 12/11/17 18:48 97.3 12/11/17 15:55 97.3 78 18 126/70 97 Room Air 97.3 12/11/17 15:31 66 12/11/17 13:26 97.2 12/11/17 12:47 97.2 70 18 135/60 97 Room Air 97.2 12/11/17 12:02 62 12/11/17 11:39 72 18 99 Nasal Cannula 2.0 28 12/11/17 11:32 28 12/11/17 11:32 72 18 97 Nasal Cannula 2.0 28 12/11/17 08:07 65 125/65 12/11/17 08:04 97.2 65 18 125/65 95 Nasal Cannula 2.0 97.2 12/11/17 08:00 65 12/11/17 07:27 97.9 12/11/17 07:22 67 18 97 Room Air 21 12/11/17 07:15 21 12/11/17 07:14 68 18 98 Room Air 21 12/11/17 04:00 97.9 62 16 135/55 98 97.9 12/11/17 04:00 67 12/11/17 02:02 66 18 97 Room Air 21 12/11/17 01:41 66 18 97 Room Air 21 12/11/17 01:41 21 12/11/17 00:00 64 12/10/17 23:59 98.2 64 18 136/62 97 98.2 12/10/17 21:33 65 135/68 Intake and Output 12/10/17 12/11/17 19:00 07:00 Intake Total 550 ml 720 ml Balance 550 ml 720 ml Intake Oral 120 ml IV Total 550 ml 600 ml # Voids 3 Height (Feet): 5 Height (Inches): 5.00 Weight (Pounds): 129 Sukhi Pandey MD Dec 11, 2017 20:50
[2017-12-11] MEDS: Miralax 17gm pkt ORAL SCH (21:45)
--- NOTE | 2017-12-11 21:53 | General Progress Note ---
Assessment/Plan Assessment/Plan he pt has hx of depression and opioids dependence the pt lacks capacity to make decision next of kind should make decision. Subjective Date patient seen: Dec 11, 2017 Neurologic/Psychiatric: Reports: anxiety, depressed, emotional problems Allergies: Coded Allergies: No Known Allergies (Unverified , 06/30/17) Subjective the pt was explained about the long mass the pt stated "I have one month to think about it" the pt is illogical and stated "give my pain meds" Objective Last 24 Hour Vital Signs Date Time Temp Pulse Resp B/P (MAP) Pulse Ox O2 Delivery O2 Flow Rate FiO2 12/11/17 21:45 76 138/62 12/11/17 19:07 65 16 99 Nasal Cannula 2.0 28 12/11/17 19:00 99 Nasal Cannula 2.0 28 12/11/17 19:00 Nasal Cannula 2.0 28 12/11/17 18:57 64 18 99 Nasal Cannula 2.0 28 12/11/17 18:48 97.3 12/11/17 15:55 97.3 78 18 126/70 97 Room Air 97.3 12/11/17 15:31 66 12/11/17 13:26 97.2 12/11/17 12:47 97.2 70 18 135/60 97 Room Air 97.2 12/11/17 12:02 62 12/11/17 11:39 72 18 99 Nasal Cannula 2.0 28 12/11/17 11:32 28 12/11/17 11:32 72 18 97 Nasal Cannula 2.0 28 12/11/17 08:07 65 125/65 12/11/17 08:04 97.2 65 18 125/65 95 Nasal Cannula 2.0 97.2 12/11/17 08:00 65 12/11/17 07:27 97.9 12/11/17 07:22 67 18 97 Room Air 21 12/11/17 07:15 21 12/11/17 07:14 68 18 98 Room Air 21 12/11/17 04:00 97.9 62 16 135/55 98 97.9 12/11/17 04:00 67 12/11/17 02:02 66 18 97 Room Air 21 12/11/17 01:41 66 18 97 Room Air 21 12/11/17 01:41 21 12/11/17 00:00 64 12/10/17 23:59 98.2 64 18 136/62 97 98.2 Intake and Output 12/10/17 12/11/17 19:00 07:00 Intake Total 550 ml 720 ml Balance 550 ml 720 ml Intake Oral 120 ml IV Total 550 ml 600 ml # Voids 3 Height (Feet): 5 Height (Inches): 5.00 Weight (Pounds): 129 General Appearance: no apparent distress, alert Neurologic: alert, oriented x 3, responsive, depressed affect Davis Connor M.D. Dec 11, 2017 21:53
--- NOTE | 2017-12-11 21:55 | Psych Consult Progress Note ---
Psych Consult Progress Note Consult he pt has hx of depression and opioids dependence the pt lacks capacity to make decision next of kind should make decision. mdd/anxiety the pt refusing care and treatment lexapro 10mg daily Vital Signs Last 24 Hour Vital Signs Date Time Temp Pulse Resp B/P (MAP) Pulse Ox O2 Delivery O2 Flow Rate FiO2 12/11/17 21:45 76 138/62 12/11/17 19:07 65 16 99 Nasal Cannula 2.0 28 12/11/17 19:00 99 Nasal Cannula 2.0 28 12/11/17 19:00 Nasal Cannula 2.0 28 12/11/17 18:57 64 18 99 Nasal Cannula 2.0 28 12/11/17 18:48 97.3 12/11/17 15:55 97.3 78 18 126/70 97 Room Air 97.3 12/11/17 15:31 66 12/11/17 13:26 97.2 12/11/17 12:47 97.2 70 18 135/60 97 Room Air 97.2 12/11/17 12:02 62 12/11/17 11:39 72 18 99 Nasal Cannula 2.0 28 12/11/17 11:32 28 12/11/17 11:32 72 18 97 Nasal Cannula 2.0 28 12/11/17 08:07 65 125/65 12/11/17 08:04 97.2 65 18 125/65 95 Nasal Cannula 2.0 97.2 12/11/17 08:00 65 12/11/17 07:27 97.9 12/11/17 07:22 67 18 97 Room Air 21 12/11/17 07:15 21 12/11/17 07:14 68 18 98 Room Air 21 12/11/17 04:00 97.9 62 16 135/55 98 97.9 12/11/17 04:00 67 12/11/17 02:02 66 18 97 Room Air 21 12/11/17 01:41 66 18 97 Room Air 21 12/11/17 01:41 21 12/11/17 00:00 64 12/10/17 23:59 98.2 64 18 136/62 97 98.2 Medications Current Medications Medications (Trade) Dose Ordered Sig/Janee Route PRN Reason Start Time Stop Time Status Last Admin Dose Admin Acetaminophen (Tylenol) 500 mg Q4H PRN ORAL Mild Pain/Temp > 100.5 3/13/18 23:30 01/05/18 23:29 Acetaminophen/ Hydrocodone Bitart ([place] 10/325) 1 tab Q4H PRN ORAL Moderate Pain (Pain Scale 4-6) 12/07/17 09:00 12/14/17 08:59 12/09/17 22:02 Albuterol/ Ipratropium (Albuterol/ Ipratropium) 3 ml Q4H PRN HHN Shortness of Breath 12/08/17 14:45 12/13/17 14:44 12/08/17 16:47 Albuterol/ Ipratropium (Albuterol/ Ipratropium) 3 ml Q6HRT HHN 12/08/17 19:00 12/13/17 18:59 12/11/17 18:56 Aspirin (Ecotrin) 81 mg DAILY ORAL 12/07/17 09:00 01/06/18 08:59 12/11/17 08:06 Clonidine HCl (Catapres TTS-3) 1 patch QWEEK TDERMAL 12/10/17 12:00 01/09/18 11:59 12/10/17 12:37 Clonidine HCl ([place]ap[place] Tab) 0.1 mg Q4H PRN ORAL Systolic BP>175 12/10/17 07:15 01/09/18 07:14 12/10/17 07:30 Dextrose/ Electrolytes 1,000 ml @ 50 mls/hr Q20H IV 12/07/17 10:30 01/06/18 10:29 12/11/17 13:38 Docusate Sodium (Colace) 100 mg THREE TIMES A DAY ORAL 12/07/17 13:00 01/06/18 12:59 12/09/17 12:50 Folic Acid (Folate) 1 mg DAILY ORAL 12/11/17 09:00 01/10/18 08:59 Gabapentin (Neurontin) 100 mg THREE TIMES A DAY ORAL 12/07/17 09:00 01/06/18 08:59 12/11/17 12:26 Guaifenesin (Mucinex ER) 600 mg TWICE A DAY ORAL 12/08/17 18:00 01/07/18 17:59 12/11/17 08:08 Guaifenesin/ Dextromethorphan (Robitussin DM) 5 ml Q4H PRN ORAL For Cough 12/08/17 14:45 01/07/18 14:44 Heparin Sodium (Porcine) (Heparin 5000 units/ml) 5,000 units EVERY 12 HOURS SUBQ 12/08/17 21:00 01/07/18 20:59 12/09/17 21:54 Hydromorphone HCl (Dilaudid) 2 mg Q6H PRN ORAL severe pain 12/11/17 11:45 12/18/17 11:44 12/11/17 18:48 Lactulose (Cephulac) 10 gm THREE TIMES A DAY ORAL 12/11/17 09:00 01/10/18 08:59 12/11/17 13:00 Lansoprazole (Prevacid) 30 mg DAILY ORAL 12/07/17 09:30 01/06/18 09:29 12/11/17 08:06 Levofloxacin (Levaquin) 750 mg DAILY@1300 ORAL 12/09/17 13:00 12/16/17 23:59 12/11/17 12:27 Metoprolol Tartrate (Lopressor) 25 mg Q12HR ORAL 12/07/17 09:00 01/06/18 08:59 12/11/17 21:45 Nicotine (Nicoderm) 1 patch Q24H TDERMAL 12/08/17 17:00 01/07/18 16:59 Ondansetron HCl (Zofran) 4 mg Q6H PRN IVP Nausea & Vomiting 12/10/17 08:15 01/09/18 08:14 12/11/17 08:09 Polyethylene Glycol (Miralax) 17 gm BEDTIME ORAL 12/10/17 21:00 01/09/18 20:59 12/11/17 21:45 Prednisone (predniSONE) 60 mg DAILY ORAL 12/09/17 09:00 01/08/18 08:59 12/11/17 08:08 Zolpidem Tartrate (Ambien) 5 mg BEDTIME PRN ORAL Insomnia 12/07/17 00:45 12/14/17 00:44 12/11/17 21:44 Problems: Davis Connor M.D. Dec 11, 2017 21:55
--- NOTE | 2017-12-11 23:33 | Cardiology Progress Note ---
Assessment/Plan Assessment/Plan 1. Chest pain, atypical, non-ischemic stress test with LVEF at 64%. There is no evidence of heart failure at this time. 2. Hx of CAD, s/p PCI, nuclear stress test confirms patency of the stent most likely. Subjective Subjective Sinus rhythm at 64. Objective Last 24 Hour Vital Signs Date Time Temp Pulse Resp B/P (MAP) Pulse Ox O2 Delivery O2 Flow Rate FiO2 12/11/17 21:45 76 138/62 12/11/17 20:00 98.2 76 20 138/62 97 Room Air 98.2 12/11/17 19:07 65 16 99 Nasal Cannula 2.0 28 12/11/17 19:00 99 Nasal Cannula 2.0 28 12/11/17 19:00 Nasal Cannula 2.0 28 12/11/17 18:57 64 18 99 Nasal Cannula 2.0 28 12/11/17 18:48 97.3 12/11/17 15:55 97.3 78 18 126/70 97 Room Air 97.3 12/11/17 15:31 66 12/11/17 13:26 97.2 12/11/17 12:47 97.2 70 18 135/60 97 Room Air 97.2 12/11/17 12:02 62 12/11/17 11:39 72 18 99 Nasal Cannula 2.0 28 12/11/17 11:32 28 12/11/17 11:32 72 18 97 Nasal Cannula 2.0 28 12/11/17 08:07 65 125/65 12/11/17 08:04 97.2 65 18 125/65 95 Nasal Cannula 2.0 97.2 12/11/17 08:00 65 12/11/17 07:27 97.9 12/11/17 07:22 67 18 97 Room Air 21 12/11/17 07:15 21 12/11/17 07:14 68 18 98 Room Air 21 12/11/17 04:00 97.9 62 16 135/55 98 97.9 12/11/17 04:00 67 12/11/17 02:02 66 18 97 Room Air 21 12/11/17 01:41 66 18 97 Room Air 21 12/11/17 01:41 21 12/11/17 00:00 64 12/10/17 23:59 98.2 64 18 136/62 97 98.2 Neck: pain on motion Intake and Output 12/10/17 12/11/17 19:00 07:00 Intake Total 550 ml 720 ml Balance 550 ml 720 ml Intake Oral 120 ml IV Total 550 ml 600 ml # Voids 3 2D Echo: EF 70%, severe LVH, Grade I LVDD, RVSP 37 mmHg, Mild MR,Trace Cassia Effusion Microbiology Date/Time Source Procedure Growth Status 12/09/17 06:20 Sputum Expectorated Gram Stain - Final Complete 12/09/17 06:20 Sputum Expectorated Sputum Culture - Final NORMAL UPPER RESPIRATORY BRANDI PRESENT Complete Objective HEENT: Atraumatic and normocephalic. Anicteric. Pupils are equal, round, and reactive to light and accommodation. Extraocular muscles are intact. NECK: JVP is less than 5 cm. No carotid bruit. Carotid upstrokes 2+ bilaterally. CARDIOVASCULAR: Normal S1 and S2. Regular rate and rhythm. No murmurs, gallops, or rubs. PMI is at fourth intercostal space in the midclavicular line. LUNGS: Clear to auscultation bilaterally. ABDOMEN: Soft, nontender, and nondistended. No hepatosplenomegaly. Positive bowel sounds. EXTREMITIES: No evidence of edema, clubbing, or cyanosis. MALKA LOPEZ Dec 11, 2017 23:33
[2017-12-12] VITALS: BP 154/63
--- NOTE | 2017-12-12 00:45 | Consultation ---
DATE OF CONSULTATION: 12/10/2017 NOTE: POOR AUDIO HEMATOLOGY/ONCOLOGY CONSULTATION CONSULTING PHYSICIAN: Delmer Fitch M.D. REFERRING PHYSICIAN: Sukhi Pandey M.D. REASON FOR CONSULTATION: Evaluation of lung mass. IDENTIFYING DATA: Dear Dr. Pandey, The patient is a 67-year-old female with enlarging right lung mass, prior history significant for chest pain, rule out ACS, stress test suggestive of ischemia, CHF, hypertension, prior cerebrovascular accident, RENNY, CKD UTI, at this time presents to the hospital with chest pain, most likely exacerbation of COPD. The patient declined biopsy. The patient again is declining biopsy at this time. Hematology/Oncology Service consulted for further evaluation and treatment. PAST MEDICAL HISTORY: COPD, , CAD, status post PCI x6, hypertension, CHF, and enlarging right lung . MEDICATIONS: Reviewed. ALLERGIES: No known drug allergies. SOCIAL HISTORY: . No alcohol, , or illicit drug use. FAMILY HISTORY: Noncontributory. REVIEW OF SYSTEMS: CONSTITUTIONAL: No fevers, chills, or night sweats. SKIN: No rashes, bumps, or itching. HEENT: No headache, hearing or vision changes. BREASTS: No lumps, pain, or discharge. PULMONARY: No cough, sputum, or shortness of breath. GASTROINTESTINAL: No nausea, vomiting, or diarrhea. GENITOURINARY: No dysuria, frequency, or urgency. MUSCULOSKELETAL: No joint swelling, muscle pain, or trauma. PHYSICAL EXAMINATION: VITAL SIGNS: Reviewed. GENERAL: No distress. PULMONARY: Decreased breath sounds. CARDIOVASCULAR: Regular rate. No S3 or S4. ABDOMEN: Soft, nontender, and nondistended. EXTREMITIES: No cyanosis, swelling, or edema. LABORATORY AND DIAGNOSTIC DATA: WBC is 12.5, hemoglobin 12.9, and platelet count 236,000. BUN 34 and creatinine 1. Toxicology reviewed, positive for opiates and benzodiazepines. ASSESSMENT AND RECOMMENDATIONS: 1. Enlarging lung mass x 2 cm. Currently, the patient declining biopsy at this time and recommended again this is a potential treatable tumor, however, she declined the biopsy history of smoking is a high risk of malignancy. Again, she declines biopsy. 2. Leukocytosis, likely secondary to reactive process, currently on antibiotics, rule out infection. 3. Coronary artery disease, status post percutaneous coronary intervention x6. 4. Dehydration with elevated BUN and creatinine. 5. Nausea and vomiting. Zofran on a p.r.n. basis. 6. Hypertension. Systolic blood pressure unable to control. 7. Chronic obstructive pulmonary disease exacerbation. Closely monitor. I appreciate the consultation. Smoking cessation counseling provided. Delmer Fitch M.D. DR: ISHA JOB#: [id number] CC:
[2017-12-12] MEDS: Albuterol/Ipratropium 3ml neb HHN SCH ×2 (01:08→07:21)
[2017-12-12] MEDS: HYDROmorphone 2mg tab ORAL PRN (01:39)
[2017-12-12 04:00] VITALS: BP 146/71
[2017-12-12 08:00] VITALS: BP 135/55
--- NOTE | 2017-12-12 08:33 | General Progress Note ---
Assessment/Plan Assessment/Plan (1) Lumbar DDD (2) Lumbar Spondylosis (3) Lumbar Radiculopathy (4) Peripheral Neuropathy (5) Enlarging spiculated 1.7 cm right lower lobe nodule - followed by pulmonary Patient to be continued on [place] and Dilaudid MRI of the Lumbar spine pending results. D/w Dr. Dugan and he concurred. Subjective Date patient seen: Dec 12, 2017 Time patient seen: 07:30 - am Allergies: Coded Allergies: No Known Allergies (Unverified , 06/30/17) Subjective REVIEW OF SYSTEMS: Denies rash, fever, chills, sweating, dizziness, drowsiness, blurred vision, sore throat, or change in hearing or weight. No nausea, vomiting, diarrhea, or blood in the stool or urine. No bowel or bladder incontinence. No dysuria. She is complaining of low back pain and bilateral lower extremity pain. SUBJECTIVE: Patients pain is unchanged and will be going for MRI of lumbar spine later this morning. Objective Last 24 Hour Vital Signs Date Time Temp Pulse Resp B/P (MAP) Pulse Ox O2 Delivery O2 Flow Rate FiO2 12/12/17 07:24 70 18 100 Nasal Cannula 2.0 28 12/12/17 07:23 Nasal Cannula 2.0 28 12/12/17 07:12 65 18 98 Nasal Cannula 2.0 28 12/12/17 07:12 28 12/12/17 07:10 98 Nasal Cannula 2.0 28 12/12/17 04:00 98.1 55 20 146/71 97 Room Air 98.1 12/12/17 04:00 62 12/12/17 01:50 72 20 99 Nasal Cannula 2.0 28 12/12/17 01:07 28 12/12/17 01:07 72 20 99 Nasal Cannula 2.0 28 12/12/17 00:00 97.9 70 20 154/63 100 Room Air 97.9 12/12/17 00:00 68 12/11/17 21:45 76 138/62 12/11/17 20:00 68 12/11/17 20:00 98.2 76 20 138/62 97 Room Air 98.2 12/11/17 19:07 65 16 99 Nasal Cannula 2.0 28 12/11/17 19:00 99 Nasal Cannula 2.0 28 3/18/18 19:00 Nasal Cannula 2.0 28 12/11/17 18:57 64 18 99 Nasal Cannula 2.0 28 12/11/17 18:48 97.3 12/11/17 15:55 97.3 78 18 126/70 97 Room Air 97.3 12/11/17 15:31 66 12/11/17 13:26 97.2 12/11/17 12:47 97.2 70 18 135/60 97 Room Air 97.2 12/11/17 12:02 62 12/11/17 11:39 72 18 99 Nasal Cannula 2.0 28 12/11/17 11:32 28 12/11/17 11:32 72 18 97 Nasal Cannula 2.0 28 Intake and Output 12/11/17 12/12/17 19:00 07:00 Intake Total 1000 ml Balance 1000 ml Intake Oral 600 ml IV Total 400 ml # Voids 2 1 Height (Feet): 5 Height (Inches): 5.00 Weight (Pounds): 136 Objective GENERAL: Alert, awake, and oriented x3. HEENT: PERRLA. NECK: Range of motion is full in all directions. LUNGS: Decreased breath sounds bilaterally. HEART: Regular. ABDOMEN: Tenderness to palpation. BACK: Range of motion is decreased in flexion and extension EXTREMITIES: No cyanosis. No clubbing. NEURO: No changes. CHAUNCEY MARRERO Dec 12, 2017 08:33
[2017-12-12] MEDS: Docusate 100mg cap ORAL SCH (09:00)
[2017-12-12] MEDS: Aspirin EC 81mg tab ORAL SCH (09:00)
[2017-12-12] MEDS: guaiFENesin ER 600mg tab ORAL SCH (09:00)
[2017-12-12] MEDS: Lactulose 10gm/15ml UDC ORAL SCH (09:00)
[2017-12-12] MEDS: Metoprolol 25mg tab ORAL SCH (09:00)
[2017-12-12] MEDS: Heparin 5000 units/ml inj SUBQ SCH (09:00)
--- NOTE | 2017-12-12 09:03 | General Progress Note ---
Assessment/Plan Assessment/Plan Assessment (1) Constipation ICD Codes: K59.00 - Constipation, unspecified SNOMED: 26992330 (2) HTN (hypertension) ICD Codes: I10 - HTN (hypertension) SNOMED: 04623192 (3) CAD (coronary artery disease) ICD Codes: I25.10 - CAD (coronary artery disease) SNOMED: 853882956 (4) Tobacco abuse ICD Codes: F17.200 - Tobacco abuse SNOMED: 98127881 (5) Drug abuse and dependence ICD Codes: F19.20 - Drug abuse and dependence Recommendations push po as tolerated OOB will re-eval if symptoms return Subjective Allergies: Coded Allergies: No Known Allergies (Unverified , 06/30/17) Subjective Feels well anxious to go home denies abd pain or vomiting (+) BM Objective Last 24 Hour Vital Signs Date Time Temp Pulse Resp B/P (MAP) Pulse Ox O2 Delivery O2 Flow Rate FiO2 12/12/17 07:24 70 18 100 Nasal Cannula 2.0 28 12/12/17 07:23 Nasal Cannula 2.0 28 12/12/17 07:12 65 18 98 Nasal Cannula 2.0 28 12/12/17 07:12 28 12/12/17 07:10 98 Nasal Cannula 2.0 28 12/12/17 04:00 98.1 55 20 146/71 97 Room Air 98.1 12/12/17 04:00 62 12/12/17 01:50 72 20 99 Nasal Cannula 2.0 28 12/12/17 01:07 28 12/12/17 01:07 72 20 99 Nasal Cannula 2.0 28 12/12/17 00:00 97.9 70 20 154/63 100 Room Air 97.9 12/12/17 00:00 68 12/11/17 21:45 76 138/62 12/11/17 20:00 68 12/11/17 20:00 98.2 76 20 138/62 97 Room Air 98.2 12/11/17 19:07 65 16 99 Nasal Cannula 2.0 28 12/11/17 19:00 99 Nasal Cannula 2.0 28 12/11/17 19:00 Nasal Cannula 2.0 28 12/11/17 18:57 64 18 99 Nasal Cannula 2.0 28 12/11/17 18:48 97.3 3/18/18 15:55 97.3 78 18 126/70 97 Room Air 97.3 12/11/17 15:31 66 12/11/17 13:26 97.2 12/11/17 12:47 97.2 70 18 135/60 97 Room Air 97.2 12/11/17 12:02 62 12/11/17 11:39 72 18 99 Nasal Cannula 2.0 28 12/11/17 11:32 28 12/11/17 11:32 72 18 97 Nasal Cannula 2.0 28 Intake and Output 12/11/17 12/12/17 19:00 07:00 Intake Total 1000 ml Balance 1000 ml Intake Oral 600 ml IV Total 400 ml # Voids 2 1 Height (Feet): 5 Height (Inches): 5.00 Weight (Pounds): 136 Objective WDWN AA woman in NAD patient declined MD exam ANAID SMALLS Dec 12, 2017 09:03
--- NOTE | 2017-12-12 21:16 | General Progress Note ---
Assessment/Plan Status: stable Assessment/Plan he pt has hx of depression and opioids dependence the pt lacks capacity to make decision next of kind should make decision. Subjective Date patient seen: Dec 12, 2017 Neurologic/Psychiatric: Reports: anxiety, depressed, emotional problems Allergies: Coded Allergies: No Known Allergies (Unverified , 06/30/17) Subjective the pt was illogical anxious and agitated poor insight Objective Last 24 Hour Vital Signs Date Time Temp Pulse Resp B/P (MAP) Pulse Ox O2 Delivery O2 Flow Rate FiO2 12/12/17 08:00 97.8 61 19 135/55 96 Room Air 97.8 12/12/17 08:00 66 12/12/17 07:24 70 18 100 Nasal Cannula 2.0 28 12/12/17 07:23 Nasal Cannula 2.0 28 12/12/17 07:12 65 18 98 Nasal Cannula 2.0 28 12/12/17 07:12 28 12/12/17 07:10 98 Nasal Cannula 2.0 28 12/12/17 04:00 98.1 55 20 146/71 97 Room Air 98.1 12/12/17 04:00 62 12/12/17 01:50 72 20 99 Nasal Cannula 2.0 28 12/12/17 01:07 28 12/12/17 01:07 72 20 99 Nasal Cannula 2.0 28 12/12/17 00:00 97.9 70 20 154/63 100 Room Air 97.9 12/12/17 00:00 68 12/11/17 21:45 76 138/62 Intake and Output 12/11/17 12/12/17 19:00 07:00 Intake Total 1000 ml Balance 1000 ml Intake Oral 600 ml IV Total 400 ml # Voids 2 1 Height (Feet): 5 Height (Inches): 5.00 Weight (Pounds): 136 General Appearance: no apparent distress, alert Neurologic: alert, oriented x 3, responsive, depressed affect Davis Connor M.D. Dec 12, 2017 21:16
--- NOTE | 2017-12-13 13:50 | General Progress Note ---
Assessment/Plan Assessment/Plan 1. Enlarging lung mass x 2 cm. Currently, the patient declining biopsy at this time and recommended again, --> this is a potential treatable tumor, however, she declined the biopsy. Has --> history of smoking is a high risk of malignancy. Again, she declines biopsy. 2. Leukocytosis, likely secondary to reactive process, currently on antibiotics , rule out infection. 3. Coronary artery disease, status post percutaneous coronary intervention x6. 4. Dehydration with elevated BUN and creatinine. 5. Nausea and vomiting. Zofran on a p.r.n. basis. 6. Hypertension. Systolic blood pressure unable to control. 7. Chronic obstructive pulmonary disease exacerbation. Closely monitor. Subjective Date patient seen: Dec 11, 2017 Constitutional: Denies: no symptoms, chills, diaphoresis, fever, malaise, weakness, other HEENT: Denies: no symptoms, eye pain, blurred vision, tearing, double vision, ear pain, ear discharge, nose pain, nose congestion, throat pain, throat swelling, mouth pain, mouth swelling, other Cardiovascular: Denies: no symptoms, chest pain, edema, irregular heart rate, lightheadedness, palpitations, syncope, other Respiratory: Denies: no symptoms, cough, orthopnea, shortness of breath, SOB with excertion, SOB at rest, sputum, stridor, wheezing, other Gastrointestinal/Abdominal: Denies: no symptoms, abdomen distended, abdominal pain, black stools, tarry stools, blood in stool, constipated, diarrhea, difficulty swallowing, nausea, poor appetite, poor fluid intake, rectal bleeding , vomiting, other Genitourinary: Denies: no symptoms, burning, discharge, frequency, flank pain, hematuria, incontinence, pain, urgency, other Neurologic/Psychiatric: Denies: no symptoms, anxiety, depressed, emotional problems, headache, numbness, paresthesia, pre-existing deficit, seizure, tingling, tremors, weakness, other Endocrine: Denies: no symptoms, excessive sweating, flushing, intolerance to cold, intolerance to heat, increased hunger, increased thirst, increased urine, unexplained weight gain, unexplained weight loss, other Allergies: Coded Allergies: No Known Allergies (Unverified , 06/30/17) Subjective Noncompliant and refusing treatment. Objective VS - Last 72 Hours, by Label Date Time Temp Pulse Resp B/P (MAP) Pulse Ox O2 Delivery O2 Flow Rate FiO2 12/12/17 08:00 97.8 61 19 135/55 96 Room Air 97.8 12/12/17 08:00 66 12/12/17 07:24 70 18 100 Nasal Cannula 2.0 28 12/12/17 07:23 Nasal Cannula 2.0 28 12/12/17 07:12 65 18 98 Nasal Cannula 2.0 28 12/12/17 07:12 28 12/12/17 07:10 98 Nasal Cannula 2.0 28 12/12/17 04:00 98.1 55 20 146/71 97 Room Air 98.1 12/12/17 04:00 62 12/12/17 01:50 72 20 99 Nasal Cannula 2.0 28 12/12/17 01:07 28 12/12/17 01:07 72 20 99 Nasal Cannula 2.0 28 12/12/17 00:00 97.9 70 20 154/63 100 Room Air 97.9 12/12/17 00:00 68 12/11/17 21:45 76 138/62 12/11/17 20:00 68 12/11/17 20:00 98.2 76 20 138/62 97 Room Air 98.2 12/11/17 19:07 65 16 99 Nasal Cannula 2.0 28 12/11/17 19:00 99 Nasal Cannula 2.0 28 12/11/17 19:00 Nasal Cannula 2.0 28 12/11/17 18:57 64 18 99 Nasal Cannula 2.0 28 12/11/17 18:48 97.3 12/11/17 15:55 97.3 78 18 126/70 97 Room Air 97.3 12/11/17 15:31 66 12/11/17 13:26 97.2 12/11/17 12:47 97.2 70 18 135/60 97 Room Air 97.2 12/11/17 12:02 62 12/11/17 11:39 72 18 99 Nasal Cannula 2.0 28 12/11/17 11:32 28 12/11/17 11:32 72 18 97 Nasal Cannula 2.0 28 12/11/17 08:07 65 125/65 12/11/17 08:04 97.2 65 18 125/65 95 Nasal Cannula 2.0 97.2 12/11/17 08:00 65 12/11/17 07:27 97.9 12/11/17 07:22 67 18 97 Room Air 21 12/11/17 07:15 21 12/11/17 07:14 68 18 98 Room Air 21 12/11/17 04:00 97.9 62 16 135/55 98 97.9 12/11/17 04:00 67 12/11/17 02:02 66 18 97 Room Air 21 12/11/17 01:41 66 18 97 Room Air 21 12/11/17 01:41 21 12/11/17 00:00 64 12/10/17 23:59 98.2 64 18 136/62 97 98.2 12/10/17 21:33 65 135/68 12/10/17 20:00 71 12/10/17 20:00 97.5 91 18 135/65 100 97.5 12/10/17 19:26 80 18 97 Room Air 21 12/10/17 19:13 21 12/10/17 19:12 80 18 97 Room Air 21 12/10/17 18:32 98.0 12/10/17 17:16 98.0 80 18 141/74 95 Room Air 98.0 12/10/17 15:51 78 Intake and Output 12/12/17 12/13/17 19:00 07:00 Intake Total 350 ml Balance 350 ml Intake Oral 350 ml # Voids 1 Height (Feet): 5 Height (Inches): 5.00 Weight (Pounds): 136 General Appearance: agitated Respiratory/Chest: decreased breath sounds Abdomen: soft Delmer Fitch MD Dec 13, 2017 13:50
--- NOTE | 2017-12-13 13:51 | General Progress Note ---
Assessment/Plan Assessment/Plan 1. Enlarging lung mass x 2 cm. Currently, the patient declining biopsy at this time and recommended again, --> this is a potential treatable tumor, however, she declined the biopsy. Has --> history of smoking is a high risk of malignancy. Again, she declines biopsy. 2. Leukocytosis, likely secondary to reactive process, currently on antibiotics , rule out infection. --> Refuses treatment 3. Coronary artery disease, status post percutaneous coronary intervention x6. 4. Dehydration with elevated BUN and creatinine. 5. Nausea and vomiting. Zofran on a p.r.n. basis. 6. Hypertension. Systolic blood pressure unable to control. 7. Chronic obstructive pulmonary disease exacerbation. Closely monitor. Subjective Date patient seen: Dec 12, 2017 Constitutional: Denies: no symptoms, chills, diaphoresis, fever, malaise, weakness, other HEENT: Denies: no symptoms, eye pain, blurred vision, tearing, double vision, ear pain, ear discharge, nose pain, nose congestion, throat pain, throat swelling, mouth pain, mouth swelling, other Cardiovascular: Denies: no symptoms, chest pain, edema, irregular heart rate, lightheadedness, palpitations, syncope, other Respiratory: Denies: no symptoms, cough, orthopnea, shortness of breath, SOB with excertion, SOB at rest, sputum, stridor, wheezing, other Gastrointestinal/Abdominal: Denies: no symptoms, abdomen distended, abdominal pain, black stools, tarry stools, blood in stool, constipated, diarrhea, difficulty swallowing, nausea, poor appetite, poor fluid intake, rectal bleeding , vomiting, other Genitourinary: Denies: no symptoms, burning, discharge, frequency, flank pain, hematuria, incontinence, pain, urgency, other Neurologic/Psychiatric: Denies: no symptoms, anxiety, depressed, emotional problems, headache, numbness, paresthesia, pre-existing deficit, seizure, tingling, tremors, weakness, other Endocrine: Denies: no symptoms, excessive sweating, flushing, intolerance to cold, intolerance to heat, increased hunger, increased thirst, increased urine, unexplained weight gain, unexplained weight loss, other Allergies: Coded Allergies: No Known Allergies (Unverified , 06/30/17) Subjective Continues to refuse treatment and labs. Objective Intake and Output 12/12/17 12/13/17 19:00 07:00 Intake Total 350 ml Balance 350 ml Intake Oral 350 ml # Voids 1 Height (Feet): 5 Height (Inches): 5.00 Weight (Pounds): 136 General Appearance: agitated Delmer Fitch MD Dec 13, 2017 13:51
--- NOTE | 2017-12-14 08:39 | Discharge Summary ---
Discharge Summary Hospital Course Date of Admission Dec 06, 2017 at 17:20 Date of Discharge Dec 12, 2017 at 10:25 Admitting Diagnosis ,CHEST PAIN,ACS HPI Laura Franco is a 67 year old female who was admitted on Dec 06, 2017 at 17: 20 for Chest Pain Acute Coronary Syndrome Hospital Course dc summary #[id number] Discharge Discharge Disposition Patient signed AMA Discharge Diagnoses: Discharge Instructions Discharge Instructions Special Instructions I have been assigned to complete a D/C Summary on this account. I was not involved in the patient management Amber Barnhart NP ([place]te[place]) Dec 14, 2017 08:39
--- NOTE | 2017-12-15 05:09 | Discharge Summary 2 SIG ---
DATE OF ADMISSION: 12/06/2017 DATE OF SIGNING AGAINST MEDICAL ADVISE: 12/12/2017. REASON FOR ADMISSION: 67 years old female with a history of coronary artery disease with PCI with multiple stents, COPD, lung mass, smoker, hypertension, diabetes mellitus, peripheral neuropathy, CHF, questionable Crohn disease, anxiety, presented to the emergency room complaining of chest pain for four days and dry cough. The patient continues smoking. Upon evaluation, WBC -17.5, BUN- 48, and creatinine -1.6. Troponin negative. Pro BNP- 2039. Calcium -10.6. Electrolytes stable. Urinalysis with evidence of pyuria, +1 leukocyte esterase. Urine toxicology screen was positive for opiates and benzodiazepine. Chest x-ray revealed right basilar lung nodule appearing to be more conspicuous than previously, no acute abnormality. The patient admitted with diagnoses of chest pain, rule out acute coronary syndrome, leukocytosis, pyuria, probable urinary tract infection, lung mass and renal insufficiency. HOSPITAL COURSE: The patient admitted to telemetry floor. Cardiology consult was requested. According to public transportation inspector, the patient likely had atypical chest pain. Serial troponin x3 were negative. Echocardiogram revealed ejection fraction of 70%, right ventricular systolic pressure of 37, consistent with mild pulmonary hypertension, and severe left ventricular hypertrophy. The patient had a history of hypertensive cardiovascular disease and coronary artery disease with multiple stent placement. Even though public transportation inspector suspected atypical chest pain, stress test was ordered to rule out obstructive coronary artery disease due to multiple cardiac risk factors.. Clinically, the patient did not appear to be in congestive heart failure. Chest x-ray did not reveal evidence of CHF as well. Stress test did not reveal any imaging findings to suggest ischemia at level of stress achieved. Calculated post stress ejection fraction was 67%. However, per Cardiology report, resting EKG demonstrated normal sinus rhythm with [address] depression in the inferior leads during infusion. Blood pressure was managed with current regimen and remained stable. DVT prophylaxis provided. Supplemental oxygen and pulmonary toilet provided as needed. Shake Out Worker closely followed. The patient noted to have COPD exacerbation and was on the steroid treatment with short pulse of prednisone. CT of the chest revealed right middle lobe mass slightly increased in size from the previous imaging. Shake Out Worker strongly recommended CT-guided biopsy of right middle lobe and malignancy workup, due to high suspicion for malignancy, however, the patient declined as before CT guided biopsy. Psychiatrist seen the patient and stated that the patient lacks capacity to make a decision and if the patient refusing care and treatment, then next to kin should make a decision for the patient. Psychiatrist also diagnosed the patient with major depression disorder and anxiety and optimized psychiatric medication regimen. Antibiotics provided as per ID. Urine culture revealed mixed Gram-positive organism and sputum culture was negative. The patient was started on nicotine patch and counseled on cessation from smoking. Gentle IV hydration provided and renal parameters improved. Electrolytes were corrected as needed. Nephrotoxics were avoided. Electricity Trading Analyst closely followed. Pain management provided. The patient with chronic pain. Pain management was addressed as per pain specialist recommendations. MRI of the lumbar spine was pending due to the lumbar DJD and lumbar spondylosis, however, not done since the patient signed against medical advice. GI seen and evaluated the patient and recommended to treat symptomatically for constipation and nausea. Bowel regimen instituted. Antiemetic provided as needed. Diet tolerance was closely monitored. The patient was placed on PPI. Patient tolerated diet. The patient declined any workup of potentially treatable malignancy and that would likely progress without treatment to advanced stage as per access developer. The need for further workup was discussed with the patient's brother, who appeared at the bedside to picker feeder the patient when she decided to sign against medical advice. The risks and consequences of signing against medical advice were discussed with the patient and her brother. The brother verbalized understanding, but decided to leave with the patient at this time. The patient signed the [facility] form and they left. FINAL DIAGNOSES: 1. Atypical chest pain. 2. Leukocytosis, improved. 3. Acute kidney injury on chronic kidney disease, likely secondary to dehydration, improved. 4. COPD with acute exacerbation. 5. Right middle lobe lung mass. 6. Tobacco abuse. 7. Coronary artery disease with history of percutaneous coronary intervention x6. 8. Hypertension. 9. History of CVA. 10. Peripheral neuropathy. 11. Lumbar DJD. 12. Lumbar spondylosis. 13. Major depression disorder. 14. Anxiety. 15. Noncompliance. 16. Pyuria. 17. Possible urinary tract infection 18. Drug abuse and opioid dependency. Sukhi Pandey M.D. I have been assigned to dictate discharge summary on this account and I was not involved in the patient's management. Amber Blairsalome NCapricePCaprice DR: EDE JOB#: [id number] CC: TED
== END 2017-12-12 10:25 | disposition left against medical advice (07) | DRG 198 ==
LOC: EDBD 12:41 → EMR 12:52 → EDBEDREQ 13:15 → EDBEDREQTM 16:03 → 2E 17:20 → EDBEDREQ 17:45 → 2E 18:17
DX: R07.89 Other chest pain (principal); I25.10 Atherosclerotic heart disease of native coronary artery without angina pectoris; N17.9 Acute kidney failure, unspecified; I13.0 Hypertensive heart and chronic kidney disease with heart failure and stage 1 through stage 4 chronic kidney disease, or unspecified chronic kidney disease; I50.30 Unspecified diastolic (congestive) heart failure; J44.0 Chronic obstructive pulmonary disease with (acute) lower respiratory infection; N39.0 Urinary tract infection, site not specified; F11.20 Opioid dependence, uncomplicated; J44.1 Chronic obstructive pulmonary disease with (acute) exacerbation; J20.9 Acute bronchitis, unspecified; E86.0 Dehydration; Z85.118 Personal history of other malignant neoplasm of bronchus and lung; E87.6 Hypokalemia; Z95.5 Presence of coronary angioplasty implant and graft; N18.9 Chronic kidney disease, unspecified; R91.8 Other nonspecific abnormal finding of lung field; F17.200 Nicotine dependence, unspecified, uncomplicated; Z86.73 Personal history of transient ischemic attack (TIA), and cerebral infarction without residual deficits; G62.9 Polyneuropathy, unspecified; M47.896 Other spondylosis, lumbar region; F32.9 Major depressive disorder, single episode, unspecified; F41.9 Anxiety disorder, unspecified; Z91.19 Patient's noncompliance with other medical treatment and regimen; F19.10 Other psychoactive substance abuse, uncomplicated; R91.1 Solitary pulmonary nodule; K59.00 Constipation, unspecified; R11.2 Nausea with vomiting, unspecified; G89.29 Other chronic pain
CPT/HCPCS: 36415; 71045; 71250; 74018; 78452; 80053; 80061; 80307; 81003; 82550; 82553; 82607; 82728; 82746; 82977; 83036; 83540; 83550; 83735; 83880; 84100; 84443; 84484; 84550; 85025; 86140; 87070; 87086; 87205; 93005; 93017; 93306; 94640; 94664; 94760; 99285; J2405; J2785; J7620

== ENCOUNTER 2017-12-31 12:11 | Inpatient (IN) | payer MEDICARE, OTHER ==
[~2017-12-31] VITALS: Ht 165.1 cm; Wt 47.2 kg
[2017-12-31] MEDS ORDERED: PROTONIX40 MG ORAL (12:17)
[2017-12-31] MEDS ORDERED: FUROSEMIDE20 M1 ORAL (12:17)
[2017-12-31] MEDS ORDERED: SIMVASTATIN5 MG ORAL (12:17)
[2017-12-31] MEDS ORDERED: KADIAN10 MG PO (12:17)
[2017-12-31] MEDS ORDERED: MIDODRINE HCL2.5 MG ORAL (12:17)
[2017-12-31] MEDS ORDERED: LEVAQUIN250 M1 ORAL (12:17)
[2017-12-31] MEDS ORDERED: DILAUDID8 MG PO (12:17)
[2017-12-31] MEDS ORDERED: SINGULAIR10 MG ORAL (12:17)
[2017-12-31] MEDS ORDERED: PLAVIX75 MG ORAL (12:17)
[2017-12-31] MEDS ORDERED: IBUPROFEN600 MG ORAL (12:17)
--- NOTE | 2017-12-31 12:29 | Emergency Room Report ---
History of Present Illness General Chief Complaint: General Complaint Source: Patient, Medical Record Present Illness HPI 67-year-old female, history of CAD with stents, COPD, current smoker, right lung mass that has not been evaluated because patient has been refusing lung biopsy, CVA, recent admission to the hospital for UTI from December 06 to December 12 , presenting with cough and shortness of breath. Patient states that she was diagnosed with pneumonia, she is on her 50 of Levaquin, however still complaining of cough and shortness of breath. Some fevers and chills denies any chest pain. No vomiting or diarrhea. Has had decreased oral intake Allergies: Coded Allergies: No Known Allergies (Unverified , 06/30/17) Patient History Past Medical History: see triage record Past Surgical History: none Pertinent Family History: none Reviewed Nursing Documentation: PMH: Agreed; PSxH: Agreed Nursing Documentation-PMH Past Medical History: No History, Except For Hx Cardiac Problems: Yes - CHF/peripheral neuropathy, stent Hx Hypertension: Yes Hx Asthma: Yes Hx COPD: Yes - Lung Cancer, Emphysema Hx Cancer: Yes - lung CA Hx Gastrointestinal Problems: No Hx Neurological Problems: Yes Hx Dizziness: Yes Hx Syncope: Yes Hx Headaches: Yes Hx Weakness: Yes Hx Fatigue: Yes Review of Systems All Other Systems: negative except mentioned in HPI Physical Exam Vital Signs Date Time Temp Pulse Resp B/P (MAP) Pulse Ox O2 Delivery O2 Flow Rate FiO2 12/31/17 12:08 98.8 78 20 141/87 96 Room Air 98.8 Sp02 EP Interpretation: reviewed, normal General Appearance: alert, GCS 15, moderate distress Head: normocephalic, atraumatic Eyes: bilateral eye normal inspection, bilateral eye PERRL, bilateral eye EOMI ENT: normal ENT inspection, normal pharynx, normal voice, moist mucus membranes Neck: normal inspection, full range of motion, supple Respiratory: speaking full sentences, other - Course breath sounds worse on right Cardiovascular #1: normal inspection, regular rate, rhythm, no edema, normal capillary refill Cardiovascular #2: 2+ radial (R), 2+ radial (L) Gastrointestinal: normal inspection, non tender, soft, non-distended, no guarding Musculoskeletal: normal inspection, back normal, normal range of motion, non- tender Neurologic: normal inspection, alert, oriented x3, responsive, motor strength/ tone normal, sensory intact, normal gait, speech normal Psychiatric: normal inspection, judgement/insight normal, memory normal Skin: normal inspection, normal color, no rash, warm/dry, well hydrated, normal turgor Medical Decision Making Diagnostic Impression: Primary Impression: Pneumonia Additional Impressions: Decrease in appetite Dyspnea ER Course 67-year-old female p/w cough and shortness of breath for 5 days. DDX: Viral URI vs. pneumonia Dehydration, decreased oral intake Plan: Labs, CXR, antibiotics ER course: pt has remained stable on monitor speaking in complete sentences XR possible infiltrate vs. known lung nodule of the patient ceftriaxone and azithro given to patient pt lives alone, still feels very weak, will admit to hospital Disposition: Patient will be admitted to [facility] Discussed with Dr. Garcia covering for Dr Sanchez EKG Diagnostic Results EP Interpretation: Yes Rate: normal Rhythm: NSR ST Segments: No acute changes ASA given to patient: No Rhythm Strip EP Interpretation: Yes Rate: 70 Rhythm: NSR, no PVCs, no ectopy Chest X-ray CXR: Ordered: Yes 1 view Indication: SOB EP interpretation: Yes Interpretation: R lung nodule / infiltrate Impression: R lung nodule / infiltrate Electronically signed by Renny eDvi MD Laboratory Tests Test 12/31/17 12:20 12/31/17 13:00 White Blood Count 10.5 K/UL (4.8-10.8) Red Blood Count 3.94 M/UL (4.20-5.40) L Hemoglobin 12.5 G/DL (12.0-16.0) Hematocrit 38.9 % (37.0-47.0) Mean Corpuscular Volume 99 FL (80-99) Mean Corpuscular Hemoglobin 31.8 PG (27.0-31.0) H Mean Corpuscular Hemoglobin Concent 32.3 G/DL (32.0-36.0) Red Cell Distribution Width 14.6 % (11.6-14.8) Platelet Count 297 K/UL (150-450) Mean Platelet Volume 7.7 FL (6.5-10.1) Neutrophils (%) (Auto) 66.8 % (45.0-75.0) Lymphocytes (%) (Auto) 21.9 % (20.0-45.0) Monocytes (%) (Auto) 9.0 % (1.0-10.0) Eosinophils (%) (Auto) 1.6 % (0.0-3.0) Basophils (%) (Auto) 0.8 % (0.0-2.0) Sodium Level 142 MMOL/L (136-145) Potassium Level 3.7 MMOL/L (3.5-5.1) Chloride Level 107 MMOL/L (98-107) Carbon Dioxide Level 30 MMOL/L (21-32) Anion Gap 6 mmol/L (5-15) Blood Urea Nitrogen 12 mg/dL (7-18) Creatinine 1.1 MG/DL (0.55-1.30) Estimate Glomerular Filtration Rate 59.9 mL/min (>60) Glucose Level 103 MG/DL (74-106) Lactic Acid Level 1.40 mmol/L (0.66-2.22) Calcium Level 9.8 MG/DL (8.5-10.1) Total Bilirubin 0.3 MG/DL (0.2-1.0) Aspartate Amino Transferase (AST) 9 U/L (15-37) L Alanine Aminotransferase (ALT) 12 U/L (12-78) Alkaline Phosphatase 158 U/L (46-116) H Total Creatine Kinase 21 U/L (26-308) L Troponin I 0.007 ng/mL (0.000-0.056) Pro-B-Type Natriuretic Peptide 315 pg/mL (0-125) H Total Protein 6.3 G/DL (6.4-8.2) L Albumin 2.8 G/DL (3.4-5.0) L Globulin 3.5 g/dL Albumin/Globulin Ratio 0.8 (1.0-2.7) L Urine Color Pale yellow Urine Appearance Clear Urine pH 6 (4.5-8.0) Urine Specific [place] 1.015 (1.005-1.035) Urine Protein Negative (NEGATIVE) Urine Glucose (UA) Negative (NEGATIVE) Urine Ketones Negative (NEGATIVE) Urine Occult Blood Negative (NEGATIVE) Urine Nitrite Negative (NEGATIVE) Urine Bilirubin Negative (NEGATIVE) Urine Urobilinogen Normal MG/DL (0.0-1.0) Urine Leukocyte Esterase 1+ (NEGATIVE) H Urine RBC 0-2 /HPF (0 - 2) Urine WBC 0-2 /HPF (0 - 2) Urine Squamous Epithelial Cells Few /LPF (NONE/OCC) Urine Bacteria Occasional /HPF (NONE) Microbiology Date/Time Source Procedure Growth Status 12/31/17 12:20 Nasal Nares Influenza Types A,B Antigen (SHIRLEY) - Final Complete Last Vital Signs Date Time Temp Pulse Resp B/P (MAP) Pulse Ox O2 Delivery O2 Flow Rate FiO2 12/31/17 12:08 98.8 78 20 141/87 96 Room Air 98.8 Disposition: ADMITTED INPATIENT Condition: Serious RetinoRenny M.D. Dec 31, 2017 12:29
[2017-12-31 12:30] VITALS: BP 148/64
[2017-12-31 13:10] LABS: BASOPHILS % (AUTO) 0.8 % (0.0-2.0); EOSINOPHILS % (AUTO) 1.6 % (0.0-3.0); HEMATOCRIT 38.9 % (37.0-47.0); HEMOGLOBIN 12.5 G/DL (12.0-16.0); LYMPHOCYTES % (AUTO) 21.9 % (20.0-45.0); MEAN CORPUSCULAR VOLUME 99 FL (80-99); NEUTROPHILS % (AUTO) 66.8 % (45.0-75.0); PLATELET COUNT 297 K/UL (150-450); RED BLOOD COUNT 3.94 M/UL (4.20-5.40); RED CELL DISTRIBUTION WIDTH 14.6 % (11.6-14.8); WHITE BLOOD COUNT 10.5 K/UL (4.8-10.8)
[2017-12-31 13:13] LABS: ANION GAP 6 mmol/L (5-15); BLOOD UREA NITROGEN 12 mg/dL (7-18); CALCIUM 9.8 MG/DL (8.5-10.1); CARBON DIOXIDE 30 MMOL/L (21-32); CHLORIDE 107 MMOL/L (98-107); CREATININE 1.1 MG/DL (0.55-1.30); POTASSIUM 3.7 MMOL/L (3.5-5.1); SODIUM 142 MMOL/L (136-145)
[2017-12-31 13:21] LABS: APPEARANCE,URINE CLEAR; BILIRUBIN, URINE NEGATIVE (NEGATIVE); COLOR,URINE PALE YELLOW; GLUCOSE, URINE (UA) NEGATIVE (NEGATIVE); KETONES,URINE NEGATIVE (NEGATIVE); LEUKOCYTE ESTERASE ,URINE 1+ (NEGATIVE); NITRITE,URINE NEGATIVE (NEGATIVE); PH,URINE 6 (4.5-8.0); PROTEIN,URINE NEGATIVE (NEGATIVE); UROBILINOGEN,URINE NORMAL MG/DL (0.0-1.0)
[2017-12-31 13:31] LABS: ALANINE AMINOTRANSFERASE 12 U/L (12-78); ALBUMIN 2.8 G/DL (3.4-5.0); ALBUMIN/GLOBULIN RATIO 0.8 (1.0-2.7); ALKALINE PHOSPHATASE 158 U/L (46-116); ASPARTATE AMINO TRANSFERASE 9 U/L (15-37); BILIRUBIN,TOTAL 0.3 MG/DL (0.2-1.0); CREATINE KINASE 21 U/L (26-308)
[2017-12-31] MEDS ORDERED: Azithromycin 500 MG in NS 275 ML IV ONE (13:45)
[2017-12-31] MEDS ORDERED: Morphine Sulfate 4mg/ml Inj IVP ONE (13:45)
[2017-12-31] MEDS ORDERED: LACTATED RINGER S IVPB ONE (13:45)
[2017-12-31] MEDS ORDERED: CEFTRIAXONE IVPB ONE (13:45)
[2017-12-31] MEDS ORDERED: DEXTROSE IVPB ONE (13:45)
[2017-12-31] MEDS ORDERED: cefTRIAXone 1 GM in D5W 55 ML IVPB ONE (14:15)
[2017-12-31] MEDS ORDERED: LORazepam Inj 2mg/ml 1ml IV PRN (14:45)
[2017-12-31 15:58] VITALS: BP 149/66
[2017-12-31 16:02] VITALS: BP 153/63
[2017-12-31] MEDS: Miralax 17gm pkt ORAL PRN (16:14)
--- NOTE | 2017-12-31 16:18 | Consultation ---
History of Present Illness General Date patient seen: Dec 31, 2017 Time patient seen: 16:18 Chief Complaint: General Complaint Present Illness HPI 67 y/o F with hx of CAD s/p stents, COPD, CKD, HTN, lumbar DJD/sponydolosis, peripheral neuropathy, MDD/anxiety, non compliance, drug abuse and opioid dependency, current smoker, R Lung mass (refusing biopsy), CVA presents to ED on 12/31 with cough and SOB. Patient refers was prescribed levaquin but still coughing and having SOB. Reported also fevers, chills, decreased PO intake. Denies CP, n/v/d Of note, patient recently admitted 12/06-12/12 with COPD exacerbation, leukocytosis, RENNY and UTI Afebrile, no leukocytosis, at RA. Allergies: Coded Allergies: No Known Allergies (Unverified , 06/30/17) Medication History Scheduled Amoxicillin* (Amoxil*), 500 MG ORAL BID Clopidogrel Bisulfate* (Plavix*), 75 MG ORAL DAILY, (Reported) Furosemide* (Lasix*), 20 MG ORAL DAILY, (Reported) Ibuprofen* (Motrin*), 600 MG ORAL FOUR TIMES A DAY, (Reported) Levofloxacin* (Levaquin*), 250 MG ORAL DAILY, (Reported) Lisinopril* (Lisinopril*), 2.5 MG ORAL DAILY, (Reported) Metoprolol Tartrate* (Metoprolol Tartrate*), 25 MG ORAL EVERY 12 HOURS, ( Reported) Midodrine* (Proamatine*), 2.5 MG ORAL THREE TIMES A DAY, (Reported) Montelukast Sodium* (Singulair*), 10 MG ORAL DAILY, (Reported) Pantoprazole* (Protonix*), 40 MG ORAL DAILY, (Reported) Simvastatin (Zocor), 5 MG ORAL BEDTIME, (Reported) Sumatriptan Succinate* (Imitrex*), 50 MG ORAL DAILY PRN MIGRAINE, (Reported) Scheduled PRN Hydrocodone Bit/Acetaminophen 5-325* (Tanana 5-325 Tablet*), 1 TAB ORAL Q4H PRN for For Pain, (Reported) Ondansetron* (Zofran*), 4 MG ORAL Q6H PRN for Nausea & Vomiting, (Reported) Miscellaneous Medications Hydromorphone Hcl (Dilaudid), 8 MG PO, (Reported) Morphine Sulfate (Macie), 10 MG PO, (Reported) Unable to Obtain Medications (Unable To Obtain Meds), (Reported) Patient History Healthcare decision maker Resuscitation status Full Code Advanced Directive on File No Patient History Narrative Pmhx: as above Shx: reviewed Fhx: non contributory Review of Systems All Other Systems: negative except mentioned in HPI Physical Exam Physical Exam Narrative Sp02 EP Interpretation: reviewed, normal General Appearance: alert, GCS 15, moderate distress Head: normocephalic, atraumatic Eyes: bilateral eye normal inspection, bilateral eye PERRL, bilateral eye EOMI ENT: normal ENT inspection, normal pharynx, normal voice, moist mucus membranes Neck: normal inspection, full range of motion, supple Respiratory: speaking full sentences, other - Course breath sounds worse on right Cardiovascular #1: normal inspection, regular rate, rhythm, no edema, normal capillary refill Cardiovascular #2: 2+ radial (R), 2+ radial (L) Gastrointestinal: normal inspection, non tender, soft, non-distended, no guarding Musculoskeletal: normal inspection, back normal, normal range of motion, non- tender Neurologic: normal inspection, alert, oriented x3, responsive, motor strength/ tone normal, sensory intact, normal gait, speech normal Psychiatric: normal inspection, judgement/insight normal, memory normal Skin: normal inspection, normal color, no rash, warm/dry, well hydrated, normal turgor Last 24 Hour Vital Signs Date Time Temp Pulse Resp B/P (MAP) Pulse Ox O2 Delivery O2 Flow Rate FiO2 12/31/17 16:02 97.3 72 18 153/63 100 97.3 12/31/17 15:58 98.6 74 18 149/66 97 Room Air 98.6 74 12/31/17 14:19 98.6 12/31/17 13:06 78 18 Room Air 12/31/17 12:30 98.6 78 18 148/64 98 Room Air 98.6 12/31/17 12:08 98.8 78 20 141/87 96 Room Air 98.8 Laboratory Tests Test 12/31/17 12:20 12/31/17 13:00 White Blood Count 10.5 K/UL (4.8-10.8) Red Blood Count 3.94 M/UL (4.20-5.40) L Hemoglobin 12.5 G/DL (12.0-16.0) Hematocrit 38.9 % (37.0-47.0) Mean Corpuscular Volume 99 FL (80-99) Mean Corpuscular Hemoglobin 31.8 PG (27.0-31.0) H Mean Corpuscular Hemoglobin Concent 32.3 G/DL (32.0-36.0) Red Cell Distribution Width 14.6 % (11.6-14.8) Platelet Count 297 K/UL (150-450) Mean Platelet Volume 7.7 FL (6.5-10.1) Neutrophils (%) (Auto) 66.8 % (45.0-75.0) Lymphocytes (%) (Auto) 21.9 % (20.0-45.0) Monocytes (%) (Auto) 9.0 % (1.0-10.0) Eosinophils (%) (Auto) 1.6 % (0.0-3.0) Basophils (%) (Auto) 0.8 % (0.0-2.0) Sodium Level 142 MMOL/L (136-145) Potassium Level 3.7 MMOL/L (3.5-5.1) Chloride Level 107 MMOL/L (98-107) Carbon Dioxide Level 30 MMOL/L (21-32) Anion Gap 6 mmol/L (5-15) Blood Urea Nitrogen 12 mg/dL (7-18) Creatinine 1.1 MG/DL (0.55-1.30) Estimat Glomerular Filtration Rate 59.9 mL/min (>60) Glucose Level 103 MG/DL (74-106) Lactic Acid Level 1.40 mmol/L (0.66-2.22) Calcium Level 9.8 MG/DL (8.5-10.1) Total Bilirubin 0.3 MG/DL (0.2-1.0) Aspartate Amino Transf (AST/SGOT) 9 U/L (15-37) L Alanine Aminotransferase (ALT/SGPT) 12 U/L (12-78) Alkaline Phosphatase 158 U/L (46-116) H Total Creatine Kinase 21 U/L (26-308) L Troponin I 0.007 ng/mL (0.000-0.056) Pro-B-Type Natriuretic Peptide 315 pg/mL (0-125) H Total Protein 6.3 G/DL (6.4-8.2) L Albumin 2.8 G/DL (3.4-5.0) L Globulin 3.5 g/dL Albumin/Globulin Ratio 0.8 (1.0-2.7) L Urine Color Pale yellow Urine Appearance Clear Urine pH 6 (4.5-8.0) Urine Specific [place] 1.015 (1.005-1.035) Urine Protein Negative (NEGATIVE) Urine Glucose (UA) Negative (NEGATIVE) Urine Ketones Negative (NEGATIVE) Urine Occult Blood Negative (NEGATIVE) Urine Nitrite Negative (NEGATIVE) Urine Bilirubin Negative (NEGATIVE) Urine Urobilinogen Normal MG/DL (0.0-1.0) Urine Leukocyte Esterase 1+ (NEGATIVE) H Urine RBC 0-2 /HPF (0 - 2) Urine WBC 0-2 /HPF (0 - 2) Urine Squamous Epithelial Cells Few /LPF (NONE/OCC) Urine Bacteria Occasional /HPF (NONE) Microbiology Date/Time Source Procedure Growth Status 12/31/17 12:20 Nasal Nares Influenza Types A,B Antigen (SHIRLEY) - Final Complete Height (Feet): 5 Height (Inches): 5.00 Weight (Pounds): 104 Medications Current Medications Medications (Trade) Dose Ordered Sig/Janee Route PRN Reason Start Time Stop Time Status Last Admin Dose Admin Acetaminophen (Tylenol) 650 mg Q4H PRN ORAL FEVER 12/31/17 14:45 01/30/18 14:44 Albuterol/ Ipratropium (Albuterol/ Ipratropium) 3 ml EVERY 4 HOURS PRN HHN Shortness of Breath 12/31/17 14:45 01/05/18 14:44 Cefepime HCl 2 gm/ Dextrose 110 ml @ 220 mls/hr DAILY@2100 IV 12/31/17 21:00 01/07/18 23:59 Dextrose (Dextrose 50%) 25 ml STAT PRN IV BS 60-69mg/dl 12/31/17 15:15 01/30/18 15:14 Dextrose (Dextrose 50%) 50 ml STAT PRN IV BS less than 60mg/dl 12/31/17 14:45 01/30/18 14:44 Heparin Sodium (Porcine) (Heparin 5000 units/ml) 5,000 units EVERY 12 HOURS SUBQ 12/31/17 21:00 01/30/18 20:59 Lorazepam (Ativan 2mg/ml 1ml) 2 mg EVERY 2 HOURS PRN IV For Anxiety 12/31/17 14:45 01/07/18 14:44 Morphine Sulfate (Morphine Sulfate) 4 mg EVERY 4 HOURS PRN IVP Severe Pain (Pain Scale 7-10) 12/31/17 14:45 01/07/18 14:44 Ondansetron HCl (Zofran) 4 mg Q6H PRN IVP Nausea & Vomiting 12/31/17 14:45 01/30/18 14:44 12/31/17 16:14 Polyethylene Glycol (Miralax) 17 gm DAILYPRN PRN ORAL Constipation 12/31/17 14:45 01/30/18 14:44 12/31/17 16:14 Sodium Chloride 1,000 ml @ 50 mls/hr Q20H IV 12/31/17 14:42 01/30/18 14:41 12/31/17 16:00 Vancomycin HCl (Vanco rx to dose) 1 ea DAILY PRN MISC RX TO DOSE 12/31/17 15:15 01/30/18 15:14 Vancomycin HCl 500 mg/Dextrose 110 ml @ 110 mls/hr Q24H IVPB 01/01/18 17:00 01/06/18 23:59 Vancomycin HCl 1 gm/Dextrose 275 ml @ 183.3 mls/ hr ONCE ONCE IVPB 12/31/17 17:00 12/31/17 18:30 Assessment/Plan Assessment/Plan Abx: IV Vancomycin 12/31- Cefepime 12/31- Ceftriaxone x1 12/31 Azithromycin x1 12/31 Assessment: Cough/SOB- ?PNA,?post-obstructive- CXR pending. r/o Flu -sp cx to be collected Afebrile, no leukocytosis R lung mass-? CA (patient refusing biopsy) CAD s/p stents COPD CKD HTN lumbar DJD/sponydolosis peripheral neuropathy MDD/anxiety non compliance drug abuse and opioid dependency current smoker CVA Plan: -Continue empiric IV Vancomycin, Cefepime,azithromycin #1 pending CXR -Sputum cx, Influenza sc -f/u cx -Monitor CBC/BMP, temperatures -aspiration precautions Thank you for this consultation. Will continue to follow along with you. Discussed with Holli Ayon M.D. Dec 31, 2017 16:18
[2017-12-31] MEDS ORDERED: Vancomycin 1 GM in D5W 275 ML IVPB ONE (17:00)
--- NOTE | 2017-12-31 17:59 | Pulmonology Progress Note ---
Subjective Allergies: Coded Allergies: No Known Allergies (Unverified , 06/30/17) Objective Last 24 Hour Vital Signs Date Time Temp Pulse Resp B/P (MAP) Pulse Ox O2 Delivery O2 Flow Rate FiO2 12/31/17 16:02 97.3 72 18 153/63 100 97.3 12/31/17 15:58 98.6 74 18 149/66 97 Room Air 98.6 74 12/31/17 14:19 98.6 12/31/17 13:06 78 18 Room Air 12/31/17 12:30 98.6 78 18 148/64 98 Room Air 98.6 12/31/17 12:08 98.8 78 20 141/87 96 Room Air 98.8 Microbiology Date/Time Source Procedure Growth Status 12/31/17 12:20 Nasal Nares Influenza Types A,B Antigen (SHIRLEY) - Final Complete Laboratory Tests 12/31/17 12:20: White Blood Count 10.5, Red Blood Count 3.94L, Hemoglobin 12.5, Hematocrit 38.9 , Mean Corpuscular Volume 99, Mean Corpuscular Hemoglobin 31.8H, Mean Corpuscular Hemoglobin Concent 32.3, Red Cell Distribution Width 14.6, Platelet Count 297, Mean Platelet Volume 7.7, Neutrophils (%) (Auto) 66.8, Lymphocytes (% ) (Auto) 21.9, Monocytes (%) (Auto) 9.0, Eosinophils (%) (Auto) 1.6, Basophils ( %) (Auto) 0.8, Sodium Level 142, Potassium Level 3.7, Chloride Level 107, Carbon Dioxide Level 30, Anion Gap 6, Blood Urea Nitrogen 12, Creatinine 1.1, Estimat Glomerular Filtration Rate 59.9, Glucose Level 103, Lactic Acid Level 1.40, Calcium Level 9.8, Total Bilirubin 0.3, Aspartate Amino Transf (AST/SGOT) 9L, Alanine Aminotransferase (ALT/SGPT) 12, Alkaline Phosphatase 158H, Total Creatine Kinase 21L, Troponin I 0.007, Pro-B-Type Natriuretic Peptide 315H, Total Protein 6.3L, Albumin 2.8L, Globulin 3.5, Albumin/Globulin Ratio 0.8L 12/31/17 13:00: Urine Color Pale yellow, Urine Appearance Clear, Urine pH 6, Urine Specific [place] 1.015, Urine Protein Negative, Urine Glucose (UA) Negative, Urine Ketones Negative, Urine Occult Blood Negative, Urine Nitrite Negative, Urine Bilirubin Negative, Urine Urobilinogen Normal, Urine Leukocyte Esterase 1+H, Urine RBC 0-2, Urine WBC 0-2, Urine Squamous Epithelial Cells Few, Urine Bacteria Occasional Current Medications Medications (Trade) Dose Ordered Sig/Janee Route PRN Reason Start Time Stop Time Status Last Admin Dose Admin Acetaminophen (Tylenol) 650 mg Q4H PRN ORAL FEVER 12/31/17 14:45 01/30/18 14:44 Albuterol/ Ipratropium (Albuterol/ Ipratropium) 3 ml EVERY 4 HOURS PRN HHN Shortness of Breath 12/31/17 14:45 01/05/18 14:44 Azithromycin (Zithromax) 500 mg DAILY@1300 ORAL 01/01/18 13:00 01/08/18 12:59 Cefepime HCl 2 gm/ Dextrose 110 ml @ 220 mls/hr DAILY@2100 IV 12/31/17 21:00 01/07/18 23:59 Dextrose (Dextrose 50%) 25 ml STAT PRN IV BS 60-69mg/dl 12/31/17 15:15 01/30/18 15:14 Dextrose (Dextrose 50%) 50 ml STAT PRN IV BS less than 60mg/dl 12/31/17 14:45 01/30/18 14:44 Heparin Sodium (Porcine) (Heparin 5000 units/ml) 5,000 units EVERY 12 HOURS SUBQ 12/31/17 21:00 01/30/18 20:59 Lorazepam (Ativan 2mg/ml 1ml) 2 mg EVERY 2 HOURS PRN IV For Anxiety 12/31/17 14:45 01/07/18 14:44 Morphine Sulfate (Morphine Sulfate) 4 mg EVERY 4 HOURS PRN IVP Severe Pain (Pain Scale 7-10) 12/31/17 14:45 01/07/18 14:44 Ondansetron HCl (Zofran) 4 mg Q6H PRN IVP Nausea & Vomiting 12/31/17 14:45 01/30/18 14:44 12/31/17 16:14 Polyethylene Glycol (Miralax) 17 gm DAILYPRN PRN ORAL Constipation 12/31/17 14:45 01/30/18 14:44 12/31/17 16:14 Sodium Chloride 1,000 ml @ 50 mls/hr Q20H IV 12/31/17 14:42 01/30/18 14:41 12/31/17 16:00 Vancomycin HCl (Vanco rx to dose) 1 ea DAILY PRN MISC RX TO DOSE 12/31/17 15:15 01/30/18 15:14 Vancomycin HCl 500 mg/Dextrose 110 ml @ 110 mls/hr Q24H IVPB 01/01/18 17:00 01/06/18 23:59 Vancomycin HCl 1 gm/Dextrose 275 ml @ 183.3 mls/ hr ONCE ONCE IVPB 12/31/17 17:00 12/31/17 18:30 12/31/17 17:15 Elie Reddy MD Dec 31, 2017 17:59
[2017-12-31] MEDS: Morphine Sulfate 4mg/ml Inj IVP PRN (18:53)
[2017-12-31 20:00] VITALS: BP 142/70
[2017-12-31] MEDS: Cefepime HCl 2 GM in D5W 110 ML IV SCH (20:48)
[2017-12-31] MEDS: Heparin 5000 units/ml inj SUBQ SCH ×2 (20:48→20:50)
[2018-01-01] VITALS: BP 136/61
[2018-01-01] MEDS: Morphine Sulfate 4mg/ml Inj IVP PRN ×6 (00:15→21:51)
[2018-01-01 04:00] VITALS: BP 150/69
[2018-01-01 08:02] VITALS: BP 146/70
[2018-01-01] MEDS: Heparin 5000 units/ml inj SUBQ SCH (08:26)
--- NOTE | 2018-01-01 09:15 | History and Physical Report ---
DATE OF ADMISSION: 12/31/2017 TIME SEEN: At 8 a.m. CONSULTANTS: 1. Elie Reddy M.D. 2. Gume Mosley M.D. 3. Loc Cabrera M.D. 4. Ajay Yun M.D. CHIEF COMPLAINT: Shortness of breath, coughing, migraine headache. HISTORY OF PRESENT ILLNESS: This is a 67-year-old female, who lives by herself at home and presents to [place] [facility] last night with increased shortness of breath, coughing for two days, has some migraine headache as well. She was diagnosed with pneumonia, failure to thrive, and migraine headache and admitted to medical floor for further treatment. Currently, calm in bed, complains of slight general pain and headache, no complaint otherwise. REVIEW OF SYSTEMS: No chest pain. Slight short of breath. No nausea, vomiting, or diarrhea. PAST MEDICAL HISTORY: Includes hypertension, CHF, neuropathy, failure to thrive. PAST SURGICAL HISTORY: Hysterectomy, gallbladder, tonsils. ALLERGIES: None. SOCIAL HISTORY: Positive smoking. Positive alcohol. No intravenous drug abuse. FAMILY HISTORY: Noncontributory. PHYSICAL EXAMINATION: GENERAL: Calm in bed, oriented x3, in no acute distress. VITAL SIGNS: Temperature 97, pulse 82, respirations 18, blood pressure 146/70. CARDIOVASCULAR: No murmur. LUNGS: Poor exchange. ABDOMEN: Bowel sounds distant. EXTREMITIES: Show no cyanosis or edema. NEUROLOGIC: The patient moves all extremities, slightly weak. LABORATORY AND DIAGNOSTIC DATA: CBC is normal. BMP shows alkaline phosphatase 158. BNP is 315. Albumin 2.8. Urinalysis show 1+ leukocyte esterase. MEDICATIONS: Include vancomycin, azithromycin, cefepime, heparin, albuterol, Tylenol, morphine, MiraLAX, Zofran, Ativan. ASSESSMENT: UTI, pneumonia, migraine headache, shortness of breath, failure to thrive, hypertension, CHF, neuropathy. PLAN: 1. O2 and pulmonary treatment as needed. 2. Antibiotics per Infectious Disease. 3. Blood pressure control. 4. Dietary followup. 5. Pain control. 6. Resume home medications. 7. OT, PT, dietary evaluation. 8. CBC and BMP in the morning. Miki Garcia D.O. DR: Ilia JOB#: [id number] CC:
[2018-01-01] MEDS: Miralax 17gm pkt ORAL PRN (09:43)
[2018-01-01 11:23] VITALS: BP 143/75
--- NOTE | 2018-01-01 11:50 | Diagnostic Imaging Report ---
Indication: Dyspnea Comparison: 12/06/2018 A single view chest radiograph was obtained. Findings: No definite infiltrate or pulmonary vascular congestion identified. The heart is enlarged. The aorta is mildly enlarged consistent with atherosclerotic vascular disease. The bones are osteopenic. There is extensive osteophyte formation about the glenohumeral joints bilaterally presumably arthrosis. Impression: No acute disease
[2018-01-01 12:18] LABS: BASOPHILS % (AUTO) 1.6 % (0.0-2.0); HEMATOCRIT 40.4 % (37.0-47.0); HEMOGLOBIN 12.6 G/DL (12.0-16.0); LYMPHOCYTES % (AUTO) 20.3 % (20.0-45.0); MEAN CORPUSCULAR VOLUME 99 FL (80-99); MONOCYTES % (AUTO) 7.4 % (1.0-10.0); NEUTROPHILS % (AUTO) 68.8 % (45.0-75.0); PLATELET COUNT 291 K/UL (150-450); RED BLOOD COUNT 4.08 M/UL (4.20-5.40); RED CELL DISTRIBUTION WIDTH 14.9 % (11.6-14.8); WHITE BLOOD COUNT 10.1 K/UL (4.8-10.8)
[2018-01-01 13:21] LABS: ALBUMIN 2.6 G/DL (3.4-5.0); ANION GAP 9 mmol/L (5-15); BLOOD UREA NITROGEN 10 mg/dL (7-18); CALCIUM 9.9 MG/DL (8.5-10.1); CARBON DIOXIDE 22 MMOL/L (21-32); CHLORIDE 111 MMOL/L (98-107); CREATININE 0.7 MG/DL (0.55-1.30); PHOSPHORUS 3.3 MG/DL (2.5-4.9); POTASSIUM 3.9 MMOL/L (3.5-5.1); SODIUM 142 MMOL/L (136-145)
[2018-01-01] MEDS: Azithromycin 250mg tab ORAL SCH (13:22)
--- NOTE | 2018-01-01 15:39 | General Progress Note ---
Assessment/Plan Assessment/Plan GI Consult Dictated Thank you Israel Parmar MD Subjective Allergies: Coded Allergies: No Known Allergies (Unverified , 06/30/17) Objective Last 24 Hour Vital Signs Date Time Temp Pulse Resp B/P (MAP) Pulse Ox O2 Delivery O2 Flow Rate FiO2 01/01/18 11:23 97.7 95 20 143/75 93 Room Air 97.7 01/01/18 10:12 88 18 Room Air 01/01/18 08:02 97.2 82 18 146/70 94 Room Air 97.2 01/01/18 06:21 98.2 01/01/18 05:51 98.2 01/01/18 04:00 98.2 86 18 150/69 91 Room Air 98.2 01/01/18 00:15 98.1 01/01/18 00:00 98.1 73 20 136/61 93 98.1 12/31/17 20:00 98.1 74 19 142/70 96 98.1 12/31/17 16:02 97.3 72 18 153/63 100 97.3 12/31/17 15:58 98.6 74 18 149/66 97 Room Air 98.6 74 12/31/17 15:55 98.7 68 18 138/66 96 Room Air Intake and Output 12/31/17 01/01/18 19:00 07:00 Intake Total 100 ml 550 ml Output Total 100 ml Balance 0 ml 550 ml IV Total 100 ml 550 ml Output Urine Total 100 ml # Voids 2 Laboratory Tests 01/01/18 11:50: White Blood Count 10.1, Red Blood Count 4.08L, Hemoglobin 12.6, Hematocrit 40.4 , Mean Corpuscular Volume 99, Mean Corpuscular Hemoglobin 30.9, Mean Corpuscular Hemoglobin Concent 31.2L, Red Cell Distribution Width 14.9H, Platelet Count 291, Mean Platelet Volume 7.4, Neutrophils (%) (Auto) 68.8, Lymphocytes (%) (Auto) 20.3, Monocytes (%) (Auto) 7.4, Eosinophils (%) (Auto) 2.0, Basophils (%) (Auto) 1.6, Sodium Level 142, Potassium Level 3.9, Chloride Level 111H, Carbon Dioxide Level 22, Anion Gap 9, Blood Urea Nitrogen 10, Creatinine 0.7, Estimat Glomerular Filtration Rate > 60, Glucose Level 103, Calcium Level 9.9, Phosphorus Level 3.3, Albumin 2.6L Height (Feet): 5 Height (Inches): 5.00 Weight (Pounds): 104 ISRAEL PARMAR Jan 01, 2018 15:39
[2018-01-01 15:58] VITALS: BP 157/75
[2018-01-01] MEDS ORDERED: Sorbitol Solution UD 30ml ORAL ONE (16:30)
[2018-01-01] MEDS ORDERED: Enoxaparin Sodium 300mg/3ml vial SUBQ SCH (16:30)
[2018-01-01] MEDS: Vancomycin 500mg/D5W 110ml IVPB SCH ×2 (17:35)
--- NOTE | 2018-01-01 19:58 | Consultation ---
Consult Note Assessment/Plan JOB ID [id number] Delmer Fitch MD Jan 01, 2018 19:58
[2018-01-01 20:00] VITALS: BP 147/85
[2018-01-01] MEDS: Cefepime HCl 2 GM in D5W 110 ML IV SCH (20:48)
[2018-01-02] VITALS: BP 146/80
--- NOTE | 2018-01-02 00:30 | Consultation ---
DATE OF CONSULTATION: 01/01/2018 GASTROENTEROLOGY CONSULTATION CONSULTING PHYSICIAN: Israel Parmar M.D. CHIEF COMPLAINT: I was asked to see this patient by Dr. Miki Garcia for evaluation of failure to thrive and constipation. HISTORY OF PRESENT ILLNESS: The patient is a pleasant, 67-year-old woman, who was admitted to the hospital due to coughing, shortness of breath, and pneumonia. During the overnight evaluation, the patient has been found to have deep vein thrombosis and has been started on anticoagulation. The patient complains of poor appetite and failure to thrive, but she has had no nausea or vomiting. Some mild decrease albumin has been noted. She did have an endoscopy and had a colonoscopy about 10 years ago. She stated she is somewhat constipated and has not had a bowel movement for about a week. PAST MEDICAL HISTORY: History of chronic constipation, hypertension, congestive heart failure, and history of neuropathy. PAST SURGICAL HISTORY: Status post hysterectomy, status post gallbladder removal, and status post tonsillectomy. MEDICATIONS: See chart list for details. ALLERGIES: None. SOCIAL HISTORY: The patient has children. She smokes cigarettes daily, but does not drink alcohol. FAMILY HISTORY: Noncontributory. REVIEW OF SYSTEMS: Otherwise negative. PHYSICAL EXAMINATION: GENERAL: This is a pleasant elderly woman, seen in her room. HEENT: Normocephalic and atraumatic. Sclerae are anicteric. Oropharynx clear. NECK: Supple. CHEST: Clear to auscultation. CARDIOVASCULAR: Revealed a regular rate. ABDOMEN: Soft. Good bowel sounds. EXTREMITIES: Revealed trace edema. LABORATORY DATA: Noted. ASSESSMENT: This patient presents with failure to thrive with somewhat poor oral intake and low albumin. The patient's calorie count to be checked to evaluate the status of her oral intake. It is noted that the trial of Marinol or oxandrin will be given. The patient should also have laxatives to help her with regular bowel movements as this may also improve her appetite. Should her symptoms not resolve, then further workup including endoscopy and colonoscopy can be considered. RECOMMENDATIONS: Per above discussion and per orders written in the chart. Thank you for asking me to participate in the care of this patient. Israel Parmar M.D. DR: Braxton JOB#: [id number] CC: TED
--- NOTE | 2018-01-02 01:15 | Consultation ---
DATE OF CONSULTATION: 01/01/2018 HEMATOLOGY/ONCOLOGY CONSULTATION CONSULTING PHYSICIAN: Delmer Fitch M.D. REQUESTING PHYSICIAN: Miki Garcia D.O. REASON FOR CONSULTATION: Evaluation of failure to thrive as well as DVT of the left femoral superficial vein as well as upper extremity DVT. IDENTIFICATION DATA: Dear Dr. Miki Garcia, The patient is a pleasant 67-year-old female, who I have seen before on multiple admissions in the past with past medical history significant for CAD, status post stent; COPD; CKD; hypertension; lumbar stenosis; peripheral neuropathy; DJD; anxiety; noncompliance; drug abuse; opiate dependency; chronic smoker; right lung mass, refusing biopsy in the past; CVA history; shortness of breath, presentation to the ER 12/31/2017, continued to be coughing, also reported to have fevers and chills. Seen by ID Service. They have recommended antibiotics. On vancomycin, cefepime, and azithromycin for community-acquired pneumonia and she was noted to have DVT of the lower extremity and upper extremity. Hematology Service consulted for further evaluation and treatment. PAST MEDICAL HISTORY: As noted above. PAST SURGICAL HISTORY: None noted. ALLERGIES: No known drug allergies. MEDICATIONS: Currently in the receives ibuprofen, Levaquin, lisinopril, metoprolol, montelukast, pantoprazole, Zocor, and sumatriptan. FAMILY HISTORY: Noncontributory. REVIEW OF SYSTEMS: CONSTITUTIONAL: No fevers, chills, or night sweats. SKIN: No rashes, bumps, or itching. HEENT: No headache, hearing or vision changes. BREASTS: No lumps, pain, or discharge. PULMONARY: Some shortness of breath is noted and some sputum production as well. GASTROINTESTINAL: No nausea, vomiting, or diarrhea. GENITOURINARY: No dysuria, frequency, or urgency. MUSCULOSKELETAL: No joint swelling, muscle pain, or trauma. PHYSICAL EXAMINATION: NEUROLOGICAL: Grossly nonfocal. Alert and oriented x3. LABORATORY AND DIAGNOSTIC DATA: Labs, WBC is 10.5, hemoglobin 12.5, hematocrit 39, and platelet count 297,000. Imaging, chest x-ray, no acute disease noted. Duplex imaging of upper and lower extremities showing chronic thrombus of the left superficial femoral vein. Upper extremity DVT is pending, given burning sensation of the left lateral arm. ASSESSMENT AND RECOMMENDATIONS: 1. Deep venous thrombosis of the lower extremity superficial vein on the left side. The patient currently started on Lovenox 1 mg subcutaneously twice a day dosing. She will require three months of anticoagulation. Begin the patient on Coumadin with a goal INR between 2 and 3. 2. Left upper arm swelling. Obtain duplex imaging of the arm to rule out DVT. 3. Chronic obstructive pulmonary disease exacerbation history. 4. Chronic kidney disease. 5. Hypertension. 6. Lumbar stenosis. 7. Pneumonia, on broad-spectrum antibiotics. 8. Coronary artery disease, status post stent. 9. Chronic smoker. 10. Right lung mass. The patient refusing biopsy. I appreciate the consultation. Delmer Fitch M.D. DR: YAMIL JOB#: [id number] CC:
[2018-01-02] MEDS: Morphine Sulfate 4mg/ml Inj IVP PRN ×5 (01:52→18:28)
[2018-01-02 04:00] VITALS: BP 134/64
[2018-01-02 08:00] VITALS: BP 145/73
[2018-01-02] MEDS: Eliquis 2.5mg tablet ORAL SCH ×2 (09:45→16:56)
[2018-01-02] MEDS ORDERED: 1/2 NS 1000ml IV ONE (10:50)
[2018-01-02] MEDS ORDERED: Sterile Water Irrig 1000ml IRRIG ONE (10:50)
[2018-01-02] MEDS ORDERED: Tubing IV Secondary IV ONE (10:50)
--- NOTE | 2018-01-02 11:07 | GI Progress Note ---
Assessment/Plan Problems: (1) Constipation ICD Codes: K59.00 - Constipation, unspecified SNOMED: 71618731 (2) Vomiting ICD Codes: R11.10 - Vomiting, unspecified SNOMED: 770045029 Status: unchanged Status Narrative Discussed with Dr. Cabrera. Assessment/Plan FTT push PO calorie count trial marinol laxatives prn transfusions fu labs will consider GI procedures Subjective Subjective refusing labs c/o of right arm pain Objective Last 24 Hour Vital Signs Date Time Temp Pulse Resp B/P (MAP) Pulse Ox O2 Delivery O2 Flow Rate FiO2 01/02/18 08:00 98.1 93 19 145/73 90 98.1 01/02/18 04:00 98.1 83 18 134/64 91 98.1 01/02/18 00:00 98.2 85 20 146/80 93 98.2 01/01/18 20:00 98.8 76 19 147/85 95 Room Air 98.8 01/01/18 15:58 98.1 88 18 157/75 94 Room Air 98.1 01/01/18 11:23 97.7 95 20 143/75 93 Room Air 97.7 Intake and Output 01/01/18 01/02/18 19:00 07:00 Intake Total 1040 ml 260 ml Balance 1040 ml 260 ml Intake Oral 480 ml 260 ml IV Total 560 ml # Voids 4 2 Laboratory Tests Test 01/01/18 11:50 White Blood Count 10.1 K/UL (4.8-10.8) Red Blood Count 4.08 M/UL (4.20-5.40) L Hemoglobin 12.6 G/DL (12.0-16.0) Hematocrit 40.4 % (37.0-47.0) Mean Corpuscular Volume 99 FL (80-99) Mean Corpuscular Hemoglobin 30.9 PG (27.0-31.0) Mean Corpuscular Hemoglobin Concent 31.2 G/DL (32.0-36.0) L Red Cell Distribution Width 14.9 % (11.6-14.8) H Platelet Count 291 K/UL (150-450) Mean Platelet Volume 7.4 FL (6.5-10.1) Neutrophils (%) (Auto) 68.8 % (45.0-75.0) Lymphocytes (%) (Auto) 20.3 % (20.0-45.0) Monocytes (%) (Auto) 7.4 % (1.0-10.0) Eosinophils (%) (Auto) 2.0 % (0.0-3.0) Basophils (%) (Auto) 1.6 % (0.0-2.0) Sodium Level 142 MMOL/L (136-145) Potassium Level 3.9 MMOL/L (3.5-5.1) Chloride Level 111 MMOL/L (98-107) H Carbon Dioxide Level 22 MMOL/L (21-32) Anion Gap 9 mmol/L (5-15) Blood Urea Nitrogen 10 mg/dL (7-18) Creatinine 0.7 MG/DL (0.55-1.30) Estimat Glomerular Filtration Rate > 60 mL/min (>60) Glucose Level 103 MG/DL (74-106) Calcium Level 9.9 MG/DL (8.5-10.1) Phosphorus Level 3.3 MG/DL (2.5-4.9) Albumin 2.6 G/DL (3.4-5.0) L Height (Feet): 5 Height (Inches): 5.00 Weight (Pounds): 104 General Appearance: WD/WN, no apparent distress, alert, thin Cardiovascular: normal rate Respiratory/Chest: normal breath sounds, no respiratory distress Abdominal Exam: normal bowel sounds, non tender, soft Extremities: non-tender Sue Cloud N.P. Jan 02, 2018 11:07
[2018-01-02 12:00] VITALS: BP 139/72
--- NOTE | 2018-01-02 12:15 | Consultation ---
Consult Note Consult Note NEUROLOGY CONSULTATION: Full note dictated #[id number] 67 y/o, RH, BF with PH of HTN, CAD - status post stents; COPD; CKD; lumbar spinal stenosis; peripheral neuropathy; DJD; anxiety; noncompliance; opiate dependency; chronic smoker; a right lung mass, refusing biopsy in the past. She was hospitalized on 12/31/17 for shortness of breath, coughing, fevers and chills. This consult was requested to help with neuropathy. ON EXAM: Problems with orientation, memory, VSF, HCF, language. Altered sensations in calf length stocking and wrist length glove distribution. Decreased DTRs Wide based stance & gait. IMPRESSION: Neuropathic process for numerous years - etiology unclear. Cognitive dysfunction. REC: W/U for neuropathy cognitive dysfunction. Elavil 25 mg q HS for symptomatic Rx of neuropathy as Neurontin has failed in past and her insurance will not cover Lyrica. MRI of brain to evaluate cognitive dysfunction. Eve Yun M.D., M.S.P.H. EVE YUN Jan 02, 2018 12:15
[2018-01-02] MEDS: Azithromycin 250mg tab ORAL SCH (13:36)
--- NOTE | 2018-01-02 13:59 | General Progress Note ---
Assessment/Plan Problem List: (1) Headache ICD Codes: R51 - Headache SNOMED: 62685181 (2) FTT (failure to thrive) in adult ICD Codes: R62.7 - Adult failure to thrive SNOMED: 770867659 (3) CHF (congestive heart failure) ICD Codes: I50.9 - Heart failure, unspecified SNOMED: 20733144 (4) Dyspnea ICD Codes: R06.00 - Dyspnea, unspecified SNOMED: 390779125 (5) UTI (urinary tract infection) ICD Codes: N39.0 - Urinary tract infection, site not specified SNOMED: 70559843 (6) Pneumonia ICD Codes: J18.9 - Pneumonia, unspecified organism SNOMED: 897913500 (7) HTN (hypertension) ICD Codes: I10 - HTN (hypertension) SNOMED: 23716707 Status: unchanged Assessment/Plan o2 pulm tx abx ot pt diet cbc bmp am Subjective Constitutional: Reports: weakness Respiratory: Reports: shortness of breath Allergies: Coded Allergies: No Known Allergies (Unverified , 06/30/17) All Systems: reviewed and negative except above Subjective calm in bed Objective Last 24 Hour Vital Signs Date Time Temp Pulse Resp B/P (MAP) Pulse Ox O2 Delivery O2 Flow Rate FiO2 01/02/18 12:00 97.9 87 19 139/72 93 97.9 01/02/18 08:00 98.1 93 19 145/73 90 98.1 01/02/18 04:00 98.1 83 18 134/64 91 98.1 01/02/18 00:00 98.2 85 20 146/80 93 98.2 01/01/18 20:00 98.8 76 19 147/85 95 Room Air 98.8 01/01/18 15:58 98.1 88 18 157/75 94 Room Air 98.1 Intake and Output 01/01/18 01/02/18 19:00 07:00 Intake Total 1040 ml 260 ml Balance 1040 ml 260 ml Intake Oral 480 ml 260 ml IV Total 560 ml # Voids 4 2 Height (Feet): 5 Height (Inches): 5.00 Weight (Pounds): 104 General Appearance: lethargic EENT: normal ENT inspection Neck: normal alignment Cardiovascular: normal peripheral pulses, normal rate, regular rhythm Respiratory/Chest: chest wall non-tender, lungs clear, decreased breath sounds Abdomen: normal bowel sounds, non tender, soft Extremities: normal inspection Edema: no edema noted Arm (L), no edema noted Arm (R), no edema noted Leg (L), no edema noted Leg (R), no edema noted Pedal (L), no edema noted Pedal (R), no edema noted Generalized Neurologic: responsive, motor weakness Skin: normal pigmentation, warm/dry JULIETA YANEZ Jan 02, 2018 13:59
[2018-01-02 14:11] LABS: BASOPHILS % (AUTO) 0.7 % (0.0-2.0); EOSINOPHILS % (AUTO) 2.2 % (0.0-3.0); HEMATOCRIT 39.1 % (37.0-47.0); HEMOGLOBIN 13.2 G/DL (12.0-16.0); LYMPHOCYTES % (AUTO) 18.1 % (20.0-45.0); MEAN CORPUSCULAR VOLUME 99 FL (80-99); MONOCYTES % (AUTO) 8.9 % (1.0-10.0); NEUTROPHILS % (AUTO) 70.1 % (45.0-75.0); PLATELET COUNT 278 K/UL (150-450); RED BLOOD COUNT 3.96 M/UL (4.20-5.40); RED CELL DISTRIBUTION WIDTH 14.2 % (11.6-14.8); WHITE BLOOD COUNT 10.5 K/UL (4.8-10.8)
[2018-01-02 14:24] LABS: ANION GAP 7 mmol/L (5-15); BLOOD UREA NITROGEN 10 mg/dL (7-18); CARBON DIOXIDE 28 MMOL/L (21-32); CHLORIDE 110 MMOL/L (98-107); CREATININE 0.6 MG/DL (0.55-1.30); POTASSIUM 4.6 MMOL/L (3.5-5.1); SODIUM 145 MMOL/L (136-145)
--- NOTE | 2018-01-02 14:29 | Diagnostic Imaging Report ---
Indication: pain Right hand pain Findings: 3 views of the right hand were obtained. Normal bony mineralization and alignment are demonstrated. No acute fractures, erosions, or periosteal reaction are seen. Soft tissues are unremarkable. Impression: No acute findings.
[2018-01-02 15:47] VITALS: BP 148/72
[2018-01-02] MEDS: Vancomycin 500mg/D5W 110ml IVPB SCH ×2 (16:55)
[2018-01-02] MEDS: Docusate 100mg cap ORAL SCH (16:56)
--- NOTE | 2018-01-02 19:30 | Consultation ---
DATE OF CONSULTATION: 01/02/2018 NEUROLOGY CONSULTATION CONSULTING PHYSICIAN: Ajay Yun M.D. REQUESTING PHYSICIAN: Miki Garcia D.O. HISTORY: Ms. Laura Franco is a 67-year-old, right-handed, black lady, who does have past history of hypertension, coronary artery disease - status post percutaneous interventions and stent placement, COPD, chronic kidney disease, lumbosacral spinal stenosis, a neuropathic process involving predominantly the legs and also the hands, degenerative joint disease, anxiety, noncompliance to therapeutic regimen, opiate dependency, chronic smoking and a right lung mass which she has refused to biopsy. She was hospitalized on 12/31/2017 for shortness of breath, cough, fevers, chills, and headache. She has been treated for her problems but continues to complain of significant neuropathic symptoms and thus this consultation was requested to evaluate the patient for her neuropathy. As per the patient, she has had neuropathy for numerous years. Over the years, this neuropathy has been progressively worsening. It started in both her feet but is now involving both her lower extremities and recently her hands too. The discomfort is in the form of pins and needles and when she walks she feels like she is walking on tacks. She is uncertain if it is associated with any weakness or not. While she was being examined it was noted that she was having significant cognitive problems and when asked about these cognitive problems, she said that she has had them for quite some time now and they are getting progressively worse. In the past, she has tried Neurontin for the discomfort in the feet and at first it helped a little better but then stopped working. She then tried Lyrica which one of her friends was taking and she felt significantly better with Lyrica however her insurance will not cover it. PAST MEDICAL HISTORY: Significant for high blood pressure, coronary artery disease, chronic obstructive pulmonary disease, chronic kidney disease, lumbosacral spinal stenosis, peripheral neuropathy, anxiety, opiate dependency, chronic smoking, and a lung mass that has not been investigated. FAMILY HISTORY: Nothing significant from a neurological point of view as per the patient. PERSONAL HISTORY: Home: She lives alone. 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 Habits: She has been smoking for numerous years and continues to smoke a pack a day. She denies use of alcohol or illicit drugs. PRESENT MEDICATIONS: Include Eliquis for DVT, vancomycin, Zithromax, cefepime, albuterol, ipratropium inhaler, Tylenol p.r.n. morphine p.r.n., MiraLAX p.r.n., Zofran p.r.n., Ativan p.r.n. PHYSICAL EXAMINATION: GENERAL: She is a well-developed and well-nourished, pleasant but anxious black lady, lying in bed, in no acute distress. VITAL SIGNS: Pulse 93 per minute, blood pressure 145/73 mmHg, respirations 19 per minute, and temperature 98.1 degrees Fahrenheit. HEAD: Normocephalic and atraumatic. NECK: No neck rigidity was observed. EENT: Examination benign. NEUROLOGICAL EXAMINATION: MENTAL STATUS EXAMINATION: She was awake and alert. She was oriented to [facility], [facility], and December but did not know the date or the year. She was able to recall 3/3 words immediately, but could only remember 2/3 words in one minute and three minutes. She was able to remember presidents, Trump and Obama only. Her mathematical skills were impaired. Her visuospatial function was also impaired. SPEECH: She had no dysarthria. LANGUAGE: She had anomia for low-frequency words. CRANIAL NERVE EXAMINATION: II: The visual eaton were intact on confrontation testing. III, IV & : The external ocular movements were full and the pupils 3 mm in diameter, equal, round, regular, and reactive to light. V: She had normal facial sensations and the temporales, masseters, and pterygoids functioned normally. VII: She had normal facial expressions and no facial asymmetry. VIII: She was able to hear well bilaterally and had no nystagmus. IX: The palate moved symmetrically on phonation. X: She had no hoarseness of voice. XI: The sternocleidomastoids and trapezii functioned normally. XII: The tongue was in the midline without any fasciculations or atrophy. MOTOR SYSTEM: The tone was normal in all four extremities. Examination of muscle mass revealed no focal wasting. Examination of power revealed G 5/5 power except for the right hand where power could not be tested accurately because of give-way weakness due to pain. SENSORY EXAMINATION: She had altered sensations to pinprick and light touch in a calf length stocking and wrist length glove distribution. Graphesthesia was normal. Position sense was normal in the fingers but she had decreased position sense in the toes bilaterally. REFLEXES: 1+ and bilaterally symmetrical at the biceps, triceps, and brachioradialis. 0 at both knees and ankles. The plantar responses were flexor bilaterally. STANCE: She had a wide-based stance. GAIT: She had a wide-based but stable gait. DIAGNOSTIC IMPRESSION: 1. Ms. Laura Franco is a 67-year-old, right-handed, black lady, who does have a past history of hypertension, coronary artery disease, chronic obstructive pulmonary disease, chronic kidney disease, lumbosacral spinal stenosis, a neuropathic process for numerous years, degenerative joint disease, anxiety, opiate dependency, chronic smoking and a right lung mass, who was hospitalized for shortness of breath, coughing, fevers and chills thought to be due to pneumonic process, who has been complaining of increasing neuropathic symptoms and thus this consult. 2. On neurological examination, at this time, she does demonstrate problems with orientation, recent and remote memory, visuospatial function, higher cognitive function, and language. She also has altered sensations in calf length stocking and wrist length glove distribution. The deep tendon reflexes are globally diminished and she has a wide-based stance and gait. 3. Laboratory data obtained thus far revealed a relatively normal CBC, relatively normal chemistry panel except for increased alkaline phosphatase, increase BNP and low albumin. A urinalysis that reveals 1+ leukocyte esterase and 0-2 red blood cells and white blood cells per high-power field. 4. The patient's history and neurological examination are most compatible with neuropathic process involving all four extremities more so the lower extremities than the upper extremities predominantly of a sensory nature. This neuropathy has been present for numerous years and the etiology is not clear. She also is exhibiting some cognitive dysfunction. RECOMMENDATIONS: 1. The patient was given an explanation of the above-mentioned findings. 2. She should be worked up thoroughly for treatable causes of neuropathy and cognitive dysfunction with an addition to the laboratory tests already done, a B12 level, folate level, vitamin D level, RPR, glycohemoglobin, Westergren sedimentation rate, TSH, serum protein immunoelectrophoresis, and hemoglobin A1c. 3. An MRI scan of the brain should be performed to evaluate the patient for her cognitive dysfunction. 4. She will be started on Elavil 25 mg at bedtime for symptomatic relief of her neuropathic discomfort as Neurontin as failed in the past and her insurance will not cover Lyrica. Thank you for entrusting me with the care of Ms. Franco. I shall follow her with you. Ajay Yun M.D., M.S.P.H. DR: Guevara JOB#: [id number]
[2018-01-02 20:00] VITALS: BP 145/73
--- NOTE | 2018-01-02 20:11 | Infectious Diseases Prog Note ---
Assessment/Plan Assessment/Plan Assessment: Cough/SOB- ?PNA,?post-obstructive- CXR pending. r/o Flu -sp cx to be collected Afebrile, no leukocytosis R lung mass-? CA (patient refusing biopsy) CAD s/p stents COPD CKD HTN lumbar DJD/sponydolosis peripheral neuropathy MDD/anxiety non compliance drug abuse and opioid dependency current smoker CVA Plan: -Continue empiric IV Vancomycin, Cefepime,azithromycin # 3 -Sputum cx, Influenza sc -f/u cx -Monitor CBC/BMP, temperatures -aspiration precautions Subjective Allergies: Coded Allergies: No Known Allergies (Unverified , 06/30/17) Subjective Afebrile Objective Vital Signs Last 24 Hour Vital Signs Date Time Temp Pulse Resp B/P (MAP) Pulse Ox O2 Delivery O2 Flow Rate FiO2 01/02/18 15:47 98.4 90 18 148/72 93 98.4 01/02/18 12:00 97.9 87 19 139/72 93 97.9 01/02/18 08:00 98.1 93 19 145/73 90 98.1 01/02/18 04:00 98.1 83 18 134/64 91 98.1 01/02/18 00:00 98.2 85 20 146/80 93 98.2 Height (Feet): 5 Height (Inches): 5.00 Weight (Pounds): 104 HEENT: anicteric Respiratory/Chest: no accessory muscle use Cardiovascular: regularly irregular Abdomen: no organomegaly Microbiology Date/Time Source Procedure Growth Status 12/31/17 13:07 Blood Blood Culture - Preliminary NO GROWTH AFTER 24 HOURS Resulted 12/31/17 12:30 Blood Blood Culture - Preliminary NO GROWTH AFTER 24 HOURS Resulted 01/01/18 18:00 Sputum Gram Stain - Final Resulted 01/01/18 18:00 Sputum Sputum Culture Pending Resulted 12/31/17 12:20 Nasal Nares Influenza Types A,B Antigen (SHIRLEY) - Final Complete Laboratory Tests Test 01/02/18 13:30 White Blood Count 10.5 K/UL (4.8-10.8) Red Blood Count 3.96 M/UL (4.20-5.40) L Hemoglobin 13.2 G/DL (12.0-16.0) Hematocrit 39.1 % (37.0-47.0) Mean Corpuscular Volume 99 FL (80-99) Mean Corpuscular Hemoglobin 33.3 PG (27.0-31.0) H Mean Corpuscular Hemoglobin Concent 33.6 G/DL (32.0-36.0) Red Cell Distribution Width 14.2 % (11.6-14.8) Platelet Count 278 K/UL (150-450) Mean Platelet Volume 7.6 FL (6.5-10.1) Neutrophils (%) (Auto) 70.1 % (45.0-75.0) Lymphocytes (%) (Auto) 18.1 % (20.0-45.0) L Monocytes (%) (Auto) 8.9 % (1.0-10.0) Eosinophils (%) (Auto) 2.2 % (0.0-3.0) Basophils (%) (Auto) 0.7 % (0.0-2.0) Erythrocyte Sedimentation Rate 41 MM/HR (0-30) H Prothrombin Time 10.7 SEC (9.30-11.50) Prothromb Time International Ratio 1.0 (0.9-1.1) Sodium Level 145 MMOL/L (136-145) Potassium Level 4.6 MMOL/L (3.5-5.1) Chloride Level 110 MMOL/L (98-107) H Carbon Dioxide Level 28 MMOL/L (21-32) Anion Gap 7 mmol/L (5-15) Blood Urea Nitrogen 10 mg/dL (7-18) Creatinine 0.6 MG/DL (0.55-1.30) Estimat Glomerular Filtration Rate > 60 mL/min (>60) Glucose Level 129 MG/DL (74-106) H Hemoglobin A1c 5.6 % (4.3-6.0) Calcium Level 10.0 MG/DL (8.5-10.1) Total Protein (PEP) Pending Albumin (PEP) Pending Globulin (PEP) Pending Albumin/Globulin Ratio Pending [id number] Pending Irefj-[id number] Pending Beta Globulins Pending Beta Gamma Globulin Pending PEP Abnormal Protein Bands Pending Protein Electrophoresis Interpret Pending Vitamin B12 Level 1000 PG/ML (193-986) H Vitamin D 25-Hydroxy Pending 25-Hydroxy Vitamin D2 Pending 25-Hydroxy Vitamin D3 Pending Folate 10.5 NG/ML (8.6-58.9) Thyroid Stimulating Hormone (TSH) 0.686 uiU/mL (0.358-3.740) Rapid Plasma Reagin Pending Current Medications Medications (Trade) Dose Ordered Sig/Janee Route PRN Reason Start Time Stop Time Status Last Admin Dose Admin Acetaminophen (Tylenol) 650 mg Q4H PRN ORAL FEVER 12/31/17 14:45 01/30/18 14:44 Albuterol/ Ipratropium (Albuterol/ Ipratropium) 3 ml EVERY 4 HOURS PRN HHN Shortness of Breath 12/31/17 14:45 01/05/18 14:44 Apixaban (Eliquis) 5 mg BID ORAL 01/02/18 09:00 02/01/18 08:59 01/02/18 16:56 Azithromycin (Zithromax) 500 mg DAILY@1300 ORAL 01/01/18 13:00 01/08/18 12:59 01/02/18 13:36 Cefepime HCl 2 gm/ Dextrose 110 ml @ 220 mls/hr DAILY@2100 IV 12/31/17 21:00 01/07/18 23:59 01/01/18 20:48 Dextrose (Dextrose 50%) 25 ml STAT PRN IV BS 60-69mg/dl 12/31/17 15:15 01/30/18 15:14 Dextrose (Dextrose 50%) 50 ml STAT PRN IV BS less than 60mg/dl 12/31/17 14:45 01/30/18 14:44 Docusate Sodium (Colace) 100 mg THREE TIMES A DAY ORAL 01/02/18 18:00 02/01/18 17:59 01/02/18 16:56 Lorazepam (Ativan 2mg/ml 1ml) 2 mg EVERY 2 HOURS PRN IV For Anxiety 12/31/17 14:45 01/07/18 14:44 Morphine Sulfate (Morphine Sulfate) 6 mg Q6H PRN IVP For Pain 01/02/18 18:30 01/09/18 18:29 01/02/18 18:28 Ondansetron HCl (Zofran) 4 mg Q6H PRN IVP Nausea & Vomiting 12/31/17 14:45 01/30/18 14:44 01/02/18 17:08 Polyethylene Glycol (Miralax) 17 gm BEDTIME ORAL 01/02/18 21:00 02/01/18 20:59 Polyethylene Glycol (Miralax) 17 gm DAILYPRN PRN ORAL Constipation 12/31/17 14:45 01/30/18 14:44 01/01/18 09:43 Sodium Chloride 1,000 ml @ 50 mls/hr Q20H IV 12/31/17 14:42 01/30/18 14:41 01/02/18 04:40 Vancomycin HCl (Vanco rx to dose) 1 ea DAILY PRN MISC RX TO DOSE 12/31/17 15:15 01/30/18 15:14 Vancomycin HCl 500 mg/Dextrose 110 ml @ 110 mls/hr Q24H IVPB 01/01/18 17:00 01/06/18 23:59 01/02/18 16:55 Gume Mosley MD Jan 02, 2018 20:11
[2018-01-02] MEDS ORDERED: Enoxaparin 40mg Inj SUBQ SCH (21:00)
[2018-01-02] MEDS: Cefepime HCl 2 GM in D5W 110 ML IV SCH (21:19)
[2018-01-02] MEDS: Zolpidem 5mg tab ORAL PRN (21:20)
[2018-01-02] MEDS: Miralax 17gm pkt ORAL SCH (21:20)
[2018-01-03] VITALS (7 sets, daily range): BP systolic 139–163; BP diastolic 69–82
--- NOTE | 2018-01-03 00:11 | General Progress Note ---
Assessment/Plan Assessment/Plan 1. Deep venous thrombosis of the lower extremity superficial vein on the left side. --> At this time discharge lovenox and begin apixaban. --> Begin the patient on Coumadin with a goal INR between 2 and 3. 2. Left upper arm swelling. --> Obtain duplex imaging of the arm to rule out DVT. 3. Chronic obstructive pulmonary disease exacerbation history. 4. Chronic kidney disease. 5. Hypertension. 6. Lumbar stenosis. 7. Pneumonia, on broad-spectrum antibiotics. 8. Coronary artery disease, status post stent. 9. Chronic smoker. 10. Right lung mass. The patient refusing biopsy. Subjective Date patient seen: Jan 02, 2018 Constitutional: Denies: no symptoms, chills, diaphoresis, fever, malaise, weakness, other HEENT: Denies: no symptoms, eye pain, blurred vision, tearing, double vision, ear pain, ear discharge, nose pain, nose congestion, throat pain, throat swelling, mouth pain, mouth swelling, other Cardiovascular: Denies: no symptoms, chest pain, edema, irregular heart rate, lightheadedness, palpitations, syncope, other Respiratory: Denies: no symptoms, cough, orthopnea, shortness of breath, SOB with excertion, SOB at rest, sputum, stridor, wheezing, other Gastrointestinal/Abdominal: Denies: no symptoms, abdomen distended, abdominal pain, black stools, tarry stools, blood in stool, constipated, diarrhea, difficulty swallowing, nausea, poor appetite, poor fluid intake, rectal bleeding , vomiting, other Genitourinary: Denies: no symptoms, burning, discharge, frequency, flank pain, hematuria, incontinence, pain, urgency, other Neurologic/Psychiatric: Denies: no symptoms, anxiety, depressed, emotional problems, headache, numbness, paresthesia, pre-existing deficit, seizure, tingling, tremors, weakness, other Allergies: Coded Allergies: No Known Allergies (Unverified , 06/30/17) Subjective Dc lovenox, begin apixaban. On abx. Objective Last 24 Hour Vital Signs Date Time Temp Pulse Resp B/P (MAP) Pulse Ox O2 Delivery O2 Flow Rate FiO2 01/02/18 20:00 97.7 90 17 145/73 94 97.7 01/02/18 15:47 98.4 90 18 148/72 93 98.4 01/02/18 12:00 97.9 87 19 139/72 93 97.9 01/02/18 08:00 98.1 93 19 145/73 90 98.1 01/02/18 04:00 98.1 83 18 134/64 91 98.1 Intake and Output 01/02/18 01/03/18 19:00 07:00 Intake Total 450 ml Balance 450 ml IV Total 450 ml Laboratory Tests 01/02/18 13:30: White Blood Count 10.5, Red Blood Count 3.96L, Hemoglobin 13.2, Hematocrit 39.1 , Mean Corpuscular Volume 99, Mean Corpuscular Hemoglobin 33.3H, Mean Corpuscular Hemoglobin Concent 33.6, Red Cell Distribution Width 14.2, Platelet Count 278, Mean Platelet Volume 7.6, Neutrophils (%) (Auto) 70.1, Lymphocytes (% ) (Auto) 18.1L, Monocytes (%) (Auto) 8.9, Eosinophils (%) (Auto) 2.2, Basophils (%) (Auto) 0.7, Erythrocyte Sedimentation Rate 41H, Prothrombin Time 10.7, Prothromb Time International Ratio 1.0, Sodium Level 145, Potassium Level 4.6, Chloride Level 110H, Carbon Dioxide Level 28, Anion Gap 7, Blood Urea Nitrogen 10, Creatinine 0.6, Estimat Glomerular Filtration Rate > 60, Glucose Level 129H , Hemoglobin A1c 5.6, Calcium Level 10.0, Total Protein (PEP) [Pending], Albumin (PEP) [Pending], Globulin (PEP) [Pending], Albumin/Globulin Ratio [ Pending], Abfec-1-Vchomhdst [Pending], Vwouy-7-Tgkwzrbsf [Pending], Beta Globulins [Pending], Beta Gamma Globulin [Pending], PEP Abnormal Protein Bands [ Pending], Protein Electrophoresis Interpret [Pending], Vitamin B12 Level 1000H, Vitamin D 25-Hydroxy [Pending], 25-Hydroxy Vitamin D2 [Pending], 25-Hydroxy Vitamin D3 [Pending], Folate 10.5, Thyroid Stimulating Hormone (TSH) 0.686, Rapid Plasma Reagin [Pending] Height (Feet): 5 Height (Inches): 5.00 Weight (Pounds): 104 Delmer Fitch MD Jan 03, 2018 00:11
[2018-01-03] MEDS: Morphine Sulfate 4mg/ml Inj IVP PRN ×4 (00:35→18:50)
[2018-01-03] MEDS: Albuterol/Ipratropium 3ml neb HHN PRN ×2 (04:55→17:22)
[2018-01-03 07:01] LABS: ANION GAP 6 mmol/L (5-15); BLOOD UREA NITROGEN 13 mg/dL (7-18); CALCIUM 10.1 MG/DL (8.5-10.1); CARBON DIOXIDE 26 MMOL/L (21-32); CHLORIDE 109 MMOL/L (98-107); CREATININE 0.7 MG/DL (0.55-1.30); SODIUM 141 MMOL/L (136-145)
[2018-01-03 07:05] LABS: BASOPHILS % (AUTO) 0.5 % (0.0-2.0); EOSINOPHILS % (AUTO) 2.3 % (0.0-3.0); HEMATOCRIT 35.7 % (37.0-47.0); HEMOGLOBIN 11.9 G/DL (12.0-16.0); LYMPHOCYTES % (AUTO) 23.1 % (20.0-45.0); MEAN CORPUSCULAR VOLUME 98 FL (80-99); MONOCYTES % (AUTO) 10.7 % (1.0-10.0); NEUTROPHILS % (AUTO) 63.3 % (45.0-75.0); PLATELET COUNT 264 K/UL (150-450); RED BLOOD COUNT 3.63 M/UL (4.20-5.40); RED CELL DISTRIBUTION WIDTH 14.6 % (11.6-14.8); WHITE BLOOD COUNT 10.3 K/UL (4.8-10.8)
[2018-01-03] MEDS: Docusate 100mg cap ORAL SCH ×3 (08:45→17:20)
[2018-01-03] MEDS: Eliquis 2.5mg tablet ORAL SCH ×2 (08:46→17:20)
--- NOTE | 2018-01-03 10:38 | Infectious Diseases Prog Note ---
Assessment/Plan Assessment/Plan Assessment: Cough/SOB- Bronchitis , cough resolve, doubt PNA,?post-obstructive- CXR : No acute disease R lung mass-? CA (patient refusing biopsy) Flu : Neg Afebrile, no leukocytosis Influenza sc: neg DVT CAD s/p stents COPD CKD HTN lumbar DJD/sponydolosis peripheral neuropathy MDD/anxiety non compliance drug abuse and opioid dependency current smoker CVA Plan: -Continue empiric IV ,azithromycin # 4 / 5 , DC Vancomycin, Cefepime d# 4 -Sputum cx, -f/u cx -Monitor CBC/BMP, temperatures -aspiration precautions Subjective Allergies: Coded Allergies: No Known Allergies (Unverified , 06/30/17) Subjective no new complain Objective Vital Signs Last 24 Hour Vital Signs Date Time Temp Pulse Resp B/P (MAP) Pulse Ox O2 Delivery O2 Flow Rate FiO2 01/03/18 08:00 98.1 84 19 150/70 95 98.1 01/03/18 05:14 88 20 99 Room Air 21 01/03/18 04:56 86 18 97 Room Air 21 01/03/18 04:00 98.1 85 20 144/73 93 Room Air 98.1 01/03/18 00:00 97.9 86 18 163/82 93 Room Air 97.9 01/02/18 20:00 97.7 90 17 145/73 94 97.7 01/02/18 15:47 98.4 90 18 148/72 93 98.4 01/02/18 12:00 97.9 87 19 139/72 93 97.9 Height (Feet): 5 Height (Inches): 5.00 Weight (Pounds): 104 HEENT: mucous membranes moist Respiratory/Chest: normal breath sounds Cardiovascular: normal rate Abdomen: no organomegaly Microbiology Date/Time Source Procedure Growth Status 12/31/17 13:07 Blood Blood Culture - Preliminary NO GROWTH AFTER 48 HOURS Resulted 12/31/17 12:30 Blood Blood Culture - Preliminary NO GROWTH AFTER 48 HOURS Resulted 01/01/18 18:00 Sputum Gram Stain - Final Resulted 01/01/18 18:00 Sputum Sputum Culture - Preliminary NORMAL UPPER RESPIRATORY BRANDI AT 24 ... Resulted 12/31/17 14:55 Nasal Nares MRSA Culture - Final NO METHICILLIN RESISTANT STAPH AUREUS... Complete 12/31/17 12:20 Nasal Nares Influenza Types A,B Antigen (SHIRLEY) - Final Complete 12/31/17 14:55 Rectum VRE Culture - Final Enterococcus Faecium - Vre Complete Laboratory Tests Test 01/02/18 13:30 01/03/18 05:00 White Blood Count 10.5 K/UL (4.8-10.8) 10.3 K/UL (4.8-10.8) Red Blood Count 3.96 M/UL (4.20-5.40) L 3.63 M/UL (4.20-5.40) L Hemoglobin 13.2 G/DL (12.0-16.0) 11.9 G/DL (12.0-16.0) L Hematocrit 39.1 % (37.0-47.0) 35.7 % (37.0-47.0) L Mean Corpuscular Volume 99 FL (80-99) 98 FL (80-99) Mean Corpuscular Hemoglobin 33.3 PG (27.0-31.0) H 32.7 PG (27.0-31.0) H Mean Corpuscular Hemoglobin Concent 33.6 G/DL (32.0-36.0) 33.3 G/DL (32.0-36.0) Red Cell Distribution Width 14.2 % (11.6-14.8) 14.6 % (11.6-14.8) Platelet Count 278 K/UL (150-450) 264 K/UL (150-450) Mean Platelet Volume 7.6 FL (6.5-10.1) 7.2 FL (6.5-10.1) Neutrophils (%) (Auto) 70.1 % (45.0-75.0) 63.3 % (45.0-75.0) Lymphocytes (%) (Auto) 18.1 % (20.0-45.0) L 23.1 % (20.0-45.0) Monocytes (%) (Auto) 8.9 % (1.0-10.0) 10.7 % (1.0-10.0) H Eosinophils (%) (Auto) 2.2 % (0.0-3.0) 2.3 % (0.0-3.0) Basophils (%) (Auto) 0.7 % (0.0-2.0) 0.5 % (0.0-2.0) Erythrocyte Sedimentation Rate 41 MM/HR (0-30) H Prothrombin Time 10.7 SEC (9.30-11.50) 10.7 SEC (9.30-11.50) Prothromb Time International Ratio 1.0 (0.9-1.1) 1.0 (0.9-1.1) Sodium Level 145 MMOL/L (136-145) 141 MMOL/L (136-145) Potassium Level 4.6 MMOL/L (3.5-5.1) 4.0 MMOL/L (3.5-5.1) Chloride Level 110 MMOL/L (98-107) H 109 MMOL/L (98-107) H Carbon Dioxide Level 28 MMOL/L (21-32) 26 MMOL/L (21-32) Anion Gap 7 mmol/L (5-15) 6 mmol/L (5-15) Blood Urea Nitrogen 10 mg/dL (7-18) 13 mg/dL (7-18) Creatinine 0.6 MG/DL (0.55-1.30) 0.7 MG/DL (0.55-1.30) Estimat Glomerular Filtration Rate > 60 mL/min (>60) > 60 mL/min (>60) Glucose Level 129 MG/DL (74-106) H 96 MG/DL (74-106) Hemoglobin A1c 5.6 % (4.3-6.0) Calcium Level 10.0 MG/DL (8.5-10.1) 10.1 MG/DL (8.5-10.1) Total Protein (PEP) Pending Albumin (PEP) Pending Globulin (PEP) Pending Albumin/Globulin Ratio Pending Pcgyn-5-Lepcbmbnc Pending Jsspn-8-Mpaezxesf Pending Beta Globulins Pending Beta Gamma Globulin Pending PEP Abnormal Protein Bands Pending Protein Electrophoresis Interpret Pending Vitamin B12 Level 1000 PG/ML (193-986) H Vitamin D 25-Hydroxy Pending 25-Hydroxy Vitamin D2 Pending 25-Hydroxy Vitamin D3 Pending Folate 10.5 NG/ML (8.6-58.9) Thyroid Stimulating Hormone (TSH) 0.686 uiU/mL (0.358-3.740) Rapid Plasma Reagin Pending Current Medications Medications (Trade) Dose Ordered Sig/Janee Route PRN Reason Start Time Stop Time Status Last Admin Dose Admin Acetaminophen (Tylenol) 650 mg Q4H PRN ORAL FEVER 12/31/17 14:45 01/30/18 14:44 Albuterol/ Ipratropium (Albuterol/ Ipratropium) 3 ml EVERY 4 HOURS PRN HHN Shortness of Breath 12/31/17 14:45 01/05/18 14:44 01/03/18 04:55 Apixaban (Eliquis) 5 mg BID ORAL 01/02/18 09:00 02/01/18 08:59 01/03/18 08:46 Azithromycin (Zithromax) 500 mg DAILY@1300 ORAL 01/01/18 13:00 01/08/18 12:59 01/02/18 13:36 Cefepime HCl 2 gm/ Dextrose 110 ml @ 220 mls/hr DAILY@2100 IV 12/31/17 21:00 01/07/18 23:59 01/02/18 21:19 Dextrose (Dextrose 50%) 25 ml STAT PRN IV BS 60-69mg/dl 12/31/17 15:15 01/30/18 15:14 Dextrose (Dextrose 50%) 50 ml STAT PRN IV BS less than 60mg/dl 12/31/17 14:45 01/30/18 14:44 Docusate Sodium (Colace) 100 mg THREE TIMES A DAY ORAL 01/02/18 18:00 02/01/18 17:59 01/03/18 08:45 Lorazepam (Ativan 2mg/ml 1ml) 2 mg EVERY 2 HOURS PRN IV For Anxiety 12/31/17 14:45 01/07/18 14:44 Morphine Sulfate (Morphine Sulfate) 6 mg Q6H PRN IVP For Pain 01/02/18 18:30 01/09/18 18:29 01/03/18 06:36 Ondansetron HCl (Zofran) 4 mg Q6H PRN IVP Nausea & Vomiting 12/31/17 14:45 01/30/18 14:44 01/03/18 06:56 Polyethylene Glycol (Miralax) 17 gm BEDTIME ORAL 01/02/18 21:00 02/01/18 20:59 01/02/18 21:20 Polyethylene Glycol (Miralax) 17 gm DAILYPRN PRN ORAL Constipation 12/31/17 14:45 01/30/18 14:44 01/01/18 09:43 Sodium Chloride 1,000 ml @ 50 mls/hr Q20H IV 12/31/17 14:42 01/30/18 14:41 01/03/18 01:53 Vancomycin HCl (Vanco rx to dose) 1 ea DAILY PRN MISC RX TO DOSE 12/31/17 15:15 01/30/18 15:14 Vancomycin HCl 500 mg/Dextrose 110 ml @ 110 mls/hr Q24H IVPB 01/01/18 17:00 01/06/18 23:59 01/02/18 16:55 Zolpidem Tartrate (Ambien) 5 mg QHS PRN ORAL Insomnia 01/02/18 21:15 01/09/18 21:14 01/02/18 21:20 Gume Mosley MD Jan 03, 2018 10:38
--- NOTE | 2018-01-03 12:42 | Diagnostic Imaging Report ---
APPROVED REPORT CPT Code: 74106 Present Symptoms Comments: Pain BILATERAL UPPER EXTREMITY: Imaging reveals patency of the internal jugular, subclavian, axillary and brachial veins. The cephalic and basilic veins are also patent. Doppler indicates normal spontaneous flow within these venous segments, bilaterally.
--- NOTE | 2018-01-03 12:43 | Diagnostic Imaging Report ---
APPROVED REPORT CPT Code: 13625 Present Symptoms Comments: BILATERAL LEGS PAIN. RIGHT LEG: Venous imaging reveals a patent deep venous system. There is no evidence of thrombus within the femoral, popliteal or tibial segments. The greater saphenous vein is also within normal limits. Doppler indicates normal spontaneous flow within these segments. LEFT LEG: Venous imaging reveals chronic thrombus in the superficial femoral vein. Imaging also reveals patency of the common femoral and calf veins. The greater saphenous vein is also within normal limits. Doppler indicates normal spontaneous flow within these segments.
[2018-01-03] MEDS: Azithromycin 250mg tab ORAL SCH (12:45)
--- NOTE | 2018-01-03 14:42 | GI Progress Note ---
Assessment/Plan Problems: (1) Constipation ICD Codes: K59.00 - Constipation, unspecified SNOMED: 00055814 (2) Vomiting ICD Codes: R11.10 - Vomiting, unspecified SNOMED: 942368549 Status: stable, unchanged Status Narrative Discussed with Dr. Cabrera. Assessment/Plan FTT push PO low sodium diet, tolerating calorie count trial marinol laxatives prn transfusions fu labs outpatient GI procedures Subjective Subjective refusing labs c/o of right arm pain constipated Objective Last 24 Hour Vital Signs Date Time Temp Pulse Resp B/P (MAP) Pulse Ox O2 Delivery O2 Flow Rate FiO2 01/03/18 13:15 98.1 01/03/18 12:45 98.1 01/03/18 11:37 98.1 85 18 148/69 95 98.1 01/03/18 08:00 98.1 84 19 150/70 95 98.1 01/03/18 07:20 85 18 Room Air 21 01/03/18 05:14 88 20 99 Room Air 21 01/03/18 04:56 86 18 97 Room Air 21 01/03/18 04:00 98.1 85 20 144/73 93 Room Air 98.1 01/03/18 00:00 97.9 86 18 163/82 93 Room Air 97.9 01/02/18 20:00 97.7 90 17 145/73 94 97.7 01/02/18 15:47 98.4 90 18 148/72 93 98.4 Intake and Output 01/02/18 01/03/18 19:00 07:00 Intake Total 450 ml 100 ml Balance 450 ml 100 ml Intake Oral 100 ml IV Total 450 ml Laboratory Tests Test 01/03/18 05:00 White Blood Count 10.3 K/UL (4.8-10.8) Red Blood Count 3.63 M/UL (4.20-5.40) L Hemoglobin 11.9 G/DL (12.0-16.0) L Hematocrit 35.7 % (37.0-47.0) L Mean Corpuscular Volume 98 FL (80-99) Mean Corpuscular Hemoglobin 32.7 PG (27.0-31.0) H Mean Corpuscular Hemoglobin Concent 33.3 G/DL (32.0-36.0) Red Cell Distribution Width 14.6 % (11.6-14.8) Platelet Count 264 K/UL (150-450) Mean Platelet Volume 7.2 FL (6.5-10.1) Neutrophils (%) (Auto) 63.3 % (45.0-75.0) Lymphocytes (%) (Auto) 23.1 % (20.0-45.0) Monocytes (%) (Auto) 10.7 % (1.0-10.0) H Eosinophils (%) (Auto) 2.3 % (0.0-3.0) Basophils (%) (Auto) 0.5 % (0.0-2.0) Prothrombin Time 10.7 SEC (9.30-11.50) Prothromb Time International Ratio 1.0 (0.9-1.1) Sodium Level 141 MMOL/L (136-145) Potassium Level 4.0 MMOL/L (3.5-5.1) Chloride Level 109 MMOL/L (98-107) H Carbon Dioxide Level 26 MMOL/L (21-32) Anion Gap 6 mmol/L (5-15) Blood Urea Nitrogen 13 mg/dL (7-18) Creatinine 0.7 MG/DL (0.55-1.30) Estimat Glomerular Filtration Rate > 60 mL/min (>60) Glucose Level 96 MG/DL (74-106) Calcium Level 10.1 MG/DL (8.5-10.1) Height (Feet): 5 Height (Inches): 5.00 Weight (Pounds): 104 General Appearance: WD/WN, no apparent distress, alert Cardiovascular: normal rate Respiratory/Chest: normal breath sounds, no respiratory distress Abdominal Exam: normal bowel sounds, non tender, soft Extremities: normal range of motion, non-tender Sue Cloud N.P. Jan 03, 2018 14:42
[2018-01-03] MEDS ORDERED: Bisacodyl EC 5mg tab ORAL ONE (15:15)
--- NOTE | 2018-01-03 15:21 | General Progress Note ---
Assessment/Plan Problem List: (1) Headache ICD Codes: R51 - Headache SNOMED: 63494456 (2) FTT (failure to thrive) in adult ICD Codes: R62.7 - Adult failure to thrive SNOMED: 636310347 (3) CHF (congestive heart failure) ICD Codes: I50.9 - Heart failure, unspecified SNOMED: 92993804 (4) Dyspnea ICD Codes: R06.00 - Dyspnea, unspecified SNOMED: 609145810 (5) UTI (urinary tract infection) ICD Codes: N39.0 - Urinary tract infection, site not specified SNOMED: 77092640 (6) Pneumonia ICD Codes: J18.9 - Pneumonia, unspecified organism SNOMED: 272478977 (7) HTN (hypertension) ICD Codes: I10 - HTN (hypertension) SNOMED: 42658625 Status: stable, progressing, tolerating diet Assessment/Plan o2 pulm tx abx ot pt diet cbc bmp am Subjective Constitutional: Reports: weakness Allergies: Coded Allergies: No Known Allergies (Unverified , 06/30/17) All Systems: reviewed and negative except above Subjective calm in bed Objective Last 24 Hour Vital Signs Date Time Temp Pulse Resp B/P (MAP) Pulse Ox O2 Delivery O2 Flow Rate FiO2 01/03/18 13:15 98.1 01/03/18 12:45 98.1 01/03/18 11:37 98.1 85 18 148/69 95 98.1 01/03/18 08:00 98.1 84 19 150/70 95 98.1 01/03/18 07:20 85 18 Room Air 21 01/03/18 05:14 88 20 99 Room Air 21 01/03/18 04:56 86 18 97 Room Air 21 01/03/18 04:00 98.1 85 20 144/73 93 Room Air 98.1 01/03/18 00:00 97.9 86 18 163/82 93 Room Air 97.9 01/02/18 20:00 97.7 90 17 145/73 94 97.7 01/02/18 15:47 98.4 90 18 148/72 93 98.4 Intake and Output 01/02/18 01/03/18 19:00 07:00 Intake Total 450 ml 100 ml Balance 450 ml 100 ml Intake Oral 100 ml IV Total 450 ml Laboratory Tests 01/03/18 05:00: White Blood Count 10.3, Red Blood Count 3.63L, Hemoglobin 11.9L, Hematocrit 35.7L, Mean Corpuscular Volume 98, Mean Corpuscular Hemoglobin 32.7H, Mean Corpuscular Hemoglobin Concent 33.3, Red Cell Distribution Width 14.6, Platelet Count 264, Mean Platelet Volume 7.2, Neutrophils (%) (Auto) 63.3, Lymphocytes (% ) (Auto) 23.1, Monocytes (%) (Auto) 10.7H, Eosinophils (%) (Auto) 2.3, Basophils (%) (Auto) 0.5, Prothrombin Time 10.7, Prothromb Time International Ratio 1.0, Sodium Level 141, Potassium Level 4.0, Chloride Level 109H, Carbon Dioxide Level 26, Anion Gap 6, Blood Urea Nitrogen 13, Creatinine 0.7, Estimat Glomerular Filtration Rate > 60, Glucose Level 96, Calcium Level 10.1 Height (Feet): 5 Height (Inches): 5.00 Weight (Pounds): 104 General Appearance: lethargic EENT: normal ENT inspection Neck: normal alignment Cardiovascular: normal peripheral pulses, normal rate, regular rhythm Respiratory/Chest: chest wall non-tender, lungs clear, normal breath sounds Abdomen: normal bowel sounds, non tender, soft Extremities: normal inspection Edema: no edema noted Arm (L), no edema noted Arm (R), no edema noted Leg (L), no edema noted Leg (R), no edema noted Pedal (L), no edema noted Pedal (R), no edema noted Generalized Neurologic: motor weakness Skin: normal pigmentation, warm/dry JULIETA YANEZ Jan 03, 2018 15:21
--- NOTE | 2018-01-03 20:09 | Neurology Progress Note ---
Interim History Interim History Interim History Ms. Franco feels about the same as yesterday. She slept relatively well last night. Her neuropathic discomfort is about the same. The forgetfulness is also the same. She refused to get her Brain MRI. She denies any new neurologic symptoms. Review of Systems Neuro Review of Systems Benign. Objective Physical Exam Last Vital Signs Date Time Temp Pulse Resp B/P (MAP) Pulse Ox O2 Delivery O2 Flow Rate FiO2 01/03/18 19:20 98.1 01/03/18 17:24 80 18 98 Room Air 21 01/03/18 15:42 148/72 Laboratory Tests Test 01/03/18 05:00 White Blood Count 10.3 K/UL (4.8-10.8) Red Blood Count 3.63 M/UL (4.20-5.40) L Hemoglobin 11.9 G/DL (12.0-16.0) L Hematocrit 35.7 % (37.0-47.0) L Mean Corpuscular Volume 98 FL (80-99) Mean Corpuscular Hemoglobin 32.7 PG (27.0-31.0) H Mean Corpuscular Hemoglobin Concent 33.3 G/DL (32.0-36.0) Red Cell Distribution Width 14.6 % (11.6-14.8) Platelet Count 264 K/UL (150-450) Mean Platelet Volume 7.2 FL (6.5-10.1) Neutrophils (%) (Auto) 63.3 % (45.0-75.0) Lymphocytes (%) (Auto) 23.1 % (20.0-45.0) Monocytes (%) (Auto) 10.7 % (1.0-10.0) H Eosinophils (%) (Auto) 2.3 % (0.0-3.0) Basophils (%) (Auto) 0.5 % (0.0-2.0) Prothrombin Time 10.7 SEC (9.30-11.50) Prothromb Time International Ratio 1.0 (0.9-1.1) Sodium Level 141 MMOL/L (136-145) Potassium Level 4.0 MMOL/L (3.5-5.1) Chloride Level 109 MMOL/L (98-107) H Carbon Dioxide Level 26 MMOL/L (21-32) Anion Gap 6 mmol/L (5-15) Blood Urea Nitrogen 13 mg/dL (7-18) Creatinine 0.7 MG/DL (0.55-1.30) Estimat Glomerular Filtration Rate > 60 mL/min (>60) Glucose Level 96 MG/DL (74-106) Calcium Level 10.1 MG/DL (8.5-10.1) Neurologic Exam Objective PHYSICAL EXAMINATION: GENERAL: She is a well-developed and well-nourished, pleasant but anxious black lady, lying in bed, in no acute distress. HEAD: Normocephalic and atraumatic. NECK: No neck rigidity was observed. EENT: Examination benign. NEUROLOGICAL EXAMINATION: MENTAL STATUS EXAMINATION: She was awake and alert. [facility] and December but did not know the date or the year. She was able to recall 3/3 words immediately, but could only remember 2/3 words in one minute and three minutes. She was able to remember presidents, Trump and Obama only. Her mathematical skills were impaired. Her visuospatial function was also impaired. SPEECH: She had no dysarthria. LANGUAGE: She had anomia for low-frequency words. CRANIAL NERVE EXAMINATION: II: The visual eaton were intact on confrontation testing. III, IV & : The external ocular movements were full and the pupils 3 mm in diameter, equal, round, regular, and reactive to light. V: She had normal facial sensations and the temporales, masseters, and pterygoids functioned normally. VII: She had normal facial expressions and no facial asymmetry. VIII: She was able to hear well bilaterally and had no nystagmus. IX: The palate moved symmetrically on phonation. X: She had no hoarseness of voice. XI: The sternocleidomastoids and trapezii functioned normally. XII: The tongue was in the midline without any fasciculations or atrophy. MOTOR SYSTEM: The tone was normal in all four extremities. Examination of muscle mass revealed no focal wasting. Examination of power revealed G 5/5 power except for the right hand where power could not be tested accurately because of give-way weakness due to pain. SENSORY EXAMINATION: She had altered sensations to pinprick and light touch in a calf length stocking and wrist length glove distribution. Graphesthesia was normal. Position sense was normal in the fingers but she had decreased position sense in the toes bilaterally. REFLEXES: 1+ and bilaterally symmetrical at the biceps, triceps, and brachioradialis. 0 at both knees and ankles. The plantar responses were flexor bilaterally. STANCE: She had a wide-based stance. GAIT: She had a wide-based but stable gait. Impression/Recommendations Diagnostic Impression 1. Ms. Laura Franco is a 67-year-old, right-handed, black lady, who does have a past history of hypertension, coronary artery disease, chronic obstructive pulmonary disease, chronic kidney disease, lumbosacral spinal stenosis, a neuropathic process for numerous years, degenerative joint disease, anxiety, opiate dependency, chronic smoking and a right lung mass, who was hospitalized for shortness of breath, coughing, fevers and chills thought to be due to pneumonic process, who has been complaining of increasing neuropathic symptoms. 2. She feels about the same as yesterday. She slept relatively well last night. Her neuropathic discomfort is about the same. The forgetfulness is also the same. She refused to get her Brain MRI. She denies any new neurologic symptoms. 3. On neurological examination, at this time, she does demonstrate problems with orientation, recent and remote memory, visuospatial function, higher cognitive function, and language. She also has altered sensations in calf length stocking and wrist length glove distribution. The deep tendon reflexes are globally diminished and she has a wide-based stance and gait. 4. Laboratory data obtained thus far revealed a relatively normal CBC, relatively normal chemistry panel except for increased alkaline phosphatase, increase BNP and low albumin. A urinalysis that reveals 1+ leukocyte esterase and 0-2 red blood cells and white blood cells per high-power field. Her B12 level, folic acid, TSH, and Hemoglobin A1c are also normal. 5. The patient's history and neurological examination are most compatible with neuropathic process involving all four extremities more so the lower extremities than the upper extremities predominantly of a sensory nature. This neuropathy has been present for numerous years and the etiology is not clear. She also is exhibiting some cognitive dysfunction. Recommendations 1. The patient was again given an explanation of the above-mentioned findings. 2. Await all laboratory tests. 3. An MRI scan of the brain should be performed to evaluate the patient for her cognitive dysfunction when she agrees to it. 4. Elavil 25 mg at bedtime for symptomatic relief of her neuropathic discomfort as Neurontin as failed in the past and her insurance will not cover Lyrica. Eve Yun M.D., [email or web address]. EVE YUN Jan 03, 2018 20:09
[2018-01-03] MEDS: Zolpidem 5mg tab ORAL PRN (20:14)
[2018-01-03] MEDS: Miralax 17gm pkt ORAL SCH (20:14)
--- NOTE | 2018-01-04 00:32 | General Progress Note ---
Assessment/Plan Assessment/Plan 1. Deep venous thrombosis of the lower extremity superficial vein on the left side. --> At this time discharge lovenox and begin apixaban. --> Begin the patient on Coumadin with a goal INR between 2 and 3. 2. Left upper arm swelling. --> Imaging reveals patency of the internal jugular, subclavian, axillary and brachial veins. The cephalic and basilic veins are also patent. --> Doppler indicates normal spontaneous flow within these venous segments, bilaterally. 3. Chronic obstructive pulmonary disease exacerbation history. 4. Chronic kidney disease. 5. Hypertension. 6. Lumbar stenosis. 7. Pneumonia, on broad-spectrum antibiotics. 8. Coronary artery disease, status post stent. 9. Chronic smoker. 10. Right lung mass. The patient refusing biopsy. Subjective Date patient seen: Jan 03, 2018 Allergies: Coded Allergies: No Known Allergies (Unverified , 06/30/17) Subjective Dc vanco. On apixaban anticoag. No new events. Objective Last 24 Hour Vital Signs Date Time Temp Pulse Resp B/P (MAP) Pulse Ox O2 Delivery O2 Flow Rate FiO2 01/03/18 23:52 98.1 89 18 139/70 94 98.1 01/03/18 20:00 98.1 88 18 142/72 94 98.1 01/03/18 19:20 98.1 01/03/18 18:50 98.1 01/03/18 17:24 80 18 98 Room Air 21 01/03/18 17:19 79 18 97 Room Air 21 01/03/18 15:42 98.1 79 18 148/72 93 98.1 01/03/18 12:45 98.1 01/03/18 11:37 98.1 85 18 148/69 95 98.1 01/03/18 08:00 98.1 84 19 150/70 95 98.1 01/03/18 07:20 85 18 Room Air 21 01/03/18 05:14 88 20 99 Room Air 21 01/03/18 04:56 86 18 97 Room Air 21 01/03/18 04:00 98.1 85 20 144/73 93 Room Air 98.1 Intake and Output 01/03/18 01/04/18 19:00 07:00 Intake Total 960 ml Balance 960 ml Intake Oral 360 ml IV Total 600 ml # Voids 4 Laboratory Tests 01/03/18 05:00: White Blood Count 10.3, Red Blood Count 3.63L, Hemoglobin 11.9L, Hematocrit 35.7L, Mean Corpuscular Volume 98, Mean Corpuscular Hemoglobin 32.7H, Mean Corpuscular Hemoglobin Concent 33.3, Red Cell Distribution Width 14.6, Platelet Count 264, Mean Platelet Volume 7.2, Neutrophils (%) (Auto) 63.3, Lymphocytes (% ) (Auto) 23.1, Monocytes (%) (Auto) 10.7H, Eosinophils (%) (Auto) 2.3, Basophils (%) (Auto) 0.5, Prothrombin Time 10.7, Prothromb Time International Ratio 1.0, Sodium Level 141, Potassium Level 4.0, Chloride Level 109H, Carbon Dioxide Level 26, Anion Gap 6, Blood Urea Nitrogen 13, Creatinine 0.7, Estimat Glomerular Filtration Rate > 60, Glucose Level 96, Calcium Level 10.1 Height (Feet): 5 Height (Inches): 5.00 Weight (Pounds): 104 General Appearance: no apparent distress EENT: normal ENT inspection Cardiovascular: normal rate Abdomen: soft Delmer Fitch MD Jan 04, 2018 00:32
[2018-01-04] MEDS: Morphine Sulfate 4mg/ml Inj IVP PRN ×4 (00:52→19:22)
[2018-01-04 04:00] VITALS: BP 146/74
[2018-01-04 08:00] VITALS: BP 143/69
[2018-01-04] MEDS: Docusate 100mg cap ORAL SCH ×3 (08:36→17:04)
[2018-01-04] MEDS: Eliquis 2.5mg tablet ORAL SCH ×2 (08:36→17:03)
--- NOTE | 2018-01-04 10:44 | GI Progress Note ---
Assessment/Plan Problems: (1) Constipation ICD Codes: K59.00 - Constipation, unspecified SNOMED: 58048375 (2) Vomiting ICD Codes: R11.10 - Vomiting, unspecified SNOMED: 381713127 Status: stable, unchanged Status Narrative Discussed with Dr. Cabrera. Assessment/Plan FTT push PO low sodium diet, tolerating calorie count trial marinol laxatives prn transfusions fu labs outpatient GI procedures Subjective Subjective refusing labs c/o of right arm pain constipated Objective Last 24 Hour Vital Signs Date Time Temp Pulse Resp B/P (MAP) Pulse Ox O2 Delivery O2 Flow Rate FiO2 01/04/18 09:54 99.0 01/04/18 08:55 99.0 01/04/18 08:30 78 01/04/18 08:00 99.0 107 21 143/69 91 99.0 01/04/18 04:00 97.9 86 18 146/74 94 97.9 01/03/18 23:52 98.1 89 18 139/70 94 98.1 01/03/18 20:00 98.1 88 18 142/72 94 98.1 01/03/18 19:30 88 18 Room Air 21 01/03/18 19:20 98.1 01/03/18 18:50 98.1 01/03/18 17:24 80 18 98 Room Air 21 01/03/18 17:19 79 18 97 Room Air 21 01/03/18 15:42 98.1 79 18 148/72 93 98.1 01/03/18 12:45 98.1 01/03/18 11:37 98.1 85 18 148/69 95 98.1 Intake and Output 01/03/18 01/04/18 19:00 07:00 Intake Total 960 ml 475 ml Balance 960 ml 475 ml Intake Oral 360 ml 475 ml IV Total 600 ml # Voids 4 4 Height (Feet): 5 Height (Inches): 5.00 Weight (Pounds): 104 General Appearance: WD/WN, no apparent distress, alert, thin Cardiovascular: normal rate Respiratory/Chest: normal breath sounds, no respiratory distress Abdominal Exam: normal bowel sounds, non tender, soft Extremities: normal range of motion, non-tender Sue Cloud NVasquez Jan 04, 2018 10:44
[2018-01-04] MEDS ORDERED: Magnesium Citrate Liq Btl ORAL ONE (11:30)
[2018-01-04 12:00] VITALS: BP 143/76
[2018-01-04] MEDS: Azithromycin 250mg tab ORAL SCH (12:02)
--- NOTE | 2018-01-04 13:52 | General Progress Note ---
Assessment/Plan Problem List: (1) Headache ICD Codes: R51 - Headache SNOMED: 78578863 (2) FTT (failure to thrive) in adult ICD Codes: R62.7 - Adult failure to thrive SNOMED: 929458861 (3) CHF (congestive heart failure) ICD Codes: I50.9 - Heart failure, unspecified SNOMED: 15947444 (4) Dyspnea ICD Codes: R06.00 - Dyspnea, unspecified SNOMED: 709981366 (5) UTI (urinary tract infection) ICD Codes: N39.0 - Urinary tract infection, site not specified SNOMED: 81143848 (6) Pneumonia ICD Codes: J18.9 - Pneumonia, unspecified organism SNOMED: 070937843 (7) HTN (hypertension) ICD Codes: I10 - HTN (hypertension) SNOMED: 70174574 Status: stable, progressing, tolerating diet Assessment/Plan o2 pulm tx abx ot pt diet cbc bmp am dc plan Subjective Constitutional: Reports: weakness Allergies: Coded Allergies: No Known Allergies (Unverified , 06/30/17) All Systems: reviewed and negative except above Subjective calm in bed Objective Last 24 Hour Vital Signs Date Time Temp Pulse Resp B/P (MAP) Pulse Ox O2 Delivery O2 Flow Rate FiO2 01/04/18 13:34 98.4 01/04/18 13:04 98.4 01/04/18 12:00 98.4 94 20 143/76 95 98.4 01/04/18 09:54 99.0 01/04/18 08:55 99.0 01/04/18 08:30 78 01/04/18 08:00 99.0 107 21 143/69 91 99.0 01/04/18 04:00 97.9 86 18 146/74 94 97.9 01/03/18 23:52 98.1 89 18 139/70 94 98.1 01/03/18 20:00 98.1 88 18 142/72 94 98.1 01/03/18 19:30 88 18 Room Air 21 01/03/18 18:50 98.1 01/03/18 17:24 80 18 98 Room Air 21 01/03/18 17:19 79 18 97 Room Air 21 01/03/18 15:42 98.1 79 18 148/72 93 98.1 Intake and Output 01/03/18 01/04/18 19:00 07:00 Intake Total 960 ml 475 ml Balance 960 ml 475 ml Intake Oral 360 ml 475 ml IV Total 600 ml # Voids 4 4 Height (Feet): 5 Height (Inches): 5.00 Weight (Pounds): 104 General Appearance: lethargic EENT: normal ENT inspection Neck: normal alignment Cardiovascular: normal peripheral pulses, normal rate, regular rhythm Respiratory/Chest: chest wall non-tender, lungs clear, normal breath sounds Abdomen: normal bowel sounds, non tender, soft Extremities: normal inspection Edema: no edema noted Arm (L), no edema noted Arm (R), no edema noted Leg (L), no edema noted Leg (R), no edema noted Pedal (L), no edema noted Pedal (R), no edema noted Generalized Neurologic: responsive, motor weakness Skin: normal pigmentation, warm/dry JULIETA YANEZ Jan 04, 2018 13:52
[2018-01-04] MEDS ORDERED: Fleet's Enema 133ml RECTAL ONE (15:00)
[2018-01-04 16:00] VITALS: BP 145/64
--- NOTE | 2018-01-04 17:43 | Cardiology Report ---
APPROVED REPORT EKG Measurement Heart [id number] Normal sinus rhythm Inferior infarct, age undetermined Cannot rule out Anterior infarct, age undetermined Abnormal ECG
[2018-01-04] MEDS ORDERED: ACETAMINOPHEN325 M1 ORAL (17:50)
[2018-01-04] MEDS ORDERED: AMITRIPTYLINE25 MG ORAL (17:50)
[2018-01-04] MEDS ORDERED: ELIQUIS5 MG PO (17:51)
[2018-01-04] MEDS ORDERED: DOCUSATE SODIU100 M2 ORAL (17:52)
[2018-01-04] MEDS ORDERED: DUONEB 0.5-3(2.53 ML HHN ×2 (17:53→17:54)
[2018-01-04] MEDS ORDERED: LACTULOSE20 GM/301 ORAL (17:54)
[2018-01-04] MEDS ORDERED: ZOFRAN4 M1 ORAL (17:55)
[2018-01-04] MEDS ORDERED: MIRALAX17 G2 ORAL (17:56)
[2018-01-04] MEDS ORDERED: POLYETHYLENE GL17 GM ORAL (17:58)
[2018-01-04] MEDS ORDERED: AMBIEN5 MG ORAL (17:59)
[2018-01-04] MEDS ORDERED: Lactulose 20gm/30ml UDC ORAL SCH (18:00)
--- NOTE | 2018-01-04 18:19 | Infectious Diseases Prog Note ---
Assessment/Plan Assessment/Plan Assessment: Cough/SOB- Bronchitis , cough resolve, SPrX doubt PNA,?post-obstructive- CXR : No acute disease R lung mass-? CA (patient refusing biopsy) Flu : Neg Afebrile, no leukocytosis Influenza sc: neg DVT CAD s/p stents COPD CKD HTN lumbar DJD/sponydolosis peripheral neuropathy MDD/anxiety non compliance drug abuse and opioid dependency current smoker CVA Plan: - DC IV ,azithromycin # 5 / , 01/03 SP Vancomycin, Cefepime d# 4 -Monitor CBC/BMP, temperatures -aspiration precautions Subjective Allergies: Coded Allergies: No Known Allergies (Unverified , 06/30/17) Subjective no new complain Objective Vital Signs Last 24 Hour Vital Signs Date Time Temp Pulse Resp B/P (MAP) Pulse Ox O2 Delivery O2 Flow Rate FiO2 01/04/18 16:00 97.7 86 19 145/64 95 97.7 01/04/18 13:34 98.4 01/04/18 13:04 98.4 01/04/18 12:00 98.4 94 20 143/76 95 98.4 01/04/18 09:54 99.0 01/04/18 08:55 99.0 01/04/18 08:30 78 01/04/18 08:00 99.0 107 21 143/69 91 99.0 01/04/18 04:00 97.9 86 18 146/74 94 97.9 01/03/18 23:52 98.1 89 18 139/70 94 98.1 01/03/18 20:00 98.1 88 18 142/72 94 98.1 01/03/18 19:30 88 18 Room Air 21 01/03/18 18:50 98.1 Height (Feet): 5 Height (Inches): 5.00 Weight (Pounds): 104 HEENT: anicteric Respiratory/Chest: no respiratory distress Cardiovascular: regular rhythm Abdomen: no organomegaly Current Medications Medications (Trade) Dose Ordered Sig/Janee Route PRN Reason Start Time Stop Time Status Last Admin Dose Admin Acetaminophen (Tylenol) 650 mg Q4H PRN ORAL FEVER 12/31/17 14:45 01/30/18 14:44 01/04/18 08:55 Albuterol/ Ipratropium (Albuterol/ Ipratropium) 3 ml EVERY 4 HOURS PRN HHN Shortness of Breath 12/31/17 14:45 01/05/18 14:44 01/03/18 17:22 Amitriptyline HCl (Elavil) 25 mg BEDTIME ORAL 01/03/18 21:00 02/02/18 20:59 01/03/18 21:44 Apixaban (Eliquis) 5 mg BID ORAL 01/02/18 09:00 02/01/18 08:59 01/04/18 17:03 Azithromycin (Zithromax) 500 mg DAILY@1300 ORAL 01/01/18 13:00 01/08/18 12:59 01/04/18 12:02 Dextrose (Dextrose 50%) 25 ml STAT PRN IV BS 60-69mg/dl 12/31/17 15:15 01/30/18 15:14 Dextrose (Dextrose 50%) 50 ml STAT PRN IV BS less than 60mg/dl 12/31/17 14:45 01/30/18 14:44 Docusate Sodium (Colace) 100 mg THREE TIMES A DAY ORAL 01/02/18 18:00 02/01/18 17:59 01/04/18 17:04 Lactulose (Cephulac) 30 gm THREE TIMES A DAY ORAL 01/04/18 18:00 02/03/18 17:59 Lorazepam (Ativan 2mg/ml 1ml) 2 mg EVERY 2 HOURS PRN IV For Anxiety 12/31/17 14:45 01/07/18 14:44 Morphine Sulfate (Morphine Sulfate) 6 mg Q6H PRN IVP For Pain 01/02/18 18:30 01/09/18 18:29 01/04/18 13:04 Ondansetron HCl (Zofran) 4 mg Q6H PRN IVP Nausea & Vomiting 12/31/17 14:45 01/30/18 14:44 01/04/18 13:33 Polyethylene Glycol (Miralax) 17 gm BEDTIME ORAL 01/02/18 21:00 02/01/18 20:59 01/03/18 20:14 Polyethylene Glycol (Miralax) 17 gm DAILYPRN PRN ORAL Constipation 12/31/17 14:45 01/30/18 14:44 01/01/18 09:43 Sodium Chloride 1,000 ml @ 50 mls/hr Q20H IV 12/31/17 14:42 01/30/18 14:41 01/04/18 08:43 Zolpidem Tartrate (Ambien) 5 mg QHS PRN ORAL Insomnia 01/02/18 21:15 01/09/18 21:14 01/03/18 20:14 Gume Mosley MD Jan 04, 2018 18:19
[2018-01-04] MEDS ORDERED: 1/2 NS 1000ml IV ONE (19:59)
[2018-01-04 20:00] VITALS: BP 141/76
--- NOTE | 2018-01-05 13:49 | Discharge Summary ---
Discharge Summary Hospital Course Date of Admission Dec 31, 2017 at 13:30 Date of Discharge Jan 04, 2018 at 20:00 Admitting Diagnosis pneumonia HPI Laura Franco is a 67 year old female who was admitted on Dec 31, 2017 at 13: 30 for Pneumonia Hospital Course [id number] Discharge Discharge Disposition Patient was discharged to Home (01) Nida Zimmer NP Jan 05, 2018 13:49
--- NOTE | 2018-01-05 21:06 | General Progress Note ---
Assessment/Plan Assessment/Plan 1. Deep venous thrombosis of the lower extremity superficial vein on the left side. --> At this time discharge lovenox and begin apixaban. --> Begin the patient on Coumadin with a goal INR between 2 and 3. 2. Left upper arm swelling. --> Imaging reveals patency of the internal jugular, subclavian, axillary and brachial veins. The cephalic and basilic veins are also patent. --> Doppler indicates normal spontaneous flow within these venous segments, bilaterally. --> On pain management. 3. Chronic obstructive pulmonary disease exacerbation history. 4. Chronic kidney disease. 5. Hypertension. 6. Lumbar stenosis. 7. Pneumonia, on broad-spectrum antibiotics. 8. Coronary artery disease, status post stent. 9. Chronic smoker. 10. Right lung mass. The patient refusing biopsy. 11. Headaches. DC planning Subjective Date patient seen: Jan 04, 2018 Constitutional: Denies: no symptoms, chills, diaphoresis, fever, malaise, weakness, other HEENT: Denies: no symptoms, eye pain, blurred vision, tearing, double vision, ear pain, ear discharge, nose pain, nose congestion, throat pain, throat swelling, mouth pain, mouth swelling, other Cardiovascular: Denies: no symptoms, chest pain, edema, irregular heart rate, lightheadedness, palpitations, syncope, other Respiratory: Denies: no symptoms, cough, orthopnea, shortness of breath, SOB with excertion, SOB at rest, sputum, stridor, wheezing, other Gastrointestinal/Abdominal: Denies: no symptoms, abdomen distended, abdominal pain, black stools, tarry stools, blood in stool, constipated, diarrhea, difficulty swallowing, nausea, poor appetite, poor fluid intake, rectal bleeding , vomiting, other Genitourinary: Denies: no symptoms, burning, discharge, frequency, flank pain, hematuria, incontinence, pain, urgency, other Neurologic/Psychiatric: Denies: no symptoms, anxiety, depressed, emotional problems, headache, numbness, paresthesia, pre-existing deficit, seizure, tingling, tremors, weakness, other Endocrine: Denies: no symptoms, excessive sweating, flushing, intolerance to cold, intolerance to heat, increased hunger, increased thirst, increased urine, unexplained weight gain, unexplained weight loss, other Hematologic/Lymphatic: Reports: anemia Allergies: Coded Allergies: No Known Allergies (Unverified , 06/30/17) Subjective Dc vanco. On anticoag and pain management. No new events. Pending dc Objective Intake and Output 01/04/18 01/05/18 19:00 07:00 Intake Total 1060 ml Balance 1060 ml Intake Oral 560 ml IV Total 500 ml # Voids 2 # Bowel Movements 3 Height (Feet): 5 Height (Inches): 5.00 Weight (Pounds): 104 General Appearance: no apparent distress Delmer Fitch MD Jan 05, 2018 21:06
--- NOTE | 2018-01-06 05:45 | Discharge Summary 2 SIG ---
DATE OF ADMISSION: 12/31/2017 DATE OF DISCHARGE: 01/04/2018 CONSULTANTS: 1. Gume Mosley M.D. 2. Loc Cabrera M.D. 3. Delmer Fitch M.D. 4. Ajay Yun M.D. BRIEF HOSPITAL COURSE: The patient is a 67-year-old female, who lives by herself at home, presented to [facility] due to increased shortness of breath and coughing for two days. She has migraine headaches. She has medical history significant for hypertension, congestive heart failure, neuropathy, and failure to thrive. On evaluation at ED, the patient admits to history of coronary artery disease with stents and chronic obstructive pulmonary disease, however, current smoker. She had a right lung mass that has not been evaluated as she refused lung biopsy. She had a CVA and recent admission to the hospital for urine infection. On evaluation at ED, blood work showed no leukocytosis. Hemoglobin was 12 and hematocrit 38. Electrolytes were stable. BNP 315. She had a chest x-ray done that showed possible infiltrates. She was then admitted for evaluation of dyspnea and possible pneumonia. She was seen by Infectious Disease specialist. She was given vancomycin, cefepime, and azithromycin. Influenza cultures were negative. Venous duplex of the lower extremity showed chronic thrombus in the left leg. She was given Lovenox b.i.d. and would require three months of anticoagulation. She had neurological evaluation done. She complained of neuropathic symptoms and had neuropathy for number of years. Over the years, neuropathy had progressively worsened. It started on both feet, but now involved lower extremities and hands. Discomfort was described to be in form of pins and needles every time she walks. She had tried Neurontin in the past, however, only helped a little and then stopped working. She also tried Lyrica and felt better with that medication, however, was not covered by insurance. She was assessed to have neuropathic process involving all four extremities more so on the lower extremity than upper extremity, which is predominantly of sensory nature. Neuropathy has been present for numerous years and etiology was not clear. She was also exhibiting some cognitive dysfunction. She was started on Elavil 25 mg at bedtime and x-ray did not show any acute findings. She had failure to thrive and was given trial of Marinol. She was encouraged p.o. intake. She was given bowel regimen and was placed on laxatives. She had low sodium diet and was tolerating diet well. Bronchitis and cough resolved. She was eventually started on Eliquis. Blood culture did not isolate any growth and sputum culture with usual respiratory karlie and Yasmine. She completed five days of antibiotics and was eventually cleared for discharge home with home health. FINAL DIAGNOSES: 1. Cough/shortness of breath with acute bronchitis. 2. Pneumonia. 3. Hypertension. 4. Chronic kidney disease. 5. Coronary artery disease status post stent. 6. Chronic obstructive pulmonary disease. 7. Lumbar degenerative joint disease/spondylosis. 8. Peripheral neuropathy. 9. Depression and anxiety. 10. Drug abuse and opioid dependency. 11. Current smoker. 12. Old cerebrovascular accident. 13. Constipation. 14. Failure to thrive. 15. Deep venous thrombosis of the lower extremity superficial vein on the left side. On apixaban. DISPOSITION: The patient was discharged home with home health. DISCHARGE MEDICATIONS: Refer to medication list. DISCHARGE INSTRUCTIONS: Follow up with PMD in a week and geomatics professor. Miki Garcia D.O. I have been assigned to dictate discharge summary on this account and I was not involved in the patient's management. Nida Zimmer N.P. DR: ALICIA JOB#: [id number] CC:
== END 2018-01-04 20:00 | disposition home health service (06) | DRG 140 ==
LOC: EDBD 12:11 → EMR 12:30 → EDBEDREQ 12:47 → 4W 13:30 → EDBEDREQ 13:43
DX: J44.0 Chronic obstructive pulmonary disease with (acute) lower respiratory infection (principal); J18.9 Pneumonia, unspecified organism; I13.0 Hypertensive heart and chronic kidney disease with heart failure and stage 1 through stage 4 chronic kidney disease, or unspecified chronic kidney disease; I82.402 Acute embolism and thrombosis of unspecified deep veins of left lower extremity; J44.9 Chronic obstructive pulmonary disease, unspecified; I50.9 Heart failure, unspecified; F11.20 Opioid dependence, uncomplicated; Z72.0 Tobacco use; N18.9 Chronic kidney disease, unspecified; G43.909 Migraine, unspecified, not intractable, without status migrainosus; R62.7 Adult failure to thrive; I25.10 Atherosclerotic heart disease of native coronary artery without angina pectoris; M47.896 Other spondylosis, lumbar region; G62.9 Polyneuropathy, unspecified; J20.9 Acute bronchitis, unspecified; F19.10 Other psychoactive substance abuse, uncomplicated; Z91.19 Patient's noncompliance with other medical treatment and regimen; N39.0 Urinary tract infection, site not specified; Z95.5 Presence of coronary angioplasty implant and graft; F17.200 Nicotine dependence, unspecified, uncomplicated; F41.8 Other specified anxiety disorders; R91.8 Other nonspecific abnormal finding of lung field; M79.89 Other specified soft tissue disorders; K59.00 Constipation, unspecified; Z86.73 Personal history of transient ischemic attack (TIA), and cerebral infarction without residual deficits
CPT/HCPCS: 36415; 71045; 80048; 80053; 80069; 81003; 82306; 82550; 82607; 82746; 83036; 83605; 83880; 84165; 84443; 84484; 85025; 85610; 85651; 86592; 86710; 87040; 87070; 87081; 87205; 93005; 93970; 94640; 94664; 97803; 99285; J2405; J7620

== ENCOUNTER 2018-02-15 15:09 | Inpatient (IN) | payer MEDICARE, OTHER ==
[~2018-02-15] VITALS: Ht 157.5 cm; Wt 54.4 kg
[~2018-02-15 15:09] MED LIST changes: +ACETAMINOPHEN325 M1 ORAL; +AMBIEN5 MG ORAL; +AMITRIPTYLINE25 MG ORAL; +DILAUDID8 MG PO; +DOCUSATE SODIU100 M2 ORAL; +DUONEB 0.5-3(2.53 ML HHN; +ELIQUIS5 MG PO; +FUROSEMIDE20 M1 ORAL; +KADIAN10 MG PO; +LACTULOSE20 GM/301 ORAL; +LEVAQUIN250 M1 ORAL; +MIRALAX17 G2 ORAL; +PLAVIX75 MG ORAL; +POLYETHYLENE GL17 GM ORAL; +PROTONIX40 MG ORAL; +SIMVASTATIN5 MG ORAL; +SINGULAIR10 MG ORAL; +ZOFRAN4 M1 ORAL
[2018-02-15 15:51] LABS: APPEARANCE,URINE CLEAR; BILIRUBIN, URINE NEGATIVE (NEGATIVE); COLOR,URINE PALE YELLOW; GLUCOSE, URINE (UA) NEGATIVE (NEGATIVE); KETONES,URINE NEGATIVE (NEGATIVE); LEUKOCYTE ESTERASE ,URINE NEGATIVE (NEGATIVE); NITRITE,URINE NEGATIVE (NEGATIVE); PH,URINE 7 (4.5-8.0); PROTEIN,URINE NEGATIVE (NEGATIVE); UROBILINOGEN,URINE NORMAL MG/DL (0.0-1.0)
[2018-02-15] MEDS ORDERED: cefTRIAXone 1 GM in NS 55 ML IVPB ONE (16:00)
[2018-02-15] MEDS ORDERED: Morphine Sulfate 4mg/ml Inj IVP ONE (16:00)
[2018-02-15 16:03] LABS: EOSINOPHILS % (AUTO) 0.7 % (0.0-3.0); HEMATOCRIT 41.1 % (37.0-47.0); HEMOGLOBIN 13.4 G/DL (12.0-16.0); LYMPHOCYTES % (AUTO) 19.4 % (20.0-45.0); MEAN CORPUSCULAR VOLUME 97 FL (80-99); MONOCYTES % (AUTO) 8.6 % (1.0-10.0); NEUTROPHILS % (AUTO) 70.3 % (45.0-75.0); PLATELET COUNT 287 K/UL (150-450); RED BLOOD COUNT 4.26 M/UL (4.20-5.40); RED CELL DISTRIBUTION WIDTH 13.7 % (11.6-14.8); WHITE BLOOD COUNT 13.1 K/UL (4.8-10.8)
[2018-02-15 16:16] LABS: ANION GAP 9 mmol/L (5-15); BLOOD UREA NITROGEN 11 mg/dL (7-18); CALCIUM 10.7 MG/DL (8.5-10.1); CARBON DIOXIDE 28 MMOL/L (21-32); CHLORIDE 108 MMOL/L (98-107); CREATININE 0.9 MG/DL (0.55-1.30); POTASSIUM 5.2 MMOL/L (3.5-5.1); SODIUM 145 MMOL/L (136-145)
[2018-02-15 16:20] LABS: ALANINE AMINOTRANSFERASE 11 U/L (12-78); ALBUMIN 3.3 G/DL (3.4-5.0); ALBUMIN/GLOBULIN RATIO 0.9 (1.0-2.7); ALKALINE PHOSPHATASE 145 U/L (46-116); ASPARTATE AMINO TRANSFERASE 14 U/L (15-37); BILIRUBIN,TOTAL 0.3 MG/DL (0.2-1.0)
--- NOTE | 2018-02-15 16:30 | Emergency Room Report ---
History of Present Illness General Chief Complaint: Chest Pain Source: Patient, Medical Record Present Illness HPI This patient states that for the past 2 weeks she has felt poorly. She has also had cough with sputum production. She states she has had all over body pain and body aches. She states she has felt weak and has been poorly functioning. She does have a history of a right lung mass/cancer. She denies abdominal pain. She has no other complaints. Allergies: Coded Allergies: No Known Allergies (Unverified , 06/30/17) Patient History Past Medical History: see triage record, MO, CAD, CHF, COPD, other - Lung CA Social History: Reports: alcohol use; Denies: smoking, drug use Reviewed Nursing Documentation: PMH: Agreed; PSxH: Agreed Nursing Documentation-PMH Past Medical History: No History, Except For Hx Cardiac Problems: Yes - CHF/peripheral neuropathy, stent Hx Hypertension: Yes Hx Asthma: Yes Hx COPD: Yes - Lung Cancer, Emphysema Hx Cancer: Yes - lung CA Hx Gastrointestinal Problems: No Hx Neurological Problems: Yes Hx Dizziness: Yes Hx Syncope: Yes Hx Headaches: Yes Hx Weakness: Yes Hx Fatigue: Yes Review of Systems All Other Systems: negative except mentioned in HPI Physical Exam Vital Signs Date Time Temp Pulse Resp B/P (MAP) Pulse Ox O2 Delivery O2 Flow Rate FiO2 02/15/18 15:06 98.2 63 18 157/63 98 Room Air 98.2 Sp02 EP Interpretation: reviewed, normal General Appearance: no apparent distress, alert, GCS 15, non-toxic Head: normocephalic, atraumatic Eyes: bilateral eye normal inspection, bilateral eye PERRL ENT: hearing grossly normal, normal pharynx, no angioedema, normal voice Neck: full range of motion, supple/symm/no masses Respiratory: chest non-tender, lungs clear, normal breath sounds, no respiratory distress, no retraction, no accessory muscle use, speaking full sentences Cardiovascular #1: regular rate, rhythm, no edema Gastrointestinal: normal bowel sounds, non tender, soft, non-distended, no guarding, no rebound Rectal: deferred Musculoskeletal: back normal, gait/station normal, normal range of motion, non- tender Neurologic: alert, oriented x3, responsive, motor strength/tone normal, sensory intact, speech normal Psychiatric: judgement/insight normal, memory normal, mood/affect normal, no suicidal/homicidal ideation Skin: normal color, no rash, warm/dry, well hydrated Medical Decision Making Diagnostic Impression: Primary Impression: Pneumonia Additional Impression: Lung cancer ER Course This patient has a right lower lobe opacification and pleural effusion. This is likely pneumonia. Another consideration is a lung mass with a malignant pleural effusion given the patient's history of lung cancer. The patient was given broad-spectrum antibiotics and IV fluids. The patient is admitted for further evaluation and treatment. Laboratory Tests Test 02/15/18 15:32 White Blood Count 13.1 K/UL (4.8-10.8) H Red Blood Count 4.26 M/UL (4.20-5.40) Hemoglobin 13.4 G/DL (12.0-16.0) Hematocrit 41.1 % (37.0-47.0) Mean Corpuscular Volume 97 FL (80-99) Mean Corpuscular Hemoglobin 31.4 PG (27.0-31.0) H Mean Corpuscular Hemoglobin Concent 32.5 G/DL (32.0-36.0) Red Cell Distribution Width 13.7 % (11.6-14.8) Platelet Count 287 K/UL (150-450) Mean Platelet Volume 7.7 FL (6.5-10.1) Neutrophils (%) (Auto) 70.3 % (45.0-75.0) Lymphocytes (%) (Auto) 19.4 % (20.0-45.0) L Monocytes (%) (Auto) 8.6 % (1.0-10.0) Eosinophils (%) (Auto) 0.7 % (0.0-3.0) Basophils (%) (Auto) 1.0 % (0.0-2.0) Urine Color Pale yellow Urine Appearance Clear Urine pH 7 (4.5-8.0) Urine Specific Campbell 1.010 (1.005-1.035) Urine Protein Negative (NEGATIVE) Urine Glucose (UA) Negative (NEGATIVE) Urine Ketones Negative (NEGATIVE) Urine Occult Blood Negative (NEGATIVE) Urine Nitrite Negative (NEGATIVE) Urine Bilirubin Negative (NEGATIVE) Urine Urobilinogen Normal MG/DL (0.0-1.0) Urine Leukocyte Esterase Negative (NEGATIVE) Sodium Level 145 MMOL/L (136-145) Potassium Level 5.2 MMOL/L (3.5-5.1) H Chloride Level 108 MMOL/L (98-107) H Carbon Dioxide Level 28 MMOL/L (21-32) Anion Gap 9 mmol/L (5-15) Blood Urea Nitrogen 11 mg/dL (7-18) Creatinine 0.9 MG/DL (0.55-1.30) Estimate Glomerular Filtration Rate > 60 mL/min (>60) Glucose Level 95 MG/DL (74-106) Calcium Level 10.7 MG/DL (8.5-10.1) H Total Bilirubin 0.3 MG/DL (0.2-1.0) Aspartate Amino Transferase (AST) 14 U/L (15-37) L Alanine Aminotransferase (ALT) 11 U/L (12-78) L Alkaline Phosphatase 145 U/L (46-116) H Troponin I Pending Total Protein 7.1 G/DL (6.4-8.2) Albumin 3.3 G/DL (3.4-5.0) L Globulin 3.8 g/dL Albumin/Globulin Ratio 0.9 (1.0-2.7) L Microbiology Date/Time Source Procedure Growth Status 02/15/18 15:32 Nasal Nares Influenza Types A,B Antigen (SHIRLEY) - Final Complete EKG Diagnostic Results Rate: normal Rhythm: NSR ST Segments: no acute changes Other Impression Q-wave in leads V1, V2, V3. Rhythm Strip Diag. Results EP Interpretation: yes Rate: 80's Rhythm: NSR, no PVC's, no ectopy Chest X-Ray Diagnostic Results Chest X-Ray Diagnostic Results : Chest X-Ray Ordered: Yes # of Views/Limited/Complete: 1 View Indication: Chest Pain EP Interpretation: Yes Interpretation: no pneumothorax, other - RLL opacity, R. pleural effusion. See official report. Electronically Signed by: Katina Last Vital Signs Date Time Temp Pulse Resp B/P (MAP) Pulse Ox O2 Delivery O2 Flow Rate FiO2 02/15/18 15:15 Room Air 02/15/18 15:06 98.2 63 18 157/63 98 98.2 Disposition: ADMITTED INPATIENT Condition: Stable Referrals: NOT CHOSEN PIETRO/,REFERRING (PCP) AUGUSTUS SIMMONS D.O. February 15, 2018 16:30
--- NOTE | 2018-02-15 16:36 | Diagnostic Imaging Report ---
Indication: Cough Comparison: 12/31/2017 A single view chest radiograph was obtained. Findings: Small right pleural effusion suspected. The interstitium and pulmonary vascularity appear mildly prominent. Heart is enlarged. Osteophytes and sclerosis of the glenohumeral joints noted bilaterally. IMPRESSION: Suspected small right pleural effusion. Mild interstitial edema may be present. Correlate clinically
[2018-02-15 16:52] VITALS: BP 139/63
[2018-02-15 18:15] VITALS: BP 141/70
--- NOTE | 2018-02-15 19:23 | Consultation ---
History of Present Illness General Date patient seen: February 15, 2018 Chief Complaint: Chest Pain Present Illness HPI 67 year old female with hx of COPD, lung cancer, CAD, /sp stents presented to ER with CC of 2 weeks of weakness, and flu like symptoms. She has also had cough with sputum production. She states she has had all over body pain and body aches. She states she has felt weak and has been poorly functioning. She denies abdominal pain. She has no other complaints. Her CXR showed right sided effusion and mild interstitial edema. She is admitted to medical floor for further management. Allergies: Coded Allergies: No Known Allergies (Unverified , 06/30/17) Medication History Scheduled Amitriptyline HCl (Elavil*), 25 MG ORAL BEDTIME, (Reported) Amoxicillin* (Amoxil*), 500 MG ORAL BID Apixaban (Eliquis), 5 MG PO BID, (Reported) Clopidogrel Bisulfate* (Plavix*), 75 MG ORAL DAILY, (Reported) Docusate Sodium (Docusate Sodium), 100 MG ORAL THREE TIMES A DAY, (Reported) Furosemide* (Lasix*), 20 MG ORAL DAILY, (Reported) Ibuprofen* (Motrin*), 600 MG ORAL FOUR TIMES A DAY, (Reported) Ipratropium/Albuterol Sulfate (DuoNeb 0.5-3(2.5)mg/3ml), 3 ML HHN Q4HR, ( Reported) Lactulose (Lactulose*), 30 ML ORAL TID, (Reported) Levofloxacin* (Levaquin*), 250 MG ORAL DAILY, (Reported) Lisinopril* (Lisinopril*), 2.5 MG ORAL DAILY, (Reported) Metoprolol Tartrate* (Metoprolol Tartrate*), 25 MG ORAL EVERY 12 HOURS, ( Reported) Midodrine* (Proamatine*), 2.5 MG ORAL THREE TIMES A DAY, (Reported) Montelukast Sodium* (Singulair*), 10 MG ORAL DAILY, (Reported) Pantoprazole* (Protonix*), 40 MG ORAL DAILY, (Reported) Polyethylene Glycol 3350* (Miralax*), 17 GM ORAL BEDTIME, (Reported) Simvastatin (Zocor), 5 MG ORAL BEDTIME, (Reported) Sumatriptan Succinate* (Imitrex*), 50 MG ORAL DAILY PRN MIGRAINE, (Reported) Scheduled PRN Acetaminophen* (Acetaminophen 325MG Tablet*), 650 MG ORAL Q4H PRN for Fever/ Headache/Mild Pain, (Reported) Hydrocodone Bit/Acetaminophen 5-325* ([place] 5-325 Tablet*), 1 TAB ORAL Q4H PRN for For Pain, (Reported) Ipratropium/Albuterol Sulfate (DuoNeb 0.5-3(2.5)mg/3ml), 3 ML HHN Q4HR PRN for For Cough, (Reported) Ondansetron (Zofran), 4 MG ORAL Q6H PRN for Nausea & Vomiting, (Reported) Ondansetron* (Zofran*), 4 MG ORAL Q6H PRN for Nausea & Vomiting, (Reported) Polyethylene Glycol 3350* (Polyethylene Glycol 3350*), 17 GM ORAL DAILY PRN for Constipation, (Reported) Zolpidem Tartrate* (Ambien*), 5 MG ORAL BEDTIME PRN for Insomnia, (Reported) Miscellaneous Medications Hydromorphone Hcl (Dilaudid), 8 MG PO, (Reported) Morphine Sulfate (Mac[place]), 10 MG PO, (Reported) Unable to Obtain Medications (Unable To Obtain Meds), (Reported) Patient History Healthcare decision maker Resuscitation status Advanced Directive on File Past Medical/Surgical History Past Medical/Surgical History: (1) HTN (hypertension) (2) COPD (chronic obstructive pulmonary disease) with acute bronchitis (3) Lung cancer Review of Systems Constitutional: Reports: malaise, weakness Respiratory: Reports: cough, shortness of breath All Other Systems: negative except mentioned in HPI Physical Exam General Appearance: cachetic Lines, tubes and drains: peripheral HEENT: normocephalic, atraumatic Respiratory/Chest: chest wall non-tender, lungs clear Breasts: no masses Cardiovascular/Chest: normal peripheral pulses Abdomen: normal bowel sounds Genitourinary/Rectal: normal genital exam Extremities: non-tender 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 Last 24 Hour Vital Signs Date Time Temp Pulse Resp B/P (MAP) Pulse Ox O2 Delivery O2 Flow Rate FiO2 02/15/18 18:15 97.9 78 20 141/70 96 Room Air 97.9 02/15/18 17:45 98.2 88 18 139/63 98 Room Air 98.2 02/15/18 16:52 98.2 88 18 139/63 98 Room Air 98.2 02/15/18 16:42 98.2 02/15/18 16:10 98.2 02/15/18 15:15 Room Air 02/15/18 15:06 98.2 63 18 157/63 98 Room Air 98.2 Laboratory Tests Test 02/15/18 15:32 White Blood Count 13.1 K/UL (4.8-10.8) H Red Blood Count 4.26 M/UL (4.20-5.40) Hemoglobin 13.4 G/DL (12.0-16.0) Hematocrit 41.1 % (37.0-47.0) Mean Corpuscular Volume 97 FL (80-99) Mean Corpuscular Hemoglobin 31.4 PG (27.0-31.0) H Mean Corpuscular Hemoglobin Concent 32.5 G/DL (32.0-36.0) Red Cell Distribution Width 13.7 % (11.6-14.8) Platelet Count 287 K/UL (150-450) Mean Platelet Volume 7.7 FL (6.5-10.1) Neutrophils (%) (Auto) 70.3 % (45.0-75.0) Lymphocytes (%) (Auto) 19.4 % (20.0-45.0) L Monocytes (%) (Auto) 8.6 % (1.0-10.0) Eosinophils (%) (Auto) 0.7 % (0.0-3.0) Basophils (%) (Auto) 1.0 % (0.0-2.0) Urine Color Pale yellow Urine Appearance Clear Urine pH 7 (4.5-8.0) Urine Specific [place] 1.010 (1.005-1.035) Urine Protein Negative (NEGATIVE) Urine Glucose (UA) Negative (NEGATIVE) Urine Ketones Negative (NEGATIVE) Urine Occult Blood Negative (NEGATIVE) Urine Nitrite Negative (NEGATIVE) Urine Bilirubin Negative (NEGATIVE) Urine Urobilinogen Normal MG/DL (0.0-1.0) Urine Leukocyte Esterase Negative (NEGATIVE) Sodium Level 145 MMOL/L (136-145) Potassium Level 5.2 MMOL/L (3.5-5.1) H Chloride Level 108 MMOL/L (98-107) H Carbon Dioxide Level 28 MMOL/L (21-32) Anion Gap 9 mmol/L (5-15) Blood Urea Nitrogen 11 mg/dL (7-18) Creatinine 0.9 MG/DL (0.55-1.30) Estimat Glomerular Filtration Rate > 60 mL/min (>60) Glucose Level 95 MG/DL (74-106) Calcium Level 10.7 MG/DL (8.5-10.1) H Total Bilirubin 0.3 MG/DL (0.2-1.0) Aspartate Amino Transf (AST/SGOT) 14 U/L (15-37) L Alanine Aminotransferase (ALT/SGPT) 11 U/L (12-78) L Alkaline Phosphatase 145 U/L (46-116) H Troponin I 0.000 ng/mL (0.000-0.056) Total Protein 7.1 G/DL (6.4-8.2) Albumin 3.3 G/DL (3.4-5.0) L Globulin 3.8 g/dL Albumin/Globulin Ratio 0.9 (1.0-2.7) L Microbiology Date/Time Source Procedure Growth Status 02/15/18 15:32 Nasal Nares Influenza Types A,B Antigen (SHIRLEY) - Final Complete Height (Feet): 5 Height (Inches): 2.00 Weight (Pounds): 120 Medications Current Medications Medications (Trade) Dose Ordered Sig/Janee Route PRN Reason Start Time Stop Time Status Last Admin Dose Admin Acetaminophen (Tylenol) 650 mg Q4H PRN ORAL FEVER 02/15/18 19:30 03/17/18 19:29 UNV Albuterol/ Ipratropium (Albuterol/ Ipratropium) 3 ml EVERY 4 HOURS PRN HHN Shortness of Breath 02/15/18 19:30 02/20/18 19:29 UNV Amitriptyline HCl (Elavil) 25 mg BEDTIME ORAL 02/15/18 21:00 03/17/18 20:59 UNV Cefepime HCl 2 gm/ Dextrose 110 ml @ 220 mls/hr EVERY 12 HOURS IV 02/15/18 21:00 02/22/18 20:59 UNV Clopidogrel Bisulfate (Plavix) 75 mg DAILY ORAL 02/16/18 09:00 03/18/18 08:59 UNV Dextrose (Dextrose 50%) STAT PRN IV Hypoglycemia 02/15/18 19:30 03/17/18 19:29 UNV Heparin Sodium (Porcine) (Heparin 5000 units/ml) 5,000 units EVERY 12 HOURS SUBQ 02/15/18 21:00 03/17/18 20:59 UNV Lisinopril (Zestril) 2.5 mg DAILY ORAL 02/16/18 09:00 03/18/18 08:59 UNV Lorazepam (Ativan 2mg/ml 1ml) 2 mg EVERY 2 HOURS PRN IV For Anxiety 02/15/18 19:30 02/22/18 19:29 UNV Morphine Sulfate (Morphine Sulfate) 4 mg EVERY 4 HOURS PRN IVP Severe Pain (Pain Scale 7-10) 02/15/18 19:30 02/22/18 19:29 UNV Ondansetron HCl (Zofran) 4 mg Q6H PRN IVP Nausea & Vomiting 02/15/18 19:30 03/17/18 19:29 UNV Polyethylene Glycol (Miralax) 17 gm DAILYPRN PRN ORAL Constipation 02/15/18 19:30 03/17/18 19:29 UNV Vancomycin HCl 1 gm/Dextrose 275 ml @ 183.3 mls/ hr Q24H IV 02/15/18 23:00 02/20/18 22:59 UNV Assessment/Plan Problem List: (1) Pneumonia ICD Codes: J18.9 - Pneumonia, unspecified organism SNOMED: 034562952 (2) COPD (chronic obstructive pulmonary disease) with acute bronchitis ICD Codes: J44.1 - COPD (chronic obstructive pulmonary disease) with acute bronchitis SNOMED: 33011404 (3) Lung mass ICD Codes: R91.8 - Other nonspecific abnormal finding of lung field SNOMED: 266613759 (4) HTN (hypertension) ICD Codes: I10 - HTN (hypertension) SNOMED: 91151023 (5) CAD (coronary artery disease) ICD Codes: I25.10 - CAD (coronary artery disease) SNOMED: 946779002 Assessment/Plan respiratory treatment check sputum iv abx titrate fio2 to sat of 92% dvt prophylaxis check h/h check old records Elie Reddy MD February 15, 2018 19:23
[2018-02-15] MEDS ORDERED: LORazepam Inj 2mg/ml 1ml IV PRN (19:30)
[2018-02-15] MEDS ORDERED: Miralax 17gm pkt ORAL PRN (19:30)
[2018-02-15 19:47] VITALS: BP 159/75
[2018-02-15] MEDS: Heparin 5000 units/ml inj SUBQ SCH ×2 (21:00→21:05)
[2018-02-15] MEDS: Cefepime HCl 2 GM in D5W 110 ML IV SCH (21:03)
[2018-02-15] MEDS: Morphine Sulfate 4mg/ml Inj IVP PRN (21:04)
[2018-02-15] MEDS: Vancomycin 1 GM in D5W 275 ML IVPB SCH (22:44)
[2018-02-16] VITALS (7 sets, daily range): BP systolic 148–169; BP diastolic 71–85
[2018-02-16] MEDS: Morphine Sulfate 4mg/ml Inj IVP PRN ×6 (01:18→23:30)
[2018-02-16] MEDS: Heparin 5000 units/ml inj SUBQ SCH ×2 (09:00→20:57)
[2018-02-16 09:02] LABS: BASOPHILS % (AUTO) 0.7 % (0.0-2.0); EOSINOPHILS % (AUTO) 1.2 % (0.0-3.0); HEMATOCRIT 37.9 % (37.0-47.0); HEMOGLOBIN 12.4 G/DL (12.0-16.0); LYMPHOCYTES % (AUTO) 16.6 % (20.0-45.0); MEAN CORPUSCULAR VOLUME 97 FL (80-99); MONOCYTES % (AUTO) 9.6 % (1.0-10.0); NEUTROPHILS % (AUTO) 71.9 % (45.0-75.0); PLATELET COUNT 267 K/UL (150-450); RED BLOOD COUNT 3.91 M/UL (4.20-5.40); RED CELL DISTRIBUTION WIDTH 13.8 % (11.6-14.8); WHITE BLOOD COUNT 12.3 K/UL (4.8-10.8)
[2018-02-16 09:16] LABS: ALBUMIN 2.7 G/DL (3.4-5.0); ANION GAP 6 mmol/L (5-15); BLOOD UREA NITROGEN 9 mg/dL (7-18); CALCIUM 9.8 MG/DL (8.5-10.1); CARBON DIOXIDE 28 MMOL/L (21-32); CHLORIDE 110 MMOL/L (98-107); CREATININE 0.9 MG/DL (0.55-1.30); PHOSPHORUS 3.2 MG/DL (2.5-4.9); POTASSIUM 4.4 MMOL/L (3.5-5.1); SODIUM 143 MMOL/L (136-145)
[2018-02-16 09:44] LABS: ANION GAP 6 mmol/L (5-15); BLOOD UREA NITROGEN 8 mg/dL (7-18); CALCIUM 9.9 MG/DL (8.5-10.1); CARBON DIOXIDE 27 MMOL/L (21-32); CHLORIDE 110 MMOL/L (98-107); CREATININE 0.8 MG/DL (0.55-1.30); POTASSIUM 4.4 MMOL/L (3.5-5.1); SODIUM 143 MMOL/L (136-145)
[2018-02-16] MEDS: Lisinopril 2.5mg tab ORAL SCH (10:10)
--- NOTE | 2018-02-16 12:40 | Diagnostic Imaging Report ---
APPROVED REPORT CPT Code: 00071 Present Symptoms Comments: R/O DVT BILATERAL: Imaging reveals a patent deep venous system bilaterally. There is no evidence of thrombus within the femoral, popliteal or tibial segments. The greater saphenous veins are also within normal limits. Doppler indicates normal spontaneous flow within these segments.
--- NOTE | 2018-02-16 13:23 | Consultation ---
History of Present Illness General Date patient seen: February 16, 2018 Chief Complaint: Chest Pain Present Illness HPI 67 y/o F with hx of CAD/MD s/p stent, HTN, COPD, peripheral neuropathy, CHF, R Lung mass (refusing biopsy) presents to ED on 02/15 with 2 weeks of feeling unwell, productive cough, diffuse body aches, weakness. Denies abd pain OF note, pateint recently admitted here on 12/2017. Treated for bronchitis with 5 days of azithromycin Also admitted on 12/06-12/12 with COPD exacerbation, leukocytosis, RENNY and UTI. Afebrile leukocytosis up to 13, now imrpoving at [facility] Allergies: Coded Allergies: No Known Allergies (Unverified , 06/30/17) Medication History Scheduled Amitriptyline HCl (Elavil*), 25 MG ORAL BEDTIME, (Reported) Amoxicillin* (Amoxil*), 500 MG ORAL BID Apixaban (Eliquis), 5 MG PO BID, (Reported) Clopidogrel Bisulfate* (Plavix*), 75 MG ORAL DAILY, (Reported) Docusate Sodium (Docusate Sodium), 100 MG ORAL THREE TIMES A DAY, (Reported) Furosemide* (Lasix*), 20 MG ORAL DAILY, (Reported) Ibuprofen* (Motrin*), 600 MG ORAL FOUR TIMES A DAY, (Reported) Ipratropium/Albuterol Sulfate (DuoNeb 0.5-3(2.5)mg/3ml), 3 ML HHN Q4HR, ( Reported) Lactulose (Lactulose*), 30 ML ORAL TID, (Reported) Levofloxacin* (Levaquin*), 250 MG ORAL DAILY, (Reported) Lisinopril* (Lisinopril*), 2.5 MG ORAL DAILY, (Reported) Metoprolol Tartrate* (Metoprolol Tartrate*), 25 MG ORAL EVERY 12 HOURS, ( Reported) Midodrine* (Proamatine*), 2.5 MG ORAL THREE TIMES A DAY, (Reported) Montelukast Sodium* (Singulair*), 10 MG ORAL DAILY, (Reported) Pantoprazole* (Protonix*), 40 MG ORAL DAILY, (Reported) Polyethylene Glycol 3350* (Miralax*), 17 GM ORAL BEDTIME, (Reported) Simvastatin (Zocor), 5 MG ORAL BEDTIME, (Reported) Sumatriptan Succinate* (Imitrex*), 50 MG ORAL DAILY PRN MIGRAINE, (Reported) Scheduled PRN Acetaminophen* (Acetaminophen 325MG Tablet*), 650 MG ORAL Q4H PRN for Fever/ Headache/Mild Pain, (Reported) Hydrocodone Bit/Acetaminophen 5-325* ([place] 5-325 Tablet*), 1 TAB ORAL Q4H PRN for For Pain, (Reported) Ipratropium/Albuterol Sulfate (DuoNeb 0.5-3(2.5)mg/3ml), 3 ML HHN Q4HR PRN for For Cough, (Reported) Ondansetron (Zofran), 4 MG ORAL Q6H PRN for Nausea & Vomiting, (Reported) Ondansetron* (Zofran*), 4 MG ORAL Q6H PRN for Nausea & Vomiting, (Reported) Polyethylene Glycol 3350* (Polyethylene Glycol 3350*), 17 GM ORAL DAILY PRN for Constipation, (Reported) Zolpidem Tartrate* (Ambien*), 5 MG ORAL BEDTIME PRN for Insomnia, (Reported) Miscellaneous Medications Hydromorphone Hcl (Dilaudid), 8 MG PO, (Reported) Morphine Sulfate (Macie), 10 MG PO, (Reported) Unable to Obtain Medications (Unable To Obtain Meds), (Reported) Patient History Healthcare decision maker Resuscitation status Full Code Advanced Directive on File Patient History Narrative PMhx: as above Shx: Denies: smoking, drug use Fhx: non contributory. Review of Systems All Other Systems: negative except mentioned in HPI Physical Exam Physical Exam Narrative General Appearance: no apparent distress, alert, non-toxic HEENT: normocephalic, atraumatic, PERRL, normal pharynx Neck: full range of motion, supple/symm/no masses Respiratory: chest non-tender, lungs clear, normal breath sounds, no respiratory distress Cardiovascular regular rate, rhythm, no edema Gastrointestinal: normal bowel sounds, non tender, soft, non-distended, no guarding, no rebound Musculoskeletal: back normal, gait/station normal, normal range of motion, non- tender Neurologic: alert, oriented x3, responsive, Skin: normal color, no rash, warm/dry, well hydrated Last 24 Hour Vital Signs Date Time Temp Pulse Resp B/P (MAP) Pulse Ox O2 Delivery O2 Flow Rate FiO2 02/16/18 12:00 97.7 95 19 169/82 96 97.7 02/16/18 10:56 98 16 Room Air 21 02/16/18 10:10 153/100 02/16/18 09:15 91 153/79 02/16/18 08:00 Room Air 02/16/18 08:00 98.2 95 17 165/72 94 98.2 02/16/18 04:00 97.6 86 18 148/76 94 97.6 02/16/18 00:00 97.5 88 18 152/71 92 97.5 02/15/18 19:47 96.8 84 18 159/75 96 96.8 02/15/18 18:15 97.9 78 20 141/70 96 Room Air 97.9 02/15/18 17:45 98.2 88 18 139/63 98 Room Air 98.2 02/15/18 16:52 98.2 88 18 139/63 98 Room Air 98.2 02/15/18 16:42 98.2 02/15/18 16:10 98.2 02/15/18 15:15 Room Air 02/15/18 15:06 98.2 63 18 157/63 98 Room Air 98.2 Intake and Output 02/15/18 02/16/18 19:00 07:00 Intake Total 1050 ml 380 ml Output Total 100 ml Balance 950 ml 380 ml Intake Oral 380 ml IV Total 1050 ml Output Urine Total 100 ml # Voids 1 3 Laboratory Tests Test 02/15/18 15:32 02/16/18 08:30 White Blood Count 13.1 K/UL (4.8-10.8) H 12.3 K/UL (4.8-10.8) H Red Blood Count 4.26 M/UL (4.20-5.40) 3.91 M/UL (4.20-5.40) L Hemoglobin 13.4 G/DL (12.0-16.0) 12.4 G/DL (12.0-16.0) Hematocrit 41.1 % (37.0-47.0) 37.9 % (37.0-47.0) Mean Corpuscular Volume 97 FL (80-99) 97 FL (80-99) Mean Corpuscular Hemoglobin 31.4 PG (27.0-31.0) H 31.7 PG (27.0-31.0) H Mean Corpuscular Hemoglobin Concent 32.5 G/DL (32.0-36.0) 32.8 G/DL (32.0-36.0) Red Cell Distribution Width 13.7 % (11.6-14.8) 13.8 % (11.6-14.8) Platelet Count 287 K/UL (150-450) 267 K/UL (150-450) Mean Platelet Volume 7.7 FL (6.5-10.1) 8.1 FL (6.5-10.1) Neutrophils (%) (Auto) 70.3 % (45.0-75.0) 71.9 % (45.0-75.0) Lymphocytes (%) (Auto) 19.4 % (20.0-45.0) L 16.6 % (20.0-45.0) L Monocytes (%) (Auto) 8.6 % (1.0-10.0) 9.6 % (1.0-10.0) Eosinophils (%) (Auto) 0.7 % (0.0-3.0) 1.2 % (0.0-3.0) Basophils (%) (Auto) 1.0 % (0.0-2.0) 0.7 % (0.0-2.0) Urine Color Pale yellow Urine Appearance Clear Urine pH 7 (4.5-8.0) Urine Specific [place] 1.010 (1.005-1.035) Urine Protein Negative (NEGATIVE) Urine Glucose (UA) Negative (NEGATIVE) Urine Ketones Negative (NEGATIVE) Urine Occult Blood Negative (NEGATIVE) Urine Nitrite Negative (NEGATIVE) Urine Bilirubin Negative (NEGATIVE) Urine Urobilinogen Normal MG/DL (0.0-1.0) Urine Leukocyte Esterase Negative (NEGATIVE) Sodium Level 145 MMOL/L (136-145) 143 MMOL/L (136-145) Potassium Level 5.2 MMOL/L (3.5-5.1) H 4.4 MMOL/L (3.5-5.1) Chloride Level 108 MMOL/L (98-107) H 110 MMOL/L (98-107) H Carbon Dioxide Level 28 MMOL/L (21-32) 27 MMOL/L (21-32) Anion Gap 9 mmol/L (5-15) 6 mmol/L (5-15) Blood Urea Nitrogen 11 mg/dL (7-18) 8 mg/dL (7-18) Creatinine 0.9 MG/DL (0.55-1.30) 0.8 MG/DL (0.55-1.30) Estimat Glomerular Filtration Rate > 60 mL/min (>60) > 60 mL/min (>60) Glucose Level 95 MG/DL (74-106) 114 MG/DL (74-106) H Calcium Level 10.7 MG/DL (8.5-10.1) H 9.9 MG/DL (8.5-10.1) Total Bilirubin 0.3 MG/DL (0.2-1.0) Aspartate Amino Transf (AST/SGOT) 14 U/L (15-37) L Alanine Aminotransferase (ALT/SGPT) 11 U/L (12-78) L Alkaline Phosphatase 145 U/L (46-116) H Troponin I 0.000 ng/mL (0.000-0.056) Total Protein 7.1 G/DL (6.4-8.2) Albumin 3.3 G/DL (3.4-5.0) L 2.7 G/DL (3.4-5.0) L Globulin 3.8 g/dL Albumin/Globulin Ratio 0.9 (1.0-2.7) L Phosphorus Level 3.2 MG/DL (2.5-4.9) Microbiology Date/Time Source Procedure Growth Status 02/15/18 15:32 Nasal Nares Influenza Types A,B Antigen (SHIRLEY) - Final Complete Height (Feet): 5 Height (Inches): 2.00 Weight (Pounds): 120 Medications Current Medications Medications (Trade) Dose Ordered Sig/Janee Route PRN Reason Start Time Stop Time Status Last Admin Dose Admin Acetaminophen (Tylenol) 650 mg Q4H PRN ORAL FEVER (temp>100.5F) 02/15/18 19:30 03/17/18 19:29 Albuterol/ Ipratropium (Albuterol/ Ipratropium) 3 ml Q4H PRN HHN Shortness of Breath 02/15/18 19:30 02/20/18 19:29 Amitriptyline HCl (Elavil) 25 mg BEDTIME ORAL 02/15/18 21:00 03/17/18 20:59 02/15/18 21:31 Cefepime HCl 2 gm/ Dextrose 110 ml @ 220 mls/hr QHS IV 02/15/18 21:00 02/22/18 20:59 02/15/18 21:03 Clopidogrel Bisulfate (Plavix) 75 mg DAILY ORAL 02/16/18 09:00 03/18/18 08:59 Dextrose (Dextrose 50%) 25 ml STAT PRN IV Hypoglycemia 02/15/18 19:30 03/17/18 19:29 Dextrose (Dextrose 50%) 50 ml STAT PRN IV Hypoglycemia 02/15/18 19:30 03/17/18 19:29 Heparin Sodium (Porcine) (Heparin 5000 units/ml) 5,000 units EVERY 12 HOURS SUBQ 02/15/18 21:00 03/17/18 20:59 Lisinopril (Zestril) 2.5 mg DAILY ORAL 02/16/18 09:00 03/18/18 08:59 02/16/18 10:10 Lorazepam (Ativan 2mg/ml 1ml) 2 mg Q2H PRN IV For Anxiety 02/15/18 19:30 02/22/18 19:29 Morphine Sulfate (Morphine Sulfate) 4 mg Q4H PRN IVP Severe Pain (Pain Scale 7-10) 02/15/18 19:30 02/22/18 19:29 02/16/18 10:21 Ondansetron HCl (Zofran) 4 mg Q6H PRN IVP Nausea & Vomiting 02/15/18 19:30 03/17/18 19:29 Polyethylene Glycol (Miralax) 17 gm DAILYPRN PRN ORAL Constipation 02/15/18 19:30 03/17/18 19:29 Vancomycin HCl (Vanco rx to dose) 1 ea DAILY PRN MISC PER RX PROTOCOL 02/15/18 19:30 03/17/18 19:29 Vancomycin HCl 1 gm/Dextrose 275 ml @ 183.3 mls/ hr Q24H IVPB 02/15/18 22:00 02/20/18 21:59 02/15/18 22:44 Assessment/Plan Assessment/Plan Abx: IV Vanco 02/15- Cefepime 02/15- Ceftriaxone x1 02/15 Assessment: Probable PNA,recurrent- ?postobstructive -CXR: Suspected small right pleural effusion. Mild interstitial edema may be present. -influenza sc p -sp cx p Leukocytosis, improving -afebrile R Lung Mass, refusing biopsy CAD/MD s/p stent HTN COPD peripheral neuropathy CHF DVT CKD lumbar DJD/sponydolosis MDD/anxiety non compliance drug abuse and opioid dependency current smoker CVA Plan: -Continue empiric IV Vanco and Cefepime #2 pending cultures -01/04 SP IV ,azithromycin # 5 / 5 , -01/03 SP Vancomycin, Cefepime d# 4 -f/u cx -Monitor CBC/BMP, temperatures -aspiration precautions Thank you for this consultation. Will continue to follow along with you. Discussed with Holli Vincent M.D. February 16, 2018 13:23
[2018-02-16] MEDS: Albuterol/Ipratropium 3ml neb HHN PRN (14:56)
--- NOTE | 2018-02-16 15:31 | Pulmonology Progress Note ---
Assessment/Plan Problems: (1) Pneumonia (2) COPD (chronic obstructive pulmonary disease) with acute bronchitis (3) Lung mass (4) HTN (hypertension) (5) CAD (coronary artery disease) Assessment/Plan respiratory treatment check sputum chest PT incentive spirometry titrate fio2 to sat of 92% continue abx symptomatic treatment pain management. Subjective ROS Limited/Unobtainable: No Interval Events: still c/o lots of generalized body pain Constitutional: Reports: no symptoms HEENT: Repors: no symptoms Allergies: Coded Allergies: No Known Allergies (Unverified , 06/30/17) Objective Last 24 Hour Vital Signs Date Time Temp Pulse Resp B/P (MAP) Pulse Ox O2 Delivery O2 Flow Rate FiO2 02/16/18 14:56 97 18 99 Nasal Cannula 2.0 02/16/18 12:00 97.7 95 19 169/82 96 97.7 02/16/18 10:56 98 16 Room Air 21 02/16/18 10:10 153/100 02/16/18 09:15 91 153/79 02/16/18 08:00 Room Air 02/16/18 08:00 98.2 95 17 165/72 94 98.2 02/16/18 04:00 97.6 86 18 148/76 94 97.6 02/16/18 00:00 97.5 88 18 152/71 92 97.5 02/15/18 19:47 96.8 84 18 159/75 96 96.8 02/15/18 18:15 97.9 78 20 141/70 96 Room Air 97.9 02/15/18 17:45 98.2 88 18 139/63 98 Room Air 98.2 02/15/18 16:52 98.2 88 18 139/63 98 Room Air 98.2 02/15/18 16:42 98.2 02/15/18 16:10 98.2 Intake and Output 02/15/18 02/16/18 19:00 07:00 Intake Total 1050 ml 380 ml Output Total 100 ml Balance 950 ml 380 ml Intake Oral 380 ml IV Total 1050 ml Output Urine Total 100 ml # Voids 1 3 General Appearance: cachetic HEENT: normocephalic, atraumatic Respiratory/Chest: chest wall non-tender, crackles/rales Cardiovascular: normal peripheral pulses, normal rate Abdomen: normal bowel sounds, soft, non tender Genitourinary: normal external genitalia Extremities: no clubbing Skin: no lesions 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 Microbiology Date/Time Source Procedure Growth Status 02/15/18 15:32 Nasal Nares Influenza Types A,B Antigen (SHIRLEY) - Final Complete Laboratory Tests 02/15/18 15:32: White Blood Count 13.1H, Red Blood Count 4.26, Hemoglobin 13.4, Hematocrit 41.1 , Mean Corpuscular Volume 97, Mean Corpuscular Hemoglobin 31.4H, Mean Corpuscular Hemoglobin Concent 32.5, Red Cell Distribution Width 13.7, Platelet Count 287, Mean Platelet Volume 7.7, Neutrophils (%) (Auto) 70.3, Lymphocytes (% ) (Auto) 19.4L, Monocytes (%) (Auto) 8.6, Eosinophils (%) (Auto) 0.7, Basophils (%) (Auto) 1.0, Urine Color Pale yellow, Urine Appearance Clear, Urine pH 7, Urine Specific [place] 1.010, Urine Protein Negative, Urine Glucose (UA) Negative, Urine Ketones Negative, Urine Occult Blood Negative, Urine Nitrite Negative, Urine Bilirubin Negative, Urine Urobilinogen Normal, Urine Leukocyte Esterase Negative, Sodium Level 145, Potassium Level 5.2H, Chloride Level 108H, Carbon Dioxide Level 28, Anion Gap 9, Blood Urea Nitrogen 11, Creatinine 0.9, Estimat Glomerular Filtration Rate > 60, Glucose Level 95, Calcium Level 10.7H, Total Bilirubin 0.3, Aspartate Amino Transf (AST/SGOT) 14L, Alanine Aminotransferase (ALT/SGPT) 11L, Alkaline Phosphatase 145H, Troponin I 0.000, Total Protein 7.1, Albumin 3.3L, Globulin 3.8, Albumin/Globulin Ratio 0.9L 02/16/18 08:30: White Blood Count 12.3H, Red Blood Count 3.91L, Hemoglobin 12.4, Hematocrit 37.9 , Mean Corpuscular Volume 97, Mean Corpuscular Hemoglobin 31.7H, Mean Corpuscular Hemoglobin Concent 32.8, Red Cell Distribution Width 13.8, Platelet Count 267, Mean Platelet Volume 8.1, Neutrophils (%) (Auto) 71.9, Lymphocytes (% ) (Auto) 16.6L, Monocytes (%) (Auto) 9.6, Eosinophils (%) (Auto) 1.2, Basophils (%) (Auto) 0.7, Sodium Level 143, Potassium Level 4.4, Chloride Level 110H, Carbon Dioxide Level 27, Anion Gap 6, Blood Urea Nitrogen 8, Creatinine 0.8, Estimat Glomerular Filtration Rate > 60, Glucose Level 114H, Calcium Level 9.9, Albumin 2.7L, Phosphorus Level 3.2 Current Medications Medications (Trade) Dose Ordered Sig/Janee Route PRN Reason Start Time Stop Time Status Last Admin Dose Admin Acetaminophen (Tylenol) 650 mg Q4H PRN ORAL FEVER (temp>100.5F) 02/15/18 19:30 03/17/18 19:29 Albuterol/ Ipratropium (Albuterol/ Ipratropium) 3 ml Q4H PRN HHN Shortness of Breath 02/15/18 19:30 02/20/18 19:29 02/16/18 14:56 Amitriptyline HCl (Elavil) 25 mg BEDTIME ORAL 02/15/18 21:00 03/17/18 20:59 02/15/18 21:31 Cefepime HCl 2 gm/ Dextrose 110 ml @ 220 mls/hr QHS IV 02/15/18 21:00 02/22/18 20:59 02/15/18 21:03 Clopidogrel Bisulfate (Plavix) 75 mg DAILY ORAL 02/16/18 09:00 03/18/18 08:59 Dextrose (Dextrose 50%) 25 ml STAT PRN IV Hypoglycemia 02/15/18 19:30 03/17/18 19:29 Dextrose (Dextrose 50%) 50 ml STAT PRN IV Hypoglycemia 02/15/18 19:30 03/17/18 19:29 Heparin Sodium (Porcine) (Heparin 5000 units/ml) 5,000 units EVERY 12 HOURS SUBQ 02/15/18 21:00 03/17/18 20:59 Lisinopril (Zestril) 2.5 mg DAILY ORAL 02/16/18 09:00 03/18/18 08:59 02/16/18 10:10 Lorazepam (Ativan 2mg/ml 1ml) 2 mg Q2H PRN IV For Anxiety 02/15/18 19:30 02/22/18 19:29 Morphine Sulfate (Morphine Sulfate) 4 mg Q4H PRN IVP Severe Pain (Pain Scale 7-10) 5/23/18 19:30 02/22/18 19:29 02/16/18 10:21 Ondansetron HCl (Zofran) 4 mg Q6H PRN IVP Nausea & Vomiting 02/15/18 19:30 03/17/18 19:29 Polyethylene Glycol (Miralax) 17 gm DAILYPRN PRN ORAL Constipation 02/15/18 19:30 03/17/18 19:29 Vancomycin HCl (Vanco rx to dose) 1 ea DAILY PRN MISC PER RX PROTOCOL 02/15/18 19:30 03/17/18 19:29 Vancomycin HCl 1 gm/Dextrose 275 ml @ 183.3 mls/ hr Q24H IVPB 02/15/18 22:00 02/20/18 21:59 02/15/18 22:44 Elie Reddy MD February 16, 2018 15:31
--- NOTE | 2018-02-16 17:30 | History and Physical Report ---
DATE OF ADMISSION: 02/15/2018 CONSULTANTS: 1. Elie Reddy M.D. 2. Gume Mosley M.D. CHIEF COMPLAINT: Shortness of breath, coughing, pneumonia, and sepsis. BRIEF HISTORY: This is a 67-year-old female, who lives at home, presented to [facility] last night with history of one week increasing shortness of breath, coughing white phlegm, became very weak, diagnosed with pneumonia and sepsis, and admitted to medical floor for further treatment. Currently, slight general pain, slightly short of breath in bed. No complaint. PAST MEDICAL HISTORY: Includes lung cancer, hypertension, renal failure, congestive heart failure, failure to thrive, chronic obstructive pulmonary disease, and coronary artery disease. PAST SURGICAL HISTORY: Hysterectomy. MEDICATIONS: Include Plavix, Zestril, vancomycin, Elavil, cefepime, heparin, albuterol, Tylenol, morphine, Ativan, dextrose, and vancomycin. ALLERGIES: Denies. SOCIAL HISTORY: Positive smoking. No alcohol. No intravenous drug abuse. FAMILY HISTORY: Noncontributory. REVIEW OF SYSTEMS: No chest pain. Slightly short of breath. No nausea, vomiting, or diarrhea. PHYSICAL EXAMINATION: GENERAL: Calm in bed, oriented x3, slightly short of breath. VITAL SIGNS: Temperature 97, pulse 95, respirations 19, and blood pressure 169/82. CARDIOVASCULAR: No murmur. LUNGS: Poor air exchange. ABDOMEN: Bowel sounds distant. EXTREMITIES: No cyanosis, clubbing, or edema. NEUROLOGIC: The patient moves all extremities. Slightly weak. LABORATORY AND DIAGNOSTIC DATA: White count 12.3, otherwise CBC is normal. BMP shows chloride 110 and glucose 114, otherwise BMP is normal. Urinalysis is negative. ASSESSMENT: 1. Pneumonia. 2. Sepsis. 3. Lung cancer. 4. Congestive heart failure. 5. Failure to thrive. 6. Renal failure. 7. Hypertension. 8. Chronic obstructive pulmonary disease. 9. Coronary artery disease. PLAN: 1. O2 and pulmonary treatment. 2. Antibiotics per Infectious Disease. 3. Blood pressure and pain control. 4. Dietary followup. 5. CBC and BMP in the morning. 6. OT, PT, and dietary evaluation. Miki Garcia D.O. DR: ENRIKE JOB#: [id number] CC:
[2018-02-16] MEDS: Cefepime HCl 2 GM in D5W 110 ML IV SCH (20:35)
[2018-02-16] MEDS: Vancomycin 1 GM in D5W 275 ML IVPB SCH (21:48)
[2018-02-17] VITALS: BP 151/76
[2018-02-17] MEDS: Albuterol/Ipratropium 3ml neb HHN PRN ×2 (00:11→08:58)
[2018-02-17] MEDS: Morphine Sulfate 4mg/ml Inj IVP PRN ×4 (03:48→17:40)
[2018-02-17 04:00] VITALS: BP 154/72
[2018-02-17 08:15] VITALS: BP 164/77
[2018-02-17] MEDS: Lisinopril 2.5mg tab ORAL SCH (08:25)
[2018-02-17] MEDS: Heparin 5000 units/ml inj SUBQ SCH ×2 (08:28→21:00)
--- NOTE | 2018-02-17 11:24 | Infectious Diseases Prog Note ---
Assessment/Plan Assessment/Plan Abx: IV Vanco 02/15- Cefepime 02/15- Ceftriaxone x1 02/15 Assessment: Probable PNA,recurrent- ?postobstructive -CXR: Suspected small right pleural effusion. Mild interstitial edema may be present. -influenza sc neg -sp cx p Leukocytosis, improving -afebrile R Lung Mass, refusing biopsy CAD/[place] s/p stent HTN COPD peripheral neuropathy CHF DVT CKD lumbar DJD/sponydolosis MDD/anxiety non compliance drug abuse and opioid dependency current smoker CVA Plan: -Continue empiric IV Vanco and Cefepime #11/28-7 pending cultures -01/04 SP IV ,azithromycin # 5 -01/03 SP Vancomycin, Cefepime d# 4 -f/u cx -Monitor CBC/BMP, temperatures -aspiration precautions Subjective Allergies: Coded Allergies: No Known Allergies (Unverified , 06/30/17) Subjective afebrile leukocytosis improving at 2l NC Objective Vital Signs Last 24 Hour Vital Signs Date Time Temp Pulse Resp B/P (MAP) Pulse Ox O2 Delivery O2 Flow Rate FiO2 02/17/18 09:06 97 16 98 Nasal Cannula 2.0 28 02/17/18 08:59 96 18 97 Nasal Cannula 2.0 28 02/17/18 08:33 Nasal Cannula 2.0 28 02/17/18 08:33 96 Nasal Cannula 2.0 28 02/17/18 08:33 97 18 Nasal Cannula 2.0 28 02/17/18 08:25 164/77 02/17/18 08:15 99.7 104 18 164/77 94 Nasal Cannula 2.0 99.7 02/17/18 04:00 97.7 90 18 154/72 97 Nasal Cannula 2.0 97.7 02/17/18 00:13 98 16 99 Nasal Cannula 2.0 28 02/17/18 00:12 96 18 95 Nasal Cannula 2.0 28 02/17/18 00:00 97.9 98 20 151/76 98 Nasal Cannula 2.0 97.9 02/16/18 20:24 98.1 98 17 153/79 96 98.1 02/16/18 20:24 Room Air 02/16/18 19:30 95 16 Nasal Cannula 2.0 28 02/16/18 19:30 95 Nasal Cannula 2.0 28 02/16/18 19:30 Nasal Cannula 2.0 28 02/16/18 16:00 Room Air 02/16/18 16:00 98.5 96 20 166/85 97 98.5 02/16/18 15:06 96 16 99 Nasal Cannula 2.0 28 02/16/18 14:56 97 18 99 Nasal Cannula 2.0 02/16/18 12:00 Room Air 02/16/18 12:00 97.7 95 19 169/82 96 97.7 Height (Feet): 5 Height (Inches): 2.00 Weight (Pounds): 120 Objective General Appearance: no apparent distress, alert, non-toxic HEENT: normocephalic, atraumatic, PERRL, normal pharynx Neck: full range of motion, supple/symm/no masses Respiratory: chest non-tender, lungs clear, normal breath sounds, no respiratory distress Cardiovascular regular rate, rhythm, no edema Gastrointestinal: normal bowel sounds, non tender, soft, non-distended, no guarding, no rebound Musculoskeletal: back normal, gait/station normal, normal range of motion, non- tender Neurologic: alert, oriented x3, responsive, Skin: normal color, no rash, warm/dry, well hydrated Microbiology Date/Time Source Procedure Growth Status 02/15/18 15:55 Blood Blood Culture - Preliminary NO GROWTH AFTER 24 HOURS Resulted 02/15/18 15:45 Blood Blood Culture - Preliminary NO GROWTH AFTER 24 HOURS Resulted 02/15/18 17:30 Nasal Nares MRSA Culture - Final NO METHICILLIN RESISTANT STAPH AUREUS... Complete 02/15/18 15:32 Nasal Nares Influenza Types A,B Antigen (SHIRLEY) - Final Complete Current Medications Medications (Trade) Dose Ordered Sig/Janee Route PRN Reason Start Time Stop Time Status Last Admin Dose Admin Acetaminophen (Tylenol) 650 mg Q4H PRN ORAL FEVER (temp>100.5F) 02/15/18 19:30 03/17/18 19:29 Albuterol/ Ipratropium (Albuterol/ Ipratropium) 3 ml Q4H PRN HHN Shortness of Breath 02/15/18 19:30 02/20/18 19:29 02/17/18 08:58 Amitriptyline HCl (Elavil) 25 mg BEDTIME ORAL 02/15/18 21:00 03/17/18 20:59 02/16/18 20:34 Cefepime HCl 2 gm/ Dextrose 110 ml @ 220 mls/hr QHS IV 02/15/18 21:00 02/22/18 20:59 02/16/18 20:35 Clopidogrel Bisulfate (Plavix) 75 mg DAILY ORAL 02/16/18 09:00 03/18/18 08:59 Dextrose (Dextrose 50%) 25 ml STAT PRN IV Hypoglycemia 02/15/18 19:30 03/17/18 19:29 Dextrose (Dextrose 50%) 50 ml STAT PRN IV Hypoglycemia 02/15/18 19:30 03/17/18 19:29 Heparin Sodium (Porcine) (Heparin 5000 units/ml) 5,000 units EVERY 12 HOURS SUBQ 02/15/18 21:00 03/17/18 20:59 Lisinopril (Zestril) 2.5 mg DAILY ORAL 02/16/18 09:00 03/18/18 08:59 02/17/18 08:25 Lorazepam (Ativan 2mg/ml 1ml) 2 mg Q2H PRN IV For Anxiety 02/15/18 19:30 02/22/18 19:29 Morphine Sulfate (Morphine Sulfate) 4 mg Q4H PRN IVP Severe Pain (Pain Scale 7-10) 02/15/18 19:30 02/22/18 19:29 02/17/18 08:21 Ondansetron HCl (Zofran) 4 mg Q6H PRN IVP Nausea & Vomiting 02/15/18 19:30 03/17/18 19:29 02/17/18 01:33 Polyethylene Glycol (Miralax) 17 gm DAILYPRN PRN ORAL Constipation 02/15/18 19:30 03/17/18 19:29 Vancomycin HCl (Vanco rx to dose) 1 ea DAILY PRN MISC PER RX PROTOCOL 02/15/18 19:30 03/17/18 19:29 Vancomycin HCl 1 gm/Dextrose 275 ml @ 183.3 mls/ hr Q24H IVPB 02/15/18 22:00 02/20/18 21:59 02/16/18 21:48 Holli Narayan M.D. February 17, 2018 11:24
[2018-02-17 12:00] VITALS: BP 140/77
--- NOTE | 2018-02-17 14:26 | General Progress Note ---
Assessment/Plan Problem List: (1) CHF (congestive heart failure) ICD Codes: I50.9 - Heart failure, unspecified SNOMED: 82338746 (2) FTT (failure to thrive) in adult ICD Codes: R62.7 - Adult failure to thrive SNOMED: 298330457 (3) Pneumonia ICD Codes: J18.9 - Pneumonia, unspecified organism SNOMED: 231838944 (4) HTN (hypertension) ICD Codes: I10 - HTN (hypertension) SNOMED: 94832834 (5) CAD (coronary artery disease) ICD Codes: I25.10 - CAD (coronary artery disease) SNOMED: 879992687 (6) COPD (chronic obstructive pulmonary disease) with acute bronchitis ICD Codes: J44.1 - COPD (chronic obstructive pulmonary disease) with acute bronchitis SNOMED: 81125703 Status: unchanged Assessment/Plan o2 pulm tx abx pain control cbc bmp am dc plan w hh Subjective Constitutional: Reports: weakness Respiratory: Reports: shortness of breath Allergies: Coded Allergies: No Known Allergies (Unverified , 06/30/17) All Systems: reviewed and negative except above Subjective calm in bed sl coughing Objective Last 24 Hour Vital Signs Date Time Temp Pulse Resp B/P (MAP) Pulse Ox O2 Delivery O2 Flow Rate FiO2 02/17/18 09:06 97 16 98 Nasal Cannula 2.0 28 02/17/18 08:59 96 18 97 Nasal Cannula 2.0 28 02/17/18 08:33 Nasal Cannula 2.0 28 02/17/18 08:33 96 Nasal Cannula 2.0 28 02/17/18 08:33 97 18 Nasal Cannula 2.0 28 02/17/18 08:25 164/77 02/17/18 08:15 99.7 104 18 164/77 94 Nasal Cannula 2.0 99.7 02/17/18 04:00 97.7 90 18 154/72 97 Nasal Cannula 2.0 97.7 02/17/18 00:13 98 16 99 Nasal Cannula 2.0 28 02/17/18 00:12 96 18 95 Nasal Cannula 2.0 28 02/17/18 00:00 97.9 98 20 151/76 98 Nasal Cannula 2.0 97.9 02/16/18 20:24 98.1 98 17 153/79 96 98.1 5/24/18 20:24 Room Air 02/16/18 19:30 95 16 Nasal Cannula 2.0 28 02/16/18 19:30 95 Nasal Cannula 2.0 28 02/16/18 19:30 Nasal Cannula 2.0 28 02/16/18 16:00 Room Air 02/16/18 16:00 98.5 96 20 166/85 97 98.5 02/16/18 15:06 96 16 99 Nasal Cannula 2.0 02/16/18 14:56 97 18 99 Nasal Cannula 2.0 Intake and Output 02/16/18 02/17/18 19:00 07:00 Intake Total 340 ml 885.0 ml Output Total 1000 ml Balance 340 ml -115.0 ml Intake Oral 340 ml 500 ml IV Total 385.0 ml Output Urine Total 1000 ml # Voids 5 Height (Feet): 5 Height (Inches): 2.00 Weight (Pounds): 120 General Appearance: lethargic EENT: normal ENT inspection Neck: normal alignment Cardiovascular: normal peripheral pulses, normal rate, regular rhythm Respiratory/Chest: chest wall non-tender, decreased breath sounds Abdomen: normal bowel sounds, non tender, soft Extremities: normal inspection Edema: no edema noted Arm (L), no edema noted Arm (R), no edema noted Leg (L), no edema noted Leg (R), no edema noted Pedal (L), no edema noted Pedal (R), no edema noted Generalized Neurologic: motor weakness Skin: normal pigmentation, warm/dry Miki Garcia DO February 17, 2018 14:26
--- NOTE | 2018-02-17 14:44 | Pulmonology Progress Note ---
Assessment/Plan Problems: (1) Pneumonia (2) COPD (chronic obstructive pulmonary disease) with acute bronchitis (3) Lung mass (4) HTN (hypertension) (5) CAD (coronary artery disease) Assessment/Plan wbc still high sputum pending respiratory treatment check sputum chest PT incentive spirometry titrate fio2 to sat of 92% continue abx symptomatic treatment pain management. Subjective ROS Limited/Unobtainable: No Constitutional: Reports: no symptoms HEENT: Repors: no symptoms Respiratory: Reports: no symptoms Allergies: Coded Allergies: No Known Allergies (Unverified , 06/30/17) Objective Last 24 Hour Vital Signs Date Time Temp Pulse Resp B/P (MAP) Pulse Ox O2 Delivery O2 Flow Rate FiO2 02/17/18 09:06 97 16 98 Nasal Cannula 2.0 28 02/17/18 08:59 96 18 97 Nasal Cannula 2.0 28 02/17/18 08:33 Nasal Cannula 2.0 28 02/17/18 08:33 96 Nasal Cannula 2.0 28 02/17/18 08:33 97 18 Nasal Cannula 2.0 28 02/17/18 08:25 164/77 02/17/18 08:15 99.7 104 18 164/77 94 Nasal Cannula 2.0 99.7 02/17/18 04:00 97.7 90 18 154/72 97 Nasal Cannula 2.0 97.7 02/17/18 00:13 98 16 99 Nasal Cannula 2.0 28 02/17/18 00:12 96 18 95 Nasal Cannula 2.0 28 02/17/18 00:00 97.9 98 20 151/76 98 Nasal Cannula 2.0 97.9 02/16/18 20:24 98.1 98 17 153/79 96 98.1 02/16/18 20:24 Room Air 02/16/18 19:30 95 16 Nasal Cannula 2.0 28 02/16/18 19:30 95 Nasal Cannula 2.0 28 02/16/18 19:30 Nasal Cannula 2.0 28 02/16/18 16:00 Room Air 02/16/18 16:00 98.5 96 20 166/85 97 98.5 02/16/18 15:06 96 16 99 Nasal Cannula 2.0 28 02/16/18 14:56 97 18 99 Nasal Cannula 2.0 Intake and Output 02/16/18 02/17/18 19:00 07:00 Intake Total 340 ml 885.0 ml Output Total 1000 ml Balance 340 ml -115.0 ml Intake Oral 340 ml 500 ml IV Total 385.0 ml Output Urine Total 1000 ml # Voids 5 General Appearance: WD/WN HEENT: normocephalic Respiratory/Chest: chest wall non-tender, normal breath sounds Breasts: no masses Cardiovascular: normal peripheral pulses Abdomen: normal bowel sounds, soft, non tender Genitourinary: normal external genitalia Extremities: no cyanosis Neurologic/Psychiatric: author II-XII grossly normal Microbiology Date/Time Source Procedure Growth Status 02/15/18 15:55 Blood Blood Culture - Preliminary NO GROWTH AFTER 24 HOURS Resulted 02/15/18 15:45 Blood Blood Culture - Preliminary NO GROWTH AFTER 24 HOURS Resulted 02/16/18 03:49 Sputum Gram Stain - Final Resulted 02/16/18 03:49 Sputum Sputum Culture Pending Resulted 02/15/18 17:30 Nasal Nares MRSA Culture - Final NO METHICILLIN RESISTANT STAPH AUREUS... Complete 02/15/18 15:32 Nasal Nares Influenza Types A,B Antigen (SHIRLEY) - Final Complete Current Medications Medications (Trade) Dose Ordered Sig/Janee Route PRN Reason Start Time Stop Time Status Last Admin Dose Admin Acetaminophen (Tylenol) 650 mg Q4H PRN ORAL FEVER (temp>100.5F) 02/15/18 19:30 03/17/18 19:29 Albuterol/ Ipratropium (Albuterol/ Ipratropium) 3 ml Q4H PRN HHN Shortness of Breath 02/15/18 19:30 02/20/18 19:29 02/17/18 08:58 Amitriptyline HCl (Elavil) 25 mg BEDTIME ORAL 02/15/18 21:00 03/17/18 20:59 02/16/18 20:34 Cefepime HCl 2 gm/ Dextrose 110 ml @ 220 mls/hr QHS IV 02/15/18 21:00 02/22/18 20:59 02/16/18 20:35 Clopidogrel Bisulfate (Plavix) 75 mg DAILY ORAL 02/16/18 09:00 03/18/18 08:59 Dextrose (Dextrose 50%) 25 ml STAT PRN IV Hypoglycemia 02/15/18 19:30 03/17/18 19:29 Dextrose (Dextrose 50%) 50 ml STAT PRN IV Hypoglycemia 02/15/18 19:30 03/17/18 19:29 Heparin Sodium (Porcine) (Heparin 5000 units/ml) 5,000 units EVERY 12 HOURS SUBQ 02/15/18 21:00 03/17/18 20:59 Lisinopril (Zestril) 2.5 mg DAILY ORAL 02/16/18 09:00 03/18/18 08:59 02/17/18 08:25 Lorazepam (Ativan 2mg/ml 1ml) 2 mg Q2H PRN IV For Anxiety 02/15/18 19:30 02/22/18 19:29 Morphine Sulfate (Morphine Sulfate) 4 mg Q4H PRN IVP Severe Pain (Pain Scale 7-10) 02/15/18 19:30 02/22/18 19:29 02/17/18 13:01 Ondansetron HCl (Zofran) 4 mg Q6H PRN IVP Nausea & Vomiting 02/15/18 19:30 03/17/18 19:29 02/17/18 01:33 Polyethylene Glycol (Miralax) 17 gm DAILYPRN PRN ORAL Constipation 02/15/18 19:30 03/17/18 19:29 Vancomycin HCl (Vanco rx to dose) 1 ea DAILY PRN MISC PER RX PROTOCOL 02/15/18 19:30 03/17/18 19:29 Vancomycin HCl 1 gm/Dextrose 275 ml @ 183.3 mls/ hr Q24H IVPB 02/15/18 22:00 02/20/18 21:59 02/16/18 21:48 Elie Reddy MD February 17, 2018 14:44
[2018-02-17 16:00] VITALS: BP 165/73
[2018-02-17] MEDS ORDERED: Tubing IV Secondary IV ONE (17:48)
[2018-02-17] MEDS ORDERED: NS 275ml ONE (17:48)
[2018-02-17 19:56] VITALS: BP 157/91
[2018-02-17] MEDS: Cefepime HCl 2 GM in D5W 110 ML IV SCH (20:20)
[2018-02-17] MEDS: Vancomycin 1 GM in D5W 275 ML IVPB SCH (22:00)
--- NOTE | 2018-02-17 22:30 | Cardiology Report ---
APPROVED REPORT EKG Measurement Heart [id number] Normal sinus rhythm Anteroseptal infarct, age undetermined Abnormal ECG
[2018-02-17] MEDS: HYDROcodone/Acetamin 10/325 tab ORAL PRN (23:58)
[2018-02-18] VITALS: BP 133/87
[2018-02-18 04:00] VITALS: BP 154/90
[2018-02-18] MEDS: HYDROcodone/Acetamin 10/325 tab ORAL PRN ×2 (06:01→12:36)
[2018-02-18 08:00] VITALS: BP 149/86
--- NOTE | 2018-02-18 08:52 | General Progress Note ---
Assessment/Plan Problem List: (1) CHF (congestive heart failure) ICD Codes: I50.9 - Heart failure, unspecified SNOMED: 93974571 (2) FTT (failure to thrive) in adult ICD Codes: R62.7 - Adult failure to thrive SNOMED: 361686527 (3) Pneumonia ICD Codes: J18.9 - Pneumonia, unspecified organism SNOMED: 682975182 (4) HTN (hypertension) ICD Codes: I10 - HTN (hypertension) SNOMED: 73245919 (5) CAD (coronary artery disease) ICD Codes: I25.10 - CAD (coronary artery disease) SNOMED: 082406920 (6) COPD (chronic obstructive pulmonary disease) with acute bronchitis ICD Codes: J44.1 - COPD (chronic obstructive pulmonary disease) with acute bronchitis SNOMED: 12287282 Status: stable, progressing, tolerating diet Assessment/Plan o2 pulm tx abx pain control dc w hh Subjective Constitutional: Reports: weakness Allergies: Coded Allergies: No Known Allergies (Unverified , 06/30/17) All Systems: reviewed and negative except above Subjective calm in bed Objective Last 24 Hour Vital Signs Date Time Temp Pulse Resp B/P (MAP) Pulse Ox O2 Delivery O2 Flow Rate FiO2 02/18/18 07:00 98.9 02/18/18 04:00 98.9 94 18 154/90 94 Nasal Cannula 2.0 98.9 02/18/18 00:00 99.1 92 20 133/87 92 99.1 02/17/18 20:14 Nasal Cannula 2.0 28 02/17/18 20:14 102 18 Nasal Cannula 2.0 28 02/17/18 20:14 97 Nasal Cannula 2.0 28 02/17/18 20:00 Nasal Cannula 2.0 02/17/18 19:56 98.2 105 20 157/91 95 98.2 02/17/18 16:00 97.8 101 19 165/73 97 Nasal Cannula 2.0 97.8 02/17/18 12:00 Nasal Cannula 2.0 02/17/18 12:00 98.0 70 20 140/77 98 98.0 02/17/18 09:06 97 16 98 Nasal Cannula 2.0 28 02/17/18 08:59 96 18 97 Nasal Cannula 2.0 28 Intake and Output 02/17/18 02/18/18 19:00 07:00 Intake Total 300 ml 110 ml Balance 300 ml 110 ml Intake Oral 300 ml IV Total 110 ml # Voids 2 3 # Bowel Movements 1 Height (Feet): 5 Height (Inches): 2.00 Weight (Pounds): 120 General Appearance: alert EENT: normal ENT inspection Neck: normal alignment Cardiovascular: normal peripheral pulses, normal rate, regular rhythm Respiratory/Chest: chest wall non-tender, lungs clear, normal breath sounds Abdomen: normal bowel sounds, non tender, soft Extremities: normal inspection Edema: no edema noted Arm (L), no edema noted Arm (R), no edema noted Leg (L), no edema noted Leg (R), no edema noted Pedal (L), no edema noted Pedal (R), no edema noted Generalized Neurologic: responsive, motor weakness Skin: normal pigmentation, warm/dry Miki Garcia DO February 18, 2018 08:52
[2018-02-18] MEDS: Heparin 5000 units/ml inj SUBQ SCH ×2 (09:00→09:09)
[2018-02-18 09:12] VITALS: BP 149/86
[2018-02-18] MEDS: Lisinopril 2.5mg tab ORAL SCH (09:12)
[2018-02-18] MEDS ORDERED: NORCO 10-325 T1 EACH ORAL (12:51)
[2018-02-18] MEDS ORDERED: DUONEB 0.5-3(2.53 ML HHN (12:53)
[2018-02-18] MEDS ORDERED: BACTRIM DS TAB1 EAC1 ORAL (12:55)
[2018-02-18] MEDS ORDERED: LEVAQUIN750 MG ORAL (12:56)
--- NOTE | 2018-02-18 13:28 | Pulmonology Progress Note ---
Assessment/Plan Problems: (1) Pneumonia (2) COPD (chronic obstructive pulmonary disease) with acute bronchitis (3) Lung mass (4) HTN (hypertension) (5) CAD (coronary artery disease) Assessment/Plan improviong respiratory treatment check sputum chest PT incentive spirometry titrate fio2 to sat of 92% symptomatic treatment pain management. ok to dc home Subjective ROS Limited/Unobtainable: No Interval Events: seen earlier, improving Allergies: Coded Allergies: No Known Allergies (Unverified , 06/30/17) Objective Last 24 Hour Vital Signs Date Time Temp Pulse Resp B/P (MAP) Pulse Ox O2 Delivery O2 Flow Rate FiO2 02/18/18 12:36 97.9 02/18/18 09:12 149/86 02/18/18 08:16 96 18 Nasal Cannula 2.0 28 02/18/18 08:16 Nasal Cannula 2.0 28 02/18/18 08:16 96 Nasal Cannula 2.0 28 02/18/18 08:00 97.9 110 18 149/86 97 97.9 02/18/18 07:00 98.9 02/18/18 04:00 98.9 94 18 154/90 94 Nasal Cannula 2.0 98.9 02/18/18 00:00 99.1 92 20 133/87 92 99.1 02/17/18 20:14 Nasal Cannula 2.0 28 02/17/18 20:14 102 18 Nasal Cannula 2.0 28 02/17/18 20:14 97 Nasal Cannula 2.0 28 02/17/18 20:00 Nasal Cannula 2.0 02/17/18 19:56 98.2 105 20 157/91 95 98.2 02/17/18 16:00 97.8 101 19 165/73 97 Nasal Cannula 2.0 97.8 Intake and Output 02/17/18 02/18/18 19:00 07:00 Intake Total 300 ml 110 ml Balance 300 ml 110 ml Intake Oral 300 ml IV Total 110 ml # Voids 2 3 # Bowel Movements 1 General Appearance: WD/WN HEENT: normocephalic, atraumatic Respiratory/Chest: chest wall non-tender, lungs clear Cardiovascular: normal peripheral pulses, normal rate Abdomen: normal bowel sounds, no organomegaly Extremities: no cyanosis, no clubbing Neurologic/Psychiatric: cdl program coordinator II-XII grossly normal Microbiology Date/Time Source Procedure Growth Status 02/15/18 15:55 Blood Blood Culture - Preliminary NO GROWTH AFTER 48 HOURS Resulted 02/15/18 15:45 Blood Blood Culture - Preliminary NO GROWTH AFTER 48 HOURS Resulted 02/16/18 03:49 Sputum Gram Stain - Final Complete 02/16/18 03:49 Sputum Sputum Culture - Final NORMAL UPPER RESPIRATORY BRANDI AT 48 ... Complete 02/15/18 17:30 Nasal Nares MRSA Culture - Final NO METHICILLIN RESISTANT STAPH AUREUS... Complete 02/15/18 15:32 Nasal Nares Influenza Types A,B Antigen (SHIRLEY) - Final Complete Elie Reddy MD February 18, 2018 13:28
--- NOTE | 2018-02-19 09:20 | Discharge Summary ---
Discharge Summary Discharge Summary _ DATE OF ADMISSION: 02/15/2018 DATE OF DISCHARGE: 02/17/2018 REASON FOR ADMISSION: 67 years old female with past medical history significant for coronary artery disease, myocardial infarction, congestive heart failure, COPD, emphysema, right lung mass, for which she refused biopsy on multiply occasion, COPD, current smoker, history of CVA, degenerative lumbar disc disease, depression, anxiety presented with complaints of not feeling well for the last 2 weeks. Patient reported cough and sputum production. Patient reported generalized body pain and aches. She reported poor functioning. Upon evaluation vital signs were stable, pulse oximetry was adequate on room air. WBC 13.1, stable hemoglobin and hematocrit. Urinalysis with no evidence of UTI. EKG revealed normal sinus atrium. Influenza screen test was negative. Chest x-ray revealed evidence of right lower lobe opacity and right pleural effusion. Patient was admitted with diagnosis of pneumonia, and right lung mass. CONSULTANTS: pulmonary Dr. Reddy ID specialist [facility] COURSE: Patient admitted. Pulmonology and ID consults were requested. Supplemental oxygen provided as needed to keep pulse oximetry above 92%. Pulmonary toilet by hand-held nebulizer and chest physiotherapy provided. Incentive spirometry encouraged while patient was in the bed. Patient started on empiric antibiotics as per ID recommendations. Sputum culture was negative, blood culture were negative. Influenza screen test was negative, as mentioned before. Patient likely had recurrent pneumonia , probably postobstructive secondary to right lung mass. Patient refused right lung mass biopsy on multiply occasions. Venous duplex bilateral lower extremity was negative. Home medications were resumed. DVT and GI prophylaxis provided. Patient was working as a physical and occupational therapies. Pain management was addressed, pain was controlled. Bowel regimen for instituted. Symptomatic care provided. Renal parameters electrolytes were closely monitored. Electrolytes were corrected as needed. Patient was working with physical and occupational therapists. Fall precautions maintained. Textile Screen Printer seen and evaluated patient. Textile Screen Printer's recommendations implemented in plan of care. Patient condition stabilized . Leukocytosis resolved, afebrile, cough controlled. Patient was counseled on smoking cessation. Patient declined nicotine patch. Patient was stable for discharge home with home health services. FINAL DIAGNOSES: Pneumonia recurrent, probably postobstructive Right lung mass( refused biopsy on multiple occasions) COPD with acute bronchitis Smoker Noncompliance Hypertension Coronary artery disease Peripheral neuropathy Lumbar degenerative joint disease/spondylosis Major depressive disorder/anxiety Drug abuse and opioid dependency History of CVA DISCHARGE MEDICATIONS: See Medication Reconciliation list. DISCHARGE INSTRUCTIONS: Patient was discharged home with home health services to follow. Patient encouraged compliance with medication regimen. Patient was urged to consider right lung mass biopsy. I have been assigned to dictate discharge summary for this account. I was not involved in the patient's management. Amber Barnhart NP February 19, 2018 09:19
== END 2018-02-18 13:07 | disposition home health service (06) | DRG 140 ==
LOC: EDBD 15:09 → EMR 15:23 → 4W 16:25 → EDBEDREQ 16:51
DX: J44.0 Chronic obstructive pulmonary disease with (acute) lower respiratory infection (principal); J18.9 Pneumonia, unspecified organism; J44.9 Chronic obstructive pulmonary disease, unspecified; G62.9 Polyneuropathy, unspecified; F11.20 Opioid dependence, uncomplicated; I25.10 Atherosclerotic heart disease of native coronary artery without angina pectoris; I25.2 Old myocardial infarction; M51.36 Other intervertebral disc degeneration, lumbar region; F41.8 Other specified anxiety disorders; R91.8 Other nonspecific abnormal finding of lung field; M47.9 Spondylosis, unspecified; R62.7 Adult failure to thrive; J20.9 Acute bronchitis, unspecified; F17.200 Nicotine dependence, unspecified, uncomplicated; Z86.73 Personal history of transient ischemic attack (TIA), and cerebral infarction without residual deficits; Z91.19 Patient's noncompliance with other medical treatment and regimen; Z53.29 Procedure and treatment not carried out because of patient's decision for other reasons
CPT/HCPCS: 36415; 71045; 80048; 80053; 80069; 81003; 84484; 85025; 86710; 87040; 87070; 87081; 87205; 93005; 93970; 94640; 94664; 94760; 99285; J2405; J7620

== ENCOUNTER 2018-03-02 14:14 | Inpatient (IN) | payer MEDICARE, OTHER ==
[~2018-03-02] VITALS: Ht 165.1 cm; Wt 58.5 kg
[~2018-03-02 14:14] MED LIST changes: +BACTRIM DS TAB1 EAC1 ORAL; +LEVAQUIN750 MG ORAL
[2018-03-02 14:18] VITALS: BP 135/96
--- NOTE | 2018-03-02 14:43 | Emergency Room Report ---
History of Present Illness General Chief Complaint: Abdominal Pain Source: Patient, EMS Present Illness HPI Patient presents with complaints of initially noted his abdominal pain however patient after discussion complains of chest pain and shortness of breath patient has had 2 recent hospitalizations for pneumonia Denies any vomiting denies any diarrhea however she reports that she has decreased oral intake questionable low-grade fever Complains of increased cough congestion Patient herself appears fairly uncomfortable Had recent hospitalization however reports that since her disposition she has not felt well Currently denies any chest pain Denies any recent travel Allergies: Coded Allergies: No Known Allergies (Unverified , 06/30/17) Patient History Past Medical History: see triage record Pertinent Family History: none Reviewed Nursing Documentation: PMH: Agreed; PSxH: Agreed Nursing Documentation-PMH Past Medical History: No History, Except For Hx Cardiac Problems: Yes - 6 STENTS Hx Hypertension: Yes Hx Asthma: Yes Hx COPD: Yes Hx Cancer: Yes - LUNG CA Hx Gastrointestinal Problems: No Hx Neurological Problems: Yes Hx Dizziness: Yes Hx Syncope: Yes Hx Headaches: Yes Hx Weakness: Yes Hx Fatigue: Yes Review of Systems All Other Systems: negative except mentioned in HPI Physical Exam Vital Signs Date Time Temp Pulse Resp B/P (MAP) Pulse Ox O2 Delivery O2 Flow Rate FiO2 03/02/18 14:09 98.2 100 18 143/89 98 Room Air 98.2 Sp02 EP Interpretation: reviewed, normal General Appearance: mild distress - Appears uncomfortable Head: normocephalic, atraumatic Eyes: bilateral eye PERRL, bilateral eye EOMI ENT: hearing grossly normal, normal pharynx, TMs + canals normal, uvula midline Neck: full range of motion, supple, no meningismus, no bony tend Respiratory: no respiratory distress, no retraction, no accessory muscle use, crackles - Both lower lobes Cardiovascular #1: normal peripheral pulses, regular rate, rhythm, no edema, no gallop, no JVD, no murmur Gastrointestinal: normal bowel sounds, non tender, soft, no mass, no organomegaly, non-distended, no guarding, no hernia, no pulsatile mass, no rebound Genitourinary: no CVA tenderness Musculoskeletal: normal inspection Neurologic: oriented x3, responsive, 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 and services 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 III-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 nml as tested, motor strength/ tone normal, sensory intact Psychiatric: mood/affect normal Skin: normal color, no rash, warm/dry, palpation normal Lymphatic: normal inspection, no adenopathy Medical Decision Making Diagnostic Impression: Primary Impression: CHF (congestive heart failure) Additional Impression: Vomiting ER Course Patient is a fairly complex patient with multiple differential to consideration including but not limited to cardiac cardiopulmonary and vascular emergencies Patient's imaging shows similar findings to previous Blood work is at baseline levels patient however still remains uncomfortable requiring significant amount of pain medication At this time requires admission for further care Labs Test 03/02/18 15:46 03/03/18 07:49 Urine Color Pale yellow Urine Appearance Clear Urine pH 7 (4.5-8.0) Urine Specific [place] 1.010 (1.005-1.035) Urine Protein Negative (NEGATIVE) Urine Glucose (UA) Negative (NEGATIVE) Urine Ketones Negative (NEGATIVE) Urine Occult Blood Negative (NEGATIVE) Urine Nitrite Negative (NEGATIVE) Urine Bilirubin Negative (NEGATIVE) Urine Urobilinogen Normal MG/DL (0.0-1.0) Urine Leukocyte Esterase Negative (NEGATIVE) White Blood Count 13.2 K/UL (4.8-10.8) Red Blood Count 3.45 M/UL (4.20-5.40) Hemoglobin 11.0 G/DL (12.0-16.0) Hematocrit 33.6 % (37.0-47.0) Mean Corpuscular Volume 98 FL (80-99) Mean Corpuscular Hemoglobin 32.0 PG (27.0-31.0) Mean Corpuscular Hemoglobin Concent 32.8 G/DL (32.0-36.0) Red Cell Distribution Width 13.5 % (11.6-14.8) Platelet Count 308 K/UL (150-450) Mean Platelet Volume 7.3 FL (6.5-10.1) Neutrophils (%) (Auto) 67.0 % (45.0-75.0) Lymphocytes (%) (Auto) 21.4 % (20.0-45.0) Monocytes (%) (Auto) 9.1 % (1.0-10.0) Eosinophils (%) (Auto) 1.7 % (0.0-3.0) Basophils (%) (Auto) 0.7 % (0.0-2.0) Sodium Level 142 MMOL/L (136-145) Potassium Level 4.6 MMOL/L (3.5-5.1) Chloride Level 109 MMOL/L (98-107) Carbon Dioxide Level 28 MMOL/L (21-32) Anion Gap 5 mmol/L (5-15) Blood Urea Nitrogen 9 mg/dL (7-18) Creatinine 0.7 MG/DL (0.55-1.30) Estimat Glomerular Filtration Rate > 60 mL/min (>60) Glucose Level 77 MG/DL (74-106) Calcium Level 10.3 MG/DL (8.5-10.1) Total Bilirubin 0.2 MG/DL (0.2-1.0) Aspartate Amino Transf (AST/SGOT) 19 U/L (15-37) Alanine Aminotransferase (ALT/SGPT) 37 U/L (12-78) Alkaline Phosphatase 215 U/L (46-116) Troponin I 0.023 ng/mL (0.000-0.056) Total Protein 5.9 G/DL (6.4-8.2) Albumin 2.4 G/DL (3.4-5.0) Globulin 3.5 g/dL Albumin/Globulin Ratio 0.7 (1.0-2.7) Triglycerides Level 75 MG/DL (30-150) Cholesterol Level 135 MG/DL (< 200) LDL Cholesterol 90 mg/dL (<100) HDL Cholesterol 34 MG/DL (40-60) Cholesterol/HDL Ratio 4.0 (3.3-4.4) Thyroid Stimulating Hormone (TSH) 1.447 uiU/mL (0.358-3.740) Rhythm Strip Diag. Results EP Interpretation: yes Rate: 77 Rhythm: NSR, no PVC's, no ectopy Chest X-Ray Diagnostic Results Chest X-Ray Diagnostic Results : Chest X-Ray Ordered: Yes # of Views/Limited/Complete: 1 View Indication: Chest Pain EP Interpretation: Yes Interpretation: no pneumothorax, other - Right-sided effusion, Impression: Other - Right-sided effusion cardiomegaly Electronically Signed by: Sukhi Ferguson DO Last Vital Signs Date Time Temp Pulse Resp B/P (MAP) Pulse Ox O2 Delivery O2 Flow Rate FiO2 03/02/18 14:18 98.2 103 21 135/96 97 Room Air 98.2 Status: improved Disposition: ADMITTED INPATIENT Condition: Serious Sukhi Ferguson DO Mar 02, 2018 14:43
[2018-03-02 15:54] LABS: APPEARANCE,URINE CLEAR; BILIRUBIN, URINE NEGATIVE (NEGATIVE); COLOR,URINE PALE YELLOW; GLUCOSE, URINE (UA) NEGATIVE (NEGATIVE); KETONES,URINE NEGATIVE (NEGATIVE); LEUKOCYTE ESTERASE ,URINE NEGATIVE (NEGATIVE); NITRITE,URINE NEGATIVE (NEGATIVE); PH,URINE 7 (4.5-8.0); PROTEIN,URINE NEGATIVE (NEGATIVE); UROBILINOGEN,URINE NORMAL MG/DL (0.0-1.0)
--- NOTE | 2018-03-02 16:13 | Diagnostic Imaging Report ---
Indication: Chest pain Technique: One view of the chest Comparison: none Findings: Again demonstrated is a [id number] right pleural effusion. There is elevation of the right hemidiaphragm. Mild interstitial congestion is unchanged. Heart is borderline enlarged. Degenerative changes of both shoulders noted Impression: Small to moderate right pleural effusion, mild interstitial congestive changes, stable as compared to 02/15/2018 Mild cardiomegaly Other findings as noted
[2018-03-02] MEDS ORDERED: Morphine Sulfate 4mg/ml Inj IVP ONE (16:15)
[2018-03-02] MEDS ORDERED: Sodium Chloride 500ML 500 ML IV ONE (16:45)
[2018-03-02 17:16] VITALS: BP 139/89
[2018-03-02] MEDS ORDERED: Mylanta II UD 30ml ORAL PRN (17:30)
[2018-03-02] MEDS ORDERED: HYDROcodone/Acetamin 10/325 tab ORAL PRN (17:30)
--- NOTE | 2018-03-02 17:42 | Consultation ---
History of Present Illness General Date patient seen: Mar 02, 2018 Chief Complaint: Abdominal Pain Present Illness HPI 68 y/o F with hx of CAD/[place] s/p stents x6, HTN, COPD/asthma, peripheral neuropathy, CHF, R Lung mass (refusing biopsy) with recurrent admissions for PNA /tracheobronchitis presents to ED on 03/02 abd pain, chest pain and SOB. + Decreased PO intake, increased cough. Denies vomiting, diarrhea. Of note recent multiple admissions: -02/15-02/17 POssible PNA- Tx'ed 5 days fo IV Vanco and Cefepime - 12/2017. Treated for bronchitis with 5 days of azithromycin -12/06-12/12 with COPD exacerbation, leukocytosis, RENNY and UTI; Treated with Ceftriaxone> Levaquin Allergies: Coded Allergies: No Known Allergies (Unverified , 06/30/17) Medication History Scheduled Amitriptyline HCl (Elavil*), 25 MG ORAL BEDTIME, (Reported) Amoxicillin* (Amoxil*), 500 MG ORAL BID Apixaban (Eliquis), 5 MG PO BID, (Reported) Clopidogrel Bisulfate* (Plavix*), 75 MG ORAL DAILY, (Reported) Docusate Sodium (Docusate Sodium), 100 MG ORAL THREE TIMES A DAY, (Reported) Furosemide* (Lasix*), 20 MG ORAL DAILY, (Reported) Ibuprofen* (Motrin*), 600 MG ORAL FOUR TIMES A DAY, (Reported) Ipratropium/Albuterol Sulfate (DuoNeb 0.5-3(2.5)mg/3ml), 3 ML HHN Q4HR, ( Reported) Lactulose (Lactulose*), 30 ML ORAL TID, (Reported) Levofloxacin* (Levaquin*), 250 MG ORAL DAILY, (Reported) Levofloxacin* (Levaquin*), 750 MG ORAL DAILY, (Reported) Lisinopril* (Lisinopril*), 2.5 MG ORAL DAILY, (Reported) Metoprolol Tartrate* (Metoprolol Tartrate*), 25 MG ORAL EVERY 12 HOURS, ( Reported) Midodrine* (Proamatine*), 2.5 MG ORAL THREE TIMES A DAY, (Reported) Montelukast Sodium* (Singulair*), 10 MG ORAL DAILY, (Reported) Pantoprazole* (Protonix*), 40 MG ORAL DAILY, (Reported) Polyethylene Glycol 3350* (Miralax*), 17 GM ORAL BEDTIME, (Reported) Simvastatin (Zocor), 5 MG ORAL BEDTIME, (Reported) Sumatriptan Succinate* (Imitrex*), 50 MG ORAL DAILY PRN MIGRAINE, (Reported) Trimethoprim/Sulfamethoxazole 160/800* (Bactrim Ds Tablet*), 1 TAB ORAL TWICE A DAY, (Reported) Scheduled PRN Acetaminophen* (Acetaminophen 325MG Tablet*), 650 MG ORAL Q4H PRN for Fever/ Headache/Mild Pain, (Reported) Hydrocodone Bit/Acetaminophen 10-325* ([place] 10-325*), 1 TAB ORAL Q6H PRN for For Pain, (Reported) Hydrocodone Bit/Acetaminophen 5-325* ([place] 5-325 Tablet*), 1 TAB ORAL Q4H PRN for For Pain, (Reported) Ipratropium/Albuterol Sulfate (DuoNeb 0.5-3(2.5)mg/3ml), 3 ML HHN Q4HR PRN for For Cough, (Reported) Ipratropium/Albuterol Sulfate (DuoNeb 0.5-3(2.5)mg/3ml), 3 ML HHN Q4HR PRN for PRN, (Reported) Ondansetron (Zofran), 4 MG ORAL Q6H PRN for Nausea & Vomiting, (Reported) Ondansetron* (Zofran*), 4 MG ORAL Q6H PRN for Nausea & Vomiting, (Reported) Polyethylene Glycol 3350* (Polyethylene Glycol 3350*), 17 GM ORAL DAILY PRN for Constipation, (Reported) Zolpidem Tartrate* (Ambien*), 5 MG ORAL BEDTIME PRN for Insomnia, (Reported) Miscellaneous Medications Hydromorphone Hcl (Dilaudid), 8 MG PO, (Reported) Morphine Sulfate ([place]), 10 MG PO, (Reported) Unable to Obtain Medications (Unable To Obtain Meds), (Reported) Patient History Healthcare decision maker Resuscitation status Advanced Directive on File Patient History Narrative Pmhx: as above Shx: reviewed Fhx: non contributory Review of Systems All Other Systems: negative except mentioned in HPI Physical Exam Physical Exam Narrative General Appearance: mild distress - Appears uncomfortable HEENT: normocephalic, atraumatic, PERRL, normal pharynx Neck: full range of motion, supple, no meningismus, no bony tend Respiratory: no respiratory distress, no retraction, no accessory muscle use, crackles - Both lower lobes Cardiovascular normal peripheral pulses, regular rate, rhythm, no edema, no gallop, no JVD, no murmur Gastrointestinal: normal bowel sounds, non tender, soft, no mass, no organomegaly, non-distended, no guarding, no rebound Genitourinary: no CVA tenderness Musculoskeletal: normal inspection Skin: normal color, no rash, warm/dry, palpation normal Last 24 Hour Vital Signs Date Time Temp Pulse Resp B/P (MAP) Pulse Ox O2 Delivery O2 Flow Rate FiO2 03/02/18 17:16 98.2 97 26 139/89 91 Room Air 98.2 03/02/18 16:43 98.2 03/02/18 16:13 98.2 03/02/18 14:18 98.2 103 21 135/96 97 Room Air 98.2 03/02/18 14:09 98.2 100 18 143/89 98 Room Air 98.2 Laboratory Tests Test 03/02/18 15:46 Urine Color Pale yellow Urine Appearance Clear Urine pH 7 (4.5-8.0) Urine Specific [place] 1.010 (1.005-1.035) Urine Protein Negative (NEGATIVE) Urine Glucose (UA) Negative (NEGATIVE) Urine Ketones Negative (NEGATIVE) Urine Occult Blood Negative (NEGATIVE) Urine Nitrite Negative (NEGATIVE) Urine Bilirubin Negative (NEGATIVE) Urine Urobilinogen Normal MG/DL (0.0-1.0) Urine Leukocyte Esterase Negative (NEGATIVE) Height (Feet): 5 Height (Inches): 5.00 Weight (Pounds): 129 Medications Current Medications Medications (Trade) Dose Ordered Sig/Janee Route PRN Reason Start Time Stop Time Status Last Admin Dose Admin Acetaminophen (Tylenol) 650 mg Q4H PRN ORAL T>100.5 03/02/18 17:30 04/01/18 17:29 Acetaminophen/ Hydrocodone Bitart ([place] 10/325) 1 tab Q6H PRN ORAL PAIN 4-10 03/02/18 17:30 03/09/18 17:29 Al Hydroxide/Mg Hydroxide (Mylanta II) 30 ml Q6H PRN ORAL dyspepsia 03/02/18 17:30 04/01/18 17:29 Amitriptyline HCl (Elavil) 25 mg BEDTIME ORAL 03/02/18 21:00 04/01/18 20:59 UNV Dextrose (Dextrose 50%) STAT PRN IV Hypoglycemia 03/02/18 17:30 04/01/18 17:29 UNV Lorazepam (Ativan 2mg/ml 1ml) 0.5 mg Q4H PRN IV For Anxiety 03/02/18 17:30 03/09/18 17:29 Metoprolol Tartrate (Lopressor) 25 mg EVERY 12 HOURS ORAL 03/02/18 21:00 04/01/18 20:59 UNV Ondansetron HCl (Zofran) 4 mg Q6H PRN IVP Nausea & Vomiting 03/02/18 17:30 04/01/18 17:29 Polyethylene Glycol (Miralax) 17 gm HSPRN PRN ORAL Constipation 03/02/18 21:00 04/01/18 20:59 Zolpidem Tartrate (Ambien) 5 mg HSPRN PRN ORAL Insomnia 03/02/18 21:00 03/09/18 20:59 Assessment/Plan Assessment/Plan Abx: None Assessment: Acute respiratory distress- doubt PNA -CXR: Small to moderate right pleural effusion, mild interstitial congestive changes, stable as compared to 02/15/2018. Mild cardiomegaly Afebrile, CBC p -u.a neg Recent Probable PNA,recurrent 02/16/18, s/p Rx R Lung Mass, refusing biopsy CAD/W[place] s/p stent HTN COPD peripheral neuropathy CHF DVT CKD lumbar DJD/sponydolosis MDD/anxiety non compliance drug abuse and opioid dependency current smoker CVA Plan: -Continue to monitor off abx unless febrile, increased O2 requirements, worsening infiltrates on CXR. -02/19 SP IV Vanco and Cefepime #5 -4 SP IV ,azithromycin # 5 -4 SP Vancomycin, Cefepime d# 4 -f/u cx -monitor CBC/BMP, temperatures -aspiration precautions Thank you for this consultation. Will continue to follow along with you. Discussed with Holli Ayon M.D. Mar 02, 2018 17:42
[2018-03-02 19:44] VITALS: BP 167/60
[2018-03-02] MEDS ORDERED: Miralax 17gm pkt ORAL PRN (21:00)
[2018-03-02 21:08] VITALS: BP 160/64
[2018-03-02] MEDS: Zolpidem 5mg tab ORAL PRN (21:41)
[2018-03-02] MEDS: Morphine Sulfate 4mg/ml Inj IVP PRN (21:41)
[2018-03-02] MEDS: Metoprolol 25mg tab ORAL SCH (21:42)
[2018-03-03] VITALS: BP 148/68
[2018-03-03 04:00] VITALS: BP 136/64
[2018-03-03] MEDS: Morphine Sulfate 4mg/ml Inj IVP PRN ×4 (04:25→20:37)
[2018-03-03 08:00] VITALS: BP 114/68
[2018-03-03] MEDS: Metoprolol 25mg tab ORAL SCH ×4 (09:00→20:37)
[2018-03-03 10:17] LABS: BASOPHILS % (AUTO) 0.7 % (0.0-2.0); EOSINOPHILS % (AUTO) 1.7 % (0.0-3.0); HEMATOCRIT 33.6 % (37.0-47.0); LYMPHOCYTES % (AUTO) 21.4 % (20.0-45.0); MEAN CORPUSCULAR VOLUME 98 FL (80-99); MONOCYTES % (AUTO) 9.1 % (1.0-10.0); PLATELET COUNT 308 K/UL (150-450); RED BLOOD COUNT 3.45 M/UL (4.20-5.40); RED CELL DISTRIBUTION WIDTH 13.5 % (11.6-14.8); WHITE BLOOD COUNT 13.2 K/UL (4.8-10.8)
[2018-03-03 10:56] LABS: ALANINE AMINOTRANSFERASE 37 U/L (12-78); ALBUMIN 2.4 G/DL (3.4-5.0); ALBUMIN/GLOBULIN RATIO 0.7 (1.0-2.7); ALKALINE PHOSPHATASE 215 U/L (46-116); ANION GAP 5 mmol/L (5-15); ASPARTATE AMINO TRANSFERASE 19 U/L (15-37); BILIRUBIN,TOTAL 0.2 MG/DL (0.2-1.0); BLOOD UREA NITROGEN 9 mg/dL (7-18); CALCIUM 10.3 MG/DL (8.5-10.1); CARBON DIOXIDE 28 MMOL/L (21-32); CHLORIDE 109 MMOL/L (98-107); CHOLESTEROL 135 MG/DL (< 200); CREATININE 0.7 MG/DL (0.55-1.30); HDL CHOLESTEROL 34 MG/DL (40-60); POTASSIUM 4.6 MMOL/L (3.5-5.1); SODIUM 142 MMOL/L (136-145); TRIGLYCERIDES 75 MG/DL (30-150)
--- NOTE | 2018-03-03 11:35 | Infectious Diseases Prog Note ---
Assessment/Plan Assessment/Plan Abx: None Assessment: Acute respiratory distress- doubt PNA -CXR: Small to moderate right pleural effusion, mild interstitial congestive changes, stable as compared to 02/15/2018. Mild cardiomegaly Afebrile Mild leukocytosis- ?reactive (?possible malignancy contributing) -u.a neg Recent Probable PNA,recurrent 02/16/18, s/p Rx R Lung Mass, refusing biopsy CAD/CT s/p stent HTN COPD peripheral neuropathy CHF DVT CKD lumbar DJD/sponydolosis MDD/anxiety non compliance drug abuse and opioid dependency current smoker CVA Plan: -Continue to monitor off abx unless febrile, increased O2 requirements, worsening infiltrates on CXR. -02/19 SP IV Vanco and Cefepime # SP IV ,azithromycin # SP Vancomycin, Cefepime d# 4 -f/u cx -monitor CBC/BMP, temperatures -aspiration precautions -CXR am Thank you for this consultation. Will continue to follow along with you. Discussed with RN. Subjective Allergies: Coded Allergies: No Known Allergies (Unverified , 06/30/17) Subjective no new events Objective Vital Signs Last 24 Hour Vital Signs Date Time Temp Pulse Resp B/P (MAP) Pulse Ox O2 Delivery O2 Flow Rate FiO2 03/03/18 10:57 97.9 03/03/18 10:27 97.9 03/03/18 09:00 81 114/68 03/03/18 08:00 97.9 81 18 114/68 94 97.9 03/03/18 04:00 97.9 79 18 136/64 94 Nasal Cannula 2.0 97.9 03/03/18 00:00 98.1 90 18 148/68 93 Nasal Cannula 2.0 98.1 03/02/18 21:42 97 160/64 03/02/18 21:41 98.2 03/02/18 21:08 98.2 97 19 160/64 96 Nasal Cannula 2.0 98.2 03/02/18 19:55 98.9 105 23 167/60 96 Room Air 98.9 03/02/18 19:44 98.9 105 23 167/60 96 Room Air 98.9 03/02/18 17:16 98.2 97 26 139/89 91 Room Air 98.2 03/02/18 16:43 98.2 03/02/18 16:13 98.2 03/02/18 14:18 98.2 103 21 135/96 97 Room Air 98.2 03/02/18 14:09 98.2 100 18 143/89 98 Room Air 98.2 Height (Feet): 5 Height (Inches): 5.00 Weight (Pounds): 129 Objective General Appearance: mild distress - Appears uncomfortable HEENT: normocephalic, atraumatic, PERRL, normal pharynx Neck: full range of motion, supple, no meningismus, no bony tend Respiratory: no respiratory distress, no retraction, no accessory muscle use, crackles - Both lower lobes Cardiovascular normal peripheral pulses, regular rate, rhythm, no edema, no gallop, no JVD, no murmur Gastrointestinal: normal bowel sounds, non tender, soft, no mass, no organomegaly, non-distended, no guarding, no rebound Genitourinary: no CVA tenderness Musculoskeletal: normal inspection Skin: normal color, no rash, warm/dry, palpation normal Laboratory Tests Test 03/02/18 15:46 03/03/18 07:49 Urine Color Pale yellow Urine Appearance Clear Urine pH 7 (4.5-8.0) Urine Specific [place] 1.010 (1.005-1.035) Urine Protein Negative (NEGATIVE) Urine Glucose (UA) Negative (NEGATIVE) Urine Ketones Negative (NEGATIVE) Urine Occult Blood Negative (NEGATIVE) Urine Nitrite Negative (NEGATIVE) Urine Bilirubin Negative (NEGATIVE) Urine Urobilinogen Normal MG/DL (0.0-1.0) Urine Leukocyte Esterase Negative (NEGATIVE) White Blood Count 13.2 K/UL (4.8-10.8) H Red Blood Count 3.45 M/UL (4.20-5.40) L Hemoglobin 11.0 G/DL (12.0-16.0) L Hematocrit 33.6 % (37.0-47.0) L Mean Corpuscular Volume 98 FL (80-99) Mean Corpuscular Hemoglobin 32.0 PG (27.0-31.0) H Mean Corpuscular Hemoglobin Concent 32.8 G/DL (32.0-36.0) Red Cell Distribution Width 13.5 % (11.6-14.8) Platelet Count 308 K/UL (150-450) Mean Platelet Volume 7.3 FL (6.5-10.1) Neutrophils (%) (Auto) 67.0 % (45.0-75.0) Lymphocytes (%) (Auto) 21.4 % (20.0-45.0) Monocytes (%) (Auto) 9.1 % (1.0-10.0) Eosinophils (%) (Auto) 1.7 % (0.0-3.0) Basophils (%) (Auto) 0.7 % (0.0-2.0) Sodium Level 142 MMOL/L (136-145) Potassium Level 4.6 MMOL/L (3.5-5.1) Chloride Level 109 MMOL/L (98-107) H Carbon Dioxide Level 28 MMOL/L (21-32) Anion Gap 5 mmol/L (5-15) Blood Urea Nitrogen 9 mg/dL (7-18) Creatinine 0.7 MG/DL (0.55-1.30) Estimat Glomerular Filtration Rate > 60 mL/min (>60) Glucose Level 77 MG/DL (74-106) Calcium Level 10.3 MG/DL (8.5-10.1) H Total Bilirubin 0.2 MG/DL (0.2-1.0) Aspartate Amino Transf (AST/SGOT) 19 U/L (15-37) Alanine Aminotransferase (ALT/SGPT) 37 U/L (12-78) Alkaline Phosphatase 215 U/L (46-116) H Troponin I 0.023 ng/mL (0.000-0.056) Total Protein 5.9 G/DL (6.4-8.2) L Albumin 2.4 G/DL (3.4-5.0) L Globulin 3.5 g/dL Albumin/Globulin Ratio 0.7 (1.0-2.7) L Triglycerides Level 75 MG/DL (30-150) Cholesterol Level 135 MG/DL (< 200) LDL Cholesterol 90 mg/dL (<100) HDL Cholesterol 34 MG/DL (40-60) L Cholesterol/HDL Ratio 4.0 (3.3-4.4) Thyroid Stimulating Hormone (TSH) 1.447 uiU/mL (0.358-3.740) Current Medications Medications (Trade) Dose Ordered Sig/Janee Route PRN Reason Start Time Stop Time Status Last Admin Dose Admin Acetaminophen (Tylenol) 650 mg Q4H PRN ORAL T>100.5 03/02/18 17:30 04/01/18 17:29 Al Hydroxide/Mg Hydroxide (Mylanta II) 30 ml Q6H PRN ORAL dyspepsia 03/02/18 17:30 04/01/18 17:29 Amitriptyline HCl (Elavil) 25 mg BEDTIME ORAL 03/02/18 21:00 04/01/18 20:59 03/02/18 21:42 Dextrose (Dextrose 50%) 25 ml PRN IV hypoglycemia 03/02/18 17:30 04/01/18 17:29 Dextrose (Dextrose 50%) 50 ml PRN IV hypoglycemia 03/02/18 17:30 04/01/18 17:29 Lorazepam (Ativan 2mg/ml 1ml) 0.5 mg Q4H PRN IV For Anxiety 03/02/18 17:30 03/09/18 17:29 Metoprolol Tartrate (Lopressor) 25 mg EVERY 12 HOURS ORAL 03/02/18 21:00 04/01/18 20:59 03/02/18 21:42 Morphine Sulfate (Morphine Sulfate) 4 mg Q4H PRN IVP Severe Pain (Pain Scale 7-10) 03/02/18 21:15 03/09/18 21:14 03/03/18 10:27 Ondansetron HCl (Zofran) 4 mg Q6H PRN IVP Nausea & Vomiting 03/02/18 17:30 04/01/18 17:29 Polyethylene Glycol (Miralax) 17 gm HSPRN PRN ORAL Constipation 03/02/18 21:00 04/01/18 20:59 Zolpidem Tartrate (Ambien) 5 mg HSPRN PRN ORAL Insomnia 03/02/18 21:00 03/09/18 20:59 03/02/18 21:41 Holli Narayan M.D. Mar 03, 2018 11:35
[2018-03-03 12:00] VITALS: BP 132/63
--- NOTE | 2018-03-03 15:48 | Consultation ---
History of Present Illness General Date patient seen: Mar 03, 2018 Chief Complaint: Abdominal Pain Present Illness HPI 67 years old female with past medical history significant for coronary artery disease, myocardial infarction, congestive heart failure, COPD, emphysema, right lung mass, for which she refused biopsy on multiply occasion, COPD, current smoker, history of CVA, degenerative lumbar disc disease, depression, anxiety presented with CC of cough and sputum production. Patient reported generalized body pain and aches. Her Chest x-ray revealed evidence of right lower lobe opacity and right pleural effusion. Patient was admitted with diagnosis of pneumonia He has has right lung mass, for which she has previously refused any work up including biopsy.. Allergies: Coded Allergies: No Known Allergies (Unverified , 06/30/17) Medication History Scheduled Amitriptyline HCl (Elavil*), 25 MG ORAL BEDTIME, (Reported) Amoxicillin* (Amoxil*), 500 MG ORAL BID Apixaban (Eliquis), 5 MG PO BID, (Reported) Clopidogrel Bisulfate* (Plavix*), 75 MG ORAL DAILY, (Reported) Docusate Sodium (Docusate Sodium), 100 MG ORAL THREE TIMES A DAY, (Reported) Furosemide* (Lasix*), 20 MG ORAL DAILY, (Reported) Ibuprofen* (Motrin*), 600 MG ORAL FOUR TIMES A DAY, (Reported) Ipratropium/Albuterol Sulfate (DuoNeb 0.5-3(2.5)mg/3ml), 3 ML HHN Q4HR, ( Reported) Lactulose (Lactulose*), 30 ML ORAL TID, (Reported) Levofloxacin* (Levaquin*), 250 MG ORAL DAILY, (Reported) Levofloxacin* (Levaquin*), 750 MG ORAL DAILY, (Reported) Lisinopril* (Lisinopril*), 2.5 MG ORAL DAILY, (Reported) Metoprolol Tartrate* (Metoprolol Tartrate*), 25 MG ORAL EVERY 12 HOURS, ( Reported) Midodrine* (Proamatine*), 2.5 MG ORAL THREE TIMES A DAY, (Reported) Montelukast Sodium* (Singulair*), 10 MG ORAL DAILY, (Reported) Pantoprazole* (Protonix*), 40 MG ORAL DAILY, (Reported) Polyethylene Glycol 3350* (Miralax*), 17 GM ORAL BEDTIME, (Reported) Simvastatin (Zocor), 5 MG ORAL BEDTIME, (Reported) Sumatriptan Succinate* (Imitrex*), 50 MG ORAL DAILY PRN MIGRAINE, (Reported) Trimethoprim/Sulfamethoxazole 160/800* (Bactrim Ds Tablet*), 1 TAB ORAL TWICE A DAY, (Reported) Scheduled PRN Acetaminophen* (Acetaminophen 325MG Tablet*), 650 MG ORAL Q4H PRN for Fever/ Headache/Mild Pain, (Reported) Hydrocodone Bit/Acetaminophen 10-325* ([place] 10-325*), 1 TAB ORAL Q6H PRN for For Pain, (Reported) Hydrocodone Bit/Acetaminophen 5-325* ([place] 5-325 Tablet*), 1 TAB ORAL Q4H PRN for For Pain, (Reported) Ipratropium/Albuterol Sulfate (DuoNeb 0.5-3(2.5)mg/3ml), 3 ML HHN Q4HR PRN for For Cough, (Reported) Ipratropium/Albuterol Sulfate (DuoNeb 0.5-3(2.5)mg/3ml), 3 ML HHN Q4HR PRN for PRN, (Reported) Ondansetron (Zofran), 4 MG ORAL Q6H PRN for Nausea & Vomiting, (Reported) Ondansetron* (Zofran*), 4 MG ORAL Q6H PRN for Nausea & Vomiting, (Reported) Polyethylene Glycol 3350* (Polyethylene Glycol 3350*), 17 GM ORAL DAILY PRN for Constipation, (Reported) Zolpidem Tartrate* (Ambien*), 5 MG ORAL BEDTIME PRN for Insomnia, (Reported) Miscellaneous Medications Hydromorphone Hcl (Dilaudid), 8 MG PO, (Reported) Morphine Sulfate (Macie), 10 MG PO, (Reported) Unable to Obtain Medications (Unable To Obtain Meds), (Reported) Patient History Healthcare decision maker Resuscitation status Full Code Advanced Directive on File Past Medical/Surgical History Past Medical/Surgical History: (1) HTN (hypertension) (2) CAD (coronary artery disease) (3) Lung mass Review of Systems All Other Systems: negative except mentioned in HPI Physical Exam General Appearance: cachetic Lines, tubes and drains: peripheral HEENT: normocephalic, atraumatic Neck: non-tender, normal alignment Respiratory/Chest: chest wall non-tender, lungs clear Breasts: no masses Cardiovascular/Chest: normal peripheral pulses Abdomen: normal bowel sounds, non tender Genitourinary/Rectal: normal genital exam Extremities: normal range of motion Skin Exam: normal pigmentation Last 24 Hour Vital Signs Date Time Temp Pulse Resp B/P (MAP) Pulse Ox O2 Delivery O2 Flow Rate FiO2 03/03/18 15:15 97.9 03/03/18 14:45 97.9 03/03/18 13:44 76 132/63 03/03/18 13:40 76 132/63 03/03/18 12:00 97.9 76 18 132/63 100 97.9 03/03/18 10:27 97.9 03/03/18 08:00 97.9 81 18 114/68 94 97.9 03/03/18 04:00 97.9 79 18 136/64 94 Nasal Cannula 2.0 97.9 03/03/18 00:00 98.1 90 18 148/68 93 Nasal Cannula 2.0 98.1 03/02/18 21:42 97 160/64 03/02/18 21:41 98.2 03/02/18 21:08 98.2 97 19 160/64 96 Nasal Cannula 2.0 98.2 03/02/18 19:55 98.9 105 23 167/60 96 Room Air 98.9 03/02/18 19:44 98.9 105 23 167/60 96 Room Air 98.9 03/02/18 17:16 98.2 97 26 139/89 91 Room Air 98.2 03/02/18 16:43 98.2 03/02/18 16:13 98.2 Intake and Output 03/02/18 03/03/18 19:00 07:00 Intake Total 0 ml 120 ml Balance 0 ml 120 ml Intake Oral 0 ml Other 120 ml # Voids 4 Laboratory Tests Test 03/02/18 15:46 03/03/18 07:49 Urine Color Pale yellow Urine Appearance Clear Urine pH 7 (4.5-8.0) Urine Specific [place] 1.010 (1.005-1.035) Urine Protein Negative (NEGATIVE) Urine Glucose (UA) Negative (NEGATIVE) Urine Ketones Negative (NEGATIVE) Urine Occult Blood Negative (NEGATIVE) Urine Nitrite Negative (NEGATIVE) Urine Bilirubin Negative (NEGATIVE) Urine Urobilinogen Normal MG/DL (0.0-1.0) Urine Leukocyte Esterase Negative (NEGATIVE) White Blood Count 13.2 K/UL (4.8-10.8) H Red Blood Count 3.45 M/UL (4.20-5.40) L Hemoglobin 11.0 G/DL (12.0-16.0) L Hematocrit 33.6 % (37.0-47.0) L Mean Corpuscular Volume 98 FL (80-99) Mean Corpuscular Hemoglobin 32.0 PG (27.0-31.0) H Mean Corpuscular Hemoglobin Concent 32.8 G/DL (32.0-36.0) Red Cell Distribution Width 13.5 % (11.6-14.8) Platelet Count 308 K/UL (150-450) Mean Platelet Volume 7.3 FL (6.5-10.1) Neutrophils (%) (Auto) 67.0 % (45.0-75.0) Lymphocytes (%) (Auto) 21.4 % (20.0-45.0) Monocytes (%) (Auto) 9.1 % (1.0-10.0) Eosinophils (%) (Auto) 1.7 % (0.0-3.0) Basophils (%) (Auto) 0.7 % (0.0-2.0) Sodium Level 142 MMOL/L (136-145) Potassium Level 4.6 MMOL/L (3.5-5.1) Chloride Level 109 MMOL/L (98-107) H Carbon Dioxide Level 28 MMOL/L (21-32) Anion Gap 5 mmol/L (5-15) Blood Urea Nitrogen 9 mg/dL (7-18) Creatinine 0.7 MG/DL (0.55-1.30) Estimat Glomerular Filtration Rate > 60 mL/min (>60) Glucose Level 77 MG/DL (74-106) Calcium Level 10.3 MG/DL (8.5-10.1) H Total Bilirubin 0.2 MG/DL (0.2-1.0) Aspartate Amino Transf (AST/SGOT) 19 U/L (15-37) Alanine Aminotransferase (ALT/SGPT) 37 U/L (12-78) Alkaline Phosphatase 215 U/L (46-116) H Troponin I 0.023 ng/mL (0.000-0.056) Total Protein 5.9 G/DL (6.4-8.2) L Albumin 2.4 G/DL (3.4-5.0) L Globulin 3.5 g/dL Albumin/Globulin Ratio 0.7 (1.0-2.7) L Triglycerides Level 75 MG/DL (30-150) Cholesterol Level 135 MG/DL (< 200) LDL Cholesterol 90 mg/dL (<100) HDL Cholesterol 34 MG/DL (40-60) L Cholesterol/HDL Ratio 4.0 (3.3-4.4) Thyroid Stimulating Hormone (TSH) 1.447 uiU/mL (0.358-3.740) Height (Feet): 5 Height (Inches): 5.00 Weight (Pounds): 129 Medications Current Medications Medications (Trade) Dose Ordered Sig/Janee Route PRN Reason Start Time Stop Time Status Last Admin Dose Admin Acetaminophen (Tylenol) 650 mg Q4H PRN ORAL T>100.5 03/02/18 17:30 04/01/18 17:29 Al Hydroxide/Mg Hydroxide (Mylanta II) 30 ml Q6H PRN ORAL dyspepsia 03/02/18 17:30 04/01/18 17:29 Amitriptyline HCl (Elavil) 25 mg BEDTIME ORAL 03/02/18 21:00 04/01/18 20:59 03/02/18 21:42 Dextrose (Dextrose 50%) 25 ml PRN IV hypoglycemia 03/02/18 17:30 04/01/18 17:29 Dextrose (Dextrose 50%) 50 ml PRN IV hypoglycemia 03/02/18 17:30 04/01/18 17:29 Lorazepam (Ativan 2mg/ml 1ml) 0.5 mg Q4H PRN IV For Anxiety 03/02/18 17:30 03/09/18 17:29 Metoprolol Tartrate (Lopressor) 25 mg EVERY 12 HOURS ORAL 03/02/18 21:00 04/01/18 20:59 03/03/18 13:44 Morphine Sulfate (Morphine Sulfate) 4 mg Q4H PRN IVP Severe Pain (Pain Scale 7-10) 03/02/18 21:15 03/09/18 21:14 03/03/18 14:45 Ondansetron HCl (Zofran) 4 mg Q6H PRN IVP Nausea & Vomiting 03/02/18 17:30 04/01/18 17:29 Polyethylene Glycol (Miralax) 17 gm HSPRN PRN ORAL Constipation 03/02/18 21:00 04/01/18 20:59 Zolpidem Tartrate (Ambien) 5 mg HSPRN PRN ORAL Insomnia 03/02/18 21:00 03/09/18 20:59 03/02/18 21:41 Assessment/Plan Problem List: (1) Pneumonia ICD Codes: J18.9 - Pneumonia, unspecified organism SNOMED: 610262425 (2) Pleural effusion ICD Codes: J90 - Pleural effusion, not elsewhere classified SNOMED: 54336956 (3) Lung mass ICD Codes: R91.8 - Other nonspecific abnormal finding of lung field SNOMED: 712553808 (4) HTN (hypertension) ICD Codes: I10 - HTN (hypertension) SNOMED: 20116089 Assessment/Plan respiratory treatment iv abx check sputum titrate fio2 to sat of 92% CT chest to f/u on the mass on previous CT of november 2017 dvt prophylaxis. Elie Reddy MD Mar 03, 2018 15:48
[2018-03-03 16:00] VITALS: BP 156/66
--- NOTE | 2018-03-03 19:33 | Cardiology Report ---
APPROVED REPORT EXAM: Two-dimensional and M-mode echocardiogram with Doppler and color Doppler. M-Mode DIMENSIONS IVSd1.9 (0.7-1.1cm)Left Atrium (MM)3.5 (1.6-4.0cm) LVDd5.0 (3.5-5.6cm)Aortic Root3.2 (2.0-3.7cm) PWd1.0 (0.7-1.1cm)Aortic Cusp Exc.1.8 (1.5-2.0cm) IVSs2.4 cm LVDs2.9 (2.5-4.0cm) PWs1.2 cm Normal left ventricular chamber size, systolic function and wall motion . Left ventricular ejection fraction estimated to be 60-65 %. Moderate left ventricular hypertrophy by 2-D . small to moderate circumferential pericardial effusion. All other cardiac chamber sizes are within normal limits. Moderately Focal aortic valve sclerosis with adequate cusp excursion. Moderately Thickened mitral valve leaflets with normal excursion. Moderately Mitral annulus and aortic root calcification. Pulmonic valve not well visualized. Normal tricuspid valve structure. IVC at normal size with physiologic collapse. A color flow and spectral Doppler study was performed and revealed: No aortic regurgitation. Mild mitral regurgitation. Mitral diastolic velocities suggest reduced left ventricular relaxation c/w mild LV diastolic dysfunction (Grade I ). Moderate tricuspid regurgitation. Tricuspid systolic velocities suggests peak right ventricular systolic pressure of 41 mmHg,consistent with mild to moderate pulmonary hypertension. No Pulmonic regurgitation present.
[2018-03-03 20:26] VITALS: BP 128/69
--- NOTE | 2018-03-03 22:30 | History and Physical Report ---
DATE OF ADMISSION: 03/02/2018 CONSULTANTS: 1. Elie Reddy M.D. 2. Gume Mosley M.D. CHIEF COMPLAINT: Right pleural effusion, shortness of breath, and myalgia. BRIEF HISTORY: This is a 68-year-old female, who lives at home, presents with increased shortness of breath for two days. PCP diagnosed with right pleural effusion, also in the ER and myalgia, and the patient is admitted to medical floor for further treatment. Currently, O2 NC, calm, slight short of breath. No complaint. PAST MEDICAL HISTORY: Includes hypertension, congestive heart failure, failure to thrive, and chronic obstructive pulmonary disease. PAST SURGICAL HISTORY: Hysterectomy and gallbladder. MEDICATIONS: Include morphine, Elavil, Lopressor, MiraLAX, Ambien, Tylenol, Zofran, Ativan, and Mylanta. ALLERGIES: Denies. SOCIAL HISTORY: Positive smoking. No alcohol. No intravenous drug abuse. FAMILY HISTORY: Noncontributory. REVIEW OF SYSTEMS: No chest pain. Slight shortness of breath. No nausea, vomiting, or diarrhea. PHYSICAL EXAMINATION: GENERAL: Calm in bed, O2 NC, slight short of breath. Oriented x3, slight distress secondary to shortness of breath. VITAL SIGNS: Temperature 97 degrees, pulse 76, respirations 18, and blood pressure 132/63. CARDIOVASCULAR: No murmurs. LUNGS: Poor air exchange. ABDOMEN: Bowel sounds distant. EXTREMITIES: No cyanosis, clubbing, or edema. NEUROLOGIC: The patient moves all extremities, slightly weak. LABORATORY AND DIAGNOSTIC DATA: White count 13, hemoglobin and hematocrit are 11 and 33, otherwise CBC is normal. Chloride 109. Glucose 77 and alkaline phosphatase 215. Albumin 2.4. Otherwise, BMP is normal. ASSESSMENT: 1. Myalgia. 2. Shortness of breath. 3. Right pleural effusion. 4. Anemia. 5. Hypoalbuminemia. 6. Hypertension. 7. Congestive heart failure. 8. Failure to thrive. 9. Chronic obstructive pulmonary disease. PLAN: 1. O2 and pulmonary treatment. 2. Antibiotics per Infectious Disease. 3. Blood pressure and blood sugar control. 4. Dietary followup. 5. O2 NC. 6. OT, PT, and dietary. 7. CBC and BMP in the morning. Miki Garcia D.O. DR: ENRIKE JOB#: [id number] CC:
[2018-03-04] VITALS: BP 120/64
[2018-03-04] MEDS: Zolpidem 5mg tab ORAL PRN (00:42)
[2018-03-04] MEDS: Morphine Sulfate 4mg/ml Inj IVP PRN ×6 (00:43→20:42)
[2018-03-04 04:00] VITALS: BP 120/64
[2018-03-04 08:00] VITALS: BP 121/56
[2018-03-04] MEDS: Metoprolol 25mg tab ORAL SCH ×2 (08:42→20:41)
--- NOTE | 2018-03-04 09:31 | General Progress Note ---
Assessment/Plan Problem List: (1) CHF (congestive heart failure) ICD Codes: I50.9 - Heart failure, unspecified SNOMED: 50014069 (2) HTN (hypertension) ICD Codes: I10 - HTN (hypertension) SNOMED: 58893711 (3) COPD (chronic obstructive pulmonary disease) with acute bronchitis ICD Codes: J44.1 - COPD (chronic obstructive pulmonary disease) with acute bronchitis SNOMED: 56256538 (4) Pleural effusion ICD Codes: J90 - Pleural effusion, not elsewhere classified SNOMED: 35106048 (5) FTT (failure to thrive) in adult ICD Codes: R62.7 - Adult failure to thrive SNOMED: 328486970 Status: unchanged Assessment/Plan o2 pulm tx abx ot ot diet cbc bmp am Subjective Constitutional: Reports: weakness Allergies: Coded Allergies: No Known Allergies (Unverified , 06/30/17) All Systems: reviewed and negative except above Subjective o2nc sleepy Objective Last 24 Hour Vital Signs Date Time Temp Pulse Resp B/P (MAP) Pulse Ox O2 Delivery O2 Flow Rate FiO2 03/04/18 08:42 71 120/64 03/04/18 08:00 97.5 80 18 121/56 94 Nasal Cannula 2.0 97.5 03/04/18 04:00 97.9 71 18 120/64 97 97.9 03/04/18 00:00 97.9 71 18 120/64 97 97.9 03/03/18 20:37 71 128/69 03/03/18 20:26 97.9 71 17 128/69 95 97.9 03/03/18 16:00 98.2 84 18 156/66 93 98.2 03/03/18 16:00 98.2 84 18 156/66 93 98.2 03/03/18 15:15 97.9 03/03/18 14:45 97.9 03/03/18 13:44 76 132/63 03/03/18 13:40 76 132/63 03/03/18 12:00 97.9 76 18 132/63 100 97.9 03/03/18 10:27 97.9 Intake and Output 03/03/18 03/04/18 19:00 07:00 Intake Total 180 ml Balance 180 ml Intake Oral 180 ml # Voids 3 2 Height (Feet): 5 Height (Inches): 5.00 Weight (Pounds): 129 General Appearance: lethargic EENT: normal ENT inspection Neck: normal alignment Cardiovascular: normal peripheral pulses, normal rate, regular rhythm Respiratory/Chest: chest wall non-tender, decreased breath sounds Abdomen: normal bowel sounds, non tender, soft Extremities: normal inspection Edema: no edema noted Arm (L), no edema noted Arm (R), no edema noted Leg (L), no edema noted Leg (R), no edema noted Pedal (L), no edema noted Pedal (R), no edema noted Generalized Neurologic: motor weakness Skin: normal pigmentation, warm/dry Miki Garcia DO Mar 04, 2018 09:31
--- NOTE | 2018-03-04 09:57 | Diagnostic Imaging Report ---
INDICATION: Pleural effusion COMPARISON: Chest x-ray dated 03/02/18 FINDINGS: Single frontal view demonstrates a normal cardiomediastinal silhouette. Increasing right pleural effusion with increasing bilateral lower lung zone opacities. Atherosclerotic vascular disease. The visualized osseous structures are within normal limits. IMPRESSION: Increasing right pleural effusion with increasing bilateral lower lung zone opacities.
--- NOTE | 2018-03-04 11:11 | Diagnostic Imaging Report ---
INDICATION: Mass TECHNIQUE: Multiple, contiguous 5mm axial cuts of the chest are obtained following the administration of IV contrast. High resolution axial images as well as sagittal and coronal reformatted images are available. : One or more of the following dose reduction techniques were used: automated exposure control, adjustment of the mA and/or kV according to patient size, use of iterative reconstruction technique. COMPARISON: CT chest dated 12/08/17 FINDINGS: Small to moderate bilateral pleural effusions, right greater than left. Mild to moderate bilateral lower lobe subsegmental atelectasis. Likely stable 2.1 cm right middle lobe mass. New surrounding postobstructive atelectasis. The aorta is within normal limits, no aneurysm or dissection. Atherosclerotic vascular disease including involvement of the coronary arteries. Small pericardial effusion. Necrotic enlarged subcarinal lymph node measuring 22 x 19 mm. Likely prominent right hilar lymph nodes. Status post cholecystectomy. Partially imaged enlarged intra-or extrahepatic bile ducts, grossly unchanged. A 13 mm hypodensity in the spleen of unclear etiology may be metastatic. Degenerative changes of bilateral glenohumeral joint spaces. Heterogeneous bone marrow consistent with diffuse osseous metastatic disease. No vertebral body height loss. IMPRESSION: 1. Small to moderate bilateral pleural effusions, right greater than left. Mild to moderate bilateral lower lobe subsegmental atelectasis. Likely stable 2.1 cm right middle lobe mass. New surrounding postobstructive atelectasis. 2. Heterogeneous bone marrow consistent with diffuse osseous metastatic disease. No vertebral body height loss. 3. Small pericardial effusion. Necrotic enlarged subcarinal lymph node measuring 22 x 19 mm. Likely prominent right hilar lymph nodes. 4. 13 mm hypodensity in the spleen of unclear etiology may be metastatic. CTDI: 20.38 mGy DLP: 657.11 mGycm
--- NOTE | 2018-03-04 11:59 | Pulmonology Progress Note ---
Assessment/Plan Assessment/Plan ASSESSMENT acute rep distress ( due to R lung mass, atelectasis, pleural effusion) Pneumonia-doubt Bilateral pleural effusion Right lung mass ( declined biopsy on multiply occasions) Diffused osseous metastatic disease COPD Former smoker Moderate pulmonary hypertension Hypertension malnutrition PLAN of CARE Med Surg floor Supplemental oxygen, pulmonary toilet when necessary ID follows per ID keep off antibiotic PNA unlikely Antitussive prn F/up with sputum cx Blood cx negative preliminary CT of the chest revealed [id number] bilateral pleural effusions ,right greater than left. [id number] bilateral lower lobe subsegmental atelectasis. Stable 2.1 cm right middle lobe mass. New surrounding postobstructive atelectasis. Heterogeneous bone marrow consistent with a diffuse osseous metastatic disease Patient refused lung biopsy on multiply occasions counseled to continue abstinence from smoking Venous duplex bilateral lower extremities DVT prophylaxis BP amnageemtn with BB and optimize as needed Echocardiogram revealed preserved ejection fraction of 60-65% and right ventricular systolic pressure of 41 consistent with mild to moderate pulmonary hypertension pain management Bowel regimen supportive care consider palliative care since refused treatment and biopsy o multiple occasions , and evidence of metastatic osseous disease on CT nutritional support, poor appetite case discussed and evaluated by supervising physician Subjective Allergies: Coded Allergies: No Known Allergies (Unverified , 06/30/17) Subjective reports R sided pain and some SOB, no chest pain started that she quit smoking confirmed that she declined lung biopsy in the past and not want to do it Objective Last 24 Hour Vital Signs Date Time Temp Pulse Resp B/P (MAP) Pulse Ox O2 Delivery O2 Flow Rate FiO2 03/04/18 08:42 71 120/64 03/04/18 08:00 97.5 80 18 121/56 94 Nasal Cannula 2.0 97.5 03/04/18 04:00 97.9 71 18 120/64 97 97.9 03/04/18 00:00 97.9 71 18 120/64 97 97.9 03/03/18 20:37 71 128/69 03/03/18 20:26 97.9 71 17 128/69 95 97.9 03/03/18 16:00 98.2 84 18 156/66 93 98.2 03/03/18 16:00 98.2 84 18 156/66 93 98.2 03/03/18 15:15 97.9 03/03/18 14:45 97.9 03/03/18 13:44 76 132/63 03/03/18 13:40 76 132/63 03/03/18 12:00 97.9 76 18 132/63 100 97.9 Intake and Output 03/03/18 03/04/18 19:00 07:00 Intake Total 180 ml Balance 180 ml Intake Oral 180 ml # Voids 3 2 General Appearance: no acute distress HEENT: normocephalic, atraumatic Respiratory/Chest: decreased breath sounds Cardiovascular: normal rate Abdomen: normal bowel sounds, soft, non tender Extremities: no edema Neurologic/Psychiatric: alert, responsive Musculoskeletal: normal muscle bulk Microbiology Date/Time Source Procedure Growth Status 03/03/18 07:49 Blood Blood Culture - Preliminary NO GROWTH AFTER 24 HOURS Resulted Current Medications Medications (Trade) Dose Ordered Sig/Janee Route PRN Reason Start Time Stop Time Status Last Admin Dose Admin Acetaminophen (Tylenol) 650 mg Q4H PRN ORAL T>100.5 03/02/18 17:30 04/01/18 17:29 Al Hydroxide/Mg Hydroxide (Mylanta II) 30 ml Q6H PRN ORAL dyspepsia 03/02/18 17:30 04/01/18 17:29 Amitriptyline HCl (Elavil) 25 mg BEDTIME ORAL 03/02/18 21:00 04/01/18 20:59 03/03/18 20:37 Dextrose (Dextrose 50%) 25 ml PRN IV hypoglycemia 03/02/18 17:30 04/01/18 17:29 Dextrose (Dextrose 50%) 50 ml PRN IV hypoglycemia 03/02/18 17:30 04/01/18 17:29 Lorazepam (Ativan 2mg/ml 1ml) 0.5 mg Q4H PRN IV For Anxiety 03/02/18 17:30 03/09/18 17:29 Metoprolol Tartrate (Lopressor) 25 mg EVERY 12 HOURS ORAL 03/02/18 21:00 04/01/18 20:59 03/04/18 08:42 Morphine Sulfate (Morphine Sulfate) 4 mg Q4H PRN IVP Severe Pain (Pain Scale 7-10) 03/02/18 21:15 03/09/18 21:14 03/04/18 08:42 Ondansetron HCl (Zofran) 4 mg Q6H PRN IVP Nausea & Vomiting 03/02/18 17:30 04/01/18 17:29 03/04/18 00:44 Polyethylene Glycol (Miralax) 17 gm HSPRN PRN ORAL Constipation 03/02/18 21:00 04/01/18 20:59 Zolpidem Tartrate (Ambien) 5 mg HSPRN PRN ORAL Insomnia 03/02/18 21:00 03/09/18 20:59 03/04/18 00:42 Amber Barnhart [employer] Mar 04, 2018 11:59
[2018-03-04 12:00] VITALS: BP 129/66
[2018-03-04] MEDS ORDERED: Albuterol/Ipratropium 3ml neb HHN PRN (12:00)
[2018-03-04 16:00] VITALS: BP 134/63
[2018-03-04 20:00] VITALS: BP 149/65
[2018-03-04] MEDS: Heparin 5000 units/ml inj SUBQ SCH (20:49)
[2018-03-04] MEDS: LORazepam Inj 2mg/ml 1ml IV PRN (23:23)
[2018-03-05] VITALS: BP 151/74
[2018-03-05] MEDS: Morphine Sulfate 4mg/ml Inj IVP PRN ×6 (00:59→20:53)
[2018-03-05 04:00] VITALS: BP 141/71
[2018-03-05] MEDS: LORazepam Inj 2mg/ml 1ml IV PRN (04:01)
--- NOTE | 2018-03-05 07:31 | Pulmonology Progress Note ---
Assessment/Plan Assessment/Plan ASSESSMENT acute rep distress ( due to R lung mass, atelectasis, pleural effusion) Pneumonia-doubt Bilateral pleural effusion Right lung mass ( declined biopsy on multiply occasions) Diffused osseous metastatic disease COPD Former smoker Moderate pulmonary hypertension Hypertension malnutrition PLAN of CARE Med Surg floor Supplemental oxygen, pulmonary toilet when necessary ID follows, keep off antibiotic as per ID PNA unlikely Antitussive prn F/up with sputum cx Blood cx negative preliminary CXR in am CT of the chest revealed [id number] bilateral pleural effusions ,right greater than left. [id number] bilateral lower lobe subsegmental atelectasis. Stable 2.1 cm right middle lobe mass. New surrounding postobstructive atelectasis. Heterogeneous bone marrow consistent with a diffuse osseous metastatic disease Patient refused lung biopsy on multiply occasions counseled to continue abstinence from smoking Venous duplex bilateral lower extremities DVT prophylaxis BP amnageemtn with BB and optimize as needed Echocardiogram revealed preserved ejection fraction of 60-65% and right ventricular systolic pressure of 41 consistent with mild to moderate pulmonary hypertension pain management Bowel regimen supportive care consider palliative care since refused treatment and biopsy o multiple occasions , and evidence of metastatic osseous disease on CT nutritional support, poor appetite dc plan soon case discussed and evaluated by supervising physician Subjective Allergies: Coded Allergies: No Known Allergies (Unverified , 06/30/17) Subjective reported some SOB, no chest pain stated that she quit smoking confirmed that she declined lung biopsy in the past and not want to do it Objective Last 24 Hour Vital Signs Date Time Temp Pulse Resp B/P (MAP) Pulse Ox O2 Delivery O2 Flow Rate FiO2 03/05/18 04:00 98.3 82 18 141/71 96 Nasal Cannula 2.0 98.3 03/05/18 00:00 98.4 18 151/74 92 Nasal Cannula 2.0 96 98.4 03/04/18 23:35 89 20 99 Room Air 21 03/04/18 23:28 84 20 92 Room Air 21 03/04/18 20:41 80 149/65 03/04/18 20:00 97.9 80 20 149/65 98 Nasal Cannula 2.0 97.9 03/04/18 16:00 97.5 73 16 134/63 96 Nasal Cannula 2.0 97.5 03/04/18 12:00 97.4 68 18 129/66 96 Nasal Cannula 2.0 97.4 03/04/18 08:42 71 120/64 03/04/18 08:00 97.5 80 18 121/56 94 Nasal Cannula 2.0 97.5 Intake and Output 03/04/18 03/05/18 19:00 07:00 Intake Total 480 ml Balance 480 ml Intake Oral 480 ml # Voids 3 4 Objective General Appearance: no acute distress HEENT: normocephalic, atraumatic Respiratory/Chest: decreased breath sounds Cardiovascular: normal rate Abdomen: normal bowel sounds, soft, non tender Extremities: no edema Neurologic/Psychiatric: alert, responsive Musculoskeletal: normal muscle bulk Microbiology Date/Time Source Procedure Growth Status 03/03/18 07:49 Blood Blood Culture - Preliminary NO GROWTH AFTER 24 HOURS Resulted Current Medications Medications (Trade) Dose Ordered Sig/Janee Route PRN Reason Start Time Stop Time Status Last Admin Dose Admin Acetaminophen (Tylenol) 650 mg Q4H PRN ORAL T>100.5 03/02/18 17:30 04/01/18 17:29 Al Hydroxide/Mg Hydroxide (Mylanta II) 30 ml Q6H PRN ORAL dyspepsia 03/02/18 17:30 04/01/18 17:29 Albuterol/ Ipratropium (Albuterol/ Ipratropium) 3 ml Q4H PRN HHN Shortness of Breath 03/04/18 12:00 03/09/18 11:59 03/04/18 23:28 Amitriptyline HCl (Elavil) 25 mg BEDTIME ORAL 03/02/18 21:00 04/01/18 20:59 03/04/18 20:41 Dextrose (Dextrose 50%) 25 ml PRN IV hypoglycemia 03/02/18 17:30 04/01/18 17:29 Dextrose (Dextrose 50%) 50 ml PRN IV hypoglycemia 03/02/18 17:30 04/01/18 17:29 Heparin Sodium (Porcine) (Heparin 5000 units/ml) 5,000 units EVERY 12 HOURS SUBQ 03/04/18 21:00 04/03/18 20:59 03/04/18 20:49 Lorazepam (Ativan 2mg/ml 1ml) 0.5 mg Q4H PRN IV For Anxiety 03/02/18 17:30 03/09/18 17:29 03/05/18 04:01 Metoprolol Tartrate (Lopressor) 25 mg EVERY 12 HOURS ORAL 03/02/18 21:00 04/01/18 20:59 03/04/18 20:41 Morphine Sulfate (Morphine Sulfate) 4 mg Q4H PRN IVP Severe Pain (Pain Scale 7-10) 03/02/18 21:15 03/09/18 21:14 03/05/18 05:03 Ondansetron HCl (Zofran) 4 mg Q6H PRN IVP Nausea & Vomiting 03/02/18 17:30 04/01/18 17:29 03/04/18 21:53 Polyethylene Glycol (Miralax) 17 gm HSPRN PRN ORAL Constipation 03/02/18 21:00 04/01/18 20:59 Zolpidem Tartrate (Ambien) 5 mg HSPRN PRN ORAL Insomnia 03/02/18 21:00 03/09/18 20:59 03/04/18 00:42 Amber Barnhart NP Mar 05, 2018 07:31
[2018-03-05] MEDS: Metoprolol 25mg tab ORAL SCH ×2 (08:17→20:50)
[2018-03-05] MEDS: Heparin 5000 units/ml inj SUBQ SCH ×2 (08:17→20:51)
--- NOTE | 2018-03-05 08:32 | General Progress Note ---
Assessment/Plan Problem List: (1) CHF (congestive heart failure) ICD Codes: I50.9 - Heart failure, unspecified SNOMED: 95801073 (2) HTN (hypertension) ICD Codes: I10 - HTN (hypertension) SNOMED: 04982196 (3) COPD (chronic obstructive pulmonary disease) with acute bronchitis ICD Codes: J44.1 - COPD (chronic obstructive pulmonary disease) with acute bronchitis SNOMED: 31056029 (4) Pleural effusion ICD Codes: J90 - Pleural effusion, not elsewhere classified SNOMED: 30626943 (5) FTT (failure to thrive) in adult ICD Codes: R62.7 - Adult failure to thrive SNOMED: 201998667 Status: stable, progressing Assessment/Plan o2 pulm tx abx ot ot diet cbc bmp am dc plan w hh Subjective Constitutional: Reports: weakness Allergies: Coded Allergies: No Known Allergies (Unverified , 06/30/17) All Systems: reviewed and negative except above Subjective o2nc sleepy wants to go home Objective Last 24 Hour Vital Signs Date Time Temp Pulse Resp B/P (MAP) Pulse Ox O2 Delivery O2 Flow Rate FiO2 03/05/18 08:17 80 130/60 03/05/18 04:00 98.3 82 18 141/71 96 Nasal Cannula 2.0 98.3 03/05/18 00:00 98.4 18 151/74 92 Nasal Cannula 2.0 96 98.4 03/04/18 23:35 89 20 99 Room Air 21 03/04/18 23:28 84 20 92 Room Air 21 03/04/18 20:41 80 149/65 03/04/18 20:00 97.9 80 20 149/65 98 Nasal Cannula 2.0 97.9 03/04/18 16:00 97.5 73 16 134/63 96 Nasal Cannula 2.0 97.5 03/04/18 12:00 97.4 68 18 129/66 96 Nasal Cannula 2.0 97.4 03/04/18 08:42 71 120/64 Intake and Output 03/04/18 03/05/18 19:00 07:00 Intake Total 480 ml 240 ml Balance 480 ml 240 ml Intake Oral 480 ml 240 ml # Voids 3 4 # Bowel Movements 1 Height (Feet): 5 Height (Inches): 5.00 Weight (Pounds): 129 General Appearance: lethargic EENT: normal ENT inspection Cardiovascular: normal peripheral pulses, normal rate, regular rhythm Respiratory/Chest: chest wall non-tender, decreased breath sounds Abdomen: normal bowel sounds, non tender, soft Extremities: normal inspection Edema: no edema noted Arm (L), no edema noted Arm (R), no edema noted Leg (L), no edema noted Leg (R), no edema noted Pedal (L), no edema noted Pedal (R), no edema noted Generalized Neurologic: responsive, motor weakness Skin: normal pigmentation, warm/dry Miki Garcia DO Mar 05, 2018 08:32
[2018-03-05 09:00] VITALS: BP 130/60
--- NOTE | 2018-03-05 10:10 | Infectious Diseases Prog Note ---
Assessment/Plan Assessment/Plan a: Acute respiratory distress- doubt PNA -CXR: Small to moderate right pleural effusion, mild interstitial congestive changes, stable as compared to 02/15/2018. Mild cardiomegaly Afebrile Mild leukocytosis- ?reactive (?possible malignancy contributing) -u.a neg Recent Probable PNA,recurrent 02/16/18, s/p Rx 03/04 ct : Small to moderate bilateral pleural effusions, right greater than left. 2.1 cm right middle lobe mass. New surrounding postobstructive atelectasis. diffuse osseous metastatic Necrotic enlarged subcarinal lymph node measuring 22 x 19 mm. 13 mm hypodensity in the spleen of unclear etiology may be metastatic. R Lung Mass, refusing biopsy CAD/RI s/p stent HTN COPD peripheral neuropathy CHF DVT CKD lumbar DJD/sponydolosis MDD/anxiety non compliance drug abuse and opioid dependency current smoker CVA Plan: -Continue to monitor off abx unless febrile, increased O2 requirements, worsening infiltrates on CXR. -02/19 SP IV Vanco and Cefepime # -01/04 SP IV ,azithromycin # -01/03 SP Vancomycin, Cefepime d# 4 -f/u BlCx -monitor CBC/BMP, temperatures -aspiration precautions -CXR Subjective Constitutional: Denies: no symptoms, fever, chills, fatigue, anorexia, drenching sweats, other Allergies: Coded Allergies: No Known Allergies (Unverified , 06/30/17) Objective Vital Signs Last 24 Hour Vital Signs Date Time Temp Pulse Resp B/P (MAP) Pulse Ox O2 Delivery O2 Flow Rate FiO2 03/05/18 09:44 97.7 03/05/18 09:14 97.7 03/05/18 09:00 97.7 88 18 130/60 96 Nasal Cannula 2.0 97.7 03/05/18 08:17 80 130/60 03/05/18 04:00 98.3 82 18 141/71 96 Nasal Cannula 2.0 98.3 03/05/18 00:00 98.4 18 151/74 92 Nasal Cannula 2.0 96 98.4 03/04/18 23:35 89 20 99 Room Air 21 03/04/18 23:28 84 20 92 Room Air 21 03/04/18 20:41 80 149/65 03/04/18 20:00 97.9 80 20 149/65 98 Nasal Cannula 2.0 97.9 03/04/18 16:00 97.5 73 16 134/63 96 Nasal Cannula 2.0 97.5 03/04/18 12:00 97.4 68 18 129/66 96 Nasal Cannula 2.0 97.4 Height (Feet): 5 Height (Inches): 5.00 Weight (Pounds): 129 HEENT: anicteric Respiratory/Chest: no respiratory distress Cardiovascular: regularly irregular Abdomen: no organomegaly Microbiology Date/Time Source Procedure Growth Status 03/03/18 07:49 Blood Blood Culture - Preliminary NO GROWTH AFTER 24 HOURS Resulted Current Medications Medications (Trade) Dose Ordered Sig/Janee Route PRN Reason Start Time Stop Time Status Last Admin Dose Admin Acetaminophen (Tylenol) 650 mg Q4H PRN ORAL T>100.5 03/02/18 17:30 04/01/18 17:29 Al Hydroxide/Mg Hydroxide (Mylanta II) 30 ml Q6H PRN ORAL dyspepsia 03/02/18 17:30 04/01/18 17:29 Albuterol/ Ipratropium (Albuterol/ Ipratropium) 3 ml Q4H PRN HHN Shortness of Breath 03/04/18 12:00 03/09/18 11:59 03/04/18 23:28 Amitriptyline HCl (Elavil) 25 mg BEDTIME ORAL 03/02/18 21:00 04/01/18 20:59 03/04/18 20:41 Dextrose (Dextrose 50%) 25 ml PRN IV hypoglycemia 03/02/18 17:30 04/01/18 17:29 Dextrose (Dextrose 50%) 50 ml PRN IV hypoglycemia 03/02/18 17:30 04/01/18 17:29 Heparin Sodium (Porcine) (Heparin 5000 units/ml) 5,000 units EVERY 12 HOURS SUBQ 03/04/18 21:00 04/03/18 20:59 03/04/18 20:49 Lorazepam (Ativan 2mg/ml 1ml) 0.5 mg Q4H PRN IV For Anxiety 03/02/18 17:30 03/09/18 17:29 03/05/18 04:01 Metoprolol Tartrate (Lopressor) 25 mg EVERY 12 HOURS ORAL 03/02/18 21:00 04/01/18 20:59 03/05/18 08:17 Morphine Sulfate (Morphine Sulfate) 4 mg Q4H PRN IVP Severe Pain (Pain Scale 7-10) 03/02/18 21:15 03/09/18 21:14 03/05/18 09:14 Ondansetron HCl (Zofran) 4 mg Q6H PRN IVP Nausea & Vomiting 03/02/18 17:30 04/01/18 17:29 03/04/18 21:53 Polyethylene Glycol (Miralax) 17 gm HSPRN PRN ORAL Constipation 03/02/18 21:00 04/01/18 20:59 Zolpidem Tartrate (Ambien) 5 mg HSPRN PRN ORAL Insomnia 03/02/18 21:00 03/09/18 20:59 03/04/18 00:42 Gume Mosley MD Mar 05, 2018 10:10
[2018-03-05 12:00] VITALS: BP 130/61
[2018-03-05 16:00] VITALS: BP 129/68
[2018-03-05 20:00] VITALS: BP 157/80
[2018-03-06] VITALS: BP 139/75
[2018-03-06] MEDS: Morphine Sulfate 4mg/ml Inj IVP PRN ×2 (01:14→11:29)
[2018-03-06 04:00] VITALS: BP 156/70
[2018-03-06 08:00] VITALS: BP 160/66
[2018-03-06] MEDS: Metoprolol 25mg tab ORAL SCH (08:31)
[2018-03-06] MEDS: Heparin 5000 units/ml inj SUBQ SCH (08:32)
--- NOTE | 2018-03-06 10:03 | Diagnostic Imaging Report ---
Indication: Shortness of breath Technique: One view of the chest Comparison: 03/04/2018 Findings: There is decreased but persistent pleural fluid on the right small pleural effusion on the left persists, unchanged. There are bilateral basilar atelectatic changes. The heart remains enlarged. There is persistent mild interstitial congestion. Degenerative changes of both shoulders are again noted Impression: Improved right-sided pleural effusion, over 2 days Other stable findings as described
--- NOTE | 2018-03-06 11:04 | Infectious Diseases Prog Note ---
Assessment/Plan Assessment/Plan Assessment/Plan a: Acute respiratory distress- doubt PNA- likely due to atelectasis, lung mass and pleural effusion -CXR 03/06: Improved right-sided pleural effusion, over 2 days -CXR: Small to moderate right pleural effusion, mild interstitial congestive changes, stable as compared to 02/15/2018. Mild cardiomegaly Afebrile Mild leukocytosis- ?reactive (?possible malignancy contributing); no repeat CBC -u.a neg -Bcx NTD Recent Probable PNA,recurrent 02/16/18, s/p Rx 03/04 ct : Small to moderate bilateral pleural effusions, right greater than left. 2.1 cm right middle lobe mass. New surrounding postobstructive atelectasis. diffuse osseous metastatic Necrotic enlarged subcarinal lymph node measuring 22 x 19 mm. 13 mm hypodensity in the spleen of unclear etiology may be metastatic. R Lung Mass, refusing biopsy- w/ likely metastatic disease per CT CAD/CA s/p stent HTN COPD peripheral neuropathy CHF DVT CKD lumbar DJD/sponydolosis MDD/anxiety non compliance drug abuse and opioid dependency current smoker CVA Plan: -Continue to monitor off abx unless febrile, increased O2 requirements, worsening infiltrates on CXR. -ok to discharge from ID perspective -02/19 SP IV Vanco and Cefepime #5 -01/04 SP IV ,azithromycin # -01/03 SP Vancomycin, Cefepime d# 4 -f/u BlCx -monitor CBC/BMP, temperatures -aspiration precautions Subjective Allergies: Coded Allergies: No Known Allergies (Unverified , 06/30/17) Subjective afebrle off abx no new labs Objective Vital Signs Last 24 Hour Vital Signs Date Time Temp Pulse Resp B/P (MAP) Pulse Ox O2 Delivery O2 Flow Rate FiO2 03/06/18 08:31 92 160/66 03/06/18 08:00 97.8 97 20 160/66 99 Room Air 97.8 03/06/18 07:50 78 20 Room Air 21 03/06/18 04:00 98.3 93 20 156/70 98 Nasal Cannula 2.0 98.3 03/06/18 00:00 98.4 79 18 139/75 100 Nasal Cannula 2.0 98.4 03/05/18 20:50 97 157/80 6/10/18 20:45 69 20 Room Air 21 03/05/18 20:00 98.2 97 19 157/80 97 Nasal Cannula 2.0 98.2 03/05/18 16:00 97.8 73 20 129/68 95 97.8 03/05/18 12:54 97.7 03/05/18 12:00 97.7 70 18 130/61 96 Nasal Cannula 2.0 97.7 Height (Feet): 5 Height (Inches): 5.00 Weight (Pounds): 129 Objective General Appearance: mild distress - Appears uncomfortable HEENT: normocephalic, atraumatic, PERRL, normal pharynx Neck: full range of motion, supple, no meningismus, no bony tend Respiratory: no respiratory distress, no retraction, no accessory muscle use, crackles - Both lower lobes Cardiovascular normal peripheral pulses, regular rate, rhythm, no edema, no gallop, no JVD, no murmur Gastrointestinal: normal bowel sounds, non tender, soft, no mass, no organomegaly, non-distended, no guarding, no rebound Genitourinary: no CVA tenderness Musculoskeletal: normal inspection Skin: normal color, no rash, warm/dry, palpation normal Current Medications Medications (Trade) Dose Ordered Sig/Janee Route PRN Reason Start Time Stop Time Status Last Admin Dose Admin Acetaminophen (Tylenol) 650 mg Q4H PRN ORAL T>100.5 03/02/18 17:30 04/01/18 17:29 Al Hydroxide/Mg Hydroxide (Mylanta II) 30 ml Q6H PRN ORAL dyspepsia 03/02/18 17:30 04/01/18 17:29 Albuterol/ Ipratropium (Albuterol/ Ipratropium) 3 ml Q4H PRN HHN Shortness of Breath 03/04/18 12:00 03/09/18 11:59 03/04/18 23:28 Amitriptyline HCl (Elavil) 25 mg BEDTIME ORAL 03/02/18 21:00 04/01/18 20:59 03/05/18 20:48 Dextrose (Dextrose 50%) 25 ml PRN IV hypoglycemia 03/02/18 17:30 04/01/18 17:29 Dextrose (Dextrose 50%) 50 ml PRN IV hypoglycemia 03/02/18 17:30 04/01/18 17:29 Heparin Sodium (Porcine) (Heparin 5000 units/ml) 5,000 units EVERY 12 HOURS SUBQ 03/04/18 21:00 04/03/18 20:59 03/06/18 08:32 Lorazepam (Ativan 2mg/ml 1ml) 0.5 mg Q4H PRN IV For Anxiety 03/02/18 17:30 03/09/18 17:29 03/05/18 04:01 Metoprolol Tartrate (Lopressor) 25 mg EVERY 12 HOURS ORAL 03/02/18 21:00 04/01/18 20:59 03/06/18 08:31 Morphine Sulfate (Morphine Sulfate) 4 mg Q4H PRN IVP Severe Pain (Pain Scale 7-10) 03/02/18 21:15 03/09/18 21:14 03/06/18 01:14 Ondansetron HCl (Zofran) 4 mg Q6H PRN IVP Nausea & Vomiting 03/02/18 17:30 04/01/18 17:29 03/06/18 08:30 Polyethylene Glycol (Miralax) 17 gm HSPRN PRN ORAL Constipation 03/02/18 21:00 04/01/18 20:59 Zolpidem Tartrate (Ambien) 5 mg HSPRN PRN ORAL Insomnia 03/02/18 21:00 03/09/18 20:59 03/04/18 00:42 Holli Narayan M.D. Mar 06, 2018 11:04
[2018-03-06 12:00] VITALS: BP 165/83
[2018-03-06 13:01] VITALS: BP 165/83
--- NOTE | 2018-03-06 13:28 | General Progress Note ---
Assessment/Plan Problem List: (1) CHF (congestive heart failure) ICD Codes: I50.9 - Heart failure, unspecified SNOMED: 49955527 (2) HTN (hypertension) ICD Codes: I10 - HTN (hypertension) SNOMED: 70919374 (3) COPD (chronic obstructive pulmonary disease) with acute bronchitis ICD Codes: J44.1 - COPD (chronic obstructive pulmonary disease) with acute bronchitis SNOMED: 98887089 (4) Pleural effusion ICD Codes: J90 - Pleural effusion, not elsewhere classified SNOMED: 46782430 (5) FTT (failure to thrive) in adult ICD Codes: R62.7 - Adult failure to thrive SNOMED: 620514534 Assessment/Plan o2 pulm tx abx ot ot diet cbc bmp am aru eval Subjective Constitutional: Reports: weakness Allergies: Coded Allergies: No Known Allergies (Unverified , 06/30/17) All Systems: reviewed and negative except above Subjective o2nc sleepy calm Objective Last 24 Hour Vital Signs Date Time Temp Pulse Resp B/P (MAP) Pulse Ox O2 Delivery O2 Flow Rate FiO2 03/06/18 13:01 165/83 03/06/18 12:00 98.0 85 19 165/83 97 98.0 03/06/18 11:59 97.8 03/06/18 11:29 97.8 03/06/18 08:31 92 160/66 03/06/18 08:00 97.8 97 20 160/66 99 Room Air 97.8 03/06/18 07:50 78 20 Room Air 21 03/06/18 04:00 98.3 93 20 156/70 98 Nasal Cannula 2.0 98.3 03/06/18 00:00 98.4 79 18 139/75 100 Nasal Cannula 2.0 98.4 03/05/18 20:50 97 157/80 03/05/18 20:45 69 20 Room Air 21 03/05/18 20:00 98.2 97 19 157/80 97 Nasal Cannula 2.0 98.2 03/05/18 16:00 97.8 73 20 129/68 95 97.8 Intake and Output 03/05/18 03/06/18 19:00 07:00 Intake Total 360 ml 120 ml Balance 360 ml 120 ml Intake Oral 240 ml 120 ml Other 120 ml # Voids 3 1 Height (Feet): 5 Height (Inches): 5.00 Weight (Pounds): 129 General Appearance: lethargic EENT: normal ENT inspection Neck: normal alignment Cardiovascular: normal peripheral pulses, normal rate, regular rhythm Respiratory/Chest: chest wall non-tender, lungs clear, normal breath sounds Abdomen: normal bowel sounds, non tender, soft Extremities: normal inspection Edema: no edema noted Arm (L), no edema noted Arm (R), no edema noted Leg (L), no edema noted Leg (R), no edema noted Pedal (L), no edema noted Pedal (R), no edema noted Generalized Neurologic: motor weakness Skin: normal pigmentation, warm/dry Miki Garcia DO Mar 06, 2018 13:27
--- NOTE | 2018-03-06 13:47 | Pulmonology Progress Note ---
Assessment/Plan Problems: (1) Pneumonia (2) Pleural effusion (3) Lung mass (4) HTN (hypertension) Assessment/Plan improving respiratory treatment check sputum titrate fio2 to sat of 92% walking in the room doing much better dc planning Subjective ROS Limited/Unobtainable: No Constitutional: Reports: no symptoms HEENT: Repors: no symptoms Respiratory: Reports: no symptoms Allergies: Coded Allergies: No Known Allergies (Unverified , 06/30/17) Objective Last 24 Hour Vital Signs Date Time Temp Pulse Resp B/P (MAP) Pulse Ox O2 Delivery O2 Flow Rate FiO2 03/06/18 13:01 165/83 03/06/18 12:00 98.0 85 19 165/83 97 98.0 03/06/18 11:59 97.8 03/06/18 11:29 97.8 03/06/18 08:31 92 160/66 03/06/18 08:00 97.8 97 20 160/66 99 Room Air 97.8 03/06/18 07:50 78 20 Room Air 21 03/06/18 04:00 98.3 93 20 156/70 98 Nasal Cannula 2.0 98.3 03/06/18 00:00 98.4 79 18 139/75 100 Nasal Cannula 2.0 98.4 03/05/18 20:50 97 157/80 03/05/18 20:45 69 20 Room Air 21 03/05/18 20:00 98.2 97 19 157/80 97 Nasal Cannula 2.0 98.2 03/05/18 16:00 97.8 73 20 129/68 95 97.8 Intake and Output 03/05/18 03/06/18 19:00 07:00 Intake Total 360 ml 120 ml Balance 360 ml 120 ml Intake Oral 240 ml 120 ml Other 120 ml # Voids 3 1 General Appearance: WD/WN HEENT: normocephalic, atraumatic Respiratory/Chest: chest wall non-tender, lungs clear Cardiovascular: normal peripheral pulses, normal rate Abdomen: normal bowel sounds, soft, non tender Genitourinary: normal external genitalia Skin: no rash 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 Current Medications Medications (Trade) Dose Ordered Sig/Janee Route PRN Reason Start Time Stop Time Status Last Admin Dose Admin Acetaminophen (Tylenol) 650 mg Q4H PRN ORAL T>100.5 03/02/18 17:30 04/01/18 17:29 Al Hydroxide/Mg Hydroxide (Mylanta II) 30 ml Q6H PRN ORAL dyspepsia 03/02/18 17:30 04/01/18 17:29 Albuterol/ Ipratropium (Albuterol/ Ipratropium) 3 ml Q4H PRN HHN Shortness of Breath 03/04/18 12:00 03/09/18 11:59 03/04/18 23:28 Amitriptyline HCl (Elavil) 25 mg BEDTIME ORAL 03/02/18 21:00 04/01/18 20:59 03/05/18 20:48 Clonidine HCl (Catapres Tab) 0.1 mg Q4H PRN ORAL SBP>160mmHg 03/06/18 12:30 04/05/18 12:29 03/06/18 13:01 Dextrose (Dextrose 50%) 25 ml PRN IV hypoglycemia 03/02/18 17:30 04/01/18 17:29 Dextrose (Dextrose 50%) 50 ml PRN IV hypoglycemia 03/02/18 17:30 04/01/18 17:29 Heparin Sodium (Porcine) (Heparin 5000 units/ml) 5,000 units EVERY 12 HOURS SUBQ 03/04/18 21:00 04/03/18 20:59 03/06/18 08:32 Lorazepam (Ativan 2mg/ml 1ml) 0.5 mg Q4H PRN IV For Anxiety 03/02/18 17:30 03/09/18 17:29 03/05/18 04:01 Metoprolol Tartrate (Lopressor) 25 mg EVERY 12 HOURS ORAL 03/02/18 21:00 04/01/18 20:59 03/06/18 08:31 Morphine Sulfate (Morphine Sulfate) 4 mg Q4H PRN IVP Severe Pain (Pain Scale 7-10) 03/02/18 21:15 03/09/18 21:14 03/06/18 11:29 Ondansetron HCl (Zofran) 4 mg Q6H PRN IVP Nausea & Vomiting 03/02/18 17:30 04/01/18 17:29 03/06/18 08:30 Polyethylene Glycol (Miralax) 17 gm HSPRN PRN ORAL Constipation 03/02/18 21:00 04/01/18 20:59 Zolpidem Tartrate (Ambien) 5 mg HSPRN PRN ORAL Insomnia 03/02/18 21:00 03/09/18 20:59 03/04/18 00:42 Elie Reddy MD Mar 06, 2018 13:47
[2018-03-06] MEDS ORDERED: CATAPRES0.1 MG ORAL (13:49)
[2018-03-06] MEDS ORDERED: ALBUTEROL2.5 MG/3 M INH (13:51)
[2018-03-06] MEDS ORDERED: METOPROLOL TART25 MG ORAL (13:52)
[2018-03-06] MEDS ORDERED: LORAZEPAM0.5 MG ORAL (13:55)
[2018-03-06] MEDS ORDERED: MYLANTA30 M1 PO (13:56)
--- NOTE | 2018-03-07 12:21 | Discharge Summary ---
Discharge Summary Hospital Course Date of Admission Mar 02, 2018 at 20:00 Date of Discharge Mar 06, 2018 at 15:00 Admitting Diagnosis intractible pain, right effusion ms OBS HPI Laura Franco is a 68 year old female who was admitted on Mar 02, 2018 at 20: 00 for Intractable Pain, Right Effusion Hospital Course dc summary #[id number] Discharge Medications Continued Medications: Acetaminophen* (Acetaminophen 325MG Tablet*) 325 Mg Tablet 650 MG ORAL Q4H PRN for Fever/Headache/Mild Pain, TAB (This prescription has been renewed) Al Hydroxide/mg Hydroxide (Mag-Al Liquid) 30 Ml Oral.susp 30 ML PO Q6HR PRN for PRN, ML (This prescription has been renewed) Albuterol Sulfate* (Albuterol Sulfate Hhn*) 2.5 Mg/3 Ml Vial.neb 3 ML INH Q4H PRN for Shortness of Breath, EA (This prescription has been renewed ) Amitriptyline HCl (Elavil*) 25 Mg Tablet 25 MG ORAL BEDTIME, TAB (This prescription has been renewed) Clonidine Hcl* (Catapres*) 0.1 Mg Tablet 0.1 MG ORAL EVERY 4 HOURS PRN for PRN, TAB (This prescription has been renewed) Lorazepam* (Lorazepam*) 0.5 Mg Tablet 0.5 MG ORAL Q4HR PRN for PRN, TAB (This prescription has been renewed) Metoprolol Tartrate* (Metoprolol Tartrate*) 25 Mg Tablet 25 MG ORAL EVERY 12 HOURS, TAB Ondansetron* (Zofran*) 4 Mg Tablet 4 MG ORAL Q6H PRN for Nausea & Vomiting, TAB Polyethylene Glycol 3350* (Miralax*) 17 Gm Powd.pack 17 GM ORAL BEDTIME, PACKET Zolpidem Tartrate* (Ambien*) 5 Mg Tablet 5 MG ORAL BEDTIME PRN for Insomnia, TAB (This prescription has been renewed) Discharge Discharge Disposition Patient was discharged to Home () Amber Barnhart NP Mar 07, 2018 12:21
--- NOTE | 2018-03-07 15:24 | Cardiology Report ---
APPROVED REPORT EKG Measurement Heart [id number] Normal sinus rhythm Low voltage QRS Septal infarct, age undetermined Abnormal ECG
--- NOTE | 2018-03-07 19:30 | Discharge Summary 2 SIG ---
DATE OF ADMISSION: 03/02/2018 DATE OF DISCHARGE: 03/06/2018 REASON FOR ADMISSION: The patient is a 68-year-old female with a history of coronary artery disease, myocardial infarction, hypertension, chronic obstructive pulmonary disease, peripheral neuropathy, congestive heart failure, and right lung mass for which she refused biopsy on multiple occasions, presented to emergency department with complaint of shortness of breath, decreased oral intake, and increased cough. Upon presentation, the patient was afebrile. Pulse oximetry was 98% on the room air. However, the patient appeared to be short of breath and urinalysis revealed no evidence of urinary tract infection. No leukocytosis. Hemoglobin 11 and hematocrit 33.6. Stable electrolytes and renal parameters. Troponin negative. EKG revealed normal sinus rhythm. No acute ischemic changes. Chest x-ray revealed right-sided effusion and cardiomegaly. ADMITTING DIAGNOSES: The patient was admitted with a diagnoses of, 1. Acute respiratory distress. 2. Possible pneumonia. 3. Right lung mass. 4. Right pleural effusion. 5. Chronic obstructive pulmonary disease. 6. Hypertension. CONSULTANTS: 1. Elie Reddy M.D., Detasseling Crew Supervisor. 2. Gume Mosley M.D., Infectious Disease specialist. HOSPITAL COURSE: The patient was admitted. Supplemental oxygen provided as needed to keep pulse oximetry above 92%. Pulmonary toilet provided as needed. The patient was initially started on antibiotics. CT of the chest was ordered to delineate the extent of the disease. Infectious Disease consult was requested. According to Infectious Disease specialist, she doubted pneumonia and given that the patient had no leukocytosis, an Infectious Disease specialist recommended to keep the patient off antibiotics and closely observe unless febrile, increased oxygen requirement, or worsening infiltrates on chest x-ray. Blood cultures were negative. CT of the chest revealed [id number] bilateral pleural effusion, right greater than left. Ovli-co-yrkqnjkj bilateral lower lobe subsegmental atelectasis. Likely stable 2.1 cm right middle lobe mass. New surrounding postoperative atelectasis. Heterogeneous bone marrow consistent with diffuse osseous metastatic disease. No vertebral body height loss. Likely prominent right hilar lymph nodes. Venous duplex of bilateral lower extremity revealed no evidence of acute DVT. Echocardiogram revealed preserved ejection fraction of 60% to 65%. Right ventricular systolic pressure of 41 consistent with [id number] pulmonary hypertension and mild mitral regurgitation. Moderate left ventricular hypertrophy was noted. Antitussive provided as needed. Follow up chest x-ray revealed significant decrease in right pleural effusion. The patient continued to refuse lung biopsy. The patient was counseled to continue abstinence from smoking. The patient recently stopped smoking. The patient declined nicotine patch. DVT prophylaxis provided. Blood pressure was managed with beta-apolonia and was stable. Bowel regimen instituted. Supportive care provided. The patient had a poor appetite. Nutritional support provided. Nutritional recommendation implemented in plan of care. The patient will probably benefit from the palliative care given that she refused treatment and biopsy on multiple occasions and CT of the chest showed evidence of metastatic osseous disease. The patient was stable for discharge. FINAL DIAGNOSES: 1. Acute respiratory distress likely secondary to right lung mass and bilateral atelectasis, resolved. 2. Bilateral pleural effusion, stable. 3. Right lung mass (declined biopsy on multiple occasions). 4. Diffuse osseous metastatic disease. 5. Chronic obstructive pulmonary disease. 6. Former smoker. 7. Hypertension. 8. Moderate pulmonary hypertension. 9. Malnutrition. DISCHARGE MEDICATIONS: See medication reconciliation list. DISCHARGE INSTRUCTIONS: The patient was discharged home with home health services. Follow up with the primary care provider in one week. Miki Garcia D.O. I have been assigned to dictate discharge summary on this account and I was not involved in the patient's management. Amber Barnhart (vanchtein) N.PCaprice DR: KOREY JOB#: [id number] CC:
== END 2018-03-06 15:00 | disposition home health service (06) | DRG 143 ==
LOC: EDBD 14:14 → EMR 16:10 → EDBEDREQ 16:41 → 4W 16:58 → EDBEDREQ 17:01 → OBSVTOIN 20:00 → 4W 20:38
DX: J98.11 Atelectasis (principal); E46 Unspecified protein-calorie malnutrition; I11.0 Hypertensive heart disease with heart failure; J90 Pleural effusion, not elsewhere classified; I50.9 Heart failure, unspecified; C79.51 Secondary malignant neoplasm of bone; I27.20 Pulmonary hypertension, unspecified; R91.8 Other nonspecific abnormal finding of lung field; R06.03 Acute respiratory distress; I34.0 Nonrheumatic mitral (valve) insufficiency; J44.9 Chronic obstructive pulmonary disease, unspecified; I25.10 Atherosclerotic heart disease of native coronary artery without angina pectoris; G62.9 Polyneuropathy, unspecified; Z95.5 Presence of coronary angioplasty implant and graft; I25.2 Old myocardial infarction; M47.896 Other spondylosis, lumbar region; Z86.718 Personal history of other venous thrombosis and embolism; Z87.891 Personal history of nicotine dependence; Z91.19 Patient's noncompliance with other medical treatment and regimen; M79.1 Myalgia
CPT/HCPCS: 36415; 71045; 71260; 80053; 80061; 81003; 82550; 82553; 83605; 83690; 83880; 84443; 84484; 85025; 87040; 87081; 93005; 93306; 93970; 94640; 94664; 97803; 99285; J2405; J7620